=== PATIENT | female | born 1935 | race Caucasian/White ===

== ENCOUNTER → 2017-03-18 | Outpatient (CLI) | payer MEDICARE, BC ==
[2017-03-18 13:25] LABS: T4, Free (Free Thyroxine) 1.47 ng/dL (0.78-2.19)
== END | disposition home or self-care (01) ==
LOC: LABWHC1 12:12
PROVIDERS: ATTEND Internal Medicine Interventional Cardiology
DX: R00.2 Palpitations (principal)
CPT/HCPCS: 36415; 84439; 84443

== ENCOUNTER 2018-12-30 14:09 | Inpatient (IN) | payer MEDICARE, BC ==
[2018-12-30] MEDS ORDERED: IPRATROPIUM-ALBUTEROL 3 ML NEB INHALATION STA (14:40)
[2018-12-30 15:00] LABS: Basophils # (A) 0.2 k/uL (0-0.2); Basophils % (A) 2 %; Eosinophils % (A) 0 %; HCT 41.6 % (34.0-46.0); HGB 13.4 gm/dL (11.4-16.0); Lymphocytes # (A) 1.1 k/uL (1.0-4.8); Lymphocytes % (A) 12 %; MCH 28.3 pg (25.0-35.0); MCHC 32.3 g/dL (31.0-37.0); MCV 87.6 fL (80.0-100.0); Mean Platelet Volume 6.8; Monocytes # (A) 0.8 k/uL (0-1.0); Monocytes % (A) 8 %; Neutrophils # (A) 7.1 k/uL (1.3-7.7); Neutrophils % (A) 74 %; Platelet Count 285 k/uL (150-450); RBC 4.75 m/uL (3.80-5.40); RDW 14.6 % (11.5-15.5); WBC 9.5 k/uL (3.8-10.6)
--- NOTE | 2018-12-30 15:06 | ED ---
SOB HPI - General Chief Complaint: Shortness of Breath Stated Complaint: DARIUS Time Seen by Provider: 12/30/18 14:29 Source: patient, family Mode of arrival: ambulatory Limitations: no limitations - History of Present Illness Initial Comments: This 83-year-old female who was a former smoker and quit 31 years ago who is been dealing with respiratory issues with past week or so. She has shortness of breath exertional dyspnea cough with some yellow phlegm no overt chest pain. She has been on antibiotics as well as steroids without relief. Home medicat ions have not been helping. She is here today because of persistent symptoms that. No nausea no vomiting no other symptoms at this time. She was noted have a low pulse ox at home earlier today. MD Complaint: shortness of breath, cough - Related Data Allergies Allergy/AdvReac Type Severity Reaction Status Date / Time No Known Allergies Allergy Verified 12/30/18 14:22 Review of Systems ROS Statement: Those systems with pertinent positive or pertinent negative responses have been documented in the HPI. ROS Other: All systems not noted in ROS Statement are negative. Past Medical History Past Medical History: Hypertension Additional Past Medical History / Comment(s): brain tumor. 1987 History of Any Multi-Drug Resistant Organisms: None Reported Additional Past Surgical History / Comment(s): hysterectomy. appendectomy. nephrectomy. craniotomy. Bunionectomy Past Psychological History: No Psychological Hx Reported Smoking Status: Former smoker Past Alcohol Use History: Rare Past Drug Use History: Marijuana General Exam - General Exam Comments Initial Comments: Is a well-developed well-nourished awake alert oriented 3 female Limitations: no limitations General appearance: alert, anxious Head exam: Present: atraumatic, normocephalic, normal inspection Eye exam: Present: normal appearance, PERRL, EOMI. Absent: scleral icterus, conjunctival injection, periorbital swelling ENT exam: Present: normal exam, mucous membranes moist Neck exam: Present: normal inspection, full ROM, other (Genitourinary bruits). Absent: tenderness, meningismus, lymphadenopathy Respiratory exam: Present: accessory muscle use (Some kyphosis is demonstrated), decreased breath sounds. Absent: respiratory distress, wheezes, rales, rhonchi, stridor Cardiovascular Exam: Present: regular rate, normal rhythm, normal heart sounds. Absent: systolic murmur, diastolic murmur, rubs, gallop, clicks GI/Abdominal exam: Present: soft, normal bowel sounds. Absent: distended, tenderness, guarding, rebound, rigid Extremities exam: Present: normal inspection, full ROM, normal capillary refill. Absent: tenderness, pedal edema, joint swelling, calf tenderness Back exam: Present: normal inspection Neurological exam: Present: alert, oriented X3, CN II-XII intact Psychiatric exam: Present: normal affect, normal mood Skin exam: Present: warm, dry, intact, normal color. Absent: rash Course Vital Signs 12/30/18 12/30/18 12/30/18 14:12 14:51 15:05 Temperature 98.3 F Pulse Rate 74 72 68 Respiratory 20 22 20 Rate Blood Pressure 138/76 O2 Sat by Pulse 85 L Oximetry - Reevaluation(s) Reevaluation #1: 12/30/18 16:20 Shake he has some improvement after the nebulizer treatment. Medical Decision Making - Medical Decision Making I did discuss findings the patient family members patient will be admitted he does have evidence pneumonia and effusion. Dr. RT hirsch and will be consulted. - Lab Data Result diagrams: 12/30/18 14:33 12/30/18 14:33 Lab Results 12/30/18 12/30/18 12/30/18 Range/Units 14:33 14:33 14:33 WBC 9.5 (3.8-10.6) k/uL RBC 4.75 (3.80-5.40) m/uL Hgb 13.4 (11.4-16.0) gm/dL Hct 41.6 (34.0-46.0) % MCV 87.6 (80.0-100.0) fL MCH 28.3 (25.0-35.0) pg MCHC 32.3 (31.0-37.0) g/dL RDW 14.6 (11.5-15.5) % Plt Count 285 (150-450) k/uL Neutrophils % 74 % Lymphocytes % 12 % Monocytes % 8 % Eosinophils % 0 % Basophils % 2 % Neutrophils # 7.1 (1.3-7.7) k/uL Lymphocytes # 1.1 (1.0-4.8) k/uL Monocytes # 0.8 (0-1.0) k/uL Eosinophils # 0.0 (0-0.7) k/uL Basophils # 0.2 (0-0.2) k/uL PT (9.0-12.0) sec INR (<1.2) APTT (22.0-30.0) sec Sodium 129 L (137-145) mmol/L Potassium 4.4 (3.5-5.1) mmol/L Chloride 91 L (98-107) mmol/L Carbon Dioxide 28 (22-30) mmol/L Anion Gap 10 mmol/L BUN 17 (7-17) mg/dL Creatinine 0.85 (0.52-1.04) mg/dL Est GFR (CKD-EPI)AfAm 73 (>60 ml/min/1.73 sqM) Est GFR (CKD-EPI)NonAf 63 (>60 ml/min/1.73 sqM) Glucose 120 H (74-99) mg/dL Calcium 9.1 (8.4-10.2) mg/dL Magnesium 1.9 (1.6-2.3) mg/dL Total Bilirubin 0.9 (0.2-1.3) mg/dL AST 25 (14-36) U/L ALT 26 (9-52) U/L Alkaline Phosphatase 103 (38-126) U/L Creatine Kinase 135 (30-135) U/L Troponin I (0.000-0.034) ng/mL NT-Pro-B Natriuret Pep 1110 pg/mL Total Protein 7.6 (6.3-8.2) g/dL Albumin 4.0 (3.5-5.0) g/dL 12/30/18 12/30/18 Range/Units 14:33 14:33 WBC (3.8-10.6) k/uL RBC (3.80-5.40) m/uL Hgb (11.4-16.0) gm/dL Hct (34.0-46.0) % MCV (80.0-100.0) fL MCH (25.0-35.0) pg MCHC (31.0-37.0) g/dL RDW (11.5-15.5) % Plt Count (150-450) k/uL Neutrophils % % Lymphocytes % % Monocytes % % Eosinophils % % Basophils % % Neutrophils # (1.3-7.7) k/uL Lymphocytes # (1.0-4.8) k/uL Monocytes # (0-1.0) k/uL Eosinophils # (0-0.7) k/uL Basophils # (0-0.2) k/uL PT 10.6 (9.0-12.0) sec INR 1.0 (<1.2) APTT 25.8 (22.0-30.0) sec Sodium (137-145) mmol/L Potassium (3.5-5.1) mmol/L Chloride (98-107) mmol/L Carbon Dioxide (22-30) mmol/L Anion Gap mmol/L BUN (7-17) mg/dL Creatinine (0.52-1.04) mg/dL Est GFR (CKD-EPI)AfAm (>60 ml/min/1.73 sqM) Est GFR (CKD-EPI)NonAf (>60 ml/min/1.73 sqM) Glucose (74-99) mg/dL Calcium (8.4-10.2) mg/dL Magnesium (1.6-2.3) mg/dL Total Bilirubin (0.2-1.3) mg/dL AST (14-36) U/L ALT (9-52) U/L Alkaline Phosphatase (38-126) U/L Creatine Kinase (30-135) U/L Troponin I 0.020 (0.000-0.034) ng/mL NT-Pro-B Natriuret Pep pg/mL Total Protein (6.3-8.2) g/dL Albumin (3.5-5.0) g/dL - EKG Data -: EKG Interpreted by Me (EKG shows a rhythm of 80 bpm and QRS 120 QT cyst QTc 412/475 left axis leobardo) EKG Comments: EKG and rhythm of 80 QRS 120 QT cyst QTc 412/475 left exodeviation right bundle- branch block anterior septal changes. - Radiology Data Radiology results: report reviewed (I did review the imaging and report evidence of a right pleural effusion and small left effusion also bilateral infiltrates.), image reviewed Disposition Clinical Impression: Pneumonia, Pleural effusion, right, Hypoxemia Disposition: ADMITTED IP TO THIS [facility] Condition: Fair Referrals: Ahsok Sanchez MD [Primary Care Provider] - 1-2 days
[2018-12-30 15:09] LABS: Partial Thromboplastin Time 25.8 sec (22.0-30.0); Prothrombin Time 10.6 sec (9.0-12.0)
[2018-12-30 15:15] LABS: Calcium 9.1 mg/dL (8.4-10.2); Magnesium 1.9 mg/dL (1.6-2.3); Potassium 4.4 mmol/L (3.5-5.1); Total Bilirubin 0.9 mg/dL (0.2-1.3); Total Protein 7.6 g/dL (6.3-8.2)
--- NOTE | 2018-12-30 15:33 | XR ---
EXAMINATION TYPE: XR chest 2V DATE OF EXAM: 12/30/2018 COMPARISON: NONE HISTORY: Short of breath TECHNIQUE: Frontal and lateral views of the chest are obtained. FINDINGS: There is blunting of the costophrenic angles more on the right side. Heart is slightly enl arged. There is minimal pulmonary congestion. There are chest leads. IMPRESSION: Pleural effusions larger on the right side. There is probably some right lower lobe pneu monia also. No obvious heart failure. Mild pulmonary congestion.
[2018-12-30] MEDS ORDERED: PIPERACILLIN-TAZOBACTAM 3.375 GM in SODIUM CHLORIDE 0.9% 100 ML IVPB STA (16:19)
[2018-12-30] MEDS ORDERED: LEVOFLOXACIN 750MG-D5W PMX 750 MG in DEXTROSE/WATER 1 150ML.BAG IVPB STA (16:28)
[2018-12-30] MEDS ORDERED: PNEUMONIA PROTOCOL UTILIZED 1 EACH MISC PO PRN (16:28)
[2018-12-30] MEDS: SODIUM CHLORIDE 0.9% 1,000 ML IV SCH (17:02)
[2018-12-30] MEDS ORDERED: ONDANSETRON 4 MG/2 ML VIAL IVP PRN (17:13)
[2018-12-30] MEDS: IPRATROPIUM-ALBUTEROL 3 ML NEB INHALATION SCH (20:30)
[2018-12-30] MEDS: ATORVASTATIN 20 MG TAB PO SCH (22:34)
[2018-12-30] MEDS: ENOXAPARIN 40 MG/0.4 ML SYRINGE SQ SCH (22:34)
[2018-12-30] MEDS: ASPIRIN 81 MG PO SCH (22:34)
[2018-12-30] MEDS: CEFEPIME 2 GM in SODIUM CHLORIDE 0.9% 100 ML IVPB SCH (22:35)
--- NOTE | 2018-12-30 22:36 | P.HPIM ---
History of Present Illness H&P Date: 12/30/18 Chief Complaint: Short of breath and cough History of presenting complaint: This is a pleasant 83-year-old patient of Dr. Ashok Sanchez. Was also patient's son. Chronic stable medical conditions include brain tumor removed in 1986 with no sequela, GERD, primary osteoarthritis, paroxysmal atrial fibrillation, hyperlipidemia. Patient for about a week been having bothersome respiratory symptoms. That includes shortness of breath. Cough with white to yellow sputum. Appetite is gone down. No obvious fever and chills. Tired rundown. Getting is the short of breath. Patient has received steroids course of ciprofloxacin and also one dose of IV ceftriaxone IM. Symptoms not improving hence she was brought to the ER. Checks expected from consolidation and pleural fluid overload right side. Admitted for the same. Not much of edema. Review of systems: GEN.: Weak tired decreased appetite EYES: None HEENT: None NECK: None RESPIRATORY: As above CARDIOVASCULAR: None GASTROINTESTINAL: None GENITOURINARY: None MUSCULOSKELETAL: Pain in several joints LYMPHATICS: None HEMATOLOGICAL: None PSYCHIATRY: None NEUROLOGICAL: None Past medical history to include: Brain tumor removed in 1986, GERD, or strength redness, paroxysmal atrial flutter ablation, hyperlipidemia hypertension Social history: Lives with family, stop smoking over 30 years ago. Smoked a pack a day for close to 30 years. Patient did work in the [employer] also helped patient's in rehab. Physical examination: VITAL SIGNS: 98.3, 74, 20, 138/76, 85% on room air GENERAL: BMI 31.6, propped up in bed, short of breath at rest. EYES: Pupils equal. Conjunctiva normal. HEENT: External appearance of nose and ears normal, oral cavity grossly normal. NECK: JVD possibly raise; masses not palpable. HEART: First and second heart sounds are normal; minimal edema. LUNGS: Respiratory rate increased, decreased breath sounds at the bases. ABDOMEN: Soft, nontender, liver spleen not palpable, no masses palpable. PSYCH: Alert and oriented x3; mood and affect normal. NEUROLOGICAL: Cranial nerves grossly intact; no facial asymmetry, power and sensation grossly intact. LYMPHATICS: No lymph nodes palpable in the axilla and neck MUSCULOSKELETAL: Evidence of OA especially the hands INVESTIGATIONS, reviewed in the clinical context: White count 9.5 hemoglobin 13.4 platelets 285 2129 progression 4.4 creatinine 0.85 troponin I 0.020 proBNP 1110 Chest x-ray film personally reviewed by me shows-right lower lobe pneumonia with associated pleural effusion. Some venous prominence EKG tracing personally reviewed by me-undetermined rhythm Assessment: -This is a patient for 1 week have been increasing shortness of breath cough is some yellow sputum. Decreased appetite no obvious fever and chills. Checks x- ray showing right lower lobe consolidation associated pleural effusion. Patient has failed outpatient treatment with antibiotics. Treated for pneumonia, consider underlying gram-negative organism -Right pleural effusion could be parapneumonic -GERD -Primary osteoarthritis -Acute hypoxic respiratory failure from underlying pneumonia -Hyperlipidemia -Obesity BMI 31.60 -Rule out congestive heart failure Plan: Patient did receive a dose of Levaquin and Zosyn ER. Also start patient to cefepime. Every 12. Bronchodilators added along with IV Solu-Medrol. Also we'll order a chest ultrasound tomorrow fluid for possible thoracentesis. Dr. Walker from pulmonary is consulted. Home medications resumed. We'll also order 2-D echocardiogram to assess for LV function. Lovenox for DVT prophylaxis. Care was discussed with patient's son and daughter the bedside. Questions were answered. Pro calcitonin level also ordered. Past Medical History Past Medical History: Hypertension Additional Past Medical History / Comment(s): brain tumor. 1987 History of Any Multi-Drug Resistant Organisms: None Reported Additional Past Surgical History / Comment(s): hysterectomy. appendectomy. nephrectomy. craniotomy. Bunionectomy Past Psychological History: No Psychological Hx Reported Smoking Status: Former smoker Past Alcohol Use History: Rare Past Drug Use History: Marijuana - Past Family History Father Additional Family Medical History / Comment(s): stem cell ca, Mother Family Medical History: COPD Additional Family Medical History / Comment(s): asthma, emphysema Medications and Allergies Home Medications Medication Instructions Recorded Confirmed Type Aspirin EC [Ecotrin Low Dose] 81 mg PO Q48H 12/30/18 12/30/18 History Atorvastatin [Lipitor] 20 mg PO HS 12/30/18 12/30/18 History Cephalexin [Keflex] 500 mg PO TID 12/30/18 12/30/18 History Flecainide Acetate 100 mg PO BID 12/30/18 12/30/18 History Krill Oil 500 mg PO DAILY 12/30/18 12/30/18 History Naproxen [Naprosyn] 500 mg PO BID 12/30/18 12/30/18 History Pantoprazole Sodium [Protonix] 40 mg PO DAILY 12/30/18 12/30/18 History Timolol 0.5% Ophth Soln [Timoptic 1 drop BOTH EYES BID 12/30/18 12/30/18 History 0.5% Ophth Soln] Vitamin D3(Unknown Dose) 1 tab PO DAILY 12/30/18 12/30/18 History amLODIPine [Norvasc] 5 mg PO DAILY 12/30/18 12/30/18 History Allergies Allergy/AdvReac Type Severity Reaction Status Date / Time adhesive tape Allergy Itching Verified 12/30/18 17:48 Iodinated Contrast Media Allergy Itching Verified 12/30/18 17:51 Physical Exam Vitals: Vital Signs Temp Pulse Pulse Resp BP BP Pulse Ox 12/30/18 21:17 76 12/30/18 20:30 72 92 L 12/30/18 19:21 97.9 F 72 18 143/79 95 12/30/18 18:13 60 17 12/30/18 17:15 97.7 F 60 17 157/95 92 L 12/30/18 16:30 75 20 118/97 93 L 12/30/18 16:28 92 L 12/30/18 16:27 20 12/30/18 16:00 78 20 143/76 92 L 12/30/18 15:05 68 20 12/30/18 14:51 72 22 12/30/18 14:12 98.3 F 74 20 138/76 85 L Intake and Output 12/30/18 12/30/18 12/30/18 06:59 14:59 22:59 Other: # Voids 1 Weight 78.471 kg Results CBC & Chem 7: 12/30/18 14:33 12/30/18 14:33 Labs: Abnormal Lab Results - Last 24 Hours (Table) 12/30/18 Range/Units 14:33 Sodium 129 L (137-145) mmol/L Chloride 91 L (98-107) mmol/L Glucose 120 H (74-99) mg/dL Thrombosis Risk Factor Assmnt - Choose All That Apply Any of the Below Risk Factors Present?: Yes Each Factor Represents 1 point: Obesity (BMI >25) Each Risk Factor Represents 3 Points: Age 75 years or older Thrombosis Risk Factor Assessment Total Risk Factor Score: 4 Thrombosis Risk Factor Assessment Level: Moderate Risk
[2018-12-30] MEDS: FLECAINIDE 50 MG TAB PO SCH (22:48)
[2018-12-30] MEDS: TIMOLOL 0.5% OPHTH DROPS 5 ML BTL BOTH EYES SCH (22:48)
[2018-12-30] MEDS: NAPROXEN 250 MG TAB PO SCH (22:48)
[2018-12-31] MEDS ORDERED: PIPERACILLIN-TAZOBACTAM 3.375 GM in SODIUM CHLORIDE 0.9% 100 ML IVPB SCH ×2
[2018-12-31] MEDS: IPRATROPIUM-ALBUTEROL 3 ML NEB INHALATION SCH ×7 (00:18→23:22)
--- NOTE | 2018-12-31 07:01 | XR ---
EXAMINATION TYPE: XR chest 2V DATE OF EXAM: 12/31/2018 HISTORY: pneumonia. REFERENCE: Previous study dated 12/30/2018. FINDINGS: there is a worsening right pleural effusion and a smaller left pleural effusion. The heart is enlarged. Pulmonary vasculature is mildly increased. There is subtle interstitial change. IMPRESSION: 1. WORSENING CHANGES OF PULMONARY EDEMA. 2. WORSENING RIGHT-SIDED EFFUSION. 3. CARDIOMEGALY.
[2018-12-31] MEDS: NAPROXEN 250 MG TAB PO SCH ×2 (07:32→20:41)
[2018-12-31] MEDS: ENOXAPARIN 40 MG/0.4 ML SYRINGE SQ SCH (07:32)
[2018-12-31] MEDS: amLODIPine 5 MG TAB PO SCH (07:32)
[2018-12-31] MEDS: PANTOPRAZOLE 40 MG TABLET PO SCH (07:32)
[2018-12-31] MEDS: FLECAINIDE 50 MG TAB PO SCH ×2 (07:32→20:40)
--- NOTE | 2018-12-31 07:54 | US ---
EXAMINATION TYPE: US chest DATE OF EXAM: 12/31/2018 COMPARISON: NONE CLINICAL HISTORY: chest marking for thoracentesis. TECHNIQUE: Targeted ultrasound of the posterior lower bilateral hemithoraces EXAM MEASUREMENTS: Right Pleural Effusion pocket size: 3.2 cm Right skin surface to fluid distance: 3.4cm Left Pleural Effusion pocket size: 0 cm Right side marked for possible thoracentesis outside the dept. Left side not marked for possible thoracentesis outside the dept. Pulmonologists are able to review the images in the patient?s EMR. IMPRESSIONS: MODERATE RIGHT-SIDED PLEURAL EFFUSION WITH TRACE LEFT-SIDED FLUID.
[2018-12-31] MEDS ORDERED: RX INFO: IV CONTRAST WAS GIVEN 1 EACH MISC MISCELLANE PRN (08:31)
[2018-12-31] MEDS ORDERED: methylPREDNISolone SOD SUCCI 125 MG/2 ML VIAL IV ONE (08:51)
[2018-12-31] MEDS ORDERED: FAMOTIDINE 20 MG/2 ML VIAL IV ONE (08:52)
[2018-12-31] MEDS ORDERED: diphenhydrAMINE 50 MG/ML 1 ML VIAL IVP STA (08:52)
[2018-12-31] MEDS: TIMOLOL 0.5% OPHTH DROPS 5 ML BTL BOTH EYES SCH ×2 (09:03→20:40)
--- NOTE | 2018-12-31 09:34 | CT ---
EXAMINATION TYPE: CT angio chest DATE OF EXAM: 12/31/2018 9:25 AM COMPARISON: HISTORY: SOB CT DLP: 487.5 mGycm Automated exposure control for dose reduction was used. CONTRAST: CTA scan of the thorax is performed with IV Contrast, patient injected with 86 mL of Isovue 370, pulm onary embolism protocol. . FINDINGS: There is a large right pleural effusion and a smaller left pleural effusion. There is moder ate atelectasis of the right lung base. The heart is enlarged. There is a small amount of pericardial fluid within the pericardial reflection. There is atelectatic change present in the dependent portio ns of the left lung. There is no significant axillary, mediastinal or hilar adenopathy. There is no evidence of pulmonary embolus. The aorta is normal in size without evidence of dissection. There is some eccentric thrombus within t he distal thoracic aorta. Visualized portions of the upper abdomen are unremarkable. There is degenerative disc disease and hypertrophic spondylosis within the spine. IMPRESSION: 1. THIS EXAMINATION IS NEGATIVE FOR PULMONARY EMBOLUS. 2. BILATERAL PLEURAL EFFUSIONS, LARGER ON THE RIGHT THE LEFT WITH MODERATE CONSOLIDATION AT THE RIGHT LUNG BASE. 3. MILD CARDIOMEGALY. 4. SOME FLUID WITHIN THE PERICARDIAL REFLECTION.
[2018-12-31] MEDS: CEFEPIME 2 GM in SODIUM CHLORIDE 0.9% 100 ML IVPB SCH ×2 (12:07→21:38)
--- NOTE | 2018-12-31 12:18 | P.CNPUL ---
History of Present Illness Consult date: 12/31/18 Reason for consult: pneumonia, pleural effusion Chief complaint: shortness of breath and cough. History of present illness: this is an 83-year-old female with history of multiple medical problems including paroxysmal atrial fibrillation, dyslipidemia, osteoarthritis, history of brain tumor removed in 1986 with no sequela. Patient presented to the hospital with 1 week history of cough, shortness of breath, describes the cough as productive with white to yellow sputum. Denies any fever, no chills, no hemoptysis, but she feels generally weak and tired, rundown. Denies any hemoptysis, denies any chest pain, has been on outpatient therapy with ciprofloxacin, steroids, and she received IM ceftriaxone. Considering no improvement, patient was seen in the ER last night. Chest x-ray showed evidence of right lower lobe consolidation, and a small right-sided pleural effusion noted on ultrasound of the chest. CT of the chest showed no evidence of thromboembolic disease. Patient was admitted, placed on antibiotics in the form ofZosyn and cefepime. And this consult was initiated. I did review the results of the ultrasound, and the pocket of the fluid seems to be relatively small to consider safe right-sided thoracentesis. I recommended CT angiogram of the chest and clearly there is no evidence of thromboembolic disease. There is a right lower lobe consolidation, and there is a right-sided parapneumonic effusion again too small to consider safe thoracentesis at this point. But if it does get any larger, thoracentesis will definitely be indicated.her labs on admission showed no evidence of leukocytosis, however her sodium was noted to be low at 129. Renal profile was normal. Review of Systems Constitutional: feels worn down, tired, no fever no chills no weight loss. Eyes: denies any blurred vision, no diplopia. Ears, nose, mouth and throat: denies headache, sore throat, nasal congestion. Cardiovascular: Denies chest pain, denies syncope. Respiratory: mostly cough and shortness of breath. As noted in HPI. Gastrointestinal: denies nausea vomiting abdominal pain melena or hematemesis. Musculoskeletal, denies any deformities or any limitation of range of motion. Integumentary: denies any rashes or pruritus. Neurological: Denies numbness, Denies weakness Psychiatric: denies any symptoms of active depression or anxiety. Endocrine: denies any heat or cold intolerance. Past Medical History Past Medical History: Hypertension Additional Past Medical History / Comment(s): brain tumor. 1987 History of Any Multi-Drug Resistant Organisms: None Reported Additional Past Surgical History / Comment(s): hysterectomy. appendectomy. nephrectomy. craniotomy. Bunionectomy Past Psychological History: No Psychological Hx Reported Smoking Status: Former smoker Past Alcohol Use History: Rare Past Drug Use History: Marijuana - Past Family History Father Additional Family Medical History / Comment(s): stem cell ca, Mother Family Medical History: COPD Additional Family Medical History / Comment(s): asthma, emphysema Medications and Allergies Home Medications Medication Instructions Recorded Confirmed Type Aspirin EC [Ecotrin Low Dose] 81 mg PO Q48H 12/30/18 12/30/18 History Atorvastatin [Lipitor] 20 mg PO HS 12/30/18 12/30/18 History Cephalexin [Keflex] 500 mg PO TID 12/30/18 12/30/18 History Flecainide Acetate 100 mg PO BID 12/30/18 12/30/18 History Krill Oil 500 mg PO DAILY 12/30/18 12/30/18 History Naproxen [Naprosyn] 500 mg PO BID 12/30/18 12/30/18 History Pantoprazole Sodium [Protonix] 40 mg PO DAILY 12/30/18 12/30/18 History Timolol 0.5% Ophth Soln [Timoptic 1 drop BOTH EYES BID 12/30/18 12/30/18 History 0.5% Ophth Soln] Vitamin D3(Unknown Dose) 1 tab PO DAILY 12/30/18 12/30/18 History amLODIPine [Norvasc] 5 mg PO DAILY 12/30/18 12/30/18 History Allergies Allergy/AdvReac Type Severity Reaction Status Date / Time adhesive tape Allergy Itching Verified 12/30/18 17:48 Iodinated Contrast Media Allergy Itching Verified 12/30/18 17:51 Physical Exam Vitals: Vital Signs Temp Pulse Pulse Resp BP BP Pulse Ox 12/31/18 09:45 72 12/31/18 09:34 68 12/31/18 08:00 60 16 12/31/18 07:00 98.3 F 60 16 144/67 90 L 12/31/18 04:29 76 12/31/18 04:10 75 12/31/18 00:57 97.3 F L 66 15 122/67 93 L 12/31/18 00:28 72 12/31/18 00:18 72 12/30/18 21:17 76 12/30/18 20:30 72 92 L 12/30/18 19:21 97.9 F 72 18 143/79 95 12/30/18 18:13 60 17 12/30/18 17:15 97.7 F 60 17 157/95 92 L 12/30/18 16:30 75 20 118/97 93 L 12/30/18 16:28 92 L 12/30/18 16:27 20 12/30/18 16:00 78 20 143/76 92 L 12/30/18 15:05 68 20 12/30/18 14:51 72 22 12/30/18 14:12 98.3 F 74 20 138/76 85 L Intake and Output 12/30/18 12/31/18 12/31/18 22:59 06:59 14:59 Intake Total 10 Balance 10 Intake: Oral 10 Other: # Voids 1 1 Physical Exam: Revealed 83-year-old female in no distress.on 3 L nasal cannula. Head: Atraumatic, normocephalic. HEENT:[Neck is supple.] [No neck masses.] [No thyromegaly.] [No JVD.]PERRLA, EOMI, no icterus. Chest: [crackles at the right base, dullness and diminished breath sounds at the right base. Left side is relatively clear. Cardiac Exam: [Normal S1 and S2, no S3 gallop, no murmur.] Abdomen: [Soft, nontender, no megaly, no rebound, no guarding, normal bowel sounds.] Extremities: [No clubbing, no edema, no cyanosis.] Neurological Exam:alert and oriented 3. [No focal neurologic deficit.] skin: No rashes. Lymphatics: No lymphadenopathy. musculoskeletal: Normal range of motion, osteoarthritic changes noted in hands, otherwise unremarkable. Results - Laboratory Findings CBC and BMP: 12/30/18 14:33 12/30/18 14:33 PT/INR, D-dimer PT 10.6 sec (9.0-12.0) 12/30/18 14:33 INR 1.0 (<1.2) 12/30/18 14:33 D-Dimer 0.74 mg/L FEU (<0.60) H 12/31/18 07:28 Abnormal lab findings: Abnormal Labs 12/30/18 12/31/18 14:33 07:28 D-Dimer 0.74 H Sodium 129 L Chloride 91 L Glucose 120 H - Diagnostic Findings Chest x-ray: image reviewed (as noted in HPI. Chest x-ray ultrasound and CT of the chest were all reviewed.) CT scan - chest: image reviewed Assessment and Plan Assessment: impression: 1acute hypoxic respiratory failure secondary to right lower lobe pneumonia and parapneumonic effusion, this is likely community acquired pneumonia. However failed outpatient antibiotics treatment. 2 acute right lower lobe pneumonia, community-acquired, failed outpatient therapy. 3 acute right parapneumonic effusion, however based on the ultrasound, not large enough to consider thoracentesis, but if it does seem to get any larger, thoracentesis would be performed. And should be considered. 4 multiple comorbidities including hypertension, previous history of craniotomy for brain tumor in 1986,and osteoarthritis. Recommendation: Reviewed and discussed the findings with the patient's son-in-law/Dr. Sanchez, recommended that we continue the course of antibiotics is presently on, recommended repeat chest x-ray, and in the right sided pleural effusion seems to get any larger, I am certain Dr. Cherry will recommend a right-sided thoracentesis. At this point, the pleural effusion is relatively small in size to considered safe thoracentesis. Again ultrasound and CT of the chest were both reviewed. There is no evidence of thromboembolic disease, there is evidence of right lower lobe consolidation and right parapneumonic pleural effusion.Will continue to follow. Time with Patient: Greater than 30
[2018-12-31] MEDS: methylPREDNISolone SOD SUCCI 40 MG/ML 1 ML VIAL IV SCH (13:36)
[2018-12-31] MEDS: CHOLECALCIFEROL 1,000 UNIT TAB PO SCH (13:36)
--- NOTE | 2018-12-31 16:18 | P.PN ---
Progress Note - Text Progress Note Date: 12/31/18 Chief Complaint: Short of breath and cough History of presenting complaint: This is a pleasant 83-year-old patient of Dr. Ashok Sanchez. Was also patient's son. Chronic stable medical conditions include brain tumor removed in 1986 with no sequela, GERD, primary osteoarthritis, paroxysmal atrial fibrillation, hyperlipidemia. Patient for about a week been having bothersome respiratory symptoms. That includes shortness of breath. Cough with white to yellow sputum. Appetite is gone down. No obvious fever and chills. Tired rundown. Getting is the short of breath. Patient has received steroids course of ciprofloxacin and also one dose of IV ceftriaxone IM. Symptoms not improving hence she was brought to the ER. Checks expected from consolidation and pleural fluid overload right side. Admitted for the same. Not much of edema. Admitted with right lower lobe pneumonia, small pleural effusion and COPD exacerbation Today-patient did get to uses CPAP machine this morning. Short of breath. Some wheezing. Family the bedside. Oral intake decreased. Review of systems: Was done for constitutional, cardiovascular, GI, pulmonary. relevant finding as above Active Medications Albuterol/Ipratropium (Duoneb 0.5 Mg-3 Mg/3 Ml Soln) 3 ml INHALATION RT-Q4H [facility] Last Admin: 12/31/18 16:02 Dose: 3 ml Documented by: Amlodipine Besylate (Norvasc) 5 mg PO DAILY [facility] Last Admin: 12/31/18 07:32 Dose: 5 mg Documented by: Aspirin (Aspirin) 81 mg PO Q48H [facility] Last Admin: 12/30/18 22:34 Dose: 81 mg Documented by: Atorvastatin Calcium (Lipitor) 20 mg PO HS [facility] Last Admin: 12/30/18 22:34 Dose: 20 mg Documented by: Budesonide (Pulmicort) 1 mg INHALATION RT-BID [facility] Cholecalciferol (Vitamin D3 (25 Mcg = 1000 Iu)) 1,000 unit PO DAILY [facility] Last Admin: 12/31/18 13:36 Dose: 1,000 unit Documented by: Enoxaparin Sodium (Lovenox) 40 mg SQ DAILY [facility] Last Admin: 12/31/18 07:32 Dose: 40 mg Documented by: Flecainide Acetate (Tambocor) 100 mg PO BID [facility] Last Admin: 12/31/18 07:32 Dose: 100 mg Documented by: Sodium Chloride (Saline 0.9%) 1,000 mls @ 20 mls/hr IV .Q24H [facility] Last Admin: 12/30/18 17:02 Dose: 20 mls/hr Documented by: Cefepime HCl 2 gm/ Sodium (Chloride) 100 mls @ 200 mls/hr IVPB Q12H [facility] Last Admin: 12/31/18 12:07 Dose: 200 mls/hr Documented by: Insulin Aspart (Novolog) 0 unit SQ AC-TID [facility]; Protocol Methylprednisolone Sodium Succinate (Solu-Medrol) 40 mg IV Q8HR [facility] Last Admin: 12/31/18 13:36 Dose: 40 mg Documented by: Miscellaneous Information (Pneumonia Protocol Utilized) 1 each PO ONCE PRN PRN Reason: Per Protocol Miscellaneous Information (Rx Info: Iv Contrast Was Given) 1 each MISCELLANE DAILY PRN PRN Reason: Per Protocol Stop: 01/02/19 08:31 Naproxen (Naprosyn) 500 mg PO BID [facility] Last Admin: 12/31/18 07:32 Dose: 500 mg Documented by: Ondansetron HCl (Zofran) 4 mg IVP Q8HR PRN PRN Reason: Nausea Pantoprazole Sodium (Protonix) 40 mg PO DAILY [facility] Last Admin: 12/31/18 07:32 Dose: 40 mg Documented by: Timolol Maleate (Timoptic) 1 drops BOTH EYES BID [facility] Last Admin: 12/31/18 09:03 Dose: 1 drops Documented by: Physical examination: VITAL SIGNS: 99, 67, 16, 150/71, 90% on 4 L GENERAL: Laying in bed, tired with the CPAP machine, short of breath. EYES: Pupils equal. Conjunctiva normal. HEENT: External appearance of nose and ears normal, oral cavity grossly normal. NECK: JVD possibly raise; masses not palpable. HEART: First and second heart sounds are normal; minimal edema. LUNGS: Respiratory rate increased, decreased breath sounds at the bases., Some wheezing ABDOMEN: Soft, nontender, liver spleen not palpable, no masses palpable. PSYCH: Alert and oriented x3; mood and affect normal. MUSCULOSKELETAL: Evidence of OA especially the hands INVESTIGATIONS, reviewed in the clinical context: White count 9.5 hemoglobin 13.4 platelets 285 progression 4.4 creatinine 0.85 troponin I 0.020 proBNP 1110 Chest x-ray film personally reviewed by me shows-right lower lobe pneumonia with associated pleural effusion. Some venous prominence EKG tracing personally reviewed by me-undetermined rhythm Chest CTA-negative for PE Assessment: -Right lower lobe pneumonia with a small parapneumonic effusion, having failed outpatient treatment, slow to respond -Bilateral pleural effusion right greater than left -GERD -Obstructive sleep apnea, uses CPAP -Primary osteoarthritis -Acute hypoxic respiratory failure from underlying pneumonia, slow to respond -Hyperlipidemia -Obesity BMI 31.60 -Rule out congestive heart failure Plan: Patient is on IV cefepime, DuoNeb, Solu-Medrol. Nebulized Pulmicort is being added. Echocardiogram pending. Care was discussed with the family the bedside.
[2018-12-31 17:02] LABS: Glucose,Whole Blood 163 mg/dL (75-99)
[2018-12-31] MEDS: INSULIN ASPART (NovoLOG) 100 UNIT/ML VIAL SQ SCH (17:19)
[2018-12-31] MEDS ORDERED: LEVOFLOXACIN 750MG-D5W PMX 750 MG in DEXTROSE/WATER 1 150ML.BAG IVPB SCH (18:00)
[2018-12-31] MEDS: SODIUM CHLORIDE 0.9% 1,000 ML IV SCH (18:48)
[2018-12-31] MEDS: BUDESONIDE 1 MG/2 ML NEBU INHALATION SCH (19:50)
[2018-12-31] MEDS: ATORVASTATIN 20 MG TAB PO SCH (20:40)
[2018-12-31] MEDS: guaiFENesin-DM 600/30MG 1 EACH TAB.ER.12H PO SCH (20:41)
[2018-12-31] MEDS ORDERED: methylPREDNISolone SOD SUCCI 40 MG/ML 1 ML VIAL IV SCH (22:24)
[2019-01-01] MEDS: methylPREDNISolone SOD SUCCI 40 MG/ML 1 ML VIAL IV SCH ×2 (00:09→08:20)
[2019-01-01] MEDS: IPRATROPIUM-ALBUTEROL 3 ML NEB INHALATION SCH ×5 (03:29→18:54)
[2019-01-01 06:35] LABS: HCT 36.2 % (34.0-46.0); HGB 11.7 gm/dL (11.4-16.0); MCH 28.2 pg (25.0-35.0); MCHC 32.3 g/dL (31.0-37.0); MCV 87.2 fL (80.0-100.0); Mean Platelet Volume 6.7; Platelet Count 254 k/uL (150-450); RBC 4.16 m/uL (3.80-5.40); RDW 14.7 % (11.5-15.5); WBC 10.5 k/uL (3.8-10.6)
[2019-01-01 06:55] LABS: Albumin 3.1 g/dL (3.5-5.0); Calcium 8.6 mg/dL (8.4-10.2); Potassium 4.4 mmol/L (3.5-5.1); Total Bilirubin 0.7 mg/dL (0.2-1.3); Total Protein 6.2 g/dL (6.3-8.2)
[2019-01-01 07:08] LABS: Glucose,Whole Blood 133 mg/dL (75-99)
[2019-01-01] MEDS: INSULIN ASPART (NovoLOG) 100 UNIT/ML VIAL SQ SCH ×2 (07:41→11:48)
[2019-01-01] MEDS: CHOLECALCIFEROL 1,000 UNIT TAB PO SCH (08:20)
[2019-01-01] MEDS: amLODIPine 5 MG TAB PO SCH (08:21)
[2019-01-01] MEDS: PANTOPRAZOLE 40 MG TABLET PO SCH (08:21)
[2019-01-01] MEDS: FLECAINIDE 50 MG TAB PO SCH ×2 (08:21→21:28)
[2019-01-01] MEDS: NAPROXEN 250 MG TAB PO SCH ×2 (08:21→21:27)
[2019-01-01] MEDS: guaiFENesin-DM 600/30MG 1 EACH TAB.ER.12H PO SCH ×2 (08:21→21:27)
[2019-01-01] MEDS: TIMOLOL 0.5% OPHTH DROPS 5 ML BTL BOTH EYES SCH ×2 (08:22→21:27)
[2019-01-01] MEDS: BUDESONIDE 1 MG/2 ML NEBU INHALATION SCH (09:47)
--- NOTE | 2019-01-01 10:56 | ECHOF ---
Referral Reason:assess LV function MEASUREMENTS -------- HEIGHT: 1577.3 cm WEIGHT: 78.5 kg BP: RVIDd: 2.4 cm (< 3.3) IVSd: 1.1 cm (0.6 - 1.1) LVIDd: 4.5 cm (3.9 - 5.3) LVPWd: 1.3 cm (0.6 - 1.1) IVSs: 1.8 cm LVIDs: 3.0 cm LVPWs: 2.1 cm Ao Diam: 3.8 cm (2.0 - 3.7) AV Cusp: 1.7 cm (1.5 - 2.6) LA Diam: 3.0 cm (2.7 - 3.8) MV EXCURSION: 12.777 mm (> 18.000) MV EF SLOPE: 74 mm/s (70 - 150) EPSS: 0.7 cm MV E Steve: 1.04 m/s MV DecT: 243 ms MV A Steve: 0.84 m/s MV E/A Ratio: 1.24 RAP: 5.00 mmHg RVSP: 15.95 mmHg FINDINGS -------- Sinus rhythm with extra systolic beats. This was a technically adequate study. The left ventricular size is normal. Left ventricular wall thickness is normal. Overall left vent ricular systolic function is normal with, an EF between 55 - 60 %. The right ventricle is normal in size. The left atrial size is normal. The right atrial size is normal. The aortic valve is trileaflet and appears structurally normal. The mitral valve is normal. Mild mitral regurgitation is present. Mild tricuspid regurgitation present. Right ventricular systolic pressure is normal at < 35 mmHg. There is no pulmonic regurgitation present. The aortic root size is normal. Normal inferior vena cava with normal inspiratory collapse consistent with estimated right atrial pre ssure of 5 mmHg. There is a trivial pericardial effusion present. CONCLUSIONS -------- 1. Sinus rhythm with extra systolic beats. 2. This was a technically adequate study. 3. The left ventricular size is normal. 4. Left ventricular wall thickness is normal. 5. Overall left ventricular systolic function is normal with, an EF between 55 - 60 %. 6. The right ventricle is normal in size. 7. The left atrial size is normal. 8. The right atrial size is normal. 9. The aortic valve is trileaflet and appears structurally normal. 10. The mitral valve is normal. 11. Mild mitral regurgitation is present. 12. Mild tricuspid regurgitation present. 13. Right ventricular systolic pressure is normal at < 35 mmHg. 14. There is no pulmonic regurgitation present. 15. The aortic root size is normal. 16. Normal inferior vena cava with normal inspiratory collapse consistent with estimated right atrial pressure of 5 mmHg. 17. There is a trivial pericardial effusion present. [employer] STRIPPER: Meghan Vance RDCS
--- NOTE | 2019-01-01 11:14 | XR ---
EXAMINATION TYPE: XR chest 1V portable DATE OF EXAM: 01/01/2019 COMPARISON: Prior chest x-ray 12/31/2018 HISTORY: Pleural effusion, pneumonia TECHNIQUE: Single frontal view of the chest is obtained. FINDINGS: The heart remains enlarged. Bibasilar increased density persists. There is no evident pneu mothorax. Aorta is dense. Pulmonary artery appears prominently. IMPRESSION: Findings are similar to prior exam. Bilateral pleural effusions and associated atelectas is versus pneumonia or edema. Cardiomegaly. Correlate for pulmonary artery hypertension.
--- NOTE | 2019-01-01 11:48 | P.PN ---
Subjective Progress Note Date: 01/01/19 Principal diagnosis: Acute hypoxic respiratory failure secondary to right lower lobe pneumonia and parapneumonic effusion this is an 83-year-old female with history of multiple medical problems including paroxysmal atrial fibrillation, dyslipidemia, osteoarthritis, history of brain tumor removed in 1986 with no sequela. Patient presented to the hospital with 1 week history of cough, shortness of breath, describes the cough as productive with white to yellow sputum. Denies any fever, no chills, no hemoptysis, but she feels generally weak and tired, rundown. Denies any he moptysis, denies any chest pain, has been on outpatient therapy with ciprofloxacin, steroids, and she received IM ceftriaxone. Considering no improvement, patient was seen in the ER last night. Chest x-ray showed evidence of right lower lobe consolidation, and a small right-sided pleural effusion noted on ultrasound of the chest. CT of the chest showed no evidence of thromboembolic disease. Patient was admitted, placed on antibiotics in the form ofZosyn and cefepime. And this consult was initiated. I did review the results of the ultrasound, and the pocket of the fluid seems to be relatively small to consider safe right-sided thoracentesis. I recommended CT angiogram of the chest and clearly there is no evidence of thromboembolic disease. There is a right lower lobe consolidation, and there is a right-sided parapneumonic effusion again too small to consider safe thoracentesis at this point. But if it does get any larger, thoracentesis will definitely be indicated.her labs on a dmission showed no evidence of leukocytosis, however her sodium was noted to be low at 129. Renal profile was normal. On 01/01/2019 patient seen in follow-up on medical surgical floor. She is resti ng in bed, still weak, but she states that today she is feeling better. Afebrile, she remains on 4 L of oxygen and the pulse ox of 91%, she's been wearing her home CPAP unit at night, respirations are nonlabored, she denies any complaints of chest pain, or worsening dyspnea, lung sounds are diminished at the bases. Today's chest x-ray shows persistence of bilateral pleural effusions and associated atelectasis/infiltrates. Echocardiogram results have been reviewed revealing EF of 55-60%, mild mitral regurgitation, and mild tricuspid regurgitation, no pulmonary hypertension and trivial pericardial effusion. On today's labs her CBC is within normal limits, sodium remains low at 128, renal p rofile is within normal limits, calcitonin is low at 0.13 suggesting low probability of infectious process, proBNP was repeated and did come back elevated at 1430 Objective - Vital Signs Vital signs: Vital Signs Temp 98.5 F 01/01/19 07:00 Pulse 73 01/01/19 09:56 Resp 15 01/01/19 07:00 BP 152/95 01/01/19 07:00 Pulse Ox 91 L 01/01/19 07:00 Intake & Output 12/31/18 01/01/19 01/01/19 18:59 06:59 18:59 Intake Total 300 20 Balance 300 20 Intake: Intake, IV Titration 100 Amount Cefepime 2 gm In Sodium 100 Chloride 0.9% 100 ml @ 200 mls/hr IVPB Q12H [facility] Rx#:[id number] Oral 200 20 Other: # Voids 1 1 - Exam GENERAL EXAM: Alert, pleasant, 83-year-old white female, resting in bed, appears fatigued, but no acute distress comfortable in no apparent distress. HEAD: Normocephalic/atraumatic. EYES: Normal reaction of pupils, equal size. Conjunctiva pink, sclera white. NOSE: Clear with pink turbinates. THROAT: No erythema or exudates. NECK: No masses, no JVD, no thyroid enlargement, no adenopathy. CHEST: No chest wall deformity. Symmetrical expansion. LUNGS: Equal air entry with diminished breath sounds at bilateral bases CVS: Regular rate and rhythm, normal S1 and S2, no gallops, no murmurs, no rubs ABDOMEN: Soft, nontender. No hepatosplenomegaly, normal bowel sounds, no guarding or rigidity. EXTREMITIES: No clubbing, no edema, no cyanosis, 2+ pulses and upper and lower extremities. MUSCULOSKELETAL: Muscle strength and tone normal. SPINE: No scoliosis or deformity SKIN: No rashes CENTRAL NERVOUS SYSTEM: Alert and oriented -3. No focal deficits, tone is normal in all 4 extremities. PSYCHIATRIC: Alert and oriented -3. Appropriate affect. Intact judgment and insight. - Labs CBC & Chem 7: 01/01/19 06:06 01/01/19 06:06 Labs: Abnormal Lab Results - Last 24 Hours (Table) 12/30/18 12/31/18 01/01/19 Range/Units 14:33 16:50 06:06 Sodium 128 L (137-145) mmol/L Chloride 93 L (98-107) mmol/L Glucose 137 H (74-99) mg/dL POC Glucose (mg/dL) 163 H (75-99) mg/dL Total Protein 6.2 L (6.3-8.2) g/dL Albumin 3.1 L (3.5-5.0) g/dL Procalcitonin 0.13 H (0.02-0.09) ng/mL 01/01/19 Range/Units 06:53 Sodium (137-145) mmol/L Chloride (98-107) mmol/L Glucose (74-99) mg/dL POC Glucose (mg/dL) 133 H (75-99) mg/dL Total Protein (6.3-8.2) g/dL Albumin (3.5-5.0) g/dL Procalcitonin (0.02-0.09) ng/mL Microbiology - Last 24 Hours (Table) 12/31/18 11:30 Gram Stain - Preliminary Sputum Sputum Culture - Preliminary 12/30/18 16:35 Blood Culture - Preliminary Blood No Growth after 24 hours Assessment and Plan Plan: 1acute hypoxic respiratory failure secondary to a possibility of congestive heart failure with diastolic dysfunction and a possibility of right lower lobe pneumonia and parapneumonic effusion, this is likely community acquired pneumonia. However failed outpatient antibiotics treatment. 2 acute right lower lobe pneumonia, community-acquired, failed outpatient therapy. 3 acute right parapneumonic effusion or effusion of congestive heart failure, however based on the ultrasound, not large enough to consider thoracentesis, but if it does seem to get any larger, thoracentesis would be performed. And should be considered. 4 multiple comorbidities including hypertension, previous history of craniotomy for brain tumor in 1986,and osteoarthritis. Plan: Continue empiric antibiotic coverage, we will add Lasix 40 mg every 12 hours, today's chest x-ray shows persistence of bilateral pleural effusions and pulmonary vascular congestion. Possibility of congestive heart failure with diastolic dysfunction is being considered. Daily weights, daily chest x-ray, accurate intake and output. Will stop the IV steroids, we'll stop the Pulmicort and Perforomist. We'll continue to follow I performed a history & physical examination of the patient and discussed their management with my nurse practitioner, Anamaria Ponce. I reviewed the nurse practitioner's note and agree with the documented findings and plan of care. Lung sounds are positive for diminished breath sounds in bilateral bases. The findings and the impression was discussed with the patient. I attest to the documentation by the nurse practitioner. Time with Patient: Less than 30
[2019-01-01] MEDS: FUROSEMIDE 10 MG/ML 4 ML VIAL IV SCH ×2 (11:49→21:28)
[2019-01-01] MEDS: CEFEPIME 2 GM in SODIUM CHLORIDE 0.9% 100 ML IVPB SCH ×2 (11:50→23:16)
[2019-01-01] MEDS: ENOXAPARIN 40 MG/0.4 ML SYRINGE SQ SCH (11:51)
[2019-01-01 12:08] LABS: Glucose,Whole Blood 128 mg/dL (75-99)
[2019-01-01 13:30] VITALS: BMI 31.6
--- NOTE | 2019-01-01 17:50 | P.PN ---
Progress Note - Text Progress Note Date: 01/01/19 Chief Complaint: Short of breath and cough History of presenting complaint: This is a pleasant 83-year-old patient of Dr. Ashok Sanchez. Was also patient's son. Chronic stable medical conditions include brain tumor removed in 1986 with no sequela, GERD, primary osteoarthritis, paroxysmal atrial fibrillation, hyperlipidemia. Patient for about a week been having bothersome respiratory symptoms. That includes shortness of breath. Cough with white to yellow sputum. Appetite is gone down. No obvious fever and chills. Tired rundown. Getting is the short of breath. Patient has received steroids course of ciprofloxacin and also one dose of IV ceftriaxone IM. Symptoms not improving hence she was brought to the ER. Checks expected from consolidation and pleural fluid overload right side. Admitted for the same. Not much of edema. Admitted with right lower lobe pneumonia, small pleural effusion and COPD exacerbation Today-breathing better. Less congestion. Did tolerate some diet. Slept better last night. Daughter at the bedside. Nasal stuffiness. Review of systems: Was done for constitutional, cardiovascular, GI, pulmonary. relevant finding as above Active Medications Albuterol/Ipratropium (Duoneb 0.5 Mg-3 Mg/3 Ml Soln) 3 ml INHALATION RT-Q4H [facility] Last Admin: 01/01/19 15:38 Dose: 3 ml Documented by: Amlodipine Besylate (Norvasc) 5 mg PO DAILY [facility] Last Admin: 01/01/19 08:21 Dose: 5 mg Documented by: Aspirin (Aspirin) 81 mg PO Q48H [facility] Last Admin: 12/30/18 22:34 Dose: 81 mg Documented by: Atorvastatin Calcium (Lipitor) 20 mg PO HS [facility] Last Admin: 12/31/18 20:40 Dose: 20 mg Documented by: Cholecalciferol (Vitamin D3 (25 Mcg = 1000 Iu)) 1,000 unit PO DAILY [facility] Last Admin: 01/01/19 08:20 Dose: 1,000 unit Documented by: Enoxaparin Sodium (Lovenox) 40 mg SQ DAILY [facility] Last Admin: 01/01/19 11:51 Dose: 40 mg Documented by: Flecainide Acetate (Tambocor) 100 mg PO BID [facility] Last Admin: 01/01/19 08:21 Dose: 100 mg Documented by: Furosemide (Lasix) 40 mg IV Q12HR [facility] Last Admin: 01/01/19 11:49 Dose: 40 mg Documented by: Guaifenesin/Dextromethorphan (Mucinex Dm) 1 each PO Q12HR [facility] Last Admin: 01/01/19 08:21 Dose: 1 each Documented by: Sodium Chloride (Saline 0.9%) 1,000 mls @ 20 mls/hr IV .Q24H [facility] Last Admin: 12/31/18 18:48 Dose: Not Given Documented by: Cefepime HCl 2 gm/ Sodium (Chloride) 100 mls @ 200 mls/hr IVPB Q12H [facility] Last Admin: 01/01/19 11:50 Dose: 200 mls/hr Documented by: Melatonin (Melatonin) 3 mg PO HS PRN PRN Reason: Insomnia Miscellaneous Information (Pneumonia Protocol Utilized) 1 each PO ONCE PRN PRN Reason: Per Protocol Miscellaneous Information (Rx Info: Iv Contrast Was Given) 1 each MISCELLANE DAILY PRN PRN Reason: Per Protocol Stop: 01/02/19 08:31 Naproxen (Naprosyn) 500 mg PO BID [facility] Last Admin: 01/01/19 08:21 Dose: 500 mg Documented by: Ondansetron HCl (Zofran) 4 mg IVP Q8HR PRN PRN Reason: Nausea Pantoprazole Sodium (Protonix) 40 mg PO DAILY [facility] Last Admin: 01/01/19 08:21 Dose: 40 mg Documented by: Senna/Docusate Sodium (Senokot-S) 2 each PO HS [facility] Timolol Maleate (Timoptic) 1 drops BOTH EYES BID [facility] Last Admin: 01/01/19 08:22 Dose: 1 drops Documented by: Physical examination: VITAL SIGNS: 98.5, 70, 15, 1 51/95, 91% on CPAP GENERAL: Laying in bed, breathing easier today. EYES: Pupils equal. Conjunctiva normal. HEENT: External appearance of nose and ears normal, oral cavity grossly normal. NECK: JVD possibly raise; masses not palpable. HEART: First and second heart sounds are normal; minimal edema. LUNGS: Respiratory rate increased, decreased breath sounds at the bases. ABDOMEN: Soft, nontender, liver spleen not palpable, no masses palpable. PSYCH: Alert and oriented x3; mood and affect normal. MUSCULOSKELETAL: Evidence of OA especially the hands INVESTIGATIONS, reviewed in the clinical context: White count 10.5 hemoglobin 11.7 progression 4.4 sitting 0.87 sodium 128 ProBNP 1430 pro calcitonin 0.15 Chest x-ray film-personally reviewed by me shows right basilar infiltrate and effusion 2-D echo-EF 55-60% Previous testing White count 9.5 hemoglobin 13.4 platelets 285 progression 4.4 creatinine 0.85 troponin I 0.020 proBNP 1110 Chest x-ray film personally reviewed by me shows-right lower lobe pneumonia with associated pleural effusion. Some venous prominence EKG tracing personally reviewed by me-undetermined rhythm Chest CTA-negative for PE Assessment: -Right lower lobe pneumonia with a small parapneumonic effusion, having failed outpatient treatment, slow to respond -Bilateral pleural effusion right greater than left -GERD -Obstructive sleep apnea, uses CPAP -Primary osteoarthritis -Acute hypoxic respiratory failure from underlying pneumonia, slow to respond -Hyperlipidemia -Obesity BMI 31.60 -Possibility of acute on chronic congestive heart failure from diastolic dysfunction EF 60-65% Plan: Patient is seen by Dr. Michelle from pulmonary artery today. He discontinued patient Solu-Medrol and Pulmicort. He also put the patient on IV Lasix. For possible CHF. Other medications continue. We'll consult cardiology. Encouraged the patient to be up in a chair as much possible. Spoke to the daughter at the bedside.
[2019-01-01] MEDS: SODIUM CHLORIDE 0.9% 1,000 ML IV SCH (19:34)
[2019-01-01] MEDS: SENNOSIDES-DOCUSATE SODIUM 1 EACH TAB PO SCH (21:27)
[2019-01-01] MEDS: ASPIRIN 81 MG PO SCH (21:27)
[2019-01-01] MEDS: ATORVASTATIN 20 MG TAB PO SCH (21:28)
[2019-01-01] MEDS: MELATONIN 3 MG TABLET PO PRN (23:16)
[2019-01-02] MEDS: IPRATROPIUM-ALBUTEROL 3 ML NEB INHALATION SCH ×5 (04:11→19:22)
[2019-01-02 07:19] LABS: Calcium 8.7 mg/dL (8.4-10.2); Potassium 3.4 mmol/L (3.5-5.1)
--- NOTE | 2019-01-02 08:03 | XR ---
EXAMINATION TYPE: XR chest 1V portable DATE OF EXAM: 01/02/2019 COMPARISON: Prior chest x-ray 01/01/2019 HISTORY: Shortness of breath TECHNIQUE: Single frontal view of the chest is obtained. FINDINGS: Findings are similar to prior exam. IMPRESSION: Bilateral pleural effusions and associated atelectasis right greater than left. Cardiome akhil.
[2019-01-02] MEDS: CHOLECALCIFEROL 1,000 UNIT TAB PO SCH (08:14)
[2019-01-02] MEDS: PANTOPRAZOLE 40 MG TABLET PO SCH (08:14)
[2019-01-02] MEDS: FUROSEMIDE 10 MG/ML 4 ML VIAL IV SCH (08:14)
[2019-01-02] MEDS: amLODIPine 5 MG TAB PO SCH (08:14)
[2019-01-02] MEDS: ENOXAPARIN 40 MG/0.4 ML SYRINGE SQ SCH (08:14)
[2019-01-02] MEDS: NAPROXEN 250 MG TAB PO SCH ×2 (08:15→20:12)
[2019-01-02] MEDS: FLECAINIDE 50 MG TAB PO SCH ×2 (08:15→20:12)
[2019-01-02] MEDS: guaiFENesin-DM 600/30MG 1 EACH TAB.ER.12H PO SCH ×2 (08:15→20:12)
[2019-01-02] MEDS: TIMOLOL 0.5% OPHTH DROPS 5 ML BTL BOTH EYES SCH ×2 (08:16→20:12)
[2019-01-02] MEDS ORDERED: Potassium Replacement Protocol 1 EACH MISC MISCELLANE PRN (10:12)
[2019-01-02] MEDS: POTASSIUM CHLORIDE ER 20 MEQ TAB.ER PO SCH ×3 (11:13→16:23)
[2019-01-02] MEDS: CEFEPIME 2 GM in SODIUM CHLORIDE 0.9% 100 ML IVPB SCH (11:13)
--- NOTE | 2019-01-02 11:30 | P.PN ---
Subjective Progress Note Date: 01/02/19 Principal diagnosis: Acute hypoxic respiratory failure secondary to right lower lobe pneumonia and parapneumonic effusion this is an 83-year-old female with history of multiple medical problems including paroxysmal atrial fibrillation, dyslipidemia, osteoarthritis, history of brain tumor removed in 1986 with no sequela. Patient presented to the hospital with 1 week history of cough, shortness of breath, describes the cough as productive with white to yellow sputum. Denies any fever, no chills, no hemoptysis, but she feels generally weak and tired, rundown. Denies any he moptysis, denies any chest pain, has been on outpatient therapy with ciprofloxacin, steroids, and she received IM ceftriaxone. Considering no improvement, patient was seen in the ER last night. Chest x-ray showed evidence of right lower lobe consolidation, and a small right-sided pleural effusion noted on ultrasound of the chest. CT of the chest showed no evidence of thromboembolic disease. Patient was admitted, placed on antibiotics in the form ofZosyn and cefepime. And this consult was initiated. I did review the results of the ultrasound, and the pocket of the fluid seems to be relatively small to consider safe right-sided thoracentesis. I recommended CT angiogram of the chest and clearly there is no evidence of thromboembolic disease. There is a right lower lobe consolidation, and there is a right-sided parapneumonic effusion again too small to consider safe thoracentesis at this point. But if it does get any larger, thoracentesis will definitely be indicated.her labs on a dmission showed no evidence of leukocytosis, however her sodium was noted to be low at 129. Renal profile was normal. On 01/01/2019 patient seen in follow-up on medical surgical floor. She is resti ng in bed, still weak, but she states that today she is feeling better. Afebrile, she remains on 4 L of oxygen and the pulse ox of 91%, she's been wearing her home CPAP unit at night, respirations are nonlabored, she denies any complaints of chest pain, or worsening dyspnea, lung sounds are diminished at the bases. Today's chest x-ray shows persistence of bilateral pleural effusions and associated atelectasis/infiltrates. Echocardiogram results have been reviewed revealing EF of 55-60%, mild mitral regurgitation, and mild tricuspid regurgitation, no pulmonary hypertension and trivial pericardial effusion. On today's labs her CBC is within normal limits, sodium remains low at 128, renal p rofile is within normal limits, calcitonin is low at 0.13 suggesting low probability of infectious process, proBNP was repeated and did come back elevated at 1430 The patient is seen today 01/02/2019 in follow-up on the regular medical floor. She is currently sitting up in a chair at the bedside. Awake and alert in no acute distress. Feeling quite a bit better today as compared to yesterday. She did receive Lasix 40 mg IVP every 12 hours. She was voiding quite a bit. She remains on oxygen at 4 L/m per nasal cannula. Her chest x-ray shows improvement in the fluid volume overload. Cannot exclude pneumonia. She remains on cefepime and bronchodilators. Objective - Vital Signs Vital signs: Vital Signs Temp 98.3 F 01/02/19 07:00 Pulse 84 01/02/19 11:10 Resp 16 01/02/19 07:00 BP 129/76 01/02/19 07:00 Pulse Ox 95 01/02/19 07:00 Intake & Output 01/01/19 01/02/19 01/02/19 18:59 06:59 18:59 Intake Total 80 Balance 80 Weight 78.471 kg Intake: Intake, IV Titration 80 Amount Sodium Chloride 0.9% 1, 80 000 ml @ 20 mls/hr IV . Q24H [facility] Rx#:[id number] Other: Voiding Method Toilet # Voids 2 2 - Exam GENERAL EXAM: Alert, pleasant, 83-year-old female patient, sitting up in the bedside. Improved today as compared to yesterday. On 4 L nasal cannula HEAD: Normocephalic/atraumatic. EYES: Normal reaction of pupils, equal size. Conjunctiva pink, sclera white. NOSE: Clear with pink turbinates. THROAT: No erythema or exudates. NECK: No masses, no JVD, no thyroid enlargement, no adenopathy. CHEST: No chest wall deformity. Symmetrical expansion. LUNGS: Equal air entry with few scattered crackles, diminished breath sounds at bilateral bases CVS: Regular rate and rhythm, normal S1 and S2, no gallops, no murmurs, no rubs ABDOMEN: Soft, nontender. No hepatosplenomegaly, normal bowel sounds, no guarding or rigidity. EXTREMITIES: No clubbing, no edema, no cyanosis, 2+ pulses and upper and lower extremities. MUSCULOSKELETAL: Muscle strength and tone normal. SPINE: No scoliosis or deformity SKIN: No rashes CENTRAL NERVOUS SYSTEM: No focal deficits, tone is normal in all 4 extremities. PSYCHIATRIC: Alert and oriented -3. Appropriate affect. Intact judgment and insight. - Labs CBC & Chem 7: 01/01/19 06:06 01/02/19 06:34 Labs: Abnormal Lab Results - Last 24 Hours (Table) 01/01/19 01/01/19 01/02/19 Range/Units 06:06 11:35 06:34 Sodium 133 L (137-145) mmol/L Potassium 3.4 L (3.5-5.1) mmol/L Chloride 91 L (98-107) mmol/L Carbon Dioxide 37 H (22-30) mmol/L BUN 25 H (7-17) mg/dL Creatinine 1.16 H (0.52-1.04) mg/dL Glucose 110 H (74-99) mg/dL POC Glucose (mg/dL) 128 H (75-99) mg/dL Procalcitonin 0.15 H (0.02-0.09) ng/mL Microbiology - Last 24 Hours (Table) 12/31/18 11:30 Gram Stain - Final Sputum Sputum Culture - Final 12/30/18 16:35 Blood Culture - Preliminary Blood No Growth after 48 hours Assessment and Plan Assessment: 1acute hypoxic respiratory failure secondary to congestive heart failure with diastolic dysfunction and a possibility of right lower lobe pneumonia and parapneumonic effusion. 2 acute right lower lobe pneumonia, community-acquired, failed outpatient therapy. 3 acute right parapneumonic effusion or effusion of congestive heart failure, however based on the ultrasound, not large enough to consider thoracentesis, but if it does seem to get any larger, thoracentesis would be performed. Chest x- ray improved today. 4 multiple comorbidities including hypertension, previous history of craniotomy for brain tumor in 1986,and osteoarthritis. Plan: The patient was seen and evaluated by Dr. Cherry. Chest x-ray and labs reviewed. We will decrease the IV Lasix to 40 mg daily. Continue cefepime. Increase her activity as tolerated. Decrease the FiO2 as tolerated. We will continue to follow and make further recommendations based on her clinical status. I, the cosigning physician, performed a history & physical examination of the patient. Lungs sounds few scattered crackles, diminished in the bases. Maintaining good O2 saturations in the 90s on 4 L/m per nasal cannula. I discussed the assessment and plan of care with my nurse practitioner, Carmenza Christopher. I attest to the above note as dictated by her.
--- NOTE | 2019-01-02 14:35 | P.CRDCN ---
History of Present Illness History of present illness: HISTORY OF PRESENTING ILLNESS This is a pleasant 83-year-old female past medical history significant for SVT maintained on flecainide, hypertension and dyslipidemia. She follows in the office with Dr. García. We have been asked to see her in consultation secondary to suspected heart failure. The patient initially presented to the hospital December 30 with symptoms of shortness of breath and productive cough. She has been diagnosed with pneumonia and is being treated with antibiotics. Chest x-ray on admission revealed pulmonary edema with a right-sided pleural effusion. Ultrasound of the chest was obtained showing a measurement of 3.2 cm of the right pleural effusion. Pulmonary is following and does not recommend thoracentesis at this time. She is seen and examined sitting up in bed with family at the bedside. Yesterday she was initiated on IV Lasix for pulmonary care team. She states overall she is feeling much improved from admission. She denies any further exertional shortness of breath however still has a faint cough. Repeat chest x-ray today shows bilateral pleural effusions and associated atelectasis right greater than left. It appears there is some improvement since admission. EKG on admission reveals right bundle branch block, sinus mechanism with first-degree AV block, poor R-wave progression and left axis deviation with a heart rate of 80. Echocardiogram obtained on this admission reveals preserved LV systolic function with ejection fraction 55-60%. Laboratory data reviewed, sodium 133, potassium 3.4, creatinine 1.16, procalcitoninn 0.15, proBNP 1430, cardiac enzymes negative x1, magnesium 1.9, CBC unremarkable. Current daily cardiac medications include aspirin 81 mg every other day, atorvastatin 20 mg at bedtime, flecainide 100 mg twice a day and amlodipine 5 mg daily. Most recent stress test in the office with a Lexiscan stress test in April 2017 with no evidence of reversible ischemia. REVIEW OF SYSTEMS At the time of my exam: CONSTITUTIONAL: Denies fever or chills. CARDIOVASCULAR: Denies chest pain, shortness of breath, orthopnea, PND or palpitations. RESPIRATORY: Denies cough. GASTROINTESTINAL: Denies abdominal pain, diarrhea, constipation, nausea or vomiting. MUSCULOSKELETAL: Denies myalgias. NEUROLOGIC: Denies numbness, tingling or weakness. ENDOCRINE: Denies fatigue, weight change, polydipsia or polyurina. GENITOURINARY: Denies burning, hematuria or urgency with micturation. HEMATOLOGIC: Denies history of anemia or bleeding. PHYSICAL EXAMINATION Blood pressure 129/76 heart rate 80 afebrile and maintaining oxygen saturaiton on [place] cannula. CONSTITUTIONAL: No apparent distress. HEENT: Head is normocephalic. Pupils are equal, round. Sclerae anicteric. Mucous membranes of the mouth are moist. No JVD. No carotid bruit. CHEST EXAMINATION: Lungs are clear to auscultation. No chest wall tenderness is noted on palpation or with deep breathing. HEART EXAMINATION: Regular rate and rhythm. S1, S2 heard. No murmurs, gallops or rub. ABDOMEN: Soft, nontender. Positive bowel sounds. EXTREMITIES: 2+ peripheral pulses, no lower extremity edema and no calf tenderness. NEUROLOGIC EXAMINATION: Patient is awake, alert and oriented x3. ASSESSMENT Pneumonia Pleural effusion History of SVT on flecanide Hypertension Dyslipidemia PLAN Echocardiogram reviewed, no evidence of systolic or diastolic dysfunction. Normal proBNP. Recommend cautious diuresis, if at all. This was discussed with Dr. Cherry as well. Continue antibiotics and suspect she may be discharged home in the next 24- 48hrs. Thank you kindly for this consultation. Nurse Practitioner note has been reviewed, I agree with a documented findings and plan of care. Patient was seen and examined. Past Medical History Past Medical History: Hypertension Additional Past Medical History / Comment(s): brain tumor. 1987 History of Any Multi-Drug Resistant Organisms: None Reported Additional Past Surgical History / Comment(s): hysterectomy. appendectomy. nephrectomy. craniotomy. Bunionectomy Past Psychological History: No Psychological Hx Reported Smoking Status: Former smoker Past Alcohol Use History: Rare Past Drug Use History: Marijuana - Past Family History Father Additional Family Medical History / Comment(s): stem cell ca, Mother Family Medical History: COPD Additional Family Medical History / Comment(s): asthma, emphysema Medications and Allergies Home Medications Medication Instructions Recorded Confirmed Type Aspirin EC [Ecotrin Low Dose] 81 mg PO Q48H 12/30/18 12/30/18 History Atorvastatin [Lipitor] 20 mg PO HS 12/30/18 12/30/18 History Cephalexin [Keflex] 500 mg PO TID 12/30/18 12/30/18 History Flecainide Acetate 100 mg PO BID 12/30/18 12/30/18 History Krill Oil 500 mg PO DAILY 12/30/18 12/30/18 History Naproxen [Naprosyn] 500 mg PO BID 12/30/18 12/30/18 History Pantoprazole Sodium [Protonix] 40 mg PO DAILY 12/30/18 12/30/18 History Timolol 0.5% Ophth Soln [Timoptic 1 drop BOTH EYES BID 12/30/18 12/30/18 History 0.5% Ophth Soln] Vitamin D3(Unknown Dose) 1 tab PO DAILY 12/30/18 12/30/18 History amLODIPine [Norvasc] 5 mg PO DAILY 12/30/18 12/30/18 History Allergies Allergy/AdvReac Type Severity Reaction Status Date / Time adhesive tape Allergy Itching Verified 12/30/18 17:48 Iodinated Contrast Media Allergy Itching Verified 12/30/18 17:51 Physical Exam Vitals: Vital Signs Temp Pulse Pulse Resp BP Pulse Ox 01/02/19 11:22 80 01/02/19 11:10 84 01/02/19 07:44 80 01/02/19 07:32 80 01/02/19 07:00 98.3 F 66 16 129/76 95 01/02/19 03:14 16 01/02/19 02:22 98.7 F 61 18 114/71 94 L 01/01/19 21:27 86 135/77 01/01/19 20:24 98.6 F 65 18 136/81 95 01/01/19 19:28 18 01/01/19 19:08 82 01/01/19 18:54 80 01/01/19 15:50 78 01/01/19 15:39 78 01/01/19 15:00 98.6 F 62 15 126/78 92 L Intake and Output 01/01/19 01/02/19 01/02/19 22:59 06:59 14:59 Intake Total 80 Balance 80 Intake: Intake, IV Titration 80 Amount Sodium Chloride 0.9% 1, 80 000 ml @ 20 mls/hr IV . Q24H [facility] Rx#:[id number] Other: Voiding Method Toilet # Voids 2 2 2 Results 01/01/19 06:06 01/02/19 06:34 Comprehensive Metabolic Panel 01/02/19 Range/Units 06:34 Sodium 133 L (137-145) mmol/L Potassium 3.4 L (3.5-5.1) mmol/L Chloride 91 L (98-107) mmol/L Carbon Dioxide 37 H (22-30) mmol/L BUN 25 H (7-17) mg/dL Creatinine 1.16 H (0.52-1.04) mg/dL Glucose 110 H (74-99) mg/dL Calcium 8.7 (8.4-10.2) mg/dL Current Medications Generic Name Dose Route Start Last Admin Trade Name Thelma PRN Reason Stop Dose Admin Albuterol/Ipratropium 3 ml 12/30/18 20:00 01/02/19 11:10 Duoneb 0.5 Mg-3 Mg/3 Ml Soln INHALATION 3 ml RT-Q4H CJ Administration Amlodipine Besylate 5 mg 12/31/18 09:00 01/02/19 08:14 Norvasc PO 5 mg DAILY CJ Administration Aspirin 81 mg 12/30/18 22:15 01/01/19 21:27 Aspirin PO 81 mg Q48H [facility]J Administration Atorvastatin Calcium 20 mg 12/30/18 22:15 01/01/19 21:28 Lipitor PO 20 mg HS CJ Administration Cholecalciferol 1,000 unit 12/31/18 13:00 01/02/19 08:14 Vitamin D3 (25 Mcg = 1000 Iu) PO 1,000 unit DAILY CJ Administration Enoxaparin Sodium 40 mg 12/30/18 22:30 01/02/19 08:14 Lovenox SQ 40 mg DAILY CJ Administration Flecainide Acetate 100 mg 12/30/18 22:15 01/02/19 08:15 Tambocor PO 100 mg BID CJ Administration Furosemide 40 mg 01/03/19 09:00 Lasix IV DAILY CJ Guaifenesin/Dextromethorphan 1 each 12/31/18 21:00 01/02/19 08:15 Mucinex Dm PO 1 each Q12HR [facility]J Administration Sodium Chloride 1,000 mls @ 20 mls/hr 12/30/18 16:30 01/01/19 19:34 Saline 0.9% IV Not Given .Q24H [facility] Cefepime HCl 1 gm/ Sodium 50 mls @ 100 mls/hr 01/03/19 09:00 Chloride IVPB DAILY CJ Melatonin 3 mg 12/31/18 21:13 01/01/19 23:16 Melatonin PO 3 mg HS PRN Administration Insomnia Miscellaneous Information 1 each 12/30/18 16:28 Pneumonia Protocol Utilized PO ONCE PRN Per Protocol Miscellaneous Information 1 each 01/02/19 10:12 Potassium Per Protocol MISCELLANE DAILY PRN Per Protocol Protocol Naproxen 500 mg 12/30/18 22:30 01/02/19 08:15 Naprosyn PO 500 mg BID CJ Administration Ondansetron HCl 4 mg 12/30/18 17:13 Zofran IVP Q8HR PRN Nausea Pantoprazole Sodium 40 mg 12/31/18 09:00 01/02/19 08:14 Protonix PO 40 mg DAILY CJ Administration Potassium Chloride 20 meq 01/02/19 12:00 01/02/19 14:18 K-Dur 20 PO 01/02/19 16:01 20 meq Q2HR [facility]J Administration Senna/Docusate Sodium 2 each 01/01/19 21:00 01/01/19 21:27 Senokot-S PO 2 each HS CJ Administration Timolol Maleate 1 drops 12/30/18 23:00 01/02/19 08:16 Timoptic BOTH EYES 1 drops BID CJ Administration Intake and Output 01/01/19 01/02/19 01/02/19 22:59 06:59 14:59 Intake Total 80 Balance 80 Intake: Intake, IV Titration 80 Amount Sodium Chloride 0.9% 1, 80 000 ml @ 20 mls/hr IV . Q24H [facility] Rx#:[id number] Other: Voiding Method Toilet # Voids 2 2 2 01/01/19 06:06 01/02/19 06:34
[2019-01-02] MEDS: SODIUM CHLORIDE 0.9% 1,000 ML IV SCH (16:09)
[2019-01-02] MEDS: ATORVASTATIN 20 MG TAB PO SCH (20:12)
[2019-01-02] MEDS: SENNOSIDES-DOCUSATE SODIUM 1 EACH TAB PO SCH (20:13)
[2019-01-02] MEDS: MELATONIN 3 MG TABLET PO PRN (22:02)
--- NOTE | 2019-01-02 23:27 | P.PN ---
Progress Note - Text Progress Note Date: 01/02/19 Chief Complaint: Short of breath and cough interval history: This is a pleasant 83-year-old patient of Dr. Ashok Sanchez. Was also patient's son. Chronic stable medical conditions include brain tumor removed in 1986 with no sequela, GERD, primary osteoarthritis, paroxysmal atrial fibrillation, hyperlipidemia. Patient for about a week been having bothersome respiratory symptoms. That includes shortness of breath. Cough with white to yellow sputum. Appetite is gone down. No obvious fever and chills. Tired rundown. Getting is the short of breath. Patient has received steroids course of ciprofloxacin and also one dose of IV ceftriaxone IM. Symptoms not improving hence she was brought to the ER. chest x-ray showed consolidation and pleural fluid overload right side. Admitted for the same. Not much of edema. Admitted with right lower lobe pneumonia, small pleural effusion and COPD exacerbation. [place] to be also in CHF exacerbation by Dr. Michelle. Started on IV Lasix. Today-feeling much better. today to walk in the hallway. Appetite still not v diogo good..breathing much improved. Daughter by the bedside. On IV Lasix per Dr. Michelle. Review of systems: Was done for constitutional, cardiovascular, GI, pulmonary. relevant finding as above Active Medications Albuterol/Ipratropium (Duoneb 0.5 Mg-3 Mg/3 Ml Soln) 3 ml INHALATION RT-Q4H [facility] Last Admin: 01/02/19 19:22 Dose: 3 ml Documented by: Amlodipine Besylate (Norvasc) 5 mg PO DAILY [facility] Last Admin: 01/02/19 08:14 Dose: 5 mg Documented by: Aspirin (Aspirin) 81 mg PO Q48H [facility] Last Admin: 01/01/19 21:27 Dose: 81 mg Documented by: Atorvastatin Calcium (Lipitor) 20 mg PO HS [facility] Last Admin: 01/02/19 20:12 Dose: 20 mg Documented by: Cholecalciferol (Vitamin D3 (25 Mcg = 1000 Iu)) 1,000 unit PO DAILY [facility] Last Admin: 01/02/19 08:14 Dose: 1,000 unit Documented by: Enoxaparin Sodium (Lovenox) 30 mg SQ DAILY [facility] Flecainide Acetate (Tambocor) 100 mg PO BID [facility] Last Admin: 01/02/19 20:12 Dose: 100 mg Documented by: Furosemide (Lasix) 40 mg IV DAILY [facility] Guaifenesin/Dextromethorphan (Mucinex Dm) 1 each PO Q12HR [facility] Last Admin: 01/02/19 20:12 Dose: 1 each Documented by: Sodium Chloride (Saline 0.9%) 1,000 mls @ 20 mls/hr IV .Q24H [facility] Last Admin: 01/02/19 16:09 Dose: Not Given Documented by: Cefepime HCl 1 gm/ Sodium (Chloride) 50 mls @ 100 mls/hr IVPB DAILY [facility] Melatonin (Melatonin) 3 mg PO HS PRN PRN Reason: Insomnia Last Admin: 01/02/19 22:02 Dose: 3 mg Documented by: Miscellaneous Information (Pneumonia Protocol Utilized) 1 each PO ONCE PRN PRN Reason: Per Protocol Miscellaneous Information (Potassium Per Protocol) 1 each MISCELLANE DAILY PRN; Protocol PRN Reason: Per Protocol Naproxen (Naprosyn) 500 mg PO BID [facility] Last Admin: 01/02/19 20:12 Dose: 500 mg Documented by: Ondansetron HCl (Zofran) 4 mg IVP Q8HR PRN PRN Reason: Nausea Pantoprazole Sodium (Protonix) 40 mg PO DAILY [facility] Last Admin: 01/02/19 08:14 Dose: 40 mg Documented by: Senna/Docusate Sodium (Senokot-S) 2 each PO HS [facility] Last Admin: 01/02/19 20:13 Dose: 2 each Documented by: Timolol Maleate (Timoptic) 1 drops BOTH EYES BID [facility] Last Admin: 01/02/19 20:12 Dose: 1 drops Documented by: Physical examination: VITAL SIGNS:98.3, 69, 18, 89/47, 93% on 4 L GENERAL: propped up in bed, appears better. EYES: Pupils equal. Conjunctiva normal. HEENT: External appearance of nose and ears normal, oral cavity grossly normal. NECK: JVD possibly raise; masses not palpable. HEART: First and second heart sounds are normal; minimal edema. LUNGS: Respiratory rate increased, decreased breath sounds at the bases. ABDOMEN: Soft, nontender, liver spleen not palpable, no masses palpable. PSYCH: Alert and oriented x3; mood and affect normal. MUSCULOSKELETAL: Evidence of OA especially the hands INVESTIGATIONS, reviewed in the clinical context: potassium3.4 bun 25 creatinine 1.16 Previous testing White count 9.5 hemoglobin 13.4 platelets 285 progression 4.4 creatinine 0.85 troponin I 0.020 proBNP 1110 Chest x-ray film personally reviewed by me shows-right lower lobe pneumonia with associated pleural effusion. Some venous prominence EKG tracing personally reviewed by me-undetermined rhythm Chest CTA-negative for PE ProBNP 1430 pro calcitonin 0.15 2-D echo-EF 55-60% Assessment: -Right lower lobe pneumonia with a small parapneumonic effusion, having failed outpatient treatment, slow to respond -Bilateral pleural effusion right greater than left -GERD -Obstructive sleep apnea, uses CPAP -Primary osteoarthritis -Acute hypoxic respiratory failure from underlying pneumonia, slow to respond -Hyperlipidemia -Obesity BMI 31.60 -Possibility of acute on chronic congestive heart failure from diastolic dysfunction EF 60-65% -Metabolic alkalosis from volume contraction Plan: we will DC IV Lasix. Patient's creatinine has gone up in patient also metabolic alkalosis. Clinically patient is much improved up in the hallway. Repeat electrolytes in the morning. Discussed with cardiology Dr. CLEMENT García. Discussed at length with the patient daughter the bedside. Possible discharge home and next day or 2.
[2019-01-03] MEDS: IPRATROPIUM-ALBUTEROL 3 ML NEB INHALATION SCH ×3 (00:10→07:57)
[2019-01-03 07:07] LABS: Glucose,Whole Blood 103 mg/dL (75-99)
[2019-01-03 08:20] LABS: Calcium 8.8 mg/dL (8.4-10.2); Potassium 3.9 mmol/L (3.5-5.1)
[2019-01-03 08:35] VITALS: BP 127/78; PULSE 60; RESP 16; TEMP 99.3
[2019-01-03] MEDS: NAPROXEN 250 MG TAB PO SCH (09:00)
[2019-01-03] MEDS: PANTOPRAZOLE 40 MG TABLET PO SCH (09:00)
[2019-01-03] MEDS ORDERED: ENOXAPARIN 40 MG/0.4 ML SYRINGE SQ SCH (09:00)
[2019-01-03] MEDS ORDERED: ENOXAPARIN 30 MG/0.3 ML SYRINGE SQ SCH (09:00)
[2019-01-03] MEDS ORDERED: FUROSEMIDE 10 MG/ML 4 ML VIAL IV SCH (09:00)
[2019-01-03] MEDS: amLODIPine 5 MG TAB PO SCH (09:00)
[2019-01-03] MEDS ORDERED: CEFEPIME 1 GM in SODIUM CHLORIDE 0.9% 50 ML IVPB SCH (09:00)
[2019-01-03] MEDS: FLECAINIDE 50 MG TAB PO SCH (09:00)
[2019-01-03] MEDS: TIMOLOL 0.5% OPHTH DROPS 5 ML BTL BOTH EYES SCH (09:01)
[2019-01-03] MEDS: CHOLECALCIFEROL 1,000 UNIT TAB PO SCH (09:01)
[2019-01-03] MEDS: guaiFENesin-DM 600/30MG 1 EACH TAB.ER.12H PO SCH (09:01)
--- NOTE | 2019-01-03 11:24 | P.PN ---
Subjective Progress Note Date: 01/03/19 Principal diagnosis: Acute hypoxic respiratory failure secondary to right lower lobe pneumonia and parapneumonic effusion this is an 83-year-old female with history of multiple medical problems including paroxysmal atrial fibrillation, dyslipidemia, osteoarthritis, history of brain tumor removed in 1986 with no sequela. Patient presented to the hospital with 1 week history of cough, shortness of breath, describes the cough as productive with white to yellow sputum. Denies any fever, no chills, no hemoptysis, but she feels generally weak and tired, rundown. Denies any he moptysis, denies any chest pain, has been on outpatient therapy with ciprofloxacin, steroids, and she received IM ceftriaxone. Considering no improvement, patient was seen in the ER last night. Chest x-ray showed evidence of right lower lobe consolidation, and a small right-sided pleural effusion noted on ultrasound of the chest. CT of the chest showed no evidence of thromboembolic disease. Patient was admitted, placed on antibiotics in the form ofZosyn and cefepime. And this consult was initiated. I did review the results of the ultrasound, and the pocket of the fluid seems to be relatively small to consider safe right-sided thoracentesis. I recommended CT angiogram of the chest and clearly there is no evidence of thromboembolic disease. There is a right lower lobe consolidation, and there is a right-sided parapneumonic effusion again too small to consider safe thoracentesis at this point. But if it does get any larger, thoracentesis will definitely be indicated.her labs on a dmission showed no evidence of leukocytosis, however her sodium was noted to be low at 129. Renal profile was normal. On 01/01/2019 patient seen in follow-up on medical surgical floor. She is resti ng in bed, still weak, but she states that today she is feeling better. Afebrile, she remains on 4 L of oxygen and the pulse ox of 91%, she's been wearing her home CPAP unit at night, respirations are nonlabored, she denies any complaints of chest pain, or worsening dyspnea, lung sounds are diminished at the bases. Today's chest x-ray shows persistence of bilateral pleural effusions and associated atelectasis/infiltrates. Echocardiogram results have been reviewed revealing EF of 55-60%, mild mitral regurgitation, and mild tricuspid regurgitation, no pulmonary hypertension and trivial pericardial effusion. On today's labs her CBC is within normal limits, sodium remains low at 128, renal p rofile is within normal limits, calcitonin is low at 0.13 suggesting low probability of infectious process, proBNP was repeated and did come back elevated at 1430 The patient is seen today 01/02/2019 in follow-up on the regular medical floor. She is currently sitting up in a chair at the bedside. Awake and alert in no acute distress. Feeling quite a bit better today as compared to yesterday. She did receive Lasix 40 mg IVP every 12 hours. She was voiding quite a bit. She remains on oxygen at 4 L/m per nasal cannula. Her chest x-ray shows improvement in the fluid volume overload. Cannot exclude pneumonia. She remains on cefepime and bronchodilators. The patient is seen today 01/03/2019 in follow-up on the regular medical floor. She is awake and alert in no acute distress. Breathing easier today as compared to yesterday. Maintaining O2 saturations in the 90s on 4 L/m per nasal cannula. Temperature 99.9. Hemodynamically stable. Blood and sputum cultures reveal no growth. Sodium 135. Potassium 3.9. Creatinine 1.22. She remains on DuoNeb inhalations, antibiotics in the form of Augmentin. Objective - Vital Signs Vital signs: Vital Signs Temp 99.3 F 01/03/19 07:00 Pulse 77 01/03/19 08:10 Resp 16 01/03/19 07:00 BP 127/78 01/03/19 07:00 Pulse Ox 94 L 01/03/19 07:00 Intake & Output 01/02/19 01/03/19 01/03/19 18:59 06:59 18:59 Intake Total 480 Balance 480 Weight 81.2 kg Intake: Oral 480 Other: Voiding Method Toilet # Voids 2 2 - Exam GENERAL EXAM: Alert, pleasant, 83-year-old female patient. On 4 L nasal cannula HEAD: Normocephalic/atraumatic. EYES: Normal reaction of pupils, equal size. Conjunctiva pink, sclera white. NOSE: Clear with pink turbinates. THROAT: No erythema or exudates. NECK: No masses, no JVD, no thyroid enlargement, no adenopathy. CHEST: No chest wall deformity. Symmetrical expansion. LUNGS: Equal air entry with few scattered crackles, diminished breath sounds at bilateral bases CVS: Regular rate and rhythm, normal S1 and S2, no gallops, no murmurs, no rubs ABDOMEN: Soft, nontender. No hepatosplenomegaly, normal bowel sounds, no guarding or rigidity. EXTREMITIES: No clubbing, no edema, no cyanosis, 2+ pulses and upper and lower extremities. MUSCULOSKELETAL: Muscle strength and tone normal. SPINE: No scoliosis or deformity SKIN: No rashes CENTRAL NERVOUS SYSTEM: No focal deficits, tone is normal in all 4 extremities. PSYCHIATRIC: Alert and oriented -3. Appropriate affect. Intact judgment and insight. - Labs CBC & Chem 7: 01/01/19 06:06 01/03/19 07:02 Labs: Abnormal Lab Results - Last 24 Hours (Table) 01/03/19 01/03/19 Range/Units 06:56 07:02 Sodium 135 L (137-145) mmol/L Chloride 92 L (98-107) mmol/L Carbon Dioxide 38 H (22-30) mmol/L BUN 26 H (7-17) mg/dL Creatinine 1.22 H (0.52-1.04) mg/dL POC Glucose (mg/dL) 103 H (75-99) mg/dL Microbiology - Last 24 Hours (Table) 12/30/18 16:35 Blood Culture - Preliminary Blood No Growth after 72 hours 12/31/18 11:30 Gram Stain - Final Sputum Sputum Culture - Final Assessment and Plan Assessment: 1acute hypoxic respiratory failure secondary to congestive heart failure with diastolic dysfunction and suspected right lower lobe pneumonia and parapneumonic effusion. 2 acute right lower lobe pneumonia, community-acquired, failed outpatient therapy. 3 acute right parapneumonic effusion or effusion of congestive heart failure, however based on the ultrasound, not large enough to consider thoracentesis, but if it does seem to get any larger, thoracentesis would be performed. Chest x- ray improved today. 4 multiple comorbidities including hypertension, previous history of craniotomy for brain tumor in 1986,and osteoarthritis. Plan: The patient was seen and evaluated by Dr. Cherry. She is cleared for discharge from the pulmonary standpoint. Continued on bronchodilators and Augmentin. Home oxygen. I, the cosigning physician, performed a history & physical examination of the patient. Lungs sounds few scattered crackles, diminished in the bases. Maintaining good O2 saturations in the 90s on 4 L/m per nasal cannula. I discussed the assessment and plan of care with my nurse practitioner, Carmenza Christopher. I attest to the above note as dictated by her.
--- NOTE | 2019-01-03 12:22 | CDI ---
Documentation Clarification Form Date: 01/03/2019 12:05:38 PM From: Sheila Justin RN CCDS Admit Date: 12/30/2018 4:28:00 PM Patient Name: Ana Polanco Visit Number: [id number] Discharge Date: ATTENTION: The Clinical Documentation Specialists (CDI) and [facility] Coding Staff appreciate your assistance in clarifying documentation. Please respond to the clarification below the line at the bottom and electronically sign. The CDI & [facility] Coding staff will review the response and follow-up if needed. Please note: Queries are made part of the Legal Health Record. If you have any questions, please contact the author of this message via ITS. Dr. Ramez Elise Patients Creatinine has gone up in patient also metabolic alkalosis was documented in your progress note 01/02/2019 History/Risk Factors: 83-year-old female presents to the ED with shortness of breath and a cough. Medical history HTN; Diastolic Heart Failure Clinical Indicators: 12/30 BUN 17 / Cr 0.85 / GFR 63 01/01 BUN 16 / Cr 0.87 / GFR 62 01/02 BUN 25 / Cr 1.16 / GFR 44 01/03 BUN 26 / Cr 1.22 / GFR 41 Treatment: 01/02 Discontinued IV Lasix IVF 0.9NS 20 cc/hr In order to capture the severity of condition, please clarify if the condition signifies: Acute kidney injury, please specify etiology (if known): Cortical Necrosis Medullary Necrosis Tubular Necrosis Acute on chronic renal failure CKD Stage 1 GFR >90 CKD Stage 2 GFR 60-89 CKD Stage 3 GFR 30-59 Other, please specify Unable to determine (Last Revision: May 2017) Acute renal failure, prerenal from diuresis MTDD
[2019-01-03] MEDS ORDERED: AMOXIC-POT CLAV 875-125MG 1 EACH TAB PO SCH (21:00)
--- NOTE | 2019-01-03 23:21 | P.DS ---
Providers Date of admission: 12/30/18 16:28 Expected date of discharge: 01/03/19 Attending physician: Ramez Elise Consults: 12/30/18 16:28 Consult Physician Routine Consulting Provider: Maikel Guzman Consult Reason/Comments: Lateral pneumonia, pleural effusions Do you want consulting provider notified?: Yes 01/01/19 17:44 Consult Physician Routine Consulting Provider: Jim García Consult Reason/Comments: CHF Do you want consulting provider notified?: Yes Primary care physician: Ashok Sanchez [facility] Course: Chief Complaint: Short of breath and cough Hospital course: This is a pleasant 83-year-old patient of Dr. Ashok Sanchez. Was also patient's son. Chronic stable medical conditions include brain tumor removed in 1986 with no sequela, GERD, primary osteoarthritis, paroxysmal atrial fibrillation, hyperlipidemia. Patient for about a week been having bothersome respiratory symptoms. That includes shortness of breath. Cough with white to yellow sputum. Appetite is gone down. No obvious fever and chills. Tired rundown. Getting is the short of breath. Patient has received steroids course of ciprofloxacin and also one dose of IV ceftriaxone IM. Symptoms not improving hence she was brought to the ER. chest x-ray showed consolidation and pleural fluid overload right side. Admitted for the same. Not much of edema. Admitted with right lower lobe pneumonia, small pleural effusion and COPD exacerbation. [place] to be also in CHF exacerbation by Dr. Micehlle. Started on IV Lasix. Responded well to IV cefepime. Also a short course of steroids. Today-much better. Has been up in the hallway. Did tolerate her diet. We'll require oxygen for home. I did speak to patient's daughter July over the phone. Questions were answered. Also discussed with Dr. Michelle. Lasix was discontinued. Care was also discussed with the patient. Discussion and discharge planning more than 35 minutes Consultation: Dr. Michelle from pulmonary Dr. CLEMENT García from cardiology Physical examination: VITAL SIGNS: 99.3, 60, 16, 127/78, 94% on 4 L GENERAL: propped up in bed, comfortable. EYES: Pupils equal. Conjunctiva normal. HEENT: External appearance of nose and ears normal, oral cavity grossly normal. NECK: JVD possibly raise; masses not palpable. HEART: First and second heart sounds are normal; minimal edema. LUNGS: Respiratory rate increased, decreased breath sounds at the bases. ABDOMEN: Soft, nontender, liver spleen not palpable, no masses palpable. PSYCH: Alert and oriented x3; mood and affect normal. MUSCULOSKELETAL: Evidence of OA especially the hands INVESTIGATIONS, reviewed in the clinical context: Potassium 3.9 bun 26 crit 1.2 to ProBNP 369 pro calcitonin 0.20 Previous testing White count 9.5 hemoglobin 13.4 platelets 285 progression 4.4 creatinine 0.85 troponin I 0.020 proBNP 1110 Chest x-ray film personally reviewed by me shows-right lower lobe pneumonia with associated pleural effusion. Some venous prominence EKG tracing personally reviewed by me-undetermined rhythm Chest CTA-negative for PE ProBNP 1430 pro calcitonin 0.15 2-D echo-EF 55-60% Assessment: -Right lower lobe pneumonia with a small parapneumonic effusion, having failed outpatient treatment, -Bilateral pleural effusion right greater than left -GERD -Obstructive sleep apnea, uses CPAP -Primary osteoarthritis -Acute hypoxic respiratory failure from underlying pneumonia, slow to respond -Hyperlipidemia -Obesity BMI 31.60 -Possibility of acute on chronic congestive heart failure from diastolic dysfunction EF 60-65% -Metabolic alkalosis from volume contraction Disposition: Home Patient Condition at Discharge: Stable Plan - Discharge Summary Discharge Rx Participant: Yes New Discharge Prescriptions: New Amoxic-Pot Clav 875-125Mg [Augmentin 875-125] 1 each PO Q12HR #10 tab Ipratropium-Albuterol Nebulize [Duoneb 0.5 mg-3 mg/3 ml Soln] 3 ml INHALATION QID #120 ampul.neb Melatonin 3 mg PO HS PRN #30 tablet PRN Reason: Insomnia Sennosides-Docusate Sodium [Senokot-S] 2 each PO HS #60 tab Continue Timolol 0.5% Ophth Soln [Timoptic 0.5% Ophth Soln] 1 drop BOTH EYES BID Pantoprazole Sodium [Protonix] 40 mg PO DAILY Atorvastatin [Lipitor] 20 mg PO HS Aspirin EC [Ecotrin Low Dose] 81 mg PO Q48H amLODIPine [Norvasc] 5 mg PO DAILY Vitamin D3(Unknown Dose) 1 tab PO DAILY Naproxen [Naprosyn] 500 mg PO BID Flecainide Acetate 100 mg PO BID Krill Oil 500 mg PO DAILY Discontinued Cephalexin [Keflex] 500 mg PO TID Discharge Medication List Aspirin EC [Ecotrin Low Dose] 81 mg PO Q48H 12/30/18 [History] Atorvastatin [Lipitor] 20 mg PO HS 12/30/18 [History] Flecainide Acetate 100 mg PO BID 12/30/18 [History] Krill Oil 500 mg PO DAILY 12/30/18 [History] Naproxen [Naprosyn] 500 mg PO BID 12/30/18 [History] Pantoprazole Sodium [Protonix] 40 mg PO DAILY 12/30/18 [History] Timolol 0.5% Ophth Soln [Timoptic 0.5% Ophth Soln] 1 drop BOTH EYES BID 12/30/18 [History] Vitamin D3(Unknown Dose) 1 tab PO DAILY 12/30/18 [History] amLODIPine [Norvasc] 5 mg PO DAILY 12/30/18 [History] Amoxic-Pot Clav 875-125Mg [Augmentin 875-125] 1 each PO Q12HR #10 tab 01/03/19 [Rx] Ipratropium-Albuterol Nebulize [Duoneb 0.5 mg-3 mg/3 ml Soln] 3 ml INHALATION QID #120 ampul.neb 01/03/19 [Rx] Melatonin 3 mg PO HS PRN #30 tablet 01/03/19 [Rx] Sennosides-Docusate Sodium [Senokot-S] 2 each PO HS #60 tab 01/03/19 [Rx] Follow up Appointment(s)/Referral(s): Lowell Logan MD [STAFF PHYSICIAN] - 1 Week Jim García MD [STAFF PHYSICIAN] - 01/16/19 4:[address] [facility],Equipment [NON-STAFF] - As Needed (nebulizer and walker.) [facility], [NON-STAFF] - As Needed Ashok Sanchez MD [Primary Care Provider] - 3 Days Ambulatory/Diagnostic Orders: Basic Metabolic Panel [LAB.AMB] Time Frame: 3 Days, Location: None Selected Patient Instructions/Handouts: Pleural Effusion (DC), Pneumonia (DC) Discharge Disposition: HOME SELF-CARE
== END 2019-01-03 15:44 | disposition home or self-care (01) | DRG 291 ==
LOC: EC 14:09 → 4SSUR 16:28
PROVIDERS: ADMIT Hospitalist; ATTEND Hospitalist
DX: I11.0 Hypertensive heart disease with heart failure (principal); J18.9 Pneumonia, unspecified organism; J96.01 Acute respiratory failure with hypoxia; J44.0 Chronic obstructive pulmonary disease with (acute) lower respiratory infection; J44.1 Chronic obstructive pulmonary disease with (acute) exacerbation; J98.11 Atelectasis; E87.3 Alkalosis; E87.2 Acidosis; I48.92 Unspecified atrial flutter; N17.9 Acute kidney failure, unspecified; I50.33 Acute on chronic diastolic (congestive) heart failure; G47.33 Obstructive sleep apnea (adult) (pediatric); I44.0 Atrioventricular block, first degree; I45.10 Unspecified right bundle-branch block; I48.0 Paroxysmal atrial fibrillation; E66.9 Obesity, unspecified; E78.5 Hyperlipidemia, unspecified; K21.9 Gastro-esophageal reflux disease without esophagitis; M19.91 Primary osteoarthritis, unspecified site; Z68.31 Body mass index [BMI] 31.0-31.9, adult; Z79.82 Long term (current) use of aspirin; Z79.899 Other long term (current) drug therapy; Z82.5 Family history of asthma and other chronic lower respiratory diseases; Z87.891 Personal history of nicotine dependence; Z90.5 Acquired absence of kidney; Z99.89 Dependence on other enabling machines and devices; Z91.041 Radiographic dye allergy status; Z90.710 Acquired absence of both cervix and uterus; T50.2X5A Adverse effect of carbonic-anhydrase inhibitors, benzothiadiazides and other diuretics, initial encounter
CPT/HCPCS: 36415; 71045; 71046; 71275; 76604; 80048; 80053; 82550; 83735; 83880; 84145; 84484; 85025; 85027; 85379; 85610; 85730; 87040; 87070; 87205; 93005; 93306; 94640; 99285

== ENCOUNTER → 2019-03-14 | Outpatient (CLI) | payer MEDICARE, BC ==
[2019-03-14 18:55] LABS: T4, Free (Free Thyroxine) 1.4 ng/dL (0.80-1.80)
== END ==
LOC: LABWHC1 11:26
PROVIDERS: ATTEND Internal Medicine Endocrinology, Diabetes & Metabolism
DX: E05.00 Thyrotoxicosis with diffuse goiter without thyrotoxic crisis or storm (principal)
CPT/HCPCS: 36415; 84439; 84443; 84480

== ENCOUNTER → 2019-04-10 | Outpatient (CLI) | payer MEDICARE, BC ==
--- NOTE | 2019-04-10 10:02 | US ---
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 Goiter GLAND SIZE: Right Lobe: 4.6 x 2.3 x 1.7 cm Overall Parenchyma: heterogenous Left Lobe: 4.7 x 2.6 x 2.6 cm Overall Parenchyma: heterogeneous Isthmus Thickness: .41 cm NODULES RIGHT: # of nodules measured on right: Multiple measured largest 2. 1. 1.0 X 1.0 x .9 cm hypoechoic solid nodule at the lower pole with well-defined margins; . This n odule is wider than tall and shows intranodular vascularity. Prior size No prior 2. .9 X .7 x .6 cm hypoechoic solid nodule at the mid pole with poorly defined margins; . This nodu le is wider than tall and shows intranodular vascularity. Prior size: No previous. LEFT: # of nodules measured on left: Multiple measured largest. 1. 2.3 X 1.8 x 2.5 cm hypoechoic mixed nodule at the lower pole with well-defined margins; . This nodule is wider than tall and shows intranodular vascularity. Prior size: No previous ISTHMUS: # of nodules measured in the isthmus: 0 Bilateral neck scanned, no evidence of lymphadenopathy. IMPRESSION: Findings suggest multinodular goiter, dominant nodule on the left measures 2.2 cm and is amenable to fine-needle aspiration should it be requested.
== END | disposition home or self-care (01) ==
LOC: RADUSMAIN 08:57
PROVIDERS: ATTEND Internal Medicine Endocrinology, Diabetes & Metabolism
DX: E05.00 Thyrotoxicosis with diffuse goiter without thyrotoxic crisis or storm (principal)
CPT/HCPCS: 76536

== ENCOUNTER → 2019-04-27 | Outpatient (CLI) | payer MEDICARE, BC ==
[2019-04-27 23:45] LABS: T4, Free (Free Thyroxine) 1.2 ng/dL (0.80-1.80)
== END | disposition home or self-care (01) ==
LOC: LABWHC1 16:10
PROVIDERS: ATTEND Internal Medicine Endocrinology, Diabetes & Metabolism
DX: E05.00 Thyrotoxicosis with diffuse goiter without thyrotoxic crisis or storm (principal)
CPT/HCPCS: 36415; 84439; 84443; 84481

== ENCOUNTER → 2019-08-10 | Outpatient (CLI) | payer MEDICARE, BC ==
[2019-08-10 19:15] LABS: T4, Free (Free Thyroxine) 1.2 ng/dL (0.80-1.80)
== END | disposition home or self-care (01) ==
LOC: LABWHC1 11:47
PROVIDERS: ATTEND Internal Medicine Endocrinology, Diabetes & Metabolism
DX: E04.2 Nontoxic multinodular goiter (principal)
CPT/HCPCS: 36415; 84439; 84443; 84480

== ENCOUNTER → 2020-09-15 | Outpatient (CLI) | payer MEDICARE, BC ==
--- NOTE | 2020-09-15 11:04 | US ---
EXAMINATION TYPE: US thyroid st tissue head/neck DATE OF EXAM: 09/15/2020 COMPARISON: 04/10/2019 CLINICAL HISTORY: 85-year-old female E04.2 MULTINODULAR GOITER. Thyroid nodule TECHNIQUE: Multiple sonographic images of the thyroid gland are obtained. FINDINGS: GLAND SIZE: Right Lobe: 4.9 x 1.8 x 1.6 cm Overall Parenchyma: heterogenous Left Lobe: 5.6 x 2.8 x 2.4 cm Overall Parenchyma: heterogeneous Isthmus Thickness: .5 cm NODULES RIGHT: # of nodules measured on right: multiple small subcentimeter, predominantly cystic nodules, measured largest 1. 1.1 X 1.3 x .8 cm, TR4 nodule mid , solid or almost completely solid, hypoechoic nodule, which is wider than tall, with smooth margins, without echogenic foci. Prior size: 1.0 x 1.0 x .9 cm LEFT: # of nodules measured on left: 1 1. 2.2 X 2.3 x 1.7 cm, TR4 nodule, lower , mixed cystic and solid, but primarily solid, hypoechoic nodule, which is wider than tall, with smooth margins, without echogenic foci. Prior size: 2.3 x 2.5 x 1.8 cm ISTHMUS: # of nodules measured in the isthmus: 0 Bilateral neck scanned, no evidence of lymphadenopathy. IMPRESSION: 1. Multinodular goiter. Dominant TR4 solid nodule posterior mid pole on the right is slightly larger at 1.3 x 1.1 cm (versus 1.0 x 1.0 cm, previously). Continued follow-up is recommended. FNA if the nod ule reaches 1.5 cm. 2. Large complex, primarily solid TR4 nodule on the left is unchanged and 2.3 cm. FNA versus ongoing follow-up.
[2020-09-15 11:48] LABS: T4, Free (Free Thyroxine) 1.16 ng/dL (0.78-2.19)
== END | disposition home or self-care (01) ==
LOC: RADUSWWP 09:56
PROVIDERS: ATTEND Internal Medicine Endocrinology, Diabetes & Metabolism
DX: E04.2 Nontoxic multinodular goiter (principal)
CPT/HCPCS: 36415; 76536; 84439; 84443

== ENCOUNTER → 2021-02-02 | Outpatient (CLI) | payer MEDICARE, BC ==
[2021-02-02 16:56] LABS: T4, Free (Free Thyroxine) 1.18 ng/dL (0.800-1.800)
== END | disposition home or self-care (01) ==
LOC: LABWHC1 10:05
PROVIDERS: ATTEND Internal Medicine Endocrinology, Diabetes & Metabolism
DX: E05.90 Thyrotoxicosis, unspecified without thyrotoxic crisis or storm (principal)
CPT/HCPCS: 36415; 84439; 84443; 84480

== ENCOUNTER → 2021-11-05 | Day surgery (SDC) | payer MEDICARE, BC ==
[2021-11-03 12:07] VITALS: BMI 28.0
[~2021-11-05] MED LIST: MIDAZOLAM 2 MG/2 ML VIAL IV ONE; SODIUM CHLORIDE 0.9% 500 ML 500 ML IV ONE; fentaNYL (PF) 50 MCG/ML 2 ML AMP IV ONE; fentaNYL (PF) 50 MCG/ML 2 ML AMP ONE; hydrALAZINE HCL 20 MG/ML 1 ML VIAL IV ONE; hydrALAZINE HCL 20 MG/ML 1 ML VIAL ONE
[2021-11-05 06:52] VITALS: TEMP 98.1
[2021-11-05] MEDS: BENZOCAINE SPRAY 1 CAN TOPICAL ONE ×2 (07:35→07:42)
--- NOTE | 2021-11-05 08:04 | P.TEE ---
Description of Procedure(s): Procedure performed: Transesophageal Echocardiogram with color flow doppler, pulsed wave doppler and continuous wave doppler, moderate conscious sedation Moderate conscious sedation: Moderate conscious sedation was supplied with direct supervision of myself using Versed and Fentanyl. Complications: none Indications: Cryptogenic stroke PROCEDURE: After the risks, benefits and alternatives of the above mentioned procedure was explained in detail with the patient, informed consent was obtained. Patient was brought to the lab in a fasting state. Patient was given IV Versed and Fentanyl for sedation. The throat was sprayed with Hurricane to anesthetize the throat. A lubricated Omni probe was then introduced into the e sophagus and stomach and multiple views were obtained. 2D echo with color flow doppler, pulsed wave doppler and continuous wave doppler was utilized. Agitated saline bubbles were injected to assess for any intra-atrial shunt. The probe was then removed. Patient tolerated the procedure well. Patient was transferred to the post procedure area in stable and satisfactory condition. FINDINGS: 1. The aortic valve is tricuspid with mild aortic sclerosis and no significant aortic stenosis, trace aortic insufficiency. 2. The mitral valve appears be normal with mild to moderate mitral regurgitation. 3. Tricuspid valve appears be normal with trace tricuspid regurgitation. 4. The interatrial septum is intact. No evidence of PFO. 5. Left atrial appendage is free of clot. 6. Left ventricular size and function appear to be normal with left ventricular ejection fraction 55%
[2021-11-05 15:08] VITALS: PULSE 54
[2021-11-05 15:10] VITALS: BP 139/67; RESP 16
== END ==
LOC: CATHCVL 06:31
PROVIDERS: ATTEND Internal Medicine
DX: I47.1 Supraventricular tachycardia (principal); I10 Essential (primary) hypertension; E78.5 Hyperlipidemia, unspecified; Z72.0 Tobacco use; Z20.822 Contact with and (suspected) exposure to COVID-19; Z85.528 Personal history of other malignant neoplasm of kidney; Z79.82 Long term (current) use of aspirin; Z79.899 Other long term (current) drug therapy
CPT/HCPCS: 93312; 93320; 93325; 87635; J2250; J0360; J3010

== ENCOUNTER 2022-05-20 05:46 | Inpatient (IN) | payer MEDICARE, BC ==
[2022-05-20] MEDS ORDERED: DILTIAZEM DRIP BOLUS FROM BAG 1 MG SOLN IV ONE (06:28)
[2022-05-20] MEDS ORDERED: SODIUM CHLORIDE 0.9% 500 ML 500 ML IV ONE (06:29)
[2022-05-20] MEDS ORDERED: DILTIAZEM 125 MG in SODIUM CHLORIDE 0.9% 100 ML IV SCH (06:30)
[2022-05-20 06:36] LABS: Basophils % (A) 1 %; Eosinophils # (A) 0.2 k/uL (0-0.7); Eosinophils % (A) 3 %; HCT 44.7 % (34.0-46.0); HGB 14.6 gm/dL (11.4-16.0); Lymphocytes # (A) 1.8 k/uL (1.0-4.8); Lymphocytes % (A) 25 %; MCH 29.8 pg (25.0-35.0); MCHC 32.7 g/dL (31.0-37.0); MCV 91.2 fL (80.0-100.0); Mean Platelet Volume 7.2; Monocytes # (A) 0.6 k/uL (0-1.0); Monocytes % (A) 8 %; Neutrophils # (A) 4.2 k/uL (1.3-7.7); Neutrophils % (A) 60 %; Platelet Count 185 k/uL (150-450); RDW 15.2 % (11.5-15.5)
[2022-05-20 06:47] LABS: Partial Thromboplastin Time 24.8 sec (22.0-30.0); Prothrombin Time 10.6 sec (9.0-12.0)
--- NOTE | 2022-05-20 06:48 | ED ---
Chest Pain HPI - General Chief Complaint: Chest Pain Stated Complaint: Chest Pain Time Seen by Provider: 05/20/22 06:02 Source: patient, RN notes reviewed Mode of arrival: wheelchair Limitations: no limitations - History of Present Illness Initial Comments: 87-year-old female presents emergency Department with chief complaint chest pressure, shortness of breath. Patient states started overnight. Patient states that she is an hour course as they have caught her to be in A. fib on a vent monitor in the past. Patient states she had a stroke in October in which they believe A. fib cause that. Patient states she has mild chest pressure denies any sharp pain. She states she feels winded and physical heart is racing. Patient was recently started on Imdur she does take metoprolol. Patient is scheduled for cardiac catheterization by Dr. García in 4 days. Patient denies fevers chills no productive cough. Denies any leg pain or leg swelling. - Related Data Home Medications Medication Instructions Recorded Confirmed Aspirin EC [Ecotrin Low Dose] 81 mg PO QAM 12/30/18 11/05/21 Flecainide Acetate [Tambocor] 50 mg PO BID 12/30/18 11/05/21 Pantoprazole Sodium [Protonix] 40 mg PO DAILY 12/30/18 11/05/21 Timolol 0.5% Ophth Soln [Timoptic 1 drop BOTH EYES HS 12/30/18 11/05/21 0.5% Ophth Soln] Atorvastatin Calcium [Lipitor] 40 mg PO HS 11/03/21 11/05/21 Famotidine [Pepcid] 20 mg PO BID 11/03/21 11/05/21 Metoprolol Tartrate [Lopressor] 12.5 mg PO BID 11/03/21 11/05/21 methIMAzole [Tapazole] 2.5 mg PO DAILY 11/03/21 11/05/21 Allergies Allergy/AdvReac Type Severity Reaction Status Date / Time adhesive tape Allergy Itching Verified 05/20/22 05:55 Iodinated Contrast Media Allergy Itching Verified 05/20/22 05:55 Review of Systems ROS Statement: Those systems with pertinent positive or pertinent negative responses have been documented in the HPI. ROS Other: All systems not noted in ROS Statement are negative. EKG Findings - EKG Comments: EKG Findings:: EKG performed at 6:06 A. 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 Bilateral hearing aid use. Hx brain tumor in 1986. Hx right kidney cancer approximately 1985. CPAP use. History of Any Multi-Drug Resistant Organisms: None Reported Past Surgical History: Appendectomy, Hysterectomy, Orthopedic Surgery Additional Past Surgical History / Comment(s): Right nephrectomy, craniotomy, bunionectomy. Past Anesthesia/Blood Transfusion Reactions: No Reported Reaction Past Psychological History: No Psychological Hx Reported Smoking Status: Former smoker Past Alcohol Use History: Rare Past Drug Use History: None Reported - Past Family History Father Family Medical History: Cancer Additional Family Medical History / Comment(s): Brain tumor. Mother Family Medical History: Asthma, COPD Additional Family Medical History / Comment(s): Emphysema. General Exam Limitations: no limitations General appearance: alert, in no apparent distress Head exam: Present: atraumatic, normocephalic, normal inspection Eye exam: Present: normal appearance, PERRL, EOMI. Absent: scleral icterus, conjunctival injection, periorbital swelling Neck exam: Present: normal inspection, full ROM. Absent: tenderness, meningismus, lymphadenopathy Respiratory exam: Present: normal lung sounds bilaterally. Absent: respiratory distress, wheezes, rales, rhonchi, stridor Cardiovascular Exam: Present: tachycardia, irregular rhythm, normal heart sounds. Absent: regular rate, normal rhythm, systolic murmur, diastolic murmur, rubs, gallop, clicks Neurological exam: Present: alert Skin exam: Present: warm, dry, intact, normal color. Absent: rash Course Vital Signs 05/20/22 05/20/22 05/20/22 05:56 06:06 06:54 Temperature 97.9 F Pulse Rate 122 H 125 H 135 H Respiratory 18 16 16 Rate Blood Pressure 108/76 93/77 O2 Sat by Pulse 93 L 95 95 Oximetry 05/20/22 05/20/22 05/20/22 07:00 07:01 07:15 Temperature Pulse Rate 129 H 105 H 101 H Respiratory 17 18 13 Rate Blood Pressure 93/77 120/59 O2 Sat by Pulse 97 97 96 Oximetry Chest Pain MDM - MDM Was pt. sent in by a medical professional or institution (, RANDAL, MICROFABRICATION ENGINEER MANAGER, urgent care, hospital, or usp...) When possible be specific @ -[No] Did you speak to anyone other than the patient for history (EMS, parent, family, police, friend...)? What history was obtained from this source @ -[No] Did you review nursing and triage notes (agree or disagree)? Why? @ -[I reviewed and agree with nursing and triage notes] Were old charts reviewed (outside hosp., previous admission, EMS record, old EKG, old radiological studies, urgent care reports/EKG's, usp records)? Report findings @ -[Prior laboratory studies, EKG reviewed] Differential Diagnosis (chest pain, altered mental status, abdominal pain women, abdominal pain men, vaginal bleeding, weakness, fever, dyspnea, syncope, headache, dizziness, GI bleed, back pain, seizure, CVA, palpatations, mental health, musculoskeletal)? @ -[Differential Chest Pain: Stable Angina, Unstable Angina, STEMI, NSTEMI Aortic Dissection, Pneumothorax, Musculoskeletal, Esophageal Spasm GERD, Cholecystitis, Pancreatitis, Zoster, this is not meant to be an all-inclusive list. ] EKG interpreted by me (3pts min.). @ -[As above] X-rays interpreted by me (1pt min.). @ -[Chest x-ray shows no acute process] CT interpreted by me (1pt min.). @ -[None done] U/S interpreted by me (1pt. min.). @ -[None done] What testing was considered but not performed or refused? (CT, X-rays, U/S, labs)? Why? @ -[None] What meds were considered but not given or refused? Why? @ -[None] Did you discuss the management of the patient with other professionals (professionals i.e. RANDAL Obrien, MICROFABRICATION ENGINEER MANAGER, lab, RT, psych nurse, social security assessor, air quality consultant, teacher, associate loan officer, casework manager)? Give summary @ -[Dr. Elise and Dr. García who came and evaluated the patient Was smoking cessation discussed for >3mins.? @ -[No] Was critical care preformed (if so, how long)? @ -[No] Were there social determinants of health that impacted care today? How? (Homelessness, low income, unemployed, alcoholism, drug addiction, transportation, low edu. Level, literacy, decrease access to med. care, correction, rehab)? @ -[No] Was there de-escalation of care discussed even if they declined (Discuss DNR or withdrawal of care, Hospice)? DNR status @ -[No] What co-morbidities impacted this encounter? (DM, HTN, Smoking, COPD, CAD, Cancer, CVA, ARF, Chemo, Hep., AIDS, mental health diagnosis, sleep apnea, morbid obesity)? @ -[A. fib] Was patient admitted / discharged? Hospital course, mention meds given and rou te, prescriptions, significant lab abnormalities, going to OR and other pertinent info. @ -[Admitted patient presented for chest pressure patient's initial workup revealed evidence of A. fib RVR patient was started on Cardizem patient was given by cardiology and will be taken for heart cath tomorrow morning. Patient will have repeat laboratory studies.] Undiagnosed new problem with uncertain prognosis? @ -[No] Drug Therapy requiring intensive monitoring for toxicity (Heparin, Nitro, Insulin, Cardizem)? @ -[Cardizem Were any procedures done? @ -[No] Diagnosis/symptom? @ -[A. fib RVR] Acute, or Chronic, or Acute on Chronic? @ -[Acute on chronic] Uncomplicated (without systemic symptoms) or Complicated (systemic symptoms)? @ -[Complicated] Side effects of treatment? @ -[No] Exacerbation, Progression, or Severe Exacerbation? @ -[No] Poses a threat to life or bodily function? How? (Chest pain, [place], [place], pneumonia, PE, COPD, DKA, ARF, appy, cholecystitis, CVA, Diverticulitis, Homicidal, Suicidal, threat to staff... and all critical care pts) @ -[Yes patient has chest pain/for cardiac arrest. Disposition Clinical Impression: Chest pain, Atrial fibrillation with RVR Disposition: ADMITTED IP TO THIS HOSP Condition: Fair Referrals: Ashok Sanchez MD [Primary Care Provider] - 1-2 days Time of Disposition: 08:03
--- NOTE | 2022-05-20 07:03 | XR ---
EXAMINATION TYPE: XR chest 2V DATE OF EXAM: 05/20/2022 COMPARISON: Chest x-ray January 02, 2019 HISTORY: Chest pain. TECHNIQUE: Frontal and lateral views of the chest are obtained. FINDINGS: Cardiomegaly with atherosclerotic thoracic aorta is redemonstrated. There is mild central vascular congestion. There is no suspicious focal airspace opacity, pleural effusion, or pneumothora x seen. The osseous structures are intact. Surgical clips posterior right upper abdomen are partially imaged. IMPRESSION: Cardiomegaly with mild central vascular congestion. Correlate for CHF exacerbation. No s uspicious acute focal infiltrate.
[2022-05-20 08:09] LABS: Albumin 3.7 g/dL (3.5-5.0); Total Bilirubin 1.2 mg/dL (0.2-1.3); Total Protein 6.8 g/dL (6.3-8.2)
[2022-05-20] MEDS ORDERED: HEPARIN SODIUM 1,000 UN/ML (10ML VL) IV PRN (08:09)
[2022-05-20] MEDS ORDERED: NITROGLYCERIN SL TABS 0.4 MG TAB SUBLINGUAL PRN ×2 (08:14→11:05)
[2022-05-20] MEDS ORDERED: HEPARIN SOD,PORK IN 0.45% NACL 25,000 UNIT in 0.45% NACL 1 250ML.BAG IV SCH (08:15)
[2022-05-20] MEDS ORDERED: METOPROLOL TARTRATE 12.5 MG TAB PO SCH (09:00)
[2022-05-20] MEDS: FLECAINIDE 50 MG TAB PO SCH ×2 (09:22→20:04)
[2022-05-20] MEDS: METOPROLOL TARTRATE 50 MG TAB PO SCH ×2 (10:59→20:00)
[2022-05-20] MEDS ORDERED: ALPRAZolam 0.5 MG TAB PO PRN (11:05)
[2022-05-20] MEDS ORDERED: ASPIRIN 325 MG TAB PO STA (11:05)
[2022-05-20] MEDS ORDERED: ALPRAZolam 0.25 MG TAB PO PRN (11:05)
[2022-05-20] MEDS ORDERED: ATORVASTATIN 80 MG TAB PO STA (11:05)
[2022-05-20] MEDS: ASPIRIN 325 MG TAB PO SCH ×2 (11:18→11:19)
[2022-05-20] MEDS ORDERED: FAMOTIDINE 20 MG TAB PO SCH (12:00)
[2022-05-20] MEDS ORDERED: traMADol 50 MG TAB PO PRN (12:42)
[2022-05-20] MEDS ORDERED: ACETAMINOPHEN TAB 325 MG TAB PO PRN (12:44)
[2022-05-20] MEDS ORDERED: NALOXONE 0.4 MG/ML 1 ML VIAL IV PRN (12:44)
[2022-05-20] MEDS ORDERED: MELATONIN 3 MG TABLET PO PRN (12:44)
[2022-05-20] MEDS ORDERED: LACTULOSE 20 GM/30 ML CUP PO PRN (12:44)
[2022-05-20] MEDS ORDERED: CALCIUM CARBONATE 500 MG CHEWABLE PO PRN (12:44)
[2022-05-20] MEDS ORDERED: ONDANSETRON 4 MG/2 ML VIAL IVP PRN (12:44)
[2022-05-20] MEDS: predniSONE 20 MG TAB PO SCH ×2 (13:36→20:04)
[2022-05-20] MEDS: PANTOPRAZOLE 40 MG TABLET PO SCH (13:36)
[2022-05-20] MEDS: NITROGLYCERIN OINT 1 INCH/GM PACKET TOPICAL SCH ×2 (13:39→18:13)
[2022-05-20] MEDS: diphenhydrAMINE ELIXIR 25 MG/10 ML CUP PO SCH (13:39)
[2022-05-20] MEDS: TIMOLOL 0.5% OPHTH DROPS 5 ML BTL BOTH EYES SCH ×2 (16:08→20:43)
--- NOTE | 2022-05-20 17:22 | P.HPIM ---
History of Present Illness H&P Date: 05/20/22 Chief Complaint: Chest pressure Hospital course: This is a pleasant 87-year-old patient of Dr. Ashok Sanchez. Chronic stable medical conditions include brain tumor removed in 1986 with no sequela, GERD, primary osteoarthritis, paroxysmal atrial fibrillation, hyperlipidemia. COPD . Patient had a stroke last year felt to be possibly from A. fib hence on eliqu Patient lives with her daughter. July. Patient has been having episodes of throat discomfort. Taking nitroglycerin to which she responds with the possible diagnosis angina. Was following with her body cleaner Dr. CLEMENT García. Patient was scheduled for a cardiac catheterization this coming Tuesday. Patient now presents with chest pressure short of breath dizziness nausea. Daughter decided to bring her in. Patient found to be in atrial fibrillation with a rapid ventricular rate. Started on IV Cardizem drip. Seen earlier by Dr. García was decided procedure the cardiac cath tomorrow morning. Review of systems: GEN.: Weak tired decreased appetite EYES: None HEENT: None NECK: None RESPIRATORY: As above CARDIOVASCULAR: None GASTROINTESTINAL: None GENITOURINARY: None MUSCULOSKELETAL: Pain in several joints LYMPHATICS: None HEMATOLOGICAL: None PSYCHIATRY: None NEUROLOGICAL: None Past medical history to include: Brain tumor removed in 1986, GERD, JULIOCESAR-CPAP, paroxysmal atrial flutter ablation, hyperlipidemia hypertension, COPD. Right nephrectomy 1985. Stroke in 2021 when he recovered. Bilateral hearing aid Social history: Lives [place], smoked half a pack to 1 pack a day for 37 years. Stopped 35 years ago.. . Patient did work in the [employer] also helped patient's in rehab. Lives with her daughter July Physical examination: VITAL SIGNS: 97.9, 122, 18, 108/76 93% room air GENERAL: BMI 28, propped up in bed, tired EYES: Pupils equal. Conjunctiva normal. HEENT: External appearance of nose and ears normal, oral cavity grossly normal. NECK: JVD possibly raise; masses not palpable. HEART: Heart sounds irregular; minimal edema. LUNGS: Respiratory rate normal, decreased breath sounds ABDOMEN: Soft, nontender, liver spleen not palpable, no masses palpable. PSYCH: Alert and oriented x3; mood and affect normal. NEUROLOGICAL: Cranial nerves grossly intact; no facial asymmetry, power and sensation grossly intact. LYMPHATICS: No lymph nodes palpable in the axilla and neck MUSCULOSKELETAL: Evidence of OA especially the hands INVESTIGATIONS, reviewed in the clinical context: White count 7 hemoglobin 14.6 platelets 185 potassium 4 BUN 17 creatinine 1.05 Troponin I 0.021, 0.034, 0.048 ProBNP 668 EKG tracing personally reviewed by me-atrial fibrillation rate 127 incomplete right bundle-branch block Chest x-ray film personally reviewed by me-some cardiomegaly. Possible venous prominence Assessment and plan: -Chronic atrial fibrillation with rapid ventricle rate. Started on IV Cardizem drip. Cardiology consult. Flecainide 50 mg twice a day. Lopressor 50 mg twice a day -Acute non-ST elevation NE Aspirin, IV heparin, Lipitor, Lopressor -IV heparin monitoring Follow PTT -GERD Pepcid -Obstructive sleep apnea, uses CPAP -Primary osteoarthritis ultram when necessary -Hyperlipidemia Lipitor 40 mg daily at bedtime -Chronic gait dysfunction uses a walker at baseline Discussed with the patient and daughter the bedside. Patient for cardiac cath eterization tomorrow. IV heparin. 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 Bilateral hearing aid use. Hx brain tumor in 1986. Hx right kidney cancer approximately 1985. CPAP use. History of Any Multi-Drug Resistant Organisms: None Reported Past Surgical History: Appendectomy, Hysterectomy, Orthopedic Surgery Additional Past Surgical History / Comment(s): Right nephrectomy, craniotomy, bunionectomy. Past Anesthesia/Blood Transfusion Reactions: No Reported Reaction Past Psychological History: No Psychological Hx Reported Smoking Status: Former smoker Past Alcohol Use History: Rare Past Drug Use History: None Reported - Past Family History Father Family Medical History: Cancer Additional Family Medical History / Comment(s): Brain tumor. Mother Family Medical History: Asthma, COPD Additional Family Medical History / Comment(s): Emphysema. Medications and Allergies Home Medications Medication Instructions Recorded Confirmed Type Flecainide Acetate [Tambocor] 50 mg PO BID 12/30/18 05/20/22 History Pantoprazole Sodium [Protonix] 40 mg PO DAILY 12/30/18 05/20/22 History Timolol 0.5% Ophth Soln [Timoptic 1 drop BOTH EYES BID 12/30/18 05/20/22 History 0.5% Ophth Soln] Atorvastatin Calcium [Lipitor] 40 mg PO HS 11/03/21 05/20/22 History Famotidine [Pepcid] 20 mg PO BID 11/03/21 05/20/22 History Metoprolol Tartrate [Lopressor] 12.5 mg PO BID 11/03/21 05/20/22 History methIMAzole [Tapazole] 2.5 mg PO DAILY 11/03/21 05/20/22 History Apixaban [Eliquis] 2.5 mg PO BID 05/20/22 05/20/22 History Ascorbic Acid [Vitamin C] 1,000 mg PO DAILY 05/20/22 05/20/22 History Cholecalciferol [Vitamin D3 (25 50 mcg PO MOWEFR 05/20/22 05/20/22 History Mcg = 1000 Iu)] Isosorbide Mononitrate ER [Imdur] 30 mg PO HS 05/20/22 05/20/22 History L.acidoph,Paracasei, B.lactis 1 cap PO DAILY 05/20/22 05/20/22 History [Probiotic] Multivitamins, Thera [Multivitamin 1 tab PO DAILY 05/20/22 05/20/22 History (formulary)] traMADol HCL 50 mg PO Q8H PRN 05/20/22 05/20/22 History Allergies Allergy/AdvReac Type Severity Reaction Status Date / Time adhesive tape Allergy Itching Verified 05/20/22 08:44 Iodinated Contrast Media Allergy Rash/Hives Verified 05/20/22 08:44 & Shortness of Breath Physical Exam Vitals: Vital Signs Temp Pulse Resp BP Pulse Ox 05/20/22 09:26 87 16 132/90 96 05/20/22 08:22 86 16 100/76 97 05/20/22 07:15 101 H 13 120/59 96 05/20/22 07:01 105 H 18 97 05/20/22 07:00 129 H 17 93/77 97 05/20/22 06:54 135 H 16 93/77 95 05/20/22 06:06 125 H 16 95 05/20/22 05:56 97.9 F 122 H 18 108/76 93 L Intake and Output 05/19/22 05/20/22 05/20/22 22:59 06:59 14:59 Other: Weight 69.4 kg Results CBC & Chem 7: 05/20/22 06:14 05/20/22 06:14 Labs: Abnormal Lab Results - Last 24 Hours (Table) 05/20/22 Range/Units 06:14 Creatinine 1.05 H (0.52-1.04) mg/dL Glucose 112 H (74-99) mg/dL
[2022-05-20] MEDS: methIMAzole 5 MG TAB PO SCH (18:13)
[2022-05-20] MEDS: FAMOTIDINE 20 MG TAB PO SCH (20:02)
[2022-05-20] MEDS ORDERED: ATORVASTATIN 40 MG TAB PO SCH (21:00)
[2022-05-20] MEDS ORDERED: ISOSORBIDE MONONITRATE ER 30 MG TAB.ER.24H PO SCH (21:00)
--- NOTE | 2022-05-20 22:01 | CONS ---
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 She has been recently documented to have atrial fibrillation on an event monitor and has been placed on Eliquis 2.5 mg b.i.d. I saw her in the office about 10 days ago or so and noted that she was in sinus rhythm, but she was having episodes of chest tightness, pressure, and jaw discomfort with palpitations. Presumably, it was occurring with atrial fibrillation with rapid rate, but she was in sinus rhythm. We made some adjustment to medications including Imdur 30 mg daily. However, this morning, she developed chest pain and jaw pain, had a heart rate of 180, atrial fibrillation, and also had elevated blood pressure, given nitroglycerin with relief, and came into the ER. Initial troponin is normal. EKG revealed atrial fibrillation with RVR with IVCD. She is resting comfortably at the time of my evaluation with improvement in symptoms. She took her Eliquis last night. I have placed on a Cardizem drip, and I will perform coronary angiography tomorrow to rule out obstructive CAD, probably from the right radial approach. I discussed this with the patient, explained her the rationale, risks, benefits, and options. The patient and family understand and wished to proceed. Her last stress test in 2020, did not reveal ischemia. An echocardiogram in the past also revealed preserved systolic function. PAST MEDICAL HISTORY: 1. History of renal cell cancer, status post right nephrectomy. 2. History of SVT, previous ablation. 3. Paroxysmal atrial fibrillation. 4. History of CVA with good recovery. 5. Hypertension. 6. Recurrent episodes of chest pain. MEDICATIONS AT HOME: Include: 1. Eliquis 2.5 mg b.i.d. 2. Metoprolol tartrate 12.5 mg b.i.d. 3. Pepcid. 4. Flecainide 50 mg b.i.d. 5. Tapazole 2.5 mg daily. 6. Imdur 30 mg daily. 7. Some vitamin supplements. ALLERGIES: She is allergic to iodine contrast. PHYSICAL EXAMINATION: VITAL SIGNS: Blood pressure is 120/70. Pulse rate 96, irregular. HEENT: Unremarkable. Fundus was not examined by me. NECK: Supple. No JVD. No significant carotid bruit. HEART: Reveals S1 and S2 with a short systolic murmur, irregularity in rhythm. LUNGS: Reveal decent air entry. ABDOMEN: Soft. EXTREMITIES: Lower extremities reveal diminished pulses CENTRAL NERVOUS SYSTEM: Normal. IMPRESSION: 1. Chest pain suggestive of angina. 2. Atrial fibrillation with rapid ventricular rate. 3. History of single kidney with nephrectomy for renal cell cancer on the right side. 4. Hypertension. 5. Hyperlipidemia. RECOMMENDATIONS: I will proceed with cardiac catheterization tomorrow, hold Zaid, place her on low- dose heparin drip, no bolus, and rate control with Cardizem and increased beta-yumiko. Risks, benefits, options, and rationale were explained. The patient and family understand all details and wished to proceed with the procedure. MMODL / IJN: [id number] /
[2022-05-21] MEDS: diphenhydrAMINE ELIXIR 25 MG/10 ML CUP PO SCH ×3 (00:39→20:48)
[2022-05-21] MEDS: NITROGLYCERIN OINT 1 INCH/GM PACKET TOPICAL SCH ×4 (00:39→18:46)
[2022-05-21] MEDS: LACTOBACILLUS ACIDOPH & BULGAR 1 EACH PACKET PO SCH (06:05)
[2022-05-21] MEDS: ASCORBIC ACID 500 MG TAB PO SCH (06:05)
[2022-05-21] MEDS: ASPIRIN 325 MG TAB PO SCH (06:06)
[2022-05-21] MEDS: predniSONE 20 MG TAB PO SCH ×3 (06:06→20:48)
[2022-05-21] MEDS: MULTIVITAMINS, THERA 1 EACH TAB PO SCH (06:06)
[2022-05-21] MEDS: METOPROLOL TARTRATE 50 MG TAB PO SCH ×2 (06:06→20:51)
[2022-05-21] MEDS: FAMOTIDINE 20 MG TAB PO SCH (06:07)
[2022-05-21] MEDS: PANTOPRAZOLE 40 MG TABLET PO SCH (06:09)
[2022-05-21] MEDS: FLECAINIDE 50 MG TAB PO SCH (06:09)
[2022-05-21] MEDS: TIMOLOL 0.5% OPHTH DROPS 5 ML BTL BOTH EYES SCH ×2 (06:10→20:45)
[2022-05-21] MEDS: methIMAzole 5 MG TAB PO SCH (06:12)
[2022-05-21 06:15] LABS: Glucose,Whole Blood 159 mg/dL (70-110)
[2022-05-21] MEDS ORDERED: HEPARIN SODIUM,PORCINE 10,000 UNIT in SODIUM CHLORIDE 0.9% 1,000 ML IRRIGATION PRN (07:00)
[2022-05-21] MEDS ORDERED: HEPARIN SODIUM,PORCINE 2,500 UNIT in SODIUM CHLORIDE 0.9% 250 ML IRRIGATION PRN (07:00)
[2022-05-21 07:25] LABS: Basophils % (A) 0 %; Eosinophils % (A) 0 %; HCT 43.3 % (34.0-46.0); Lymphocytes % (A) 14 %; MCH 29.9 pg (25.0-35.0); MCHC 32.3 g/dL (31.0-37.0); MCV 92.6 fL (80.0-100.0); Mean Platelet Volume 7.4; Monocytes # (A) 0.3 k/uL (0-1.0); Monocytes % (A) 4 %; Neutrophils # (A) 5.8 k/uL (1.3-7.7); Neutrophils % (A) 80 %; Platelet Count 209 k/uL (150-450); RBC 4.67 m/uL (3.80-5.40); RDW 15.1 % (11.5-15.5); WBC 7.2 k/uL (3.8-10.6)
[2022-05-21] MEDS ORDERED: SODIUM CHLORIDE 0.9% 1,000 ML IV ONE (07:31)
[2022-05-21] MEDS ORDERED: IV FLUID CONTINUATION 1,000 ML IV ONE (07:31)
[2022-05-21] MEDS ORDERED: MIDAZOLAM 2 MG/2 ML VIAL IV ONE (07:48)
[2022-05-21 07:50] LABS: INR 1.1 (<1.2); Prothrombin Time 11.1 sec (9.0-12.0)
[2022-05-21] MEDS ORDERED: LIDOCAINE 1% INJ 10MG/ML (5 ML VIAL-PF) SQ ONE (07:53)
[2022-05-21] MEDS ORDERED: VERAPAMIL SYRINGE (5 MG/10 ML) INTRAARTER ONE (07:54)
[2022-05-21] MEDS ORDERED: IOPAMIDOL-370 100ML BTL INJ ONE (08:11)
[2022-05-21] MEDS ORDERED: FAMOTIDINE 20 MG TAB PO SCH (09:00)
[2022-05-21] MEDS ORDERED: CHOLECALCIFEROL 25 MCG (1000 IU) TABLET PO SCH (09:00)
[2022-05-21 12:42] LABS: Chol/HDL Ratio 2.27 Ratio; LDL Cholesterol,Calculated 76.2 mg/dL (0.0-131.0); VLDL Calculation 7.62 mg/dL (5.00-40.00)
--- NOTE | 2022-05-21 14:28 | CC ---
CARDIAC CATHETERIZATION REPORT DATE OF SERVICE: 05/21/2022. PROCEDURES PERFORMED: Left heart catheterization and coronary angiography. PERFORMED BY: Dr. Ximena García. Moderate conscious sedation time was 18 minutes. The patient was administered Versed. Oxygen saturation, hemodynamics, and EKG were monitored closely. CLINICAL INFORMATION: Ms. Ana Polanco is an 87-year-old elderly lady with a history of hypertension, hyperlipidemia, and renal cell cancer, status post right nephrectomy. She has also a history of CVA and paroxysmal atrial fibrillation. She came in to the hospital with episode of chest pain, shortness of breath, borderline troponin elevation, and had atrial fibrillation with rapid rate requiring IV Cardizem. Her rate is controlled. It is in the high 50s and low 60s. However, she may have a tachy-charu phenomenon, may require a pacemaker down the road if she continues to have tachy episodes, but after stabilizing her rate control, she was advised cardiac catheterization, and Eliquis was held for 36 hours. PROCEDURE NOTE: Under local anesthesia and strict aseptic precautions, a 6-Vietnamese introducer was placed in the right radial artery. Using a JL4.5 catheter, I was able to do selective coronary angiography of the left system. Aortic root was slightly enlarged. I used a JR4 catheter for right coronary artery. The same right Margoth catheter was used to check LV pressure, but LV-gram was not performed. The sheath was taken out, and TR band was applied as per protocol. Saturation in the fingers of the right hand was 94%. The patient tolerated the procedure well without complications. CARDIAC CATHETERIZATION FINDINGS: The left ventricular end-diastolic pressure was about 10 mmHg without any gradient across aortic valve. CORONARY ANGIOGRAPHY FINDINGS: RIGHT CORONARY ARTERY: Large dominant vessel, minor irregularities, no significant disease, bifurcates into PDA and PLV. No significant disease in the RCA other than minor irregularities. LEFT MAIN CORONARY ARTERY: Short, patent, disease-free vessel, that bifurcates into LAD and circumflex. LEFT ANTERIOR DESCENDING CORONARY ARTERY: Good-caliber vessel, extends along the anterior wall, gives off septal and diagonal branches, runs all the way to the apex supplying a sizable amount of myocardium, has minor irregularities of less than 30%. LEFT POSTERIOR CIRCUMFLEX CORONARY ARTERY: Nondominant vessel, small in caliber and distribution, minor irregularities, no significant disease. FINAL IMPRESSION: This patient has normal filling pressures, no gradient. Right-dominant system, minor irregularities, no significant obstructive coronary artery disease. RECOMMENDATIONS: Findings were discussed with the patient as well as her daughter. Continued medical therapy with risk factor modification advised. The patient can be discharged later on today after adequate hydration. I will see her in the office next week. MMODL / IJN: [id number] /
--- NOTE | 2022-05-21 15:18 | P.PN ---
Progress Note - Text Progress Note Date: 05/21/22 Chief Complaint: Chest pressure Hospital course: This is a pleasant 87-year-old patient of Dr. Ashok Sanchez. Chronic stable medical conditions include brain tumor removed in 1986 with no sequela, GERD, primary osteoarthritis, paroxysmal atrial fibrillation, hyperlipidemia. COPD . Patient had a stroke last year felt to be possibly from A. fib hence on eliquis Patient lives with her daughter. July. Patient has been having episodes of throat discomfort. Taking nitroglycerin to which she responds with the possible diagnosis angina. Was following with her personnel technician Dr. CLEMENT García. Patient was scheduled for a cardiac catheterization this coming Tuesday. Patient now presents with chest pressure short of breath dizziness nausea. Daughter decided to bring her in. Patient found to be in atrial fibrillation with a rapid ventricular rate. Started on IV Cardizem drip. Seen earlier by Dr. García was decided procedure the cardiac cath tomorrow morning. 05/21/2022: Patient underwent cardiac catheterization this morning. No blockage noted. Medical management. Per Dr. CLEMENT García: Lipitor cutback to 10 mg. Lopressor increased to 50 mg twice a day. Flecainide discontinued. Daughter at the bedside. July. Discussed. She would like the patient to be watched overnight. Increase activity as tolerated. Past medical history to include: Brain tumor removed in 1986, GERD, JULIOCESAR-CPAP, paroxysmal atrial flutter ablation, hyperlipidemia hypertension, COPD. Right nephrectomy 1985. Stroke in 2021 when he recovered. Bilateral hearing aid Social history: Lives [place], smoked half a pack to 1 pack a day for 37 years. Stopped 35 years ago.. . 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 Lives with her daughter July Physical examination: VITAL SIGNS: 98, 58, 18, 1 47 x 72, 100% on 2 L GENERAL: BMI 28, declining bed, comfortable EYES: Pupils equal. Conjunctiva normal. HEENT: External appearance of nose and ears normal, oral cavity grossly normal. NECK: JVD possibly raise; masses not palpable. HEART: Heart sounds irregular; minimal edema. LUNGS: Respiratory rate normal, decreased breath sounds ABDOMEN: Soft, nontender, liver spleen not palpable, no masses palpable. PSYCH: Alert and oriented x3; mood and affect normal. INVESTIGATIONS, reviewed in the clinical context: Cardiac catheterization [05/21/2022]: No obstruction. White count 7 hemoglobin 14.6 platelets 185 potassium 4 BUN 17 creatinine 1.05 Troponin I 0.021, 0.034, 0.048 ProBNP 668 EKG tracing personally reviewed by me-atrial fibrillation rate 127 incomplete right bundle-branch block Chest x-ray film personally reviewed by me-some cardiomegaly. Possible venous prominence Assessment and plan: -Chronic atrial fibrillation with rapid ventricle rate. Started on IV Cardizem drip. . Flecainide discontinued. Lopressor 50 mg twice a day -Acute non-ST elevation VT Aspirin, IV heparin-discontinued, Lipitor, Lopressor Cardiac catheterization showing no obstruction -IV heparin monitoring-discontinued Follow PTT -GERD Pepcid -Obstructive sleep apnea, uses CPAP -Primary osteoarthritis ultram when necessary -Hyperlipidemia Lipitor 10 mg daily at bedtime -Chronic gait dysfunction uses a walker at baseline Discussed with patient daughter the bedside. Increase activity. Hopefully home tomorrow.
[2022-05-21] MEDS ORDERED: ATORVASTATIN 10 MG TAB PO SCH (21:00)
[2022-05-22] MEDS: NITROGLYCERIN OINT 1 INCH/GM PACKET TOPICAL SCH ×2 (01:03→05:27)
[2022-05-22 06:16] VITALS: RESP 18
[2022-05-22] MEDS: PANTOPRAZOLE 40 MG TABLET PO SCH (06:17)
[2022-05-22] MEDS: predniSONE 20 MG TAB PO SCH (06:17)
[2022-05-22] MEDS ORDERED: METOPROLOL TARTRATE 25 MG TAB PO SCH (09:00)
[2022-05-22] MEDS ORDERED: FAMOTIDINE 20 MG TAB PO SCH (09:00)
[2022-05-22] MEDS ORDERED: APIXABAN 2.5 MG TABLET PO SCH (09:00)
[2022-05-22] MEDS: MULTIVITAMINS, THERA 1 EACH TAB PO SCH (09:27)
[2022-05-22] MEDS: LACTOBACILLUS ACIDOPH & BULGAR 1 EACH PACKET PO SCH (09:28)
[2022-05-22] MEDS: ASCORBIC ACID 500 MG TAB PO SCH (09:28)
[2022-05-22] MEDS: diphenhydrAMINE ELIXIR 25 MG/10 ML CUP PO SCH (09:28)
[2022-05-22] MEDS: methIMAzole 5 MG TAB PO SCH (09:33)
[2022-05-22] MEDS: TIMOLOL 0.5% OPHTH DROPS 5 ML BTL BOTH EYES SCH (09:34)
--- NOTE | 2022-05-22 09:58 | P.PN ---
Subjective Progress Note Date: 05/22/22 HISTORY OF PRESENT ILLNESS: This is an 87-year-old female who underwent cardiac catheterization with Dr. García on 05/20/2022. Cardiac catheterization revealed normal filling pressures, no gradient. Right dominant system, minor irregularities, no significant obstructive coronary artery disease. Patient examined this morning at the bedside. Right radial cath site with pulse present. Patient denies chest pain or pressure. She denies shortness of breath. Telemetry reveals sinus mechanism. She has been slightly bradycardic. Blood pressure is stable. She is hoping to be discharged home today. PHYSICAL EXAM: VITAL SIGNS: Reviewed. GENERAL: Well-developed in no acute distress. NECK: Supple. No JVD or thyromegaly LUNGS: Respirations even and unlabored. Lungs essentially clear to auscultation bilaterally. HEART: Regular rate and rhythm. S1 and S2 heard. EXTREMITIES: Normal range of motion. No clubbing or cyanosis. Peripheral pulses intact. No lower extremity edema ASSESSMENT: Chest pain, status post cardiac catheterization revealing nonobstructive coronary artery disease Paroxysmal atrial fibrillation Sinus bradycardia Hypertension Hyperlipidemia PLAN: Continue current cardiac medications Resume anticoagulation. Discontinue aspirin Decrease metoprolol secondary to bradycardia Patient is stable for discharge home today from a cardiac standpoint She is to follow up on an outpatient basis with Dr. García Nurse practitioner note has been reviewed by physician. Signing provider agrees with the documented findings, assessment, and plan of care. Objective - Vital Signs Vital signs: Vital Signs Temp 97.8 F 05/22/22 04:00 Pulse 56 L 05/22/22 04:00 Resp 18 05/22/22 04:00 BP 146/70 05/22/22 04:00 Pulse Ox 95 05/22/22 09:31 FiO2 Intake & Output 05/21/22 05/22/22 05/22/22 18:59 06:59 18:59 Intake Total 430 540 Balance 430 540 Intake: IV 250 Oral 180 540 Other: # Voids 2 - Labs CBC & Chem 7: 05/21/22 07:09 05/20/22 06:14 Labs: Abnormal Lab Results - Last 24 Hours (Table) 05/21/22 Range/Units 07:09 HDL Cholesterol 66.20 H (40.00-60.00) mg/dL
[2022-05-22 10:31] VITALS: BP 173/91; PULSE 62; TEMP 98
--- NOTE | 2022-05-22 17:32 | P.DS ---
Providers Date of admission: 05/20/22 08:30 Expected date of discharge: 05/22/22 Attending physician: Ramez Elise Consults: 05/20/22 08:14 Consult Physician Urgent Consulting Provider: Jim García Consult Reason/Comments: afib, chest pain Do you want consulting provider notified?: Already Contacted Primary care physician: Ashok Sanchez [facility] Course: Chief Complaint: Chest pressure Hospital course: This is a pleasant 87-year-old patient of Dr. Ashok Sanchez. Chronic stable medical conditions include brain tumor removed in 1986 with no sequela, GERD, primary osteoarthritis, paroxysmal atrial fibrillation, hyperlipidemia. COPD . Patient had a stroke last year felt to be possibly from A. fib hence on Patient lives with her daughter. July. Patient has been having episodes of throat discomfort. Taking nitroglycerin to which she responds with the possible diagnosis angina. Was following with her lan support specialist Dr. CLEMENT García. Patient was scheduled for a cardiac catheterization this coming Tuesday. Patient now presents with chest pressure short of breath dizziness nausea. Daughter decided to bring her in. Patient found to be in atrial fibrillation with a rapid ventricular rate. Started on IV Cardizem drip. Seen earlier by Dr. García was decided procedure the cardiac cath tomorrow morning. 05/21/2022: Patient underwent cardiac catheterization this morning. No blockage noted. Medical management. Per Dr. CLEMENT García: Lipitor cutback to 10 mg. Lopressor increased to 50 mg twice a day. Flecainide discontinued. Daughter at the bedside. July. Discussed. She would like the patient to be watched overnight. Increase activity as tolerated. 05/22/2022: Patient feeling well. Did ambulate in the hallway. No chest pain. Discussed with patient daughter July at the bedside. Questions answered. Also to keep a low: The heart rate. Patient to follow-up with Dr. CLEMENT García. Discussion and discharge planning more than 35 minutes Past medical history to include: Brain tumor removed in 1986, GERD, JULIOCESAR-CPAP, paroxysmal atrial flutter ablation, hyperlipidemia hypertension, COPD. Right nephrectomy 1985. Stroke in 2021 when he recovered. Bilateral hearing aid Social history: Lives [place], smoked half a pack to 1 pack a day for 37 years. Stopped 35 years ago.. . 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 Lives with her daughter July Physical examination: VITAL SIGNS: 98, 62, 18, 146/70, 95% on 2 L GENERAL: BMI 28, sitting at the edge of the bed, comfortable EYES: Pupils equal. Conjunctiva normal. HEENT: External appearance of nose and ears normal, oral cavity grossly normal. NECK: JVD possibly raise; masses not palpable. HEART: Heart sounds irregular; minimal edema. LUNGS: Respiratory rate normal, decreased breath sounds ABDOMEN: Soft, nontender, liver spleen not palpable, no masses palpable. PSYCH: Alert and oriented x3; mood and affect normal. INVESTIGATIONS, reviewed in the clinical context: LDL 76 Cardiac catheterization [05/21/2022]: No obstruction. White count 7 hemoglobin 14.6 platelets 185 potassium 4 BUN 17 creatinine 1.05 Troponin I 0.021, 0.034, 0.048 ProBNP 668 EKG tracing personally reviewed by me-atrial fibrillation rate 127 incomplete right bundle-branch block Chest x-ray film personally reviewed by me-some cardiomegaly. Possible venous prominence Assessment and plan: -Chronic atrial fibrillation with rapid ventricle rate.: Non-sinus rhythm Started on IV Cardizem drip-discontinued. . Flecainide discontinued. Lopre ssor 50 mg twice a day -Acute non-ST elevation SD Aspirin, IV heparin-discontinued, Lipitor, Lopressor Cardiac catheterization showing no obstruction -IV heparin monitoring-discontinued Follow PTT -GERD Pepcid -Obstructive sleep apnea, uses CPAP -Primary osteoarthritis ultram when necessary -Hyperlipidemia Lipitor 10 mg daily at bedtime -Chronic gait dysfunction uses a walker at baseline Disposition: Home Plan - Discharge Summary New Discharge Prescriptions: New Atorvastatin [Lipitor] 10 mg PO HS #30 tab Nitroglycerin Sl Tabs [Nitrostat] 0.4 mg SUBLINGUAL Q5M PRN #30 tab PRN Reason: Chest Pain Continue Timolol 0.5% Ophth Soln [Timoptic 0.5% Ophth Soln] 1 drop BOTH EYES BID Pantoprazole Sodium [Protonix] 40 mg PO DAILY Famotidine [Pepcid] 20 mg PO BID Apixaban [Eliquis] 2.5 mg PO BID traMADol HCL 50 mg PO Q8H PRN PRN Reason: Pain methIMAzole [Tapazole] 2.5 mg PO DAILY Multivitamins, Thera [Multivitamin (formulary)] 1 tab PO DAILY L.acidoph,Paracasei, B.lactis [Probiotic] 1 cap PO DAILY Cholecalciferol [Vitamin D3 (25 Mcg = 1000 Iu)] 50 mcg PO MOWEFR Ascorbic Acid [Vitamin C] 1,000 mg PO DAILY Changed Metoprolol Tartrate [Lopressor] 25 mg PO BID #60 tab Discontinued Flecainide Acetate [Tambocor] 50 mg PO BID Atorvastatin Calcium [Lipitor] 40 mg PO HS Isosorbide Mononitrate ER [Imdur] 30 mg PO HS Discharge Medication List Pantoprazole Sodium [Protonix] 40 mg PO DAILY 12/30/18 [History] Timolol 0.5% Ophth Soln [Timoptic 0.5% Ophth Soln] 1 drop BOTH EYES BID 12/30/18 [History] Famotidine [Pepcid] 20 mg PO BID 11/03/21 [History] methIMAzole [Tapazole] 2.5 mg PO DAILY 11/03/21 [History] Apixaban [Eliquis] 2.5 mg PO BID 05/20/22 [History] Ascorbic Acid [Vitamin C] 1,000 mg PO DAILY 05/20/22 [History] Cholecalciferol [Vitamin D3 (25 Mcg = 1000 Iu)] 50 mcg PO MOWEFR 05/20/22 [History] L.acidoph,Paracasei, B.lactis [Probiotic] 1 cap PO DAILY 05/20/22 [History] Multivitamins, Thera [Multivitamin (formulary)] 1 tab PO DAILY 05/20/22 [History] traMADol HCL 50 mg PO Q8H PRN 05/20/22 [History] Atorvastatin [Lipitor] 10 mg PO HS #30 tab 05/22/22 [Rx] Metoprolol Tartrate [Lopressor] 25 mg PO BID #60 tab 05/22/22 [Rx] Nitroglycerin Sl Tabs [Nitrostat] 0.4 mg SUBLINGUAL Q5M PRN #30 tab 05/22/22 [Rx] Follow up Appointment(s)/Referral(s): Jim García MD [STAFF PHYSICIAN] - 05/26/22 3:30 pm (Tuesday ) Ashok Sanchez MD [Primary Care Provider] - 1-2 days Discharge Disposition: HOME SELF-CARE
== END 2022-05-22 13:00 | disposition home or self-care (01) | DRG 281 ==
LOC: EC 05:46 → 3SCARD 08:30
PROVIDERS: ADMIT Hospitalist; ATTEND Hospitalist
PROC: B2111ZZ Fluoroscopy of Multiple Coronary Arteries using Low Osmolar Contrast (ICD-10-PCS; principal; 2022-05-21 07:30)
PROC: 4A023N7 Measurement of Cardiac Sampling and Pressure, Left Heart, Percutaneous Approach (ICD-10-PCS; principal; 2022-05-21 07:30)
DX: I21.4 Non-ST elevation (NSTEMI) myocardial infarction (principal); I47.1 Supraventricular tachycardia; I48.92 Unspecified atrial flutter; Z87.891 Personal history of nicotine dependence; G47.33 Obstructive sleep apnea (adult) (pediatric); H91.90 Unspecified hearing loss, unspecified ear; I10 Essential (primary) hypertension; I25.110 Atherosclerotic heart disease of native coronary artery with unstable angina pectoris; I48.0 Paroxysmal atrial fibrillation; K21.9 Gastro-esophageal reflux disease without esophagitis; I45.10 Unspecified right bundle-branch block; Z90.5 Acquired absence of kidney; Z85.528 Personal history of other malignant neoplasm of kidney; R26.9 Unspecified abnormalities of gait and mobility; Z79.01 Long term (current) use of anticoagulants; Z86.73 Personal history of transient ischemic attack (TIA), and cerebral infarction without residual deficits; Z91.041 Radiographic dye allergy status; M19.91 Primary osteoarthritis, unspecified site; Z79.82 Long term (current) use of aspirin; Z79.899 Other long term (current) drug therapy; Z97.4 Presence of external hearing-aid
CPT/HCPCS: 36415; 71046; 80053; 80061; 83735; 83880; 84484; 85025; 85610; 85730; 93005; 93458; 94760; 96365; 96366; 96368; 99291

== ENCOUNTER 2022-10-06 14:53 | Inpatient (IN) | payer MEDICARE, BC ==
--- NOTE | 2022-10-06 15:44 | ED ---
General Adult HPI - General Chief complaint: Shortness of Breath Stated complaint: SOB Time Seen by Provider: 10/06/22 15:12 Source: patient Mode of arrival: ambulatory Limitations: no limitations - History of Present Illness Initial comments: This is an 87-year-old female with a past medical history including hyperlipidemia and atrial fibrillation presents the emergency department with her daughter for hypoxia and increasing shortness of breath. The patient's daughter was at the bedside and helped with the history of present illness, stating that the patient has had hypoxia with oxygen saturations 60% at home. The patient herself reported that she increasing shortness of breath today but felt otherwise okay. The patient denied any pain with inspiration as well as any chest pain or any fevers or chills. The patient was otherwise resting in bed comfortably. It was reported the patient did not have any recent sick contacts and was otherwise at her baseline health up until this morning. - Related Data Home Medications Medication Instructions Recorded Confirmed Pantoprazole Sodium [Protonix] 40 mg PO DAILY 12/30/18 10/06/22 methIMAzole [Tapazole] 2.5 mg PO DAILY 11/03/21 10/06/22 Apixaban [Eliquis] 2.5 mg PO BID 05/20/22 10/06/22 Ascorbic Acid [Vitamin C] 1,000 mg PO TUTHSA 05/20/22 10/06/22 Cholecalciferol [Vitamin D3 (25 50 mcg PO MOWEFR 05/20/22 10/06/22 Mcg = 1000 Iu)] L.acidoph,Paracasei, B.lactis 1 cap PO DAILY 05/20/22 10/06/22 [Probiotic] Multivitamins, Thera [Multivitamin 1 tab PO DAILY 05/20/22 10/06/22 (formulary)] traMADol HCL 50 mg PO Q8H 05/20/22 10/06/22 Dorzolamide/Timolol/Pf 1 drop BOTH EYES BID 10/06/22 10/06/22 [Dorzolamide 2%-Timolol 0.5%] Gabapentin 600 mg PO BID 10/06/22 10/06/22 Latanoprost [Latanoprost 0.005%] 1 drop BOTH EYES HS 10/06/22 10/06/22 Previous Rx's Medication Instructions Recorded Atorvastatin [Lipitor] 10 mg PO HS #30 tab 05/22/22 Metoprolol Tartrate [Lopressor] 25 mg PO BID #60 tab 05/22/22 Nitroglycerin Sl Tabs [Nitrostat] 0.4 mg SUBLINGUAL Q5M PRN #30 tab 05/22/22 Allergies Allergy/AdvReac Type Severity Reaction Status Date / Time adhesive tape Allergy Itching Verified 10/06/22 18:04 Iodinated Contrast Media Allergy Rash/Hives Verified 10/06/22 18:04 & Shortness of Breath Review of Systems ROS Statement: Those systems with pertinent positive or pertinent negative responses have been documented in the HPI. ROS Other: All systems not noted in ROS Statement are negative. 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 Bilateral hearing aid use. Hx brain tumor in 1986. Hx right kidney cancer approximately 1985. CPAP use. History of Any Multi-Drug Resistant Organisms: None Reported Past Surgical History: Appendectomy, Hysterectomy, Orthopedic Surgery Additional Past Surgical History / Comment(s): Right nephrectomy, craniotomy, bunionectomy. Past Anesthesia/Blood Transfusion Reactions: No Reported Reaction Past Psychological History: No Psychological Hx Reported Smoking Status: Former smoker Past Alcohol Use History: Rare Past Drug Use History: None Reported - Past Family History Father Family Medical History: Cancer Additional Family Medical History / Comment(s): Brain tumor. Mother Family Medical History: Asthma, COPD Additional Family Medical History / Comment(s): Emphysema. General Exam Limitations: no limitations General appearance: alert, in no apparent distress Head exam: Present: atraumatic, normocephalic, normal inspection Eye exam: Present: normal appearance, PERRL Pupils: Present: normal accommodation ENT exam: Present: normal exam, normal oropharynx, mucous membranes moist Neck exam: Present: normal inspection, full ROM Respiratory exam: Present: decreased breath sounds. Absent: wheezes, rhonchi, stridor Cardiovascular Exam: Present: tachycardia, irregular rhythm, normal heart sounds GI/Abdominal exam: Present: soft, normal bowel sounds Extremities exam: Present: normal inspection, full ROM Back exam: Present: normal inspection, full ROM Neurological exam: Present: alert, oriented X3, CN II-XII intact Psychiatric exam: Present: normal affect, normal mood Skin exam: Present: warm, dry Course Vital Signs 10/06/22 10/06/22 10/06/22 15:08 15:16 15:30 Temperature 98.7 F Pulse Rate 110 H 67 65 Respiratory 18 16 16 Rate Blood Pressure 109/68 155/81 135/80 O2 Sat by Pulse 83 L 94 L 97 Oximetry Fraction of Inspired Oxygen (FIO2) 10/06/22 10/06/22 10/06/22 16:00 16:30 17:00 Temperature Pulse Rate 61 61 63 Respiratory 28 H 14 20 Rate Blood Pressure 135/80 135/72 155/86 O2 Sat by Pulse 98 96 95 Oximetry Fraction of Inspired Oxygen (FIO2) 10/06/22 10/06/22 17:30 17:53 Temperature Pulse Rate 66 Respiratory 14 Rate Blood Pressure 131/63 O2 Sat by Pulse 95 Oximetry Fraction of 50 Inspired Oxygen (FIO2) EKG Findings - EKG Comments: EKG Findings:: An EKG was obtained and was interpreted by myself showing a rate of 73, IN intervals 131, QR zoroastrian of 80 and QTC of 380. This EKG showed a junctional rhythm with no ST segment elevation or depression noted. Medical Decision Making - Medical Decision Making Was pt. sent in by a medical professional or institution (RANDAL Obrien, PROFESSOR OF PHILOSOPHY, urgent ca re, hospital, or care home...) When possible be specific @ -No Did you speak to anyone other than the patient for history (EMS, parent, family, police, friend...)? What history was obtained from this source @ -Yes, patient's daughter was at the bedside and stated that the patient reportedly was short of breath that started today and during the hospital stay in the emergency department did have an acute episode of minimal responsiveness however the patient remained alert. Did you review nursing and triage notes (agree or disagree)? Why? @ -I reviewed and agree with nursing and triage notes Were old charts reviewed (outside hosp., previous admission, EMS record, old EKG, old radiological studies, urgent care reports/EKG's, care home records)? Report findings @ -No old charts were reviewed Differential Diagnosis (chest pain, altered mental status, abdominal pain women, abdominal pain men, vaginal bleeding, weakness, fever, dyspnea, syncope, headache, dizziness, GI bleed, back pain, seizure, CVA, palpatations, mental health)? @ -CHF exacerbation, COPD exacerbation, CO2 narcosis EKG interpreted by me (3pts min.). @ -As above X-rays interpreted by me (1pt min.). @ -Chest x-ray was obtained and was interpreted by myself showing correlation for CHF. CT interpreted by me (1pt min.). @ -CTA of the chest was obtained but was to pending at this time. U/S interpreted by me (1pt. min.). @ -None done What testing was considered but not performed or refused? (CT, X-rays, U/S, labs)? Why? @ -None What meds were considered but not given or refused? Why? @ -None Did you discuss the management of the patient with other professionals (professionals i.e. , PA, PROFESSOR OF PHILOSOPHY, lab, RT, psych nurse, social work instructor, special investigator, teacher, small business banking officer, upper caser)? Give summary @ -Yes, admitting physician was contacted and patient admission. Was smoking cessation discussed for >3mins.? @ -No Was critical care preformed (if so, how long)? @ -Yes, see above Were there social determinants of health that impacted care today? How? (Homelessness, low income, unemployed, alcoholism, drug addiction, transportation, low edu. Level, literacy, decrease access to med. care, shelter, rehab)? @ -No Was there de-escalation of care discussed even if they declined (Discuss DNR or withdrawal of care, Hospice)? DNR status @ -No What co-morbidities impacted this encounter? (DM, HTN, Smoking, COPD, CAD, Cancer, CVA, ARF, Chemo, Hep., AIDS, mental health diagnosis, sleep apnea, morbid obesity)? @ -None Was patient admitted / discharged? Hospital course, mention meds given and route, prescriptions, significant lab abnormalities, going to OR and other pertinent info. @ -The patient was seen and evaluated emergency department. On physical exam, the patient was resting in bed without any acute distress. The patient did have minor tachypnea. Vital signs admission were within normal limits. The patient was however found to be hypoxic at 83% on room air on arrival. Due to this, workup was initiated. Laboratory workup was significant for an elevated d-dimer of 1.92 therefore a CTA of the chest was ordered to rule out a PE at this time. The remainder of the laboratory workup was largely within normal limits. ProBNP was mildly elevated. While in the emergency room, the patient did have an episode of minimal responsiveness after receiving Benadryl and solumedrol for premedication for her CTA. The patient was awake however was not really responsive but vital signs remained normal. The patient was placed on BiPAP at this time for likely CO2 narcosis secondary to the patient's diminished breath sounds bilaterally. A VBG was obtained at that time and showed a CO2 of 63 with a pH of 7.2. Due to the patient's CO2 narcosis, hypoxia, the patient will be admitted for further workup and evaluation. The patient and her daughter were told of this plan and were agreeable. The patient was admitted in stable condition. Undiagnosed new problem with uncertain prognosis? @ -No Drug Therapy requiring intensive monitoring for toxicity (Heparin, Nitro, Insulin, Cardizem)? @ -No Were any procedures done? @ -No Diagnosis/symptom? @ -CO2 narcosis, hypoxia, likely congestive heart failure exacerbation Acute, or Chronic, or Acute on Chronic? @ -Acute Uncomplicated (without systemic symptoms) or Complicated (systemic symptoms)? @ -Complicated Side effects of treatment? @ -No Exacerbation, Progression, or Severe Exacerbation? @ -Severe exacerbation Poses a threat to life or bodily function? How? (Chest pain, USA, CT, pneumonia, PE, COPD, DKA, ARF, appy, cholecystitis, CVA, Diverticulitis, Homicidal, Suicidal, threat to staff... and all critical care pts) @ -Yes, continued CO2 narcosis and hypoxic lead to permanent damage and possible . - Lab Data Result diagrams: 10/06/22 15:41 10/06/22 16:25 Lab Results 10/06/22 10/06/22 10/06/22 Range/Units 15:41 15:41 15:41 WBC 6.0 (3.8-10.6) k/uL RBC 4.49 (3.80-5.40) m/uL Hgb 13.9 (11.4-16.0) gm/dL Hct 43.5 (34.0-46.0) % MCV 96.8 (80.0-100.0) fL MCH 31.0 (25.0-35.0) pg MCHC 32.0 (31.0-37.0) g/dL RDW 14.2 (11.5-15.5) % Plt Count 197 (150-450) k/uL MPV 7.7 Neutrophils % 69 % Lymphocytes % 20 % Monocytes % 6 % Eosinophils % 2 % Basophils % 0 % Neutrophils # 4.2 (1.3-7.7) k/uL Lymphocytes # 1.2 (1.0-4.8) k/uL Monocytes # 0.3 (0-1.0) k/uL Eosinophils # 0.1 (0-0.7) k/uL Basophils # 0.0 (0-0.2) k/uL Hypochromasia Slight PT 10.8 (9.0-12.0) sec INR 1.0 (<1.2) APTT 24.5 (22.0-30.0) sec D-Dimer 1.92 H (<0.60) mg/L FEU VBG pH (7.31-7.41) VBG pCO2 (37-51) mmHg VBG HCO3 (24-28) mmol/L Sodium (137-145) mmol/L Potassium (3.5-5.1) mmol/L Chloride (98-107) mmol/L Carbon Dioxide (22-30) mmol/L Anion Gap mmol/L BUN (7-17) mg/dL Creatinine (0.52-1.04) mg/dL Est GFR (CKD-EPI)AfAm (>60 ml/min/1.73 sqM) Est GFR (CKD-EPI)NonAf (>60 ml/min/1.73 sqM) Glucose (74-99) mg/dL Calcium (8.4-10.2) mg/dL Magnesium (1.6-2.3) mg/dL Total Bilirubin (0.2-1.3) mg/dL AST (14-36) U/L ALT (4-34) U/L Alkaline Phosphatase (38-126) U/L Troponin I (0.000-0.034) ng/mL NT-Pro-B Natriuret Pep pg/mL Total Protein (6.3-8.2) g/dL Albumin (3.5-5.0) g/dL Lipase (23-300) U/L Influenza Type A (PCR) Not Detected (Not Detectd) Influenza Type B (PCR) Not Detected (Not Detectd) RSV (PCR) Not Detected (Not Detectd) SARS-CoV-2 (PCR) Not Detected (Not Detectd) 10/06/22 10/06/22 10/06/22 Range/Units 16:25 16:25 17:35 WBC (3.8-10.6) k/uL RBC (3.80-5.40) m/uL Hgb (11.4-16.0) gm/dL Hct (34.0-46.0) % MCV (80.0-100.0) fL MCH (25.0-35.0) pg MCHC (31.0-37.0) g/dL RDW (11.5-15.5) % Plt Count (150-450) k/uL MPV Neutrophils % % Lymphocytes % % Monocytes % % Eosinophils % % Basophils % % Neutrophils # (1.3-7.7) k/uL Lymphocytes # (1.0-4.8) k/uL Monocytes # (0-1.0) k/uL Eosinophils # (0-0.7) k/uL Basophils # (0-0.2) k/uL Hypochromasia PT (9.0-12.0) sec INR (<1.2) APTT (22.0-30.0) sec D-Dimer (<0.60) mg/L FEU VBG pH 7.29 L (7.31-7.41) VBG pCO2 63 H (37-51) mmHg VBG HCO3 30 H (24-28) mmol/L Sodium 135 L (137-145) mmol/L Potassium 4.6 (3.5-5.1) mmol/L Chloride 98 (98-107) mmol/L Carbon Dioxide 29 (22-30) mmol/L Anion Gap 8 mmol/L BUN 19 H (7-17) mg/dL Creatinine 1.32 H (0.52-1.04) mg/dL Est GFR (CKD-EPI)AfAm 42 (>60 ml/min/1.73 sqM) Est GFR (CKD-EPI)NonAf 36 (>60 ml/min/1.73 sqM) Glucose 101 H (74-99) mg/dL Calcium 8.8 (8.4-10.2) mg/dL Magnesium 2.0 (1.6-2.3) mg/dL Total Bilirubin 0.8 (0.2-1.3) mg/dL AST 30 (14-36) U/L ALT 18 (4-34) U/L Alkaline Phosphatase 67 (38-126) U/L Troponin I <0.012 (0.000-0.034) ng/mL NT-Pro-B Natriuret Pep 1820 pg/mL Total Protein 6.7 (6.3-8.2) g/dL Albumin 3.6 (3.5-5.0) g/dL Lipase 232 (23-300) U/L Influenza Type A (PCR) (Not Detectd) Influenza Type B (PCR) (Not Detectd) RSV (PCR) (Not Detectd) SARS-CoV-2 (PCR) (Not Detectd) Critical Care Time Critical Care Time: Yes Total Critical Care Time: 36 Disposition Clinical Impression: CO2 narcosis, Hypoxia, Congestive heart failure Disposition: ADMITTED IP TO THIS [facility] Condition: Stable Is patient prescribed a controlled substance at d/c from ED?: No Referrals: Ashok Sanchez MD [Primary Care Provider] - 1-2 days Time of Disposition: 18:00 Decision to Admit Reason: Admit from EC Decision Date: 10/06/22 Decision Time: 18:00
[2022-10-06 15:51] LABS: Basophils % (A) 0 %; Eosinophils # (A) 0.1 k/uL (0-0.7); Eosinophils % (A) 2 %; HCT 43.5 % (34.0-46.0); HGB 13.9 gm/dL (11.4-16.0); Hypochromasia Slight; Lymphocytes # (A) 1.2 k/uL (1.0-4.8); Lymphocytes % (A) 20 %; MCV 96.8 fL (80.0-100.0); Mean Platelet Volume 7.7; Monocytes # (A) 0.3 k/uL (0-1.0); Monocytes % (A) 6 %; Neutrophils # (A) 4.2 k/uL (1.3-7.7); Neutrophils % (A) 69 %; Platelet Count 197 k/uL (150-450); RBC 4.49 m/uL (3.80-5.40); RDW 14.2 % (11.5-15.5)
--- NOTE | 2022-10-06 15:56 | XR ---
EXAMINATION TYPE: XR chest 2V DATE OF EXAM: 10/06/2022 COMPARISON: 05/20/2022 HISTORY: Difficulty breathing FINDINGS: There are bilateral pleural effusions with bilateral lower lobe consolidation. There is a diffuse in terstitial pattern. No pneumothorax. Atherosclerotic change of the aorta. Prominence of the right hilum. Underlying COPD suspected. IMPRESSION: 1. Correlate for CHF. Cannot exclude basilar pneumonia.
[2022-10-06 16:44] LABS: Partial Thromboplastin Time 24.5 sec (22.0-30.0); Prothrombin Time 10.8 sec (9.0-12.0)
[2022-10-06] MEDS ORDERED: diphenhydrAMINE 50 MG/ML 1 ML VIAL IVP STA (16:54)
[2022-10-06] MEDS ORDERED: methylPREDNISolone SOD SUCCI 125 MG/2 ML VIAL IV STA (16:54)
[2022-10-06 17:01] LABS: ALT 18 U/L (4-34); AST 30 U/L (14-36); African American GFR (CKD) 42 (>60 ml/min/1.73 sqM); Albumin 3.6 g/dL (3.5-5.0); Alkaline Phosphatase 67 U/L (38-126); Anion Gap 8 mmol/L; Blood Urea Nitrogen 19 mg/dL (7-17); Calcium 8.8 mg/dL (8.4-10.2); Carbon Dioxide 29 mmol/L (22-30); Chloride 98 mmol/L (98-107); Glucose 101 mg/dL (74-99); Lipase 232 U/L (23-300); Non-African American GFR(CKD) 36 (>60 ml/min/1.73 sqM); Potassium 4.6 mmol/L (3.5-5.1); Sodium 135 mmol/L (137-145); Total Bilirubin 0.8 mg/dL (0.2-1.3); Total Protein 6.7 g/dL (6.3-8.2)
[2022-10-06 17:09] LABS: NT-Pro-B-Type Natriuretic Pept 1820 pg/mL
[2022-10-06 17:45] LABS: VBG PH 7.29 (7.31-7.41)
[2022-10-06] MEDS ORDERED: NALOXONE 0.4 MG/ML 1 ML VIAL IV PRN (18:33)
[2022-10-06] MEDS ORDERED: FUROSEMIDE 10 MG/ML 4 ML VIAL IV STA (18:40)
--- NOTE | 2022-10-06 19:55 | CT ---
CT CHEST FOR PULMONARY EMBOLISM. EXAMINATION TYPE: CT angio chest DATE OF EXAM: 10/06/2022 INDICATION: SOB, r/o PE. CT DLP: 523.3 mGycm, Automated exposure control for dose reduction was used. CONTRAST: Patient injected with 80 ml mL of Isovue 370. COMPARISON: TECHNIQUE: CT of the chest is performed on a spiral scan at 2 mm thick sections. Study is performed with intravenous contrast timed for evaluation for pulmonary embolism. This will limit additional po rtions of the evaluation. 3-D MIP images reconstructed by the technologist are reviewed on the compu ter in the coronal and sagittal planes. FINDINGS: No persistent filling defects are evident to suggest an acute pulmonary embolism. There may be some mild right heart strain. No mediastinal or hilar adenopathy enlarged by CT criteria is evident. The ascending aorta diameter at the level of the main pulmonary artery is 3.7 cm. The main pulmonary artery diameter at the bifur cation is 3.9 cm. Correlate for pulmonary hypertension. Mild bilateral compressive atelectasis is adjacent to the pleural effusions. There is a small left and minimal right pleural effusion. Limited CT section through the upper abdomen. A hepatic cyst appears to be present. IMPRESSIONS: 1. No acute pulmonary embolism. 2. Small left and minimal right pleural effusion with adjacent compressive atelectasis. 3. Clinical consideration for pulmonary hypertension
[2022-10-06] MEDS ORDERED: NITROGLYCERIN SL TABS 0.4 MG TAB SUBLINGUAL PRN (20:23)
[2022-10-06] MEDS ORDERED: ACETAMINOPHEN TAB 325 MG TAB PO PRN (20:26)
[2022-10-06] MEDS ORDERED: ONDANSETRON 4 MG/2 ML VIAL IVP PRN (20:26)
[2022-10-06] MEDS ORDERED: CALCIUM CARBONATE 500 MG CHEWABLE PO PRN (20:26)
[2022-10-06] MEDS ORDERED: LORazepam 0.5 MG TAB PO PRN (20:26)
[2022-10-06] MEDS ORDERED: MELATONIN 3 MG TABLET PO PRN (20:26)
[2022-10-06] MEDS ORDERED: LACTULOSE 20 GM/30 ML CUP PO PRN (20:26)
--- NOTE | 2022-10-06 20:47 | P.HPIM ---
History of Present Illness H&P Date: 10/06/22 Chief Complaint: Short of breath This is a pleasant 87-year-old patient of Dr. Ashok Sanchez. Chronic stable medical conditions include brain tumor removed in 1986 with no sequela, GERD, primary osteoarthritis, paroxysmal atrial fibrillation, hyperlipidemia. COPD . Patient had a stroke in 2021- felt to be possibly from A. fib hence on eliquis Patient lives with her daughter. July. May of this year underwent cardiac catheterization with Dr. CLEMENT García.-No significant obstructive CAD. Patient now presented to the ER accompanied by her daughter with whom she lives. For about one week patient has been feeling tired. Decreased appetite. This morning patient is a bit more short of breath. Pulse ox follow be 62%. No cough. No sputum. No fever no chills. Patient did receive some Benadryl in the ER for contrast ALLERGY and was a bit delirious after that. Patient is put on a BiPAP. About 3 weeks ago patient fell from a golf cart and has bruising of the lower extremity in the right arm. An wound on the right leg. Which has been healing. Patient has chronic edema in the right lower extremity. Review of systems: GEN.: Tired, decreased appetite EYES: None HEENT: Decreased hearing NECK: None RESPIRATORY: As above CARDIOVASCULAR: Some chronic edema GASTROINTESTINAL: None GENITOURINARY: None MUSCULOSKELETAL: Pain in several joints LYMPHATICS: None HEMATOLOGICAL: Bruising PSYCHIATRY: A bit forgetful NEUROLOGICAL: None Past medical history to include: Brain tumor removed in 1986, GERD, JULIOCESAR-CPAP, paroxysmal atrial flutter ablation, hyperlipidemia hypertension, COPD. Right nephrectomy 1985. Stroke in 2021 when he recovered. Bilateral hearing aid. Cardiac cath in May 2022, showing minimal disease Social history: smoked half a pack to 1 pack a day for 37 years. Stopped 35 years ago.. . Patient did work in the [email or web address] also helped patient's in rehab. Lives with her daughter July Physical examination: VITAL SIGNS: 98.7, 110, 18, 109/68, 83% room air upon presentation GENERAL: BMI 37.6, reclining in bed with the BiPAP, short of breath slightly delirious EYES: Pupils equal. Conjunctiva normal. HEENT: External appearance of nose and ears normal, oral cavity grossly normal. NECK: JVD possibly raise; masses not palpable. HEART: Heart sounds irregular; some edema. LUNGS: Respiratory rate increased, decreased breath sounds ABDOMEN: Soft, slight distention, liver spleen not palpable, no masses palpable. PSYCH: Able to answer occasional question slightly confused NEUROLOGICAL: Cranial nerves grossly intact; no facial asymmetry, power and sensation grossly intact. LYMPHATICS: No lymph nodes palpable in the axilla and neck MUSCULOSKELETAL: Evidence of OA especially the hands DERMATOLOGICAL: Bruising in several areas. Dressing over the right lower extremity. INVESTIGATIONS, reviewed in the clinical context: White count 6 hemoglobin 13.9 platelets 197 potassium 4.6 BUN 19 creatinine 1.3 to Troponin I 0.0 0.012 ProBNP 1820 Influenza type A, type B, RSV, COVID-19: Not detected Chest x-ray film personally reviewed by me-some venous prominence EKG tracing personally reviewed by me-questionable junctional rhythm Previous tests: Cardiac catheterization [05/21/2022]: No obstruction. Assessment and plan: -Acute hypoxic respiratory failure with hypercapnia. Combination of CHF, COPD. Pulse ox was 62% on presentation. Currently on BiPAP. -Probable acute congestive heart exacerbation. Chest x-ray shows venous prominence. 2-D echocardiogram. IV Lasix 40 mg every 8. -Acute COPD exacerbation and a prior smoker DuoNeb. IV Solu-Medrol -Paroxysmal atrial fibrillation. Currently questionable junctional rhythm On Lopressor 25 twice a day. Consult cardiology. Telemetry -CAD with cardiac catheterization showing minimal disease in May 2022/cardiac catheterization -Bilateral hearing aids -Right lower extremity wound secondary to trauma having followed him from [facility] about 3 weeks ago. Consulted wound care team -GERD Pepcid -Obstructive sleep apnea, uses CPAP -Primary osteoarthritis ultram when necessary -Hyperlipidemia Lipitor 10 mg daily at bedtime -Chronic gait dysfunction uses a walker at baseline -Full code Care was discussed with the patient and daughter the bedside. Questions answered. 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 Bilateral hearing aid use. Hx brain tumor in 1986. Hx right kidney cancer approximately 1985. CPAP use. History of Any Multi-Drug Resistant Organisms: None Reported Past Surgical History: Appendectomy, Hysterectomy, Orthopedic Surgery Additional Past Surgical History / Comment(s): Right nephrectomy, craniotomy, bunionectomy. Past Anesthesia/Blood Transfusion Reactions: No Reported Reaction Past Psychological History: No Psychological Hx Reported Smoking Status: Former smoker Past Alcohol Use History: Rare Past Drug Use History: None Reported - Past Family History Father Family Medical History: Cancer Additional Family Medical History / Comment(s): Brain tumor. Mother Family Medical History: Asthma, COPD Additional Family Medical History / Comment(s): Emphysema. Medications and Allergies Home Medications Medication Instructions Recorded Confirmed Type Pantoprazole Sodium [Protonix] 40 mg PO DAILY 12/30/18 10/06/22 History methIMAzole [Tapazole] 2.5 mg PO DAILY 11/03/21 10/06/22 History Apixaban [Eliquis] 2.5 mg PO BID 05/20/22 10/06/22 History Ascorbic Acid [Vitamin C] 1,000 mg PO TUTHSA 05/20/22 10/06/22 History Cholecalciferol [Vitamin D3 (25 50 mcg PO MOWEFR 05/20/22 10/06/22 History Mcg = 1000 Iu)] L.acidoph,Paracasei, B.lactis 1 cap PO DAILY 05/20/22 10/06/22 History [Probiotic] Multivitamins, Thera [Multivitamin 1 tab PO DAILY 05/20/22 10/06/22 History (formulary)] traMADol HCL 50 mg PO Q8H 05/20/22 10/06/22 History Atorvastatin [Lipitor] 10 mg PO HS #30 tab 05/22/22 10/06/22 Rx Metoprolol Tartrate [Lopressor] 25 mg PO BID #60 tab 05/22/22 10/06/22 Rx Nitroglycerin Sl Tabs [Nitrostat] 0.4 mg SUBLINGUAL Q5M PRN #30 tab 05/22/22 10/06/22 Rx Dorzolamide/Timolol/Pf 1 drop BOTH EYES BID 10/06/22 10/06/22 History [Dorzolamide 2%-Timolol 0.5%] Gabapentin 600 mg PO BID 10/06/22 10/06/22 History Latanoprost [Latanoprost 0.005%] 1 drop BOTH EYES HS 10/06/22 10/06/22 History Allergies Allergy/AdvReac Type Severity Reaction Status Date / Time adhesive tape Allergy Itching Verified 10/06/22 18:04 Iodinated Contrast Media Allergy Rash/Hives Verified 10/06/22 18:04 & Shortness of Breath Physical Exam Vitals: Vital Signs Temp Pulse Resp BP Pulse Ox FiO2 10/06/22 19:41 50 10/06/22 19:30 69 18 142/72 97 10/06/22 19:00 64 18 151/76 97 10/06/22 18:30 65 16 134/84 97 10/06/22 18:00 62 16 132/78 95 10/06/22 17:53 50 10/06/22 17:30 66 14 131/63 95 10/06/22 17:00 63 20 155/86 95 10/06/22 16:30 61 14 135/72 96 10/06/22 16:00 61 28 H 135/80 98 10/06/22 15:30 65 16 135/80 97 10/06/22 15:16 67 16 155/81 94 L 10/06/22 15:08 98.7 F 110 H 18 109/68 83 L Intake and Output 10/06/22 10/06/22 10/06/22 06:59 14:59 22:59 Other: Weight 68.492 kg Results CBC & Chem 7: 10/06/22 15:41 10/06/22 16:25 Labs: Abnormal Lab Results - Last 24 Hours (Table) 10/06/22 10/06/22 10/06/22 Range/Units 15:41 16:25 17:35 D-Dimer 1.92 H (<0.60) mg/L FEU VBG pH 7.29 L (7.31-7.41) VBG pCO2 63 H (37-51) mmHg VBG HCO3 30 H (24-28) mmol/L Sodium 135 L (137-145) mmol/L BUN 19 H (7-17) mg/dL Creatinine 1.32 H (0.52-1.04) mg/dL Glucose 101 H (74-99) mg/dL
[2022-10-06] MEDS: APIXABAN 2.5 MG TABLET PO SCH (21:29)
[2022-10-06] MEDS: METOPROLOL TARTRATE 25 MG TAB PO SCH (21:29)
[2022-10-06] MEDS: traMADol 50 MG TAB PO SCH (21:29)
[2022-10-06] MEDS: ATORVASTATIN 10 MG TAB PO SCH (21:29)
[2022-10-06 22:21] LABS: Appearance,Urine Clear (Clear); Bilirubin,Urine Negative (Negative); Blood,Urine Negative (Negative); Color,Urine Colorless; Glucose,Urine (UA) Negative (Negative); Ketones,Urine Negative (Negative); Leukocyte Esterase,Urine Negative (Negative); Nitrite,Urine Negative (Negative); Protein,Urine Negative (Negative); Specific Gravity,Urine 1.009 (1.001-1.035); Urobilinogen,Urine <2.0 mg/dL (<2.0)
[2022-10-06] MEDS: DORZOLAMIDE-TIMOLOL 2.23%/0.68 10ML BTL BOTH EYES SCH (23:32)
[2022-10-06] MEDS: LATANOPROST 0.005% OPHTH DROPS 2.5 ML BTL BOTH EYES SCH (23:32)
[2022-10-07] MEDS ORDERED: FUROSEMIDE 10 MG/ML 4 ML VIAL IV SCH
[2022-10-07] MEDS: IPRATROPIUM-ALBUTEROL 3 ML NEB INHALATION SCH ×5 (00:30→21:24)
[2022-10-07] MEDS: methylPREDNISolone SOD SUCCI 40 MG/ML 1 ML VIAL IV SCH ×3 (01:27→17:15)
[2022-10-07] MEDS: FUROSEMIDE 10 MG/ML 4 ML VIAL IV SCH ×2 (01:27→08:00)
--- NOTE | 2022-10-07 01:59 | P.CNPUL ---
History of Present Illness Consult date: 10/07/22 Requesting physician: Antione Aguirre Reason for consult: dyspnea Chief complaint: shortness of breath and weakness History of present illness: I am seeing this patient in new consultation today 10/07/2022 in the emergency room for acute hypoxemic and hypercapnic respiratory failure. Patient is a 87-year-old white female with past medical history significant for obstructive sleep apnea, paroxysmal atrial fibrillation, hyperlipidemia, hypertension, previous CVA, renal cell carcinoma status post right nephrectomy, ,and obesity. No reported history of COPD or asthma. Patient does follow with Dr. Guzman for management of her severe obstructive sleep apnea and utilizes APAP pressures of 4/11 centimeters H2O at bedtime. Patient presented to the emergency room yesterday afternoon with reports of shortness of breath over the last 24 hours. Patient's daughter is at bedside and states that she was hypoxic with an oxygen saturation of around 60% at home. Patient is quite drowsy and disoriented. Patient's daughter answers most of my questions. Denies any reported fevers, myalgias, cough. Denies sick contacts. Denies any chest pain or palpitations. There is right lower extremity edema and erythema, two lower extremity wounds, and minimal purulent wound drainage. Apparently, the patient fell 4 weeks ago from a golf cart sustaining superficial injury to her right leg. Her primary care provider has treated her with rounds of Keflex and then Bactrim. The leg was wrapped with Nolan bandage on arrival. Patient is currently sitting up in bed, on 5 L/m nasal cannula, in no acute distress. She is drowsy and will answer my questions but then falls right back to sleep. She is oriented to person and place. VBG on arrival showed hypercapnia with a pH of 7.29 and pCO2 of 63. Patient was initially on the BiPAP with settings of 10/5, but was transitioned to nasal cannula earlier last night. Apparently, she was given a dose of Benadryl for premedication related to an iodine contrast ALLERGY, and has been confused since. Initial chest x-ray showed mild pulmonary vascular congestion, interstitial densities, and small bilateral pleural effusions concerning for CHF exacerbation. Follow-up chest CTA was done because of an elevated d-dimer which redemonstrated these findings and was negative for pulmonary embolism. NT proBNP was 1820. Patient has been started on IV Lasix. CBC on arrival was unremarkable. No leukocytosis. Negative for influenza, RSV, COVID-19. BMP on arrival showed a sodium 135, potassium 4.6, chloride 98, serum bicarb 29, BUN 19, creatinine 1.32, and glucose of 101. Troponins less than 0.012. Urinalysis not concerning for UTI. Patient is afebrile. Currently, heart rhythm on bedside monitor appears to be atrial fibrillation in and out of RVR. Blood pressure is hypertensive, and her home antihypertensive medications have been reordered. She will be monitored on the cardiac stepdown unit. Review of Systems REVIEW OF SYSTEMS: CONSTITUTIONAL: Denies any recent significant weight loss or weight gain. Denies fever. EYES: Denies change in vision. EARS, NOSE, MOUTH, THROAT: Denies headaches, denies sore throat. CARDIOVASCULAR: Denies chest pain, palpitations or syncopal episodes. RESPIRATORY: see HPI GASTROINTESTINAL: Denies change in appetite, abdominal pain, nausea and vomiting, or diarrhea GENITOURINARY: Denies hematuria, denies infections. MUSKULOSKELETAL: Denies pain, denies swelling. Admits chronic left lower extremity weakness INTEGUMENTARY: Denies rash, denies eczema. admits right lower extremity injury/wound as described in HPI. NEUROLOGICAL: Denies recent memory loss, no recent seizure activity. PSYCHIATRIC: Denies anxiety, denies depression. HEMATOLOGIC/LYMPHATIC: Denies anemia, denies enlarged lymph node Past Medical History Past Medical History: Cancer, CVA/TIA, GERD/Reflux, Hearing Disorder / Deafness, Hyperlipidemia, Hypertension, Sleep Apnea/CPAP/BIPAP Additional Past Medical History / Comment(s): 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 Bilateral hearing aid use. Hx brain tumor in 1986. Hx right kidney cancer approximately 1982. CPAP use. History of Any Multi-Drug Resistant Organisms: None Reported Past Surgical History: Appendectomy, Hysterectomy, Orthopedic Surgery Additional Past Surgical History / Comment(s): Right nephrectomy, craniotomy, bunionectomy Past Anesthesia/Blood Transfusion Reactions: Previous Problems w/ Anesthesia Additional Past Anesthesia/Blood Transfusion Reaction / Comment(s): Per patient's daughter, very senisitive to anesthesia. Smoking Status: Former smoker - Past Family History Father Family Medical History: Cancer Additional Family Medical History / Comment(s): Brain tumor. Mother Family Medical History: Asthma, COPD Additional Family Medical History / Comment(s): Emphysema. Medications and Allergies Home Medications Medication Instructions Recorded Confirmed Type Pantoprazole Sodium [Protonix] 40 mg PO DAILY 12/30/18 10/06/22 History methIMAzole [Tapazole] 2.5 mg PO DAILY 11/03/21 10/06/22 History Apixaban [Eliquis] 2.5 mg PO BID 05/20/22 10/06/22 History Ascorbic Acid [Vitamin C] 1,000 mg PO TUTHSA 05/20/22 10/06/22 History Cholecalciferol [Vitamin D3 (25 50 mcg PO MOWEFR 05/20/22 10/06/22 History Mcg = 1000 Iu)] L.acidoph,Paracasei, B.lactis 1 cap PO DAILY 05/20/22 10/06/22 History [Probiotic] Multivitamins, Thera [Multivitamin 1 tab PO DAILY 05/20/22 10/06/22 History (formulary)] traMADol HCL 50 mg PO Q8H 05/20/22 10/06/22 History Atorvastatin [Lipitor] 10 mg PO HS #30 tab 05/22/22 10/06/22 Rx Metoprolol Tartrate [Lopressor] 25 mg PO BID #60 tab 05/22/22 10/06/22 Rx Nitroglycerin Sl Tabs [Nitrostat] 0.4 mg SUBLINGUAL Q5M PRN #30 tab 05/22/22 10/06/22 Rx Dorzolamide/Timolol/Pf 1 drop BOTH EYES BID 10/06/22 10/06/22 History [Dorzolamide 2%-Timolol 0.5%] Gabapentin 600 mg PO BID 10/06/22 10/06/22 History Latanoprost [Latanoprost 0.005%] 1 drop BOTH EYES HS 10/06/22 10/06/22 History Allergies Allergy/AdvReac Type Severity Reaction Status Date / Time adhesive tape Allergy Itching Verified 10/06/22 18:04 Iodinated Contrast Media Allergy Rash/Hives Verified 10/06/22 18:04 & Shortness of Breath Physical Exam Vitals: Vital Signs Temp Pulse Pulse Resp BP BP Pulse Ox 10/07/22 00:28 10/06/22 21:40 97.0 F L 55 L 20 166/79 97 10/06/22 20:00 97.3 F L 55 L 20 166/79 97 10/06/22 19:41 10/06/22 19:30 69 18 142/72 97 10/06/22 19:00 64 18 151/76 97 10/06/22 18:30 65 16 134/84 97 10/06/22 18:00 62 16 132/78 95 10/06/22 17:53 10/06/22 17:30 66 14 131/63 95 10/06/22 17:00 63 20 155/86 95 10/06/22 16:30 61 14 135/72 96 10/06/22 16:00 61 28 H 135/80 98 10/06/22 15:30 65 16 135/80 97 10/06/22 15:16 67 16 155/81 94 L 10/06/22 15:08 98.7 F 110 H 18 109/68 83 L FiO2 10/07/22 00:28 50 10/06/22 21:40 10/06/22 20:00 10/06/22 19:41 50 10/06/22 19:30 10/06/22 19:00 10/06/22 18:30 10/06/22 18:00 10/06/22 17:53 50 10/06/22 17:30 10/06/22 17:00 10/06/22 16:30 10/06/22 16:00 10/06/22 15:30 10/06/22 15:16 10/06/22 15:08 Intake and Output 10/06/22 10/06/22 10/07/22 14:59 22:59 06:59 Intake Total 540 Output Total 500 Balance 40 Intake: Oral 540 Output: Urine 500 Other: Voiding Method Bedside Commode # Voids 2 Weight 68.492 kg GENERAL EXAM: drowsy,awakes and answers questions and then falls back asleep , comfortable in no apparent respiratory distress. HEAD: Normocephalic and atraumatic EYES: Normal reaction of pupils, equal size. NOSE: Clear with pink turbinates. THROAT: No erythema or exudates. NECK: No masses, no JVD. CHEST: No chest wall deformity. LUNGS: Equal air entry with diminished bibasilar lung sounds and inspiratory cr ackles. No wheezing or rhonchi. On 5 L/m nasal cannula. No conversational dyspnea or accessory muscle use.. CVS: S1 and S2 normal with no audible murmur, irregular rhythm. No extra heart sounds. Heart rate 120 bpm. ABDOMEN: obese abdomen, no hepatosplenomegaly, active bowel sounds, no guarding or rigidity. SPINE: No scoliosis or deformity SKIN: Two right lower extremity wounds, with minimal purulent drainage and surrounding erythema CENTRAL NERVOUS SYSTEM:There is left lower extremity weakness 2/5, otherwise, nonfocal EXTREMITIES: There is right lower extremity edema. No clubbing, or cyanosis. Peripheral pulses are intact. Results - Laboratory Findings CBC and BMP: 10/06/22 15:41 10/07/22 05:53 PT/INR, D-dimer PT 10.8 sec (9.0-12.0) 10/06/22 15:41 INR 1.0 (<1.2) 10/06/22 15:41 D-Dimer 1.92 mg/L FEU (<0.60) H 10/06/22 15:41 Abnormal lab findings: Abnormal Labs 10/06/22 10/06/22 10/06/22 15:41 16:25 17:35 D-Dimer 1.92 H VBG pH 7.29 L VBG pCO2 63 H VBG HCO3 30 H Sodium 135 L BUN 19 H Creatinine 1.32 H Glucose 101 H - Diagnostic Findings Chest x-ray: image reviewed CT scan - chest: image reviewed Assessment and Plan Assessment: Acute hypoxemic and hypercapnic respiratory failure secondary to suspected diastolic CHF exacerbation. Initial chest x-ray showed mild pulmonary vascular congestion, interstitial densities, and small bilateral pleural effusions concerning for CHF exacerbation. NT proBNP was 1820. Most recent SILAS from 11/05/2021 shows a preserved left ventricular ejection fraction of 55% and mild to moderate mitral regurgitation. Obstructive sleep apnea, normally maintained on auto CPAP with pressures 4/11 cm H2O at bedtime. Right lower extremity wounds and possible cellulitis Gait disturbance, related to chronic left lower extremity weakness History of paroxysmal atrial fibrillation, anticoagulated on Eliquis Benign essential hypertension Hyperlipidemia History of prior CVA Chronic kidney disease stage III History of renal cell carcinoma, status post right nephrectomy hyperthyroidism, on Tapazole remote ex-smoker Plan: patient's medications, labs, imaging reviewed Recommended placing the patient back on BiPAP with settings 12/5 and FiO2 to be titrated accordingly Agree with diuretics Echocardiogram pending Patient's antihypertensives have been restarted Eliquis has been resumed Cardiology has been consulted Recommended IV antibiotics and infectious disease consult for right lower extremity wounds We will continue to follow and make recommendations I have personally seen and examined the patient, performed the documentation and the assessment and plan as written. Number of minutes spent on the visit:20 This is a joint evaluation that was done along with the nurse practitioner. The patient was seen and evaluated in the emergency Department. The patient was evaluated in more than 30 minutes. The patient is presenting with worsening shortness of breath and hypoxemia. The patient is currently on 4 L of oxygen nasal cannula. She is off the BiPAP. She has an acute kidney injury. Note that the patient has had a previous nephrectomy and she cares only a single kidney. She is currently on oral Lasix. CAT scan of the chest showed small bilateral pleural effusions. She also has chronic ones in the lower extremity which is essentially improving. I examined the wound and there is no need for any antibiotics at this point in time. We'll consult wound services. Shortness of breath is improving. We'll consult cardiology. We'll continue to follow. Time with Patient: Greater than 30
[2022-10-07] MEDS: traMADol 50 MG TAB PO SCH ×3 (06:33→20:54)
[2022-10-07 06:54] LABS: African American GFR (CKD) 33 (>60 ml/min/1.73 sqM); Anion Gap 8 mmol/L; Blood Urea Nitrogen 23 mg/dL (7-17); Calcium 8.7 mg/dL (8.4-10.2); Carbon Dioxide 30 mmol/L (22-30); Chloride 95 mmol/L (98-107); Glucose 122 mg/dL (74-99); Non-African American GFR(CKD) 28 (>60 ml/min/1.73 sqM); Potassium 4.4 mmol/L (3.5-5.1); Sodium 133 mmol/L (137-145)
[2022-10-07] MEDS ORDERED: ASCORBIC ACID 500 MG TAB PO SCH (09:00)
[2022-10-07] MEDS: METOPROLOL TARTRATE 25 MG TAB PO SCH ×2 (09:07→20:53)
[2022-10-07] MEDS: APIXABAN 2.5 MG TABLET PO SCH ×2 (09:07→20:54)
[2022-10-07] MEDS: MULTIVITAMINS, THERA 1 EACH TAB PO SCH (09:07)
[2022-10-07] MEDS: LACTOBACILLUS ACIDOPHILUS/PECT 1 EACH CAPSULE PO SCH (09:07)
[2022-10-07] MEDS: PANTOPRAZOLE 40 MG TABLET PO SCH (09:09)
[2022-10-07] MEDS: GABAPENTIN 300 MG CAP PO SCH ×2 (09:09→20:54)
[2022-10-07] MEDS ORDERED: METOPROLOL TARTRATE 12.5 MG TAB PO STA (09:21)
[2022-10-07] MEDS: methIMAzole 5 MG TAB PO SCH (09:28)
[2022-10-07] MEDS: AMIODARONE 200 MG TAB PO SCH ×2 (09:30→20:53)
[2022-10-07] MEDS ORDERED: METOPROLOL TARTRATE 12.5 MG TAB PO ONE (09:30)
[2022-10-07] MEDS: FUROSEMIDE 20 MG TAB PO SCH (09:30)
[2022-10-07] MEDS: DORZOLAMIDE-TIMOLOL 2.23%/0.68 10ML BTL BOTH EYES SCH ×2 (11:21→21:44)
--- NOTE | 2022-10-07 12:38 | P.CONS ---
History of Present Illness - Reason for Consult Consult date: 10/07/22 wound care - History of Present Illness This is an 87-year-old patient being seen in the ER for a nonhealing ulceration to the right lower leg. Patient states that the ulceration happen from trauma when she fell. Resulting in a skin tear. She was followed by her [id number] who had placed her in a Unna boot. Patient states that the ulceration has significantly improved since the original fall. At this time patient has nonhealing ulceration cluster of 2 measuring approximately 1.5 x 2 x 0.1 cm and 1.5 x 2.5 x 0.1 cm. Ulcerations have significant amount of slough noted within the wound bed and nonviable tissue. Granulation noted minimally to the wound bed. The wound edges are attached to the wound base. Periwound shows ecchymosis. Review Of Systems: Constitutional: No fever, no chills, no night sweats. No weight change. No weakness, fatigue or lethargy. No daytime sleepiness. Integumentary:reports wounds, no lesions. No rash or pruritus. No unusual bruising. No change in hair or nails. Physical exam: General Appearance: Alert, cooperative, no distress, appears stated age. Skin: See HPI all other Skin color, texture, tugor normal, no rashes or lesions. Neurologic: Alert oriented x3 Assessment: 1. Non-pressure ulceration with fatty layer exposure right lower extremity Plan: 1. Apply triad, wrap with rolled gauze and secured with paper tape. Wrap with Nolan wrap for compression. Continue to elevate legs. Thank you for the consultation any questions contact the wound care center DNP note has been reviewed and discussed with Dr. Aldridge and the impression and plan of care has been directed as dictated. Past Medical History Past Medical History: Cancer, CVA/TIA, GERD/Reflux, Hearing Disorder / Deafness, Hyperlipidemia, Hypertension, Sleep Apnea/CPAP/BIPAP Additional Past Medical History / Comment(s): 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 Bilateral hearing aid use. Hx brain tumor in 1986. Hx right kidney cancer ap proximately 1982. CPAP use. History of Any Multi-Drug Resistant Organisms: None Reported Past Surgical History: Appendectomy, Hysterectomy, Orthopedic Surgery Additional Past Surgical History / Comment(s): Right nephrectomy, craniotomy, bunionectomy Past Anesthesia/Blood Transfusion Reactions: Previous Problems w/ Anesthesia Additional Past Anesthesia/Blood Transfusion Reaction / Comm: Per patient's daughter, very senisitive to anesthesia. Smoking Status: Former smoker - Past Family History Father Family Medical History: Cancer Additional Family Medical History / Comment(s): Brain tumor. Mother Family Medical History: Asthma, COPD Additional Family Medical History / Comment(s): Emphysema. Medications and Allergies Home Medications Medication Instructions Recorded Confirmed Type Pantoprazole Sodium [Protonix] 40 mg PO DAILY 12/30/18 10/06/22 History methIMAzole [Tapazole] 2.5 mg PO DAILY 11/03/21 10/06/22 History Apixaban [Eliquis] 2.5 mg PO BID 05/20/22 10/06/22 History Ascorbic Acid [Vitamin C] 1,000 mg PO TUTHSA 05/20/22 10/06/22 History Cholecalciferol [Vitamin D3 (25 50 mcg PO MOWEFR 05/20/22 10/06/22 History Mcg = 1000 Iu)] L.acidoph,Paracasei, B.lactis 1 cap PO DAILY 05/20/22 10/06/22 History [Probiotic] Multivitamins, Thera [Multivitamin 1 tab PO DAILY 05/20/22 10/06/22 History (formulary)] traMADol HCL 50 mg PO Q8H 05/20/22 10/06/22 History Atorvastatin [Lipitor] 10 mg PO HS #30 tab 05/22/22 10/06/22 Rx Metoprolol Tartrate [Lopressor] 25 mg PO BID #60 tab 05/22/22 10/06/22 Rx Nitroglycerin Sl Tabs [Nitrostat] 0.4 mg SUBLINGUAL Q5M PRN #30 tab 05/22/22 10/06/22 Rx Dorzolamide/Timolol/Pf 1 drop BOTH EYES BID 10/06/22 10/06/22 History [Dorzolamide 2%-Timolol 0.5%] Gabapentin 600 mg PO BID 10/06/22 10/06/22 History Latanoprost [Latanoprost 0.005%] 1 drop BOTH EYES HS 10/06/22 10/06/22 History Allergies Allergy/AdvReac Type Severity Reaction Status Date / Time adhesive tape Allergy Itching Verified 10/06/22 18:04 Iodinated Contrast Media Allergy Rash/Hives Verified 10/06/22 18:04 & Shortness of Breath Physical Exam Vitals: Vital Signs Temp Pulse Pulse Resp BP BP Pulse Ox 10/07/22 11:20 98.3 F 64 20 115/65 95 10/07/22 09:03 97.8 F 117 H 18 117/75 97 10/07/22 07:52 85 18 10/07/22 07:47 95 10/07/22 07:43 65 18 10/07/22 04:00 98.0 F 67 12 123/64 97 10/07/22 03:55 10/07/22 00:28 10/07/22 00:00 98.9 F 123 H 18 146/74 96 10/06/22 21:40 97.0 F L 55 L 20 166/79 97 10/06/22 20:00 97.3 F L 55 L 20 166/79 97 10/06/22 19:41 10/06/22 19:30 69 18 142/72 97 10/06/22 19:00 64 18 151/76 97 10/06/22 18:30 65 16 134/84 97 10/06/22 18:00 62 16 132/78 95 10/06/22 17:53 10/06/22 17:30 66 14 131/63 95 10/06/22 17:00 63 20 155/86 95 10/06/22 16:30 61 14 135/72 96 10/06/22 16:00 61 28 H 135/80 98 10/06/22 15:30 65 16 135/80 97 10/06/22 15:16 67 16 155/81 94 L 10/06/22 15:08 98.7 F 110 H 18 109/68 83 L FiO2 10/07/22 11:20 10/07/22 09:03 10/07/22 07:52 10/07/22 07:47 10/07/22 07:43 50 10/07/22 04:00 50 10/07/22 03:55 50 10/07/22 00:28 50 10/07/22 00:00 10/06/22 21:40 10/06/22 20:00 10/06/22 19:41 50 10/06/22 19:30 10/06/22 19:00 10/06/22 18:30 10/06/22 18:00 10/06/22 17:53 50 10/06/22 17:30 10/06/22 17:00 10/06/22 16:30 10/06/22 16:00 10/06/22 15:30 10/06/22 15:16 10/06/22 15:08 Intake and Output 10/06/22 10/07/22 10/07/22 22:59 06:59 14:59 Intake Total 540 50 Output Total 500 Balance 40 50 Intake: Intake, IV Titration 50 Amount ceFAZolin 1,000 mg In 50 Sodium Chloride 0.9% 50 ml @ 100 mls/hr IVPB Q8HR [facility] Rx#:[id number] Oral 540 Output: Urine 500 Other: Voiding Method Bedside Commode Bedside Commode # Voids 2 Weight 68.492 kg Results CBC & Chem 7: 10/06/22 15:41 10/07/22 05:53 Labs: Abnormal Lab Results - Last 24 Hours (Table) 10/06/22 10/06/22 10/06/22 Range/Units 15:41 16:25 17:35 D-Dimer 1.92 H (<0.60) mg/L FEU VBG pH 7.29 L (7.31-7.41) VBG pCO2 63 H (37-51) mmHg VBG HCO3 30 H (24-28) mmol/L Sodium 135 L (137-145) mmol/L Chloride (98-107) mmol/L BUN 19 H (7-17) mg/dL Creatinine 1.32 H (0.52-1.04) mg/dL Glucose 101 H (74-99) mg/dL 10/07/22 Range/Units 05:53 D-Dimer (<0.60) mg/L FEU VBG pH (7.31-7.41) VBG pCO2 (37-51) mmHg VBG HCO3 (24-28) mmol/L Sodium 133 L (137-145) mmol/L Chloride 95 L (98-107) mmol/L BUN 23 H (7-17) mg/dL Creatinine 1.61 H (0.52-1.04) mg/dL Glucose 122 H (74-99) mg/dL Assessment and Plan (1) Non-pressure chronic ulcer of other part of right lower leg with fat layer exposed Current Visit: Yes Status: Acute Code(s): L97.812 - NON-PRS CHRONIC ULCER OTH PRT R LOW LEG W FAT LAYER EXPOSED SNOMED Code(s): 70087372397244615
--- NOTE | 2022-10-07 12:43 | P.CRDCN ---
History of Present Illness History of present illness: HISTORY OF PRESENT ILLNESS: This is a 87-year-old female with a past medical history significant for paroxysmal atrial fibrillation, hypertension, hyperlipidemia, hyperthyroidism, and SVT. Patient follows in the office with Dr. García. We have been asked to see the patient in consultation for CHF. Patient examined at the bedside. Patients daughter is at the bedside. She states the patient was very lethargic and weak at home. She states that they checked her oxygen levels at home and were found to be in the 60s. She reports she fell a few weeks ago and has been having issues with her right leg. Bedside telemetry reviewed. Patient going in and out of sinus mechanism and afib with RVR multiple times during examination. * EKG reveals sinus mechanism with burst of atrial fibrillation * Chest xray: Correlate for CHF. Cannot exclude basilar pneumonia. * Laboratory data: WBC 6.0. Hemoglobin 13.9. Platelet count 197. D-dimer 1.92. Sodium 133. Potassium 4.4. BUN 23. Creatinine 1.61. Troponin negative 1. ProBNP 1820 * Current home cardiac medications include metoprolol tartrate 25 mg twice a day, Lipitor 10 mg at night, Eliquis 2.5mg BID * Most recent echocardiogram obtained in June 2022 revealed ejection fraction 55%, trace to mild AR, mild to moderate MR, mild TR * Cardiac catheterization history: May 2022 revealing a right dominant system. Minor irregularities with no significant obstructive CAD REVIEW OF SYSTEMS: At the time of my exam: CONSTITUTIONAL: Denies fever or chills. HEENT: Denies blurred vision, vision changes, or eye pain. Denies hemoptysis CARDIOVASCULAR: Denies chest pain. Denies orthopnea. Denies PND. Denies palpitations RESPIRATORY: Denies shortness of breath. GASTROINTESTINAL: Denies abdominal pain. Denies nausea or vomiting. HEMATOLOGIC: Denies bleeding disorders. GENITOURINARY: Denies any blood in urine. SKIN: Denies pruitis. Denies rash. PHYSICAL EXAM: VITAL SIGNS: Reviewed. GENERAL: Well-developed in no acute distress. HEENT: Head is normocephalic. Pupils are equal, round. Sclerae anicteric. Mucous membranes of the mouth are moist. Neck supple. No JVD or thyromegaly LUNGS: Respirations even and unlabored. Lungs essentially clear to auscultation bilaterally. HEART: Regular rate and rhythm. S1 and S2 heard. ABDOMEN: Soft. Nondistended. Nontender. EXTREMITIES: Normal range of motion. No clubbing or cyanosis. Peripheral pulses intact. No lower extremity edema NEUROLOGIC: Awake and alert. Oriented x 3. ASSESSMENT: Shortness of breath Acute hypoxic respiratory failure Paroxysmal atrial fibrillation with runs of RVR and then sinus mechanism CHF, ruled out, no evidence of CHF on examination, BNP 1820 Hypertension Hyperlipidemia History of hyperthyroidism History of SVT History of CVA 2 PLAN: Resume home cardiac medications Increase metoprolol to 37.5 mL twice a day Add amiodarone 400 mg twice a day for 7 days Continue telemetry monitoring Further recommendations pending patient's course Dr. Allen's Addendum Patient has history of paroxysmal atrial fibrillation but reports that he has been sinus all throughout. He reports that his symptoms started somewhat yesterday and at that she had increased heart rates. I'm increasing her metoprolol and adding amiodarone. At this time that she is due for rhythm control strategy but trying to start amiodarone converting to sinus rhythm and help her congestive heart failure. One of her low blood pressure, I cannot increase her metoprolol. She feels been working with amiodarone short-term, we would not recommend long-term amiodarone therapy for her. I have personally seen and examined the patient. I have personally performed all the components of medical care documented above including detailed histoy, rev iew of system, physican exam, and formulating the assessment and plan. I have personally reviewed the relevant labs, imaging and other diagnostics. I have discussed this in detail with my TOWER EXCAVATOR OPERATOR who has helped me with this documentation. I have carefully reviewed this document before finalizing. Thank you for letting cardiology team participating in this patient's care. Dr. Yeison Allen MD Cardiovascular Disease Nurse practitioner note has been reviewed by physician. Signing provider agrees with the documented findings, assessment, and plan of care. Past Medical History Past Medical History: Cancer, CVA/TIA, GERD/Reflux, Hearing Disorder / Deafness, Hyperlipidemia, Hypertension, Sleep Apnea/CPAP/BIPAP Additional Past Medical History / Comment(s): 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 Bilateral hearing aid use. Hx brain tumor in 1986. Hx right kidney cancer approximately 1982. CPAP use. History of Any Multi-Drug Resistant Organisms: None Reported Past Surgical History: Appendectomy, Hysterectomy, Orthopedic Surgery Additional Past Surgical History / Comment(s): Right nephrectomy, craniotomy, bunionectomy Past Anesthesia/Blood Transfusion Reactions: Previous Problems w/ Anesthesia Additional Past Anesthesia/Blood Transfusion Reaction / Comment(s): Per patient's daughter, very senisitive to anesthesia. Smoking Status: Former smoker - Past Family History Father Family Medical History: Cancer Additional Family Medical History / Comment(s): Brain tumor. Mother Family Medical History: Asthma, COPD Additional Family Medical History / Comment(s): Emphysema. Medications and Allergies Home Medications Medication Instructions Recorded Confirmed Type Pantoprazole Sodium [Protonix] 40 mg PO DAILY 12/30/18 10/06/22 History methIMAzole [Tapazole] 2.5 mg PO DAILY 11/03/21 10/06/22 History Apixaban [Eliquis] 2.5 mg PO BID 05/20/22 10/06/22 History Ascorbic Acid [Vitamin C] 1,000 mg PO TUTHSA 05/20/22 10/06/22 History Cholecalciferol [Vitamin D3 (25 50 mcg PO MOWEFR 05/20/22 10/06/22 History Mcg = 1000 Iu)] L.acidoph,Paracasei, B.lactis 1 cap PO DAILY 05/20/22 10/06/22 History [Probiotic] Multivitamins, Thera [Multivitamin 1 tab PO DAILY 05/20/22 10/06/22 History (formulary)] traMADol HCL 50 mg PO Q8H 05/20/22 10/06/22 History Atorvastatin [Lipitor] 10 mg PO HS #30 tab 05/22/22 10/06/22 Rx Metoprolol Tartrate [Lopressor] 25 mg PO BID #60 tab 05/22/22 10/06/22 Rx Nitroglycerin Sl Tabs [Nitrostat] 0.4 mg SUBLINGUAL Q5M PRN #30 tab 05/22/22 10/06/22 Rx Dorzolamide/Timolol/Pf 1 drop BOTH EYES BID 10/06/22 10/06/22 History [Dorzolamide 2%-Timolol 0.5%] Gabapentin 600 mg PO BID 10/06/22 10/06/22 History Latanoprost [Latanoprost 0.005%] 1 drop BOTH EYES HS 10/06/22 10/06/22 History Allergies Allergy/AdvReac Type Severity Reaction Status Date / Time adhesive tape Allergy Itching Verified 10/06/22 18:04 Iodinated Contrast Media Allergy Rash/Hives Verified 10/06/22 18:04 & Shortness of Breath Physical Exam Vitals: Vital Signs Temp Pulse Pulse Resp BP BP Pulse Ox 10/07/22 07:52 85 18 10/07/22 07:47 95 10/07/22 07:43 65 18 10/07/22 04:00 98.0 F 67 12 123/64 97 10/07/22 03:55 10/07/22 00:28 10/07/22 00:00 98.9 F 123 H 18 146/74 96 10/06/22 21:40 97.0 F L 55 L 20 166/79 97 10/06/22 20:00 97.3 F L 55 L 20 166/79 97 10/06/22 19:41 10/06/22 19:30 69 18 142/72 97 10/06/22 19:00 64 18 151/76 97 10/06/22 18:30 65 16 134/84 97 10/06/22 18:00 62 16 132/78 95 10/06/22 17:53 10/06/22 17:30 66 14 131/63 95 10/06/22 17:00 63 20 155/86 95 10/06/22 16:30 61 14 135/72 96 10/06/22 16:00 61 28 H 135/80 98 10/06/22 15:30 65 16 135/80 97 10/06/22 15:16 67 16 155/81 94 L 10/06/22 15:08 98.7 F 110 H 18 109/68 83 L FiO2 10/07/22 07:52 10/07/22 07:47 10/07/22 07:43 50 10/07/22 04:00 50 10/07/22 03:55 50 10/07/22 00:28 50 10/07/22 00:00 10/06/22 21:40 10/06/22 20:00 10/06/22 19:41 50 10/06/22 19:30 10/06/22 19:00 10/06/22 18:30 10/06/22 18:00 10/06/22 17:53 50 10/06/22 17:30 10/06/22 17:00 10/06/22 16:30 10/06/22 16:00 10/06/22 15:30 10/06/22 15:16 10/06/22 15:08 Intake and Output 10/06/22 10/07/22 10/07/22 22:59 06:59 14:59 Intake Total 540 50 Output Total 500 Balance 40 50 Intake: Intake, IV Titration 50 Amount ceFAZolin 1,000 mg In 50 Sodium Chloride 0.9% 50 ml @ 100 mls/hr IVPB Q8HR [facility] Rx#:[id number] Oral 540 Output: Urine 500 Other: Voiding Method Bedside Commode Bedside Commode # Voids 2 Weight 68.492 kg Results 10/06/22 15:41 10/07/22 05:53 Cardiac Enzymes 10/06/22 10/06/22 Range/Units 16:25 16:25 AST 30 (14-36) U/L Troponin I <0.012 (0.000-0.034) ng/mL Coagulation 10/06/22 Range/Units 15:41 PT 10.8 (9.0-12.0) sec APTT 24.5 (22.0-30.0) sec CBC 10/06/22 Range/Units 15:41 WBC 6.0 (3.8-10.6) k/uL RBC 4.49 (3.80-5.40) m/uL Hgb 13.9 (11.4-16.0) gm/dL Hct 43.5 (34.0-46.0) % Plt Count 197 (150-450) k/uL Comprehensive Metabolic Panel 10/06/22 10/07/22 Range/Units 16:25 05:53 Sodium 135 L 133 L (137-145) mmol/L Potassium 4.6 4.4 (3.5-5.1) mmol/L Chloride 98 95 L (98-107) mmol/L Carbon Dioxide 29 30 (22-30) mmol/L BUN 19 H 23 H (7-17) mg/dL Creatinine 1.32 H 1.61 H (0.52-1.04) mg/dL Glucose 101 H 122 H (74-99) mg/dL Calcium 8.8 8.7 (8.4-10.2) mg/dL AST 30 (14-36) U/L ALT 18 (4-34) U/L Alkaline Phosphatase 67 (38-126) U/L Total Protein 6.7 (6.3-8.2) g/dL Albumin 3.6 (3.5-5.0) g/dL Current Medications Generic Name Dose Route Start Last Admin Trade Name Freq PRN Reason Stop Dose Admin Acetaminophen 650 mg 10/06/22 20:26 Acetaminophen Tab 325 Mg Tab PO Q6HR PRN Mild Pain or Fever > 100.5 Albuterol/Ipratropium 3 ml 10/06/22 20:25 10/07/22 07:42 Ipratropium-Albuterol 3 Ml Neb INHALATION 3 ml RT-QID CJ Administration Apixaban 2.5 mg 10/06/22 21:00 10/06/22 21:29 Apixaban 2.5 Mg Tablet PO 2.5 mg BID CJ Administration Protocol Ascorbic Acid 1,000 mg 10/07/22 09:00 Ascorbic Acid 500 Mg Tab PO TUTHSA CJ Atorvastatin Calcium 10 mg 10/06/22 21:00 10/06/22 21:29 Atorvastatin 10 Mg Tab PO 10 mg HS CJ Administration Calcium Carbonate/Glycine 1,000 mg 10/06/22 20:26 Calcium Carbonate 500 Mg Chewable PO Q4HR PRN Dyspepsia Cholecalciferol 50 mcg 10/08/22 09:00 Cholecalciferol 25 Mcg (1000 Iu) Tablet PO MOWEFR CJ Dorzolamide/Timolol 1 drops 10/06/22 21:00 10/06/22 23:32 Dorzolamide-Timolol 2.23%/0.68 10ml Btl BOTH EYES Not Given BID CJ Furosemide 40 mg 10/07/22 00:00 10/07/22 01:27 Furosemide 10 Mg/Ml 4 Ml Vial IV 40 mg Q8HR CJ Administration Gabapentin 300 mg 10/07/22 09:00 Gabapentin 300 Mg Cap PO BID CJ Cefazolin Sodium 1,000 mg/ 50 mls @ 100 mls/hr 10/07/22 00:30 10/07/22 01:27 Sodium Chloride IVPB 100 mls/hr Q8HR CJ Administration Protocol Lactobacillus Acidophilus 1 each 10/07/22 09:00 Lactobacillus Acidophilus/Pect 1 Each Capsule PO DAILY [facility] Lactulose 20 gm 10/06/22 20:26 Lactulose 20 Gm/30 Ml Cup PO DAILY PRN Constipation Latanoprost 1 drops 10/06/22 21:00 10/06/22 23:32 Latanoprost 0.005% Ophth Drops 2.5 Ml Btl BOTH EYES Not Given HS [facility] Melatonin 3 mg 10/06/22 20:26 Melatonin 3 Mg Tablet PO HS PRN Insomnia Methimazole 2.5 mg 10/07/22 09:00 Methimazole 5 Mg Tab PO DAILY [facility] Methylprednisolone Sodium Succinate 40 mg 10/07/22 00:00 10/07/22 01:27 Methylprednisolone Sod Succi 40 Mg/Ml 1 Ml Vial IV 40 mg Q8HR [facility] Administration Metoprolol Tartrate 25 mg 10/06/22 21:00 10/06/22 21:29 Metoprolol Tartrate 25 Mg Tab PO 25 mg BID [facility] Administration Multivitamins 1 each 10/07/22 09:00 Multivitamins, Thera 1 Each Tab PO DAILY [facility] Naloxone HCl 0.2 mg 10/06/22 18:33 Naloxone 0.4 Mg/Ml 1 Ml Vial IV Q2M PRN Opioid Reversal Nitroglycerin 0.4 mg 10/06/22 20:23 Nitroglycerin Sl Tabs 0.4 Mg Tab SUBLINGUAL Q5M PRN Chest Pain Ondansetron HCl 4 mg 10/06/22 20:26 Ondansetron 4 Mg/2 Ml Vial IVP Q8HR PRN Nausea And Vomiting Pantoprazole Sodium 40 mg 10/07/22 09:00 Pantoprazole 40 Mg Tablet PO DAILY [facility] Tramadol HCl 50 mg 10/06/22 20:00 10/07/22 06:33 Tramadol 50 Mg Tab PO Not Given Q8H [facility] Intake and Output 10/06/22 10/07/22 10/07/22 22:59 06:59 14:59 Intake Total 540 50 Output Total 500 Balance 40 50 Intake: Intake, IV Titration 50 Amount ceFAZolin 1,000 mg In 50 Sodium Chloride 0.9% 50 ml @ 100 mls/hr IVPB Q8HR [facility] Rx#:[id number] Oral 540 Output: Urine 500 Other: Voiding Method Bedside Commode Bedside Commode # Voids 2 Weight 68.492 kg 10/06/22 15:41 10/07/22 05:53
[2022-10-07] MEDS: HYDROPHILIC CREAM 180 GM TUBE TOPICAL SCH (14:53)
--- NOTE | 2022-10-07 17:41 | P.PN ---
Progress Note - Text Progress Note Date: 10/07/22 Chief Complaint: Short of breath This is a pleasant 87-year-old patient of Dr. Ashok Sanchez. Chronic stable medical conditions include brain tumor removed in 1986 with no sequela, GERD, primary osteoarthritis, paroxysmal atrial fibrillation, hyperlipidemia. COPD . Patient had a stroke in 2021- felt to be possibly from A. fib hence on eliquis Patient lives with her daughter. May of this year underwent cardiac catheterization with Dr. CLEMENT García.-No sign ificant obstructive CAD. Patient now presented to the ER accompanied by her daughter with whom she lives. For about one week patient has been feeling tired. Decreased appetite. This morning patient is a bit more short of breath. Pulse ox follow be 62%. No cough. No sputum. No fever no chills. Patient did receive some Benadryl in the ER for contrast ALLERGY and was a bit delirious after that. Patient is put on a BiPAP. About 3 weeks ago patient fell from a golf cart and has bruising of the lower extremity in the right arm. An wound on the right leg. Which has been healing. Patient has chronic edema in the right lower extremity. 10/07/2022: Admitted with acute hypoxic hypercapnic respiratory failure from COPD exacerbation and CHF. Placed on BiPAP. IV Lasix. This morning patient doing better. On 4 L nasal cannula. Delirium improved. Started to eat better. Sitting up on the bed. Breathing a bit better. Decreased edema. Changed over to oral Lasix. Active Medications Acetaminophen (Acetaminophen Tab 325 Mg Tab) 650 mg PO Q6HR PRN PRN Reason: Mild Pain or Fever > 100.5 Last Admin: 10/07/22 09:11 Dose: 650 mg Albuterol/Ipratropium (Ipratropium-Albuterol 3 Ml Neb) 3 ml INHALATION RT-QID [facility] Last Admin: 10/07/22 16:36 Dose: Not Given Amiodarone HCl (Amiodarone 200 Mg Tab) 400 mg PO BID [facility] Stop: 10/14/22 09:31 Last Admin: 10/07/22 09:30 Dose: 400 mg Apixaban (Apixaban 2.5 Mg Tablet) 2.5 mg PO BID [facility]; Protocol Last Admin: 10/07/22 09:07 Dose: 2.5 mg Ascorbic Acid (Ascorbic Acid 500 Mg Tab) 1,000 mg PO TUTHSA [facility] Last Admin: 10/07/22 09:10 Dose: 1,000 mg Atorvastatin Calcium (Atorvastatin 10 Mg Tab) 10 mg PO HS [facility] Last Admin: 10/06/22 21:29 Dose: 10 mg Calcium Carbonate/Glycine (Calcium Carbonate 500 Mg Chewable) 1,000 mg PO Q4HR PRN PRN Reason: Dyspepsia Cholecalciferol (Cholecalciferol 25 Mcg (1000 Iu) Tablet) 50 mcg PO MOWEFR [facility] Dorzolamide/Timolol (Dorzolamide-Timolol 2.23%/0.68 10ml Btl) 1 drops BOTH EYES BID [facility] Last Admin: 10/07/22 11:21 Dose: 1 drops Furosemide (Furosemide 20 Mg Tab) 20 mg PO DAILY [facility] Stop: 10/12/22 09:31 Last Admin: 10/07/22 09:30 Dose: 20 mg Gabapentin (Gabapentin 300 Mg Cap) 300 mg PO BID [facility] Last Admin: 10/07/22 09:09 Dose: 300 mg Lactobacillus Acidophilus (Lactobacillus Acidophilus/Pect 1 Each Capsule) 1 each PO DAILY [facility] Last Admin: 10/07/22 09:07 Dose: 1 each Lactulose (Lactulose 20 Gm/30 Ml Cup) 20 gm PO DAILY PRN PRN Reason: Constipation Latanoprost (Latanoprost 0.005% Ophth Drops 2.5 Ml Btl) 1 drops BOTH EYES HS [facility] Last Admin: 10/06/22 23:32 Dose: Not Given Melatonin (Melatonin 3 Mg Tablet) 3 mg PO HS PRN PRN Reason: Insomnia Methimazole (Methimazole 5 Mg Tab) 2.5 mg PO DAILY [facility] Last Admin: 10/07/22 09:28 Dose: 2.5 mg Methylprednisolone Sodium Succinate (Methylprednisolone Sod Succi 40 Mg/Ml 1 Ml Vial) 40 mg IV Q8HR [facility] Last Admin: 10/07/22 17:15 Dose: 40 mg Metoprolol Tartrate (Metoprolol Tartrate 25 Mg Tab) 37.5 mg PO BID [facility] Multi-Ingred Cream/Lotion/Oil/Oint (Hydrophilic Cream 180 Gm Tube) 1 applic TOPICAL DAILY [facility]; Protocol Last Admin: 10/07/22 14:53 Dose: 1 applic Multivitamins (Multivitamins, Thera 1 Each Tab) 1 each PO DAILY [facility] Last Admin: 10/07/22 09:07 Dose: 1 each Naloxone HCl (Naloxone 0.4 Mg/Ml 1 Ml Vial) 0.2 mg IV Q2M PRN PRN Reason: Opioid Reversal Nitroglycerin (Nitroglycerin Sl Tabs 0.4 Mg Tab) 0.4 mg SUBLINGUAL Q5M PRN PRN Reason: Chest Pain Ondansetron HCl (Ondansetron 4 Mg/2 Ml Vial) 4 mg IVP Q8HR PRN PRN Reason: Nausea And Vomiting Pantoprazole Sodium (Pantoprazole 40 Mg Tablet) 40 mg PO DAILY [facility] Last Admin: 10/07/22 09:09 Dose: 40 mg Tramadol HCl (Tramadol 50 Mg Tab) 50 mg PO Q8H [facility] Last Admin: 10/07/22 11:20 Dose: 50 mg Past medical history to include: Brain tumor removed in 1986, GERD, JULIOCESAR-CPAP, paroxysmal atrial flutter ablation, hyperlipidemia hypertension, COPD. Right nephrectomy 1985. Stroke in 2021 when he recovered. Bilateral hearing aid. Cardiac cath in May 2022, showing minimal disease Social history: smoked half a pack to 1 pack a day for 37 years. Stopped 35 years ago.. . 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 Lives with her daughter July Physical examination: VITAL SIGNS: 98.3, 64, 20, 11 5 x 65, 95% on 4 L GENERAL: Sitting up in bed, breathing better. EYES: Pupils equal. Conjunctiva normal. HEENT: External appearance of nose and ears normal, oral cavity grossly normal. NECK: JVD possibly raise; masses not palpable. HEART: Heart sounds irregular; some edema. LUNGS: Respiratory rate increased, decreased breath sounds ABDOMEN: Soft, slight distention, liver spleen not palpable, no masses palpable. PSYCH: Answering questions better. MUSCULOSKELETAL: Evidence of OA especially the hands DERMATOLOGICAL: Bruising in several areas. Right lower extremity some bruising and slight breakdown of skin. INVESTIGATIONS, reviewed in the clinical context: 10/07/2022: Potassium 4.4 BUN 23 creatinine 1.61 White count 6 hemoglobin 13.9 platelets 197 potassium 4.6 BUN 19 creatinine 1.3 to Troponin I 0.0 0.012 ProBNP 1820 Influenza type A, type B, RSV, COVID-19: Not detected Chest x-ray film personally reviewed by me-some venous prominence EKG tracing personally reviewed by me-questionable junctional rhythm Previous tests: Cardiac catheterization [05/21/2022]: No obstruction. Assessment and plan: -Acute hypoxic respiratory failure with hypercapnia. Combination of CHF, COPD.: Slow improvement Pulse ox was 62% on presentation. Initially on BiPAP. Today at 5 L and his cannula -Probable acute congestive heart exacerbation. Chest x-ray shows venous prominence.: Better 2-D echocardiogram. IV Lasix 40 mg every 8 initially. Changed over to oral Lasix today -Acute COPD exacerbation and a prior smoker: Slow to respond DuoNeb. IV Solu-Medrol -Paroxysmal atrial fibrillation. In sinus rhythm On Lopressor 25 twice a day. Follow with cardiology. Telemetry -CAD with cardiac catheterization showing minimal disease in May 2022/cardiac catheterization -Bilateral hearing aids -Right lower extremity wound secondary to trauma having followed him from [facility] about 3 weeks ago. Follow with wound care team -GERD Pepcid -Obstructive sleep apnea, uses CPAP -Primary osteoarthritis ultram when necessary -Hyperlipidemia Lipitor 10 mg daily at bedtime -Chronic gait dysfunction uses a walker at baseline -Full code Lasix changed to by mouth. Continue Solu-Medrol bronchodilators. Discussed with patient and family at the bedside. 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 Bilateral hearing aid use. Hx brain tumor in 1986. Hx right kidney cancer appro ximately 1985. CPAP use. History of Any Multi-Drug Resistant Organisms: None Reported Past Surgical History: Appendectomy, Hysterectomy, Orthopedic Surgery Additional Past Surgical History / Comment(s): Right nephrectomy, craniotomy, bunionectomy. Past Anesthesia/Blood Transfusion Reactions: No Reported Reaction Past Psychological History: No Psychological Hx Reported Smoking Status: Former smoker Past Alcohol Use History: Rare Past Drug Use History: None Reported - Past Family History Father Family Medical History: Cancer Additional Family Medical History / Comment(s): Brain tumor. Mother Family Medical History: Asthma, COPD Additional Family Medical History / Comment(s): Emphysema. Medications and Allergies Home Medications Medication Instructions Recorded Confirmed Type Pantoprazole Sodium [Protonix] 40 mg PO DAILY 12/30/18 10/06/22 History methIMAzole [Tapazole] 2.5 mg PO DAILY 11/03/21 10/06/22 History Apixaban [Eliquis] 2.5 mg PO BID 05/20/22 10/06/22 History Ascorbic Acid [Vitamin C] 1,000 mg PO TUTHSA 05/20/22 10/06/22 History Cholecalciferol [Vitamin D3 (25 50 mcg PO MOWEFR 05/20/22 10/06/22 History Mcg = 1000 Iu)] L.acidoph,Paracasei, B.lactis 1 cap PO DAILY 05/20/22 10/06/22 History [Probiotic] Multivitamins, Thera [Multivitamin 1 tab PO DAILY 05/20/22 10/06/22 History (formulary)] traMADol HCL 50 mg PO Q8H 05/20/22 10/06/22 History Atorvastatin [Lipitor] 10 mg PO HS #30 tab 05/22/22 10/06/22 Rx Metoprolol Tartrate [Lopressor] 25 mg PO BID #60 tab 05/22/22 10/06/22 Rx Nitroglycerin Sl Tabs [Nitrostat] 0.4 mg SUBLINGUAL Q5M PRN #30 tab 05/22/22 10/06/22 Rx Dorzolamide/Timolol/Pf 1 drop BOTH EYES BID 10/06/22 10/06/22 History [Dorzolamide 2%-Timolol 0.5%] Gabapentin 600 mg PO BID 10/06/22 10/06/22 History Latanoprost [Latanoprost 0.005%] 1 drop BOTH EYES HS 10/06/22 10/06/22 History Allergies Allergy/AdvReac Type Severity Reaction Status Date / Time adhesive tape Allergy Itching Verified 10/06/22 18:04 Iodinated Contrast Media Allergy Rash/Hives Verified 10/06/22 18:04 & Shortness of Breath Physical Exam Vitals: Vital Signs Temp Pulse Resp BP Pulse Ox FiO2 10/06/22 19:41 50 10/06/22 19:30 69 18 142/72 97 10/06/22 19:00 64 18 151/76 97 10/06/22 18:30 65 16 134/84 97 10/06/22 18:00 62 16 132/78 95 10/06/22 17:53 50 10/06/22 17:30 66 14 131/63 95 10/06/22 17:00 63 20 155/86 95 10/06/22 16:30 61 14 135/72 96 10/06/22 16:00 61 28 H 135/80 98 10/06/22 15:30 65 16 135/80 97 10/06/22 15:16 67 16 155/81 94 L 10/06/22 15:08 98.7 F 110 H 18 109/68 83 L Intake and Output 10/06/22 10/06/22 10/06/22 06:59 14:59 22:59 Other: Weight 68.492 kg Results CBC & Chem 7: 10/06/22 15:41 10/06/22 16:25 Labs: Abnormal Lab Results - Last 24 Hours (Table) 10/06/22 10/06/22 10/06/22 Range/Units 15:41 16:25 17:35 D-Dimer 1.92 H (<0.60) mg/L FEU VBG pH 7.29 L (7.31-7.41) VBG pCO2 63 H (37-51) mmHg VBG HCO3 30 H (24-28) mmol/L Sodium 135 L (137-145) mmol/L BUN 19 H (7-17) mg/dL Creatinine 1.32 H (0.52-1.04) mg/dL Glucose 101 H (74-99) mg/dL Additional CC's: Ashok Sanchez
--- NOTE | 2022-10-07 19:06 | CA ---
Transthoracic Echo Report Name: Ana Polanco Age: 87 Gender: F : 1935 Exam Date: 10/07/2022 11:27 Exam Location: [facility] Ht (in): 62 Wt (lb): 151 Ordering Physician: Ramez Elise MD Attending/Referring Phys: Colleter Sj Raphael Procedure CPT: Indications: chf Cardiac Hx: Technical Quality: Technically difficult study Contrast 1: Total Dose (mL): Contrast 2: Total Dose (mL): MEASUREMENTS (Male / Female) Normal Values 2D ECHO LV Diastolic Diameter PLAX 4.7 cm 4.2 - 5.9 / 3.9 - 5.3 cm LV Systolic Diameter PLAX 3.2 cm IVS Diastolic Thickness 1.1 cm 0.6 - 1.0 / 0.6 - 0.9 cm LVPW Diastolic Thickness 1.0 cm 0.6 - 1.0 / 0.6 - 0.9 cm LV Relative Wall Thickness 0.4 RV Internal Dim ED PLAX 2.4 cm LVOT Diameter 1.9 cm Aortic Root Diameter 3.4 cm LV Diastolic Volume MOD BP 32.2 cm??? 67 - 155 / 56 - 104 cm??? LV Systolic Volume MOD BP 15.0 cm??? 22 - 58 / 19 - 49 cm??? LV Ejection Fraction MOD BP 53.4 % >= 55 % LV Cardiac Index MOD BP 648.7 cm???/min???m??? LV Diastolic Volume MOD 4C 36.3 cm??? LV Systolic Volume MOD 4C 17.0 cm??? LV Ejection Fraction MOD 4C 53.1 % LV Cardiac Index MOD 4C 727.4 cm???/min???m??? LV Diastolic Length 4C 6.1 cm LV Systolic Length 4C 4.7 cm LV Diastolic Volume MOD 2C 26.8 cm??? LV Systolic Volume MOD 2C 13.0 cm??? LV Ejection Fraction MOD 2C 51.4 % LV Cardiac Index MOD 2C 518.8 cm???/min???m??? LV Diastolic Length 2C 5.7 cm LV Systolic Length 2C 4.8 cm LA Volume 41.0 cm??? 18 - 58 / 22 - 52 cm??? DOPPLER AV Peak Velocity 116.5 cm/s AV Peak Gradient 5.4 mmHg MV Peak Velocity 133.8 cm/s MV Peak Gradient 7.2 mmHg MV Mean Velocity 55.9 cm/s MV Mean Gradient 1.7 mmHg MV Velocity Time Integral 42.1 cm Mitral E Point Velocity 118.7 cm/s Mitral A Point Velocity 100.9 cm/s Mitral E to A Ratio 1.2 MV Deceleration Time 224.7 ms MV E' Velocity 8.6 cm/s Mitral E to MV E' Ratio 13.8 PV Peak Velocity 103.3 cm/s PV Peak Gradient 4.3 mmHg FINDINGS Left Ventricle Normal LV size and wall thickness. Left ventricular ejection fraction is estimated at _50-55 %. Right Ventricle Normal right ventricular size. Right Atrium Normal right atrial size. Left Atrium Normal left atrial size. Mitral Valve Mitral valve not well visualized. No mitral regurgitation. Aortic Valve Trileaflet aortic valve. No aortic valve stenosis or regurgitation. Tricuspid Valve Tricuspid valve not well visualized. No tricuspid regurgitation. Pulmonic Valve Pulmonic valve not well visualized. Moderate PI. Pericardium Normal pericardium. Aorta Normal size aortic root. CONCLUSIONS Preserved LV size and systolic function Prominent pericardial stripe posterior to the base of LV and LA Previewed by: Dr. Ryder Olguin MD (Electronically Signed) Final Date: 07 October 2022 19:05
[2022-10-07] MEDS: ATORVASTATIN 10 MG TAB PO SCH (20:54)
[2022-10-07] MEDS: LATANOPROST 0.005% OPHTH DROPS 2.5 ML BTL BOTH EYES SCH (21:43)
--- NOTE | 2022-10-07 21:54 | P.CONS ---
History of Present Illness - Reason for Consult Consult date: 10/07/22 Right leg wound and cellulitis Requesting physician: Feng Castro - Chief Complaint Shortness of breath and low O2 sats x one day - History of Present Illness patient is a 87-year-old female with a past medical history significant for hypertension hyperlipidemia sleep apnea reflux CVA TIA patient recently did have a fall leading to multiple laceration to the right lower extremity that has been treated with the Silvadene cream and Unna boots patient has been brought into the ER yesterday afternoon concerning for hypoxia and increasing shortness of breath apparently patient did have an O2 sats of 60% at home patient complaining of increasing shortness of breath patient denies having any chest pain no significant cough or sputum production no nausea vomiting no abdominal pain or any diarrhea and denies having any fever with chills patient right lower extremity wound seem to be healing denies any worsening pain to the right lower extremity wound area or any foul-smelling drainage patient on presentation to the hospital was afebrile and no fever has been recorded subsequently patient did have a normal white count BUN/creatinine has been mildly elevated liver enzymes are normal urine has been negative influenza RSV and COVID testing was negative patient did have a chest x-ray correlate for CHF cannot exclude basilar pneumonia also have a CT angiogram of the chest that was negative for PE did show small left and minimal right effusion clinical correlation for pulmonary hypertension infectious disease was consulted for the right lower extremity wound and need for antibiotic therapy Review of Systems Positive point and negatives has been mentioned in the HPI, complete review of systems was performed and all other systems are negative Past Medical History Past Medical History: Cancer, CVA/TIA, GERD/Reflux, Hearing Disorder / Deafness, Hyperlipidemia, Hypertension, Sleep Apnea/CPAP/BIPAP Additional Past Medical History / Comment(s): 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 Bilateral hearing aid use. Hx brain tumor in 1986. Hx right kidney cancer approx imately 1982. CPAP use. History of Any Multi-Drug Resistant Organisms: None Reported Past Surgical History: Appendectomy, Hysterectomy, Orthopedic Surgery Additional Past Surgical History / Comment(s): Right nephrectomy, craniotomy, bunionectomy Past Anesthesia/Blood Transfusion Reactions: Previous Problems w/ Anesthesia Additional Past Anesthesia/Blood Transfusion Reaction / Comm: Per patient's daughter, very senisitive to anesthesia. Smoking Status: Former smoker - Past Family History Father Family Medical History: Cancer Additional Family Medical History / Comment(s): Brain tumor. Mother Family Medical History: Asthma, COPD Additional Family Medical History / Comment(s): Emphysema. Medications and Allergies Home Medications Medication Instructions Recorded Confirmed Type Pantoprazole Sodium [Protonix] 40 mg PO DAILY 12/30/18 10/06/22 History methIMAzole [Tapazole] 2.5 mg PO DAILY 11/03/21 10/06/22 History Apixaban [Eliquis] 2.5 mg PO BID 05/20/22 10/06/22 History Ascorbic Acid [Vitamin C] 1,000 mg PO TUTHSA 05/20/22 10/06/22 History Cholecalciferol [Vitamin D3 (25 50 mcg PO MOWEFR 05/20/22 10/06/22 History Mcg = 1000 Iu)] L.acidoph,Tomeka B.lactis 1 cap PO DAILY 05/20/22 10/06/22 History [Probiotic] Multivitamins, Thera [Multivitamin 1 tab PO DAILY 05/20/22 10/06/22 History (formulary)] traMADol HCL 50 mg PO Q8H 05/20/22 10/06/22 History Atorvastatin [Lipitor] 10 mg PO HS #30 tab 05/22/22 10/06/22 Rx Nitroglycerin Sl Tabs [Nitrostat] 0.4 mg SUBLINGUAL Q5M PRN #30 tab 05/22/22 10/06/22 Rx Dorzolamide/Timolol/Pf 1 drop BOTH EYES BID 10/06/22 10/06/22 History [Dorzolamide 2%-Timolol 0.5%] Latanoprost [Latanoprost 0.005%] 1 drop BOTH EYES HS 10/06/22 10/06/22 History Amiodarone [Cordarone] 400 mg PO BID #60 tab 10/08/22 Rx Furosemide [Lasix] 20 mg PO DAILY #30 tab 10/08/22 Rx Gabapentin 600 mg PO HS #0 10/08/22 10/06/22 Rx Ipratropium-Albuterol Nebulize 3 ml INHALATION TID #90 each 10/08/22 Rx [Duoneb 0.5 mg-3 mg/3 ml Soln] Melatonin 3 mg PO HS PRN tab 10/08/22 Rx Metoprolol Tartrate [Lopressor] 25 mg PO TID #60 tab 10/08/22 10/06/22 Rx predniSONE 10 mg PO DAILY #30 tab 10/08/22 Rx Allergies Allergy/AdvReac Type Severity Reaction Status Date / Time adhesive tape Allergy Itching Verified 10/06/22 18:04 Iodinated Contrast Media Allergy Rash/Hives Verified 10/06/22 18:04 & Shortness of Breath Physical Exam Vitals: Vital Signs Temp Pulse Pulse Resp BP BP Pulse Ox 10/07/22 13:29 67 18 10/07/22 11:20 98.3 F 64 20 115/65 95 10/07/22 09:03 97.8 F 117 H 18 117/75 97 10/07/22 07:52 85 18 10/07/22 07:47 95 10/07/22 07:43 65 18 10/07/22 04:00 98.0 F 67 12 123/64 97 10/07/22 03:55 10/07/22 00:28 10/07/22 00:00 98.9 F 123 H 18 146/74 96 10/06/22 21:40 97.0 F L 55 L 20 166/79 97 10/06/22 20:00 97.3 F L 55 L 20 166/79 97 10/06/22 19:41 10/06/22 19:30 69 18 142/72 97 10/06/22 19:00 64 18 151/76 97 10/06/22 18:30 65 16 134/84 97 10/06/22 18:00 62 16 132/78 95 10/06/22 17:53 10/06/22 17:30 66 14 131/63 95 10/06/22 17:00 63 20 155/86 95 10/06/22 16:30 61 14 135/72 96 10/06/22 16:00 61 28 H 135/80 98 10/06/22 15:30 65 16 135/80 97 10/06/22 15:16 67 16 155/81 94 L 10/06/22 15:08 98.7 F 110 H 18 109/68 83 L FiO2 10/07/22 13:29 10/07/22 11:20 10/07/22 09:03 10/07/22 07:52 10/07/22 07:47 10/07/22 07:43 50 10/07/22 04:00 50 10/07/22 03:55 50 10/07/22 00:28 50 10/07/22 00:00 10/06/22 21:40 10/06/22 20:00 10/06/22 19:41 50 10/06/22 19:30 10/06/22 19:00 10/06/22 18:30 10/06/22 18:00 10/06/22 17:53 50 10/06/22 17:30 10/06/22 17:00 10/06/22 16:30 10/06/22 16:00 10/06/22 15:30 10/06/22 15:16 10/06/22 15:08 Intake and Output 10/06/22 10/07/22 10/07/22 22:59 06:59 14:59 Intake Total 540 50 Output Total 500 Balance 40 50 Intake: Intake, IV Titration 50 Amount ceFAZolin 1,000 mg In 50 Sodium Chloride 0.9% 50 ml @ 100 mls/hr IVPB Q8HR [facility] Rx#:[id number] Oral 540 Output: Urine 500 Other: Voiding Method Bedside Commode Bedside Commode # Voids 2 Weight 68.492 kg GENERAL DESCRIPTION: Elderly female lying in bed, no distress. No tachypnea or accessory muscle of respiration use. HEENT: Shows Pallor , no scleral icterus. Oral mucous membrane is dry. No pharyngeal erythema or thrush NECK: Trachea central, no thyromegaly. LUNGS: Unlabored breathing. Decreased breath sound the bases HEART: S1, S2, regular rate and rhythm. No loud murmur ABDOMEN: Soft, no tenderness , guarding or rigidity, no organomegaly EXTREMITIES: Right lower extremity wound with no slough tissue no surrounding swelling redness or drainage SKIN: No rash, no masses palpable. NEUROLOGICAL: The patient is awake, alert, oriented x3, mood and affect normal. Results CBC & Chem 7: 10/06/22 15:41 10/07/22 05:53 Labs: Abnormal Lab Results - Last 24 Hours (Table) 10/06/22 10/06/22 10/06/22 Range/Units 15:41 16:25 17:35 D-Dimer 1.92 H (<0.60) mg/L FEU VBG pH 7.29 L (7.31-7.41) VBG pCO2 63 H (37-51) mmHg VBG HCO3 30 H (24-28) mmol/L Sodium 135 L (137-145) mmol/L Chloride (98-107) mmol/L BUN 19 H (7-17) mg/dL Creatinine 1.32 H (0.52-1.04) mg/dL Glucose 101 H (74-99) mg/dL 10/07/22 Range/Units 05:53 D-Dimer (<0.60) mg/L FEU VBG pH (7.31-7.41) VBG pCO2 (37-51) mmHg VBG HCO3 (24-28) mmol/L Sodium 133 L (137-145) mmol/L Chloride 95 L (98-107) mmol/L BUN 23 H (7-17) mg/dL Creatinine 1.61 H (0.52-1.04) mg/dL Glucose 122 H (74-99) mg/dL Assessment and Plan (1) Non-pressure chronic ulcer of other part of right lower leg with fat layer exposed Status: Acute Code(s): L97.812 - NON-PRS CHRONIC ULCER OTH PRT R LOW LEG W FAT LAYER EXPOSED SNOMED Code(s): 19329903012712522 Plan: 1patient with right lower extremity wound traumatic has been there for about 4 weeks apparently seem to showing overall healing with no evidence of any cellulitis or slough tissue we will recommend local wound care 2-Aquacel silver dressing to the open area of the right lower extremity followed by Nolan wrap from just about the knee to be changed to 48-hour 3-no need for systemic antibiotic therapy We will follow on clinical condition and cultures to further adjust medication if needed Thank you for this consultation we will follow the patient along with you Dictation was produced using [id number] dictation software. please excuse any grammatical, word or spelling errors. Time with Patient: Greater than 30
[2022-10-07 23:51] VITALS: RESP 16
[2022-10-08] MEDS: methylPREDNISolone SOD SUCCI 40 MG/ML 1 ML VIAL IV SCH ×2 (00:06→09:28)
[2022-10-08] MEDS: traMADol 50 MG TAB PO SCH ×2 (05:15→14:53)
[2022-10-08 08:31] VITALS: BP 118/61; TEMP 98.3
[2022-10-08] MEDS ORDERED: CHOLECALCIFEROL 25 MCG (1000 IU) TABLET PO SCH (09:00)
[2022-10-08] MEDS: methIMAzole 5 MG TAB PO SCH (09:27)
[2022-10-08] MEDS: APIXABAN 2.5 MG TABLET PO SCH (09:28)
[2022-10-08] MEDS: GABAPENTIN 300 MG CAP PO SCH (09:28)
[2022-10-08] MEDS: AMIODARONE 200 MG TAB PO SCH (09:28)
[2022-10-08] MEDS: PANTOPRAZOLE 40 MG TABLET PO SCH (09:28)
[2022-10-08] MEDS: MULTIVITAMINS, THERA 1 EACH TAB PO SCH (09:28)
[2022-10-08] MEDS: FUROSEMIDE 20 MG TAB PO SCH (09:28)
[2022-10-08] MEDS: DORZOLAMIDE-TIMOLOL 2.23%/0.68 10ML BTL BOTH EYES SCH (09:28)
[2022-10-08] MEDS: LACTOBACILLUS ACIDOPHILUS/PECT 1 EACH CAPSULE PO SCH (09:29)
[2022-10-08] MEDS: HYDROPHILIC CREAM 180 GM TUBE TOPICAL SCH (09:29)
[2022-10-08] MEDS: METOPROLOL TARTRATE 25 MG TAB PO SCH (09:33)
[2022-10-08] MEDS: IPRATROPIUM-ALBUTEROL 3 ML NEB INHALATION SCH ×3 (09:57→16:08)
[2022-10-08 11:25] VITALS: PULSE 61
--- NOTE | 2022-10-08 12:11 | P.PN ---
Subjective HISTORY OF PRESENT ILLNESS: This is a 87-year-old female with a past medical history significant for paroxysmal atrial fibrillation, hypertension, hyperlipidemia, hyperthyroidism, and SVT. Patient follows in the office with Dr. García. We have been asked to see the patient in consultation for CHF. Patient examined at the bedside. Patients daughter is at the bedside. She states the patient was very lethargic and weak at home. She states that they checked her oxygen levels at home and were found to be in the 60s. She reports she fell a few weeks ago and has been having issues with her right leg. Bedside telemetry reviewed. Patient going in and out of sinus mechanism and afib with RVR multiple times during examination. * EKG reveals sinus mechanism with burst of atrial fibrillation * Chest xray: Correlate for CHF. Cannot exclude basilar pneumonia. * Laboratory data: WBC 6.0. Hemoglobin 13.9. Platelet count 197. D-dimer 1.92. Sodium 133. Potassium 4.4. BUN 23. Creatinine 1.61. Troponin negative 1. ProBNP 1820 * Current home cardiac medications include metoprolol tartrate 25 mg twice a day, Lipitor 10 mg at night, Eliquis 2.5mg BID * Most recent echocardiogram obtained in June 2022 revealed ejection fraction 55%, trace to mild AR, mild to moderate MR, mild TR * Cardiac catheterization history: May 2022 revealing a right dominant system. Minor irregularities with no significant obstructive CAD Dr. Allen's Addendum Patient has history of paroxysmal atrial fibrillation but reports that he has been sinus all throughout. He reports that his symptoms started somewhat yesterday and at that she had increased heart rates. I'm increasing her metoprolol and adding amiodarone. At this time that she is due for rhythm control strategy but trying to start amiodarone converting to sinus rhythm and help her congestive heart failure. One of her low blood pressure, I cannot increase her metoprolol. She feels been working with amiodarone short-term, we would not recommend long-term amiodarone therapy for her. 10/08/2022 Patient examined this morning at the bedside. Patient denies chest pain or pressure. She denies shortness of breath. Telemetry reveals sinus rhythm with PACs. No further episodes of A. fib with RVR noted. PHYSICAL EXAM: VITAL SIGNS: Reviewed. GENERAL: Well-developed in no acute distress. HEENT: Head is normocephalic. Pupils are equal, round. Sclerae anicteric. Mucous membranes of the mouth are moist. Neck supple. No JVD or thyromegaly LUNGS: Respirations even and unlabored. Lungs essentially clear to auscultation bilaterally. HEART: Regular rate and rhythm. S1 and S2 heard. ABDOMEN: Soft. Nondistended. Nontender. EXTREMITIES: Normal range of motion. No clubbing or cyanosis. Peripheral pulses intact. No lower extremity edema NEUROLOGIC: Awake and alert. Oriented x 3. ASSESSMENT: Shortness of breath Acute hypoxic respiratory failure Paroxysmal atrial fibrillation with runs of RVR and then sinus mechanism CHF, ruled out, no evidence of CHF on examination, BNP 1820 Hypertension Hyperlipidemia History of hyperthyroidism History of SVT History of CVA 2 PLAN: Resume home cardiac medications Continue metoprolol to 37.5 mL twice a day Add amiodarone 400 mg twice a day for 7 days then decrease to 200 mg twice a day. Recommend short-term amiodarone use for only 1-2 months. Continue telemetry monitoring Further recommendations pending patient's course Nurse practitioner note has been reviewed by physician. Signing provider agrees with the documented findings, assessment, and plan of care. Objective - Vital Signs Vital signs: Vital Signs Temp 98.3 F 10/08/22 08:00 Pulse 68 10/08/22 10:07 Resp 16 10/08/22 08:00 BP 118/61 10/08/22 08:00 Pulse Ox 100 10/08/22 09:57 FiO2 50 10/07/22 07:43 Intake & Output 10/07/22 10/08/22 10/08/22 18:59 06:59 18:59 Intake Total 140 Balance 140 Weight 72.4 kg Intake: Oral 140 Other: Voiding Method Bedside Commode # Voids 1 - Labs CBC & Chem 7: 10/06/22 15:41 10/07/22 05:53
--- NOTE | 2022-10-08 13:41 | P.PN ---
Subjective Progress Note Date: 10/08/22 I am seeing this patient in new consultation today 10/07/2022 in the emergency room for acute hypoxemic and hypercapnic respiratory failure. Patient is a 87-year-old white female with past medical history significant for obstructive sleep apnea, paroxysmal atrial fibrillation, hyperlipidemia, hypertension, previous CVA, renal cell carcinoma status post right nephrectomy, ,and obesity. No reported history of COPD or asthma. Patient does follow with Dr. Guzman for management of her severe obstructive sleep apnea and utilizes APAP pressures of 4/11 centimeters H2O at bedtime. Patient presented to the emergency room yesterday afternoon with reports of shortness of breath over the last 24 hours. Patient's daughter is at bedside and states that she was hypoxic with an oxygen saturation of around 60% at home. Patient is quite drowsy and disoriented. Patient's daughter answers most of my questions. Denies any reported fevers, myalgias, cough. Denies sick contacts. Denies any chest pain or palpitations. There is right lower extremity edema and erythema, two lower extremity wounds, and minimal purulent wound drainage. Apparently, the patient fell 4 weeks ago from a golf cart sustaining superficial injury to her right leg. Her primary care provider has treated her with rounds of Keflex and then Bactrim. The leg was wrapped with Nolan bandage on arrival. Patient is currently sitting up in bed, on 5 L/m nasal cannula, in no acute distress. She is drowsy and will answer my questions but then falls right back to sleep. She is oriented to person and place. VBG on arrival showed hypercapnia with a pH of 7.29 and pCO2 of 63. Patient was initially on the BiPAP with settings of 10/5, but was transitioned to nasal cannula earlier last night. Apparently, she was given a dose of Benadryl for premedication related to an iodine contrast ALLERGY, and has been confused since. Initial chest x-ray showed mild pulmonary vascular congestion, interstitial densities, and small bilateral pleural effusions concerning for CHF exacerbation. Follow-up chest CTA was done because of an elevated d-dimer which redemonstrated these findings and was negative for pulmonary embolism. NT proBNP was 1820. Patient has been started on IV Lasix. CBC on arrival was unremarkable. No leukocytosis. Negative for influenza, RSV, COVID-19. BMP on arrival showed a sodium 135, potassium 4.6, chloride 98, serum bicarb 29, BUN 19, creatinine 1.32, and glucose of 101. Troponins less than 0.012. Urinalysis not concerning for UTI. Patient is afebrile. Currently, heart rhythm on bedside monitor appears to be atrial fibrillation in and out of RVR. Blood pressure is hypertensive, and her home antihypertensive medications have been reordered. She will be monitored on the cardiac stepdown unit. On today's evaluation of 10/08/2022, the patient is feeling better. She is currently on room air oxygen. No specific complaints. Shortness of breath is improved considerably. She is on oral Lasix 20 mg by mouth daily. The patient has also developed some worsening in her renal function. Creatinine is current ly up to 1.6. Sodium is at 133, potassium is at 4.4, bicarb is at 95. No chest pain. No angina. No palpitations. She is on IV Solu-Medrol 40 mg every 6 hours. She is also on bronchodilators. She is on long-term and coagulation she is currently on anticoagulation with Eliquis. Objective - Vital Signs Vital signs: Vital Signs Temp 98.3 F 10/08/22 08:00 Pulse 68 10/08/22 10:07 Resp 16 10/08/22 08:00 BP 118/61 10/08/22 08:00 Pulse Ox 100 10/08/22 09:57 FiO2 50 10/07/22 07:43 Intake & Output 10/07/22 10/08/22 10/08/22 18:59 06:59 18:59 Intake Total 140 Balance 140 Weight 72.4 kg Intake: Oral 140 Other: Voiding Method Bedside Commode # Voids 1 - Exam GENERAL EXAM: drowsy,awakes and answers questions and then falls back asleep , comfortable in no apparent respiratory distress. HEAD: Normocephalic and atraumatic EYES: Normal reaction of pupils, equal size. NOSE: Clear with pink turbinates. THROAT: No erythema or exudates. NECK: No masses, no JVD. CHEST: No chest wall deformity. LUNGS: Equal air entry with diminished bibasilar lung sounds and inspiratory crackles. No wheezing or rhonchi. On 5 L/m nasal cannula. No conversational dyspnea or accessory muscle use.. CVS: S1 and S2 normal with no audible murmur, irregular rhythm. No extra heart sounds. Heart rate 120 bpm. ABDOMEN: obese abdomen, no hepatosplenomegaly, active bowel sounds, no guarding or rigidity. SPINE: No scoliosis or deformity SKIN: Two right lower extremity wounds, with minimal purulent drainage and surrounding erythema CENTRAL NERVOUS SYSTEM:There is left lower extremity weakness 2/5, otherwise, nonfocal EXTREMITIES: There is right lower extremity edema. No clubbing, or cyanosis. Peripheral pulses are intact. - Labs CBC & Chem 7: 10/06/22 15:41 10/07/22 05:53 Assessment and Plan Assessment: Acute hypoxemic and hypercapnic respiratory failure secondary to suspected diastolic CHF exacerbation. Initial chest x-ray showed mild pulmonary vascular congestion, interstitial densities, and small bilateral pleural effusions concerning for CHF exacerbation. NT proBNP was 1820. Most recent SILAS from 11/05/2021 shows a preserved left ventricular ejection fraction of 55% and mild to moderate mitral regurgitation. The patient is feeling much better and patient is currently on room air oxygen. No significant shortness of breath. Obstructive sleep apnea, normally maintained on auto CPAP with pressures 4/11 cm H2O at bedtime. Right lower extremity wounds and possible cellulitis Gait disturbance, related to chronic left lower extremity weakness History of paroxysmal atrial fibrillation, anticoagulated on Eliquis Benign essential hypertension Hyperlipidemia History of prior CVA Chronic kidney disease stage III , with mild elevation of the creatinine compared to yesterday History of renal cell carcinoma, status post right nephrectomy hyperthyroidism, on Tapazole remote ex-smoker Plan: Monitor renal function The patient was given contrast in the emergency was having her CT angiogram. Rule out contrast nephropathy She is off the BiPAP. She has an acute kidney injury. Note that the patient has had a previous nephrectomy and she cares only a single kidney. She is currently on oral Lasix. CAT scan of the chest showed small bilateral pleural effusions. She also has chronic ones in the lower extremity which is essentially improving. We'll continue to follow make further recommendations based on her progress. Repeat blood work in a.m.
--- NOTE | 2022-10-08 17:52 | P.DS ---
Providers Date of admission: 10/06/22 18:35 Expected date of discharge: 10/08/22 Attending physician: Ramez Elise Consults: 10/06/22 18:33 Consult Physician Routine Consulting Provider: Maikel Guzman Consult Reason/Comments: CO2 narcosis, hypoxia Do you want consulting provider notified?: Yes, Notify in am 10/06/22 20:44 Consult Physician Routine Consulting Provider: Yeison Allen Consult Reason/Comments: CHF Do you want consulting provider notified?: Yes 10/07/22 00:28 Consult Physician Routine Consulting Provider: Diann Keenan Consult Reason/Comments: right leg wound/cellulitis Do you want consulting provider notified?: Yes, Notify in am [facility] Course: Chief Complaint: Short of breath This is a pleasant 87-year-old patient of Dr. Ashok Sanchez. Chronic stable medical conditions include brain tumor removed in 1986 with no sequela, GERD, primary osteoarthritis, paroxysmal atrial fibrillation, hyperlipidemia. COPD . Patient had a stroke in 2021- felt to be possibly from A. fib hence on [facility] Patient lives with her daughter. July. May of this year underwent cardiac catheterization with Dr. CLEMENT García.-No significant obstructive CAD. Patient now presented to the ER accompanied by her daughter with whom she lives. For about one week patient has been feeling tired. Decreased appetite. This morning patient is a bit more short of breath. Pulse ox follow be 62%. No cough. No sputum. No fever no chills. Patient did receive some Benadryl in the ER for contrast ALLERGY and was a bit delirious after that. Patient is put on a BiPAP. About 3 weeks ago patient fell from a golf cart and has bruising of the lower extremity in the right arm. An wound on the right leg. Which has been healing. Patient has chronic edema in the right lower extremity. 10/07/2022: Admitted with acute hypoxic hypercapnic respiratory failure from COPD exacerbation and CHF. Placed on BiPAP. IV Lasix. This morning patient doing better. On 4 L nasal cannula. Delirium improved. Started to eat better. Sitting up on the bed. Breathing a bit better. Decreased edema. Changed over to oral Lasix. 10/08/2022: Patient doing much better. Very keen to go home. Creatinine 1.61. History of right nephrectomy for previous cancer. Patient been sent to want a prescription for 20 mg of Lasix. Spoke to patient's daughter July over the phone. Hold off Lasix to 1 days at least. Get a repeat BMP done. And then Dr. Sanchez can decide based on clinical with to continue with Lasix. She is to follow up with network management specialist and cardiology. Questions answered. Patient's pulse ox was 88% on room air given underlying COPD she will need oxygen 2 L at home. Prescribed. Discussion and discharge planning more than 35 minutes Past medical history to include: Brain tumor removed in 1986, GERD, JULIOCESAR-CPAP, paroxysmal atrial flutter ablation, hyperlipidemia hypertension, COPD. Right nephrectomy 1985. Stroke in 2021 when he recovered. Bilateral hearing aid. Cardiac cath in May 2022, showing minimal disease Social history: smoked half a pack to 1 pack a day for 37 years. Stopped 35 years ago.. . 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 Lives with her daughter July Physical examination: VITAL SIGNS: 98.3, 61, 16, 118/61, 88% on room air with activity. GENERAL: Sitting comfortable EYES: Pupils equal. Conjunctiva normal. HEENT: External appearance of nose and ears normal, oral cavity grossly normal. NECK: JVD possibly raise; masses not palpable. HEART: Heart sounds irregular; some edema. LUNGS: Respiratory rate normal, decreased breath sounds ABDOMEN: Soft, slight distention, liver spleen not palpable, no masses palpable. PSYCH: AO 3, mood affect normal MUSCULOSKELETAL: Evidence of OA especially the hands DERMATOLOGICAL: Bruising in several areas. Right lower extremity some bruising and slight breakdown of skin. INVESTIGATIONS, reviewed in the clinical context: 2-D echocardiogram: EF 50-55% 10/07/2022: Potassium 4.4 BUN 23 creatinine 1.61 White count 6 hemoglobin 13.9 platelets 197 potassium 4.6 BUN 19 creatinine 1.3 to Troponin I 0.0 0.012 ProBNP 1820 Influenza type A, type B, RSV, COVID-19: Not detected Chest x-ray film personally reviewed by me-some venous prominence EKG tracing personally reviewed by me-questionable junctional rhythm Previous tests: Cardiac catheterization [05/21/2022]: No obstruction. Assessment and plan: -Acute hypoxic respiratory failure with hypercapnia. Combination of CHF, COPD.: Improving Pulse ox was 62% on presentation. Initially on BiPAP. 94% on 2 L. -Suspect chronic hypoxic respiratory failure from underlying COPD Discharge in 2 L nasal cannula. -Acute congestive heart failure exacerbation from diastolic dysfunction. EF 50- 55%.: Better Discussed with daughter Ana. Hold Lasix for now. Further on outpatient clinical evaluation and labs. -Acute COPD exacerbation and a prior smoker: Improved DuoNeb. Prednisone taper -Paroxysmal atrial fibrillation. In sinus rhythm On Lopressor 25 twice a day. Follow with cardiology. Telemetry -CAD with cardiac catheterization showing minimal disease in May 2022/cardiac catheterization -Bilateral hearing aids -Right lower extremity wound secondary to trauma having followed him from [employer] about 3 weeks ago.: Healing Follow with wound care team -GERD Pepcid -Obstructive sleep apnea, uses CPAP -Primary osteoarthritis ultram when necessary -Hyperlipidemia Lipitor 10 mg daily at bedtime -Chronic gait dysfunction uses a walker at baseline -Full code Disposition: Home Labs: BMP: 3-4 days Past Medical History Past Medical History: Cancer, CVA/TIA, GERD/Reflux, Hearing Disorder / Deafness, Hyperlipidemia, Hypertension, Osteoarthritis (OA), Sleep Apnea/CPAP/BIPAP Additional Past Medical History / Comment(s): 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 Bilateral hearing aid use. Hx brain tumor in 1986. Hx right kidney cancer approximately 1985. CPAP use. History of Any Multi-Drug Resistant Organisms: None Reported Past Surgical History: Appendectomy, Hysterectomy, Orthopedic Surgery Additional Past Surgical History / Comment(s): Right nephrectomy, craniotomy, b unionectomy. Past Anesthesia/Blood Transfusion Reactions: No Reported Reaction Past Psychological History: No Psychological Hx Reported Smoking Status: Former smoker Past Alcohol Use History: Rare Past Drug Use History: None Reported - Past Family History Father Family Medical History: Cancer Additional Family Medical History / Comment(s): Brain tumor. Mother Family Medical History: Asthma, COPD Additional Family Medical History / Comment(s): Emphysema. Medications and Allergies Home Medications Medication Instructions Recorded Confirmed Type Pantoprazole Sodium [Protonix] 40 mg PO DAILY 12/30/18 10/06/22 History methIMAzole [Tapazole] 2.5 mg PO DAILY 11/03/21 10/06/22 History Apixaban [Eliquis] 2.5 mg PO BID 05/20/22 10/06/22 History Ascorbic Acid [Vitamin C] 1,000 mg PO TUTHSA 05/20/22 10/06/22 History Cholecalciferol [Vitamin D3 (25 50 mcg PO MOWEFR 05/20/22 10/06/22 History Mcg = 1000 Iu)] LShaacidoph,Paracasei, B.lactis 1 cap PO DAILY 05/20/22 10/06/22 History [Probiotic] Multivitamins, Thera [Multivitamin 1 tab PO DAILY 05/20/22 10/06/22 History (formulary)] traMADol HCL 50 mg PO Q8H 05/20/22 10/06/22 History Atorvastatin [Lipitor] 10 mg PO HS #30 tab 05/22/22 10/06/22 Rx Metoprolol Tartrate [Lopressor] 25 mg PO BID #60 tab 05/22/22 10/06/22 Rx Nitroglycerin Sl Tabs [Nitrostat] 0.4 mg SUBLINGUAL Q5M PRN #30 tab 05/22/22 10/06/22 Rx Dorzolamide/Timolol/Pf 1 drop BOTH EYES BID 10/06/22 10/06/22 History [Dorzolamide 2%-Timolol 0.5%] Gabapentin 600 mg PO BID 10/06/22 10/06/22 History Latanoprost [Latanoprost 0.005%] 1 drop BOTH EYES HS 10/06/22 10/06/22 History Allergies Allergy/AdvReac Type Severity Reaction Status Date / Time adhesive tape Allergy Itching Verified 10/06/22 18:04 Iodinated Contrast Media Allergy Rash/Hives Verified 10/06/22 18:04 & Shortness of Breath Plan - Discharge Summary Discharge Rx Participant: No New Discharge Prescriptions: New Amiodarone [Cordarone] 400 mg PO BID #60 tab Ipratropium-Albuterol Nebulize [Duoneb 0.5 mg-3 mg/3 ml Soln] 3 ml INHALATION TID #90 each Furosemide [Lasix] 20 mg PO DAILY #30 tab Melatonin 3 mg PO HS PRN tab PRN Reason: Insomnia predniSONE 10 mg PO DAILY #30 tab Continue Pantoprazole Sodium [Protonix] 40 mg PO DAILY Apixaban [Eliquis] 2.5 mg PO BID traMADol HCL 50 mg PO Q8H Latanoprost [Latanoprost 0.005%] 1 drop BOTH EYES HS methIMAzole [Tapazole] 2.5 mg PO DAILY Multivitamins, Thera [Multivitamin (formulary)] 1 tab PO DAILY L.acidoph,Paracasei, B.lactis [Probiotic] 1 cap PO DAILY Cholecalciferol [Vitamin D3 (25 Mcg = 1000 Iu)] 50 mcg PO MOWEFR Ascorbic Acid [Vitamin C] 1,000 mg PO TUTHSA Atorvastatin [Lipitor] 10 mg PO HS #30 tab Nitroglycerin Sl Tabs [Nitrostat] 0.4 mg SUBLINGUAL Q5M PRN #30 tab PRN Reason: Chest Pain Dorzolamide/Timolol/Pf [Dorzolamide 2%-Timolol 0.5%] 1 drop BOTH EYES BID Changed Gabapentin 600 mg PO HS #0 Metoprolol Tartrate [Lopressor] 25 mg PO TID #60 tab Discharge Medication List Pantoprazole Sodium [Protonix] 40 mg PO DAILY 12/30/18 [History] methIMAzole [Tapazole] 2.5 mg PO DAILY 11/03/21 [History] Apixaban [Eliquis] 2.5 mg PO BID 05/20/22 [History] Ascorbic Acid [Vitamin C] 1,000 mg PO TUTHSA 05/20/22 [History] Cholecalciferol [Vitamin D3 (25 Mcg = 1000 Iu)] 50 mcg PO MOWEFR 05/20/22 [History] L.acidoph,Paracasei, B.lactis [Probiotic] 1 cap PO DAILY 05/20/22 [History] Multivitamins, Thera [Multivitamin (formulary)] 1 tab PO DAILY 05/20/22 [History] traMADol HCL 50 mg PO Q8H 05/20/22 [History] Atorvastatin [Lipitor] 10 mg PO HS #30 tab 05/22/22 [Rx] Nitroglycerin Sl Tabs [Nitrostat] 0.4 mg SUBLINGUAL Q5M PRN #30 tab 05/22/22 [Rx] Dorzolamide/Timolol/Pf [Dorzolamide 2%-Timolol 0.5%] 1 drop BOTH EYES BID 10/06/22 [History] Latanoprost [Latanoprost 0.005%] 1 drop BOTH EYES HS 10/06/22 [History] Amiodarone [Cordarone] 400 mg PO BID #60 tab 10/08/22 [Rx] Furosemide [Lasix] 20 mg PO DAILY #30 tab 10/08/22 [Rx] Gabapentin 600 mg PO HS #0 10/08/22 [Rx] Ipratropium-Albuterol Nebulize [Duoneb 0.5 mg-3 mg/3 ml Soln] 3 ml INHALATION TID #90 each 10/08/22 [Rx] Melatonin 3 mg PO HS PRN tab 10/08/22 [Rx] Metoprolol Tartrate [Lopressor] 25 mg PO TID #60 tab 10/08/22 [Rx] predniSONE 10 mg PO DAILY #30 tab 10/08/22 [Rx] Follow up Appointment(s)/Referral(s): Jim García MD [STAFF PHYSICIAN] - 10/20/22 3:30 pm Ashok Sanchez MD [Primary Care Provider] - 10/13/22 4:00 pm () Maikel Guzman MD [STAFF PHYSICIAN] - 10/21/22 9:30 am Patient Instructions/Handouts: Heart Failure (DC), Using Oxygen at Home (ED), Safe Use of Anticoagulants (ED) Activity/Diet/Wound Care/Special Instructions: Patient requires home oxygen at discharge to manage COPD AMIO 400MG BID FOR ONE WEEK THEN DECREASE TO 200MG BID FOR 1 WEEK THEN DECREASE TO 200MG DAILY Discharge Disposition: HOME SELF-CARE
--- NOTE | 2022-10-15 16:07 | P.PN ---
Subjective Progress Note Date: 10/08/22 Principal diagnosis: Right lower extremity wound patient is a 87-year-old female with a past medical history significant for hypertension hyperlipidemia sleep apnea reflux CVA TIA patient recently did have a fall leading to multiple laceration to the right lower extremity that has been treated with the Silvadene cream and Unna boots patient has been brought into the ER concerning for hypoxia and increasing shortness of breath apparently patient did have an O2 sats of 60% at home , patient also have a nonhealing wound to the right lower leg as result of fall and trauma to the outpatient setting by her physician. On today's evaluation and that is a 07/04/2019, the patient denies having any fever or origin the patient is breathing comfortably on room and no chest pain shortness of the cough no abdominal pain or any worsening pain to the right lower extremity wound Patient did have a creatinine 1.61 urine has been negative, no cultures Objective - Vital Signs Vital signs: Vital Signs Temp 98.3 F 10/08/22 08:00 Pulse 61 10/08/22 14:00 Resp 16 10/08/22 14:00 BP 118/61 10/08/22 08:00 Pulse Ox 92 L 10/08/22 14:14 FiO2 50 10/07/22 07:43 Intake & Output 10/07/22 10/08/22 10/08/22 18:59 06:59 18:59 Intake Total 583 Balance 583 Weight 72.4 kg Intake: Oral 583 Other: Voiding Method Bedside Commode # Voids 1 - Exam An elderly female up in the room in no distress Right lower extremity wound is currently dressed no drainage of the dressing - Labs CBC & Chem 7: 10/06/22 15:41 10/07/22 05:53 Assessment and Plan (1) Non-pressure chronic ulcer of other part of right lower leg with fat layer exposed Status: Acute Code(s): L97.812 - NON-PRS CHRONIC ULCER OTH PRT R LOW LEG W FAT LAYER EXPOSED SNOMED Code(s): 99413223332226263 Plan: 1patient with right lower extremity wound traumatic has been there for about 4 weeks apparently seem to showing overall healing with no evidence of any cellulitis or slough tissue we will recommend local wound care 2-Aquacel silver dressing to the open area of the right lower extremity followed by Nolan wrap from just about the knee to be changed to 48-hour 3-,there is no need for systemic antibiotic therapy, on discharge Dictation was produced using [employer] dictation software. please excuse any grammatical, word or spelling errors. Time with Patient: Less than 30
== END 2022-10-08 16:37 | disposition home or self-care (01) | DRG 291 ==
LOC: EC 14:53 → 3SCARD 18:35
PROVIDERS: ADMIT Hospitalist; ATTEND Hospitalist
PROC: 5A09357 Assistance with Respiratory Ventilation, Less than 24 Consecutive Hours, Continuous Positive Airway Pressure (ICD-10-PCS; principal; 2022-10-06)
DX: I13.0 Hypertensive heart and chronic kidney disease with heart failure and stage 1 through stage 4 chronic kidney disease, or unspecified chronic kidney disease (principal); I50.33 Acute on chronic diastolic (congestive) heart failure; J96.01 Acute respiratory failure with hypoxia; J96.02 Acute respiratory failure with hypercapnia; N17.9 Acute kidney failure, unspecified; J44.1 Chronic obstructive pulmonary disease with (acute) exacerbation; L97.812 Non-pressure chronic ulcer of other part of right lower leg with fat layer exposed; L03.115 Cellulitis of right lower limb; N18.30 Chronic kidney disease, stage 3 unspecified; I48.0 Paroxysmal atrial fibrillation; E05.90 Thyrotoxicosis, unspecified without thyrotoxic crisis or storm; E66.9 Obesity, unspecified; I34.0 Nonrheumatic mitral (valve) insufficiency; I25.10 Atherosclerotic heart disease of native coronary artery without angina pectoris; H91.93 Unspecified hearing loss, bilateral; K21.9 Gastro-esophageal reflux disease without esophagitis; G47.33 Obstructive sleep apnea (adult) (pediatric); E78.5 Hyperlipidemia, unspecified; M19.91 Primary osteoarthritis, unspecified site; R03.1 Nonspecific low blood-pressure reading; S80.11XA Contusion of right lower leg, initial encounter; R26.9 Unspecified abnormalities of gait and mobility; Z20.822 Contact with and (suspected) exposure to COVID-19; Z79.01 Long term (current) use of anticoagulants; Z86.73 Personal history of transient ischemic attack (TIA), and cerebral infarction without residual deficits; Z86.03 Personal history of neoplasm of uncertain behavior; Z85.528 Personal history of other malignant neoplasm of kidney; Z90.5 Acquired absence of kidney; Z82.5 Family history of asthma and other chronic lower respiratory diseases; Z91.041 Radiographic dye allergy status; Z79.899 Other long term (current) drug therapy; Z87.891 Personal history of nicotine dependence; Z98.61 Coronary angioplasty status; Z97.4 Presence of external hearing-aid; Z91.048 Other nonmedicinal substance allergy status; Z91.81 History of falling; Z68.29 Body mass index [BMI] 29.0-29.9, adult; Z86.79 Personal history of other diseases of the circulatory system
CPT/HCPCS: 36415; 71046; 71275; 80048; 80053; 81003; 82803; 83690; 83735; 83880; 84484; 85025; 85379; 85610; 85730; 87636; 93005; 93306; 94640; 94660; 94760; 96365; 96366; 96375; 99291

== ENCOUNTER → 2023-11-18 | Outpatient (CLI) | payer MEDICARE, BC ==
--- NOTE | 2023-11-18 10:29 | FL ---
EXAMINATION TYPE: FL barium swallow DATE OF EXAM: 11/18/2023 9:08 AM COMPARISON: Chest radiograph from same day. CLINICAL INDICATION:Female, 88 years old with history of R13.10 DYSPHAGIA, UNSPECIFIED; TECHNIQUE: The procedure was explained and patient history elicited. All patient questions were ans wered prior to start of procedure. Multiple spot fluoroscopic images of the esophagus were obtained a fter the oral ingestion of effervescent crystals and liquid barium as the contrast agent. Fluoroscopic time:38 sec Fluoroscopic images:0 Radiographs taken: 102 DAP: not reported [id number] FINDINGS: There is long segment of narrowing of the esophagus extending from the midportion to the gastroesopha geal junction. No mass visualized. The heart is enlarged and impresses upon the esophagus. There is e sophageal dysmotility present. No extravasation contrast or evidence for mass. IMPRESSION: Long segment of distal esophageal narrowing possibly due to cardiomegaly mass effect upon the esophag us. There is superimposed esophageal dysmotility. [facility], , 11/18/2023 10:27 AM
== END | disposition home or self-care (01) ==
LOC: RADFLMAIN 08:33
PROVIDERS: ATTEND Family Medicine
DX: K22.4 Dyskinesia of esophagus (principal); R13.10 Dysphagia, unspecified
CPT/HCPCS: 74220

== ENCOUNTER 2023-12-08 13:59 | Inpatient (IN) | payer MEDICARE, BC ==
--- NOTE | 2023-12-08 14:19 | ED ---
SOB HPI - General Stated Complaint: SOB Time Seen by Provider: 12/08/23 14:15 Source: patient, RN notes reviewed - History of Present Illness Initial Comments: This is an 88-year-old female with a history of congestive heart failure, atrial fibrillation on Eliquis presenting to the emergency department with family for chief complaint of worsening dyspnea on exertion over the past week. Patient also endorsing weakness. She denies chest pain, heart palpitations, dizziness, lightheadedness, abdominal pain, nausea, vomiting, fevers or chills. Denies peripheral extremity edema. - Related Data Home Medications Medication Instructions Recorded Confirmed Pantoprazole Sodium [Protonix] 40 mg PO DAILY 12/30/18 12/08/23 methIMAzole [Tapazole] 2.5 mg PO DAILY 11/03/21 12/08/23 Apixaban [Eliquis] 2.5 mg PO BID 05/20/22 12/08/23 Ascorbic Acid [Vitamin C] 1,000 mg PO TUTHSA 05/20/22 12/08/23 Cholecalciferol [Vitamin D3 (25 50 mcg PO MOWEFR 05/20/22 12/08/23 Mcg = 1000 Iu)] L.acidoph,Paracasei, B.lactis 1 cap PO DAILY 05/20/22 12/08/23 [Probiotic] Multivitamins, Thera [Multivitamin 1 tab PO DAILY 05/20/22 12/08/23 (formulary)] Dorzolamide/Timolol/Pf 1 drop BOTH EYES BID 10/06/22 12/08/23 [Dorzolamide 2%-Timolol 0.5%] Gabapentin 600 mg PO BID 04/25/23 12/08/23 Levocetirizine Dihydrochloride 5 mg PO HS 04/25/23 12/08/23 [Xyzal] Metoprolol Tartrate [Lopressor] 12.5 mg PO BID 04/25/23 12/08/23 Spironolactone [Aldactone] 12.5 mg PO DAILY 04/25/23 12/08/23 amLODIPine [Norvasc] 2.5 mg PO HS 04/25/23 12/08/23 Fluticasone/Umeclidin/Vilanter 1 puff INHALATION RT-DAILY 12/08/23 12/08/23 [Trelegy Ellipta 100-62.5-25] traMADol HCL 50 mg PO Q8H PRN 12/08/23 12/08/23 Previous Rx's Medication Instructions Recorded Atorvastatin [Lipitor] 10 mg PO HS #30 tab 05/22/22 Allergies Allergy/AdvReac Type Severity Reaction Status Date / Time adhesive tape Allergy Itching Verified 12/08/23 19:05 Iodinated Contrast Media Allergy Rash/Hives Verified 12/08/23 19:05 & Shortness of Breath Review of Systems ROS Statement: Those systems with pertinent positive or pertinent negative responses have been documented in the HPI. ROS Other: All systems not noted in ROS Statement are negative. 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 Bilateral hearing aid use. Hx brain tumor in 1986. Hx right kidney cancer approximately 1982. CPAP use. Covid + 2-24, still w/cough, congestion, seeing PCP tomorrow History of Any Multi-Drug Resistant Organisms: None Reported Past Surgical History: Appendectomy, Hysterectomy, Orthopedic Surgery Additional Past Surgical History / Comment(s): Right nephrectomy, craniotomy, b unionectomy, cardioversion Past Anesthesia/Blood Transfusion Reactions: Previous Problems w/ Anesthesia Additional Past Anesthesia/Blood Transfusion Reaction / Comment(s): Per patient's daughter, very senisitive to anesthesia, very slow to wake up from general anesthesia, daughter states "stopped breathing" post cardioversion Smoking Status: Former smoker - Past Family History Father Family Medical History: Cancer Additional Family Medical History / Comment(s): Brain tumor. Mother Family Medical History: Asthma, COPD Additional Family Medical History / Comment(s): Emphysema. General Exam - General Exam Comments Initial Comments: Visual Physical Exam Vital signs reviewed General: Well-appearing, nontoxic, no acute distress. Head: Normocephalic, atraumatic Eyes: PERRLA, EOMI ENT: Airway patent Chest: Nonlabored breathing Skin: No visual rash, normal skin tone Neuro: Alert and oriented 3 Musculoskeletal: No gross abnormalities General appearance: alert, in no apparent distress Eye exam: Present: normal appearance, PERRL, EOMI. Absent: scleral icterus, conjunctival injection, periorbital swelling ENT exam: Present: normal exam, mucous membranes moist Neck exam: Present: normal inspection. Absent: tenderness, meningismus, lymphadenopathy Respiratory exam: Present: normal lung sounds bilaterally, wheezes, decreased breath sounds. Absent: respiratory distress, rales, rhonchi, stridor Cardiovascular Exam: Present: regular rate, normal rhythm, normal heart sounds. Absent: systolic murmur, diastolic murmur, rubs, gallop, clicks GI/Abdominal exam: Present: soft, normal bowel sounds. Absent: distended, tenderness, guarding, rebound, rigid Extremities exam: Present: normal inspection, full ROM, normal capillary refill. Absent: tenderness, pedal edema, joint swelling, calf tenderness Back exam: Present: normal inspection Neurological exam: Present: alert, oriented X3, CN II-XII intact Skin exam: Present: warm, dry, intact, normal color. Absent: rash Course Vital Signs 12/08/23 12/08/23 12/08/23 14:36 17:30 18:37 Temperature 98.8 F Pulse Rate 81 93 Pulse Rate [ Right] Respiratory 17 18 Rate Blood Pressure 120/83 132/99 Blood Pressure [Left Arm] O2 Sat by Pulse 92 L 89 L 100 Oximetry 12/08/23 12/08/23 19:56 20:00 Temperature 97.6 F Pulse Rate 92 Pulse Rate [ 86 Right] Respiratory 16 18 Rate Blood Pressure 125/85 Blood Pressure 126/85 [Left Arm] O2 Sat by Pulse 96 100 Oximetry Medical Decision Making - Medical Decision Making Was pt. sent in by a medical professional or institution (, PA, BLOWER MECHANIC, urgent care, hospital, or longterm...) When possible be specific @ -No Did you speak to anyone other than the patient for history (EMS, parent, family, police, friend...)? What history was obtained from this source @ -I spoke to the patient's daughter at bedside and states that the patient has a history of congestive heart failure. Follow-up outpatient with her credit collection specialist next week for further evaluation. Patient has been taking her medications as prescribed. Did you review nursing and triage notes (agree or disagree)? Why? @ -I reviewed and agree with nursing and triage notes Were old charts reviewed (outside hosp., previous admission, EMS record, old EKG, old radiological studies, urgent care reports/EKG's, longterm records)? Report findings @ -previous admission 2022 admitted for hypoxic respiratory failure and CHF exacerabtion, Has had previous nephrectomy and only has 1 kidney Differential Diagnosis (chest pain, altered mental status, abdominal pain women, abdominal pain men, vaginal bleeding, weakness, fever, dyspnea, syncope, headache, dizziness, GI bleed, back pain, seizure, CVA, palpatations, mental health, musculoskeletal)? @ -Differential Dyspnea: Coronary syndrome, arrhythmia, tamponade, asthma, COPD, pulmonary embolism, pneumonia, pneumothorax, pulmonary effusion, anaphylaxis, diabetic ketoacidosis, flailed chest, pulmonary contusion, diaphragmatic rupture, anemia, neuromuscular, this is not meant to be an all-inclusive list. EKG interpreted by me (3pts min.). @ -Completed at 1511 atrial fibrillation with a ventricular rate of 100, QRS 95, QTc 425. No acute signs of ischemia. X-rays interpreted by me (1pt min.). @ -Chest x-ray remarkable for cardiomegaly and pulmonary vascular congestion with bilateral pleural effusions, consistent with CHF CT interpreted by me (1pt min.). @ -None done U/S interpreted by me (1pt. min.). @ -None done What testing was considered but not performed or refused? (CT, X-rays, U/S, labs)? Why? @ -None What meds were considered but not given or refused? Why? @ -None Did you discuss the management of the patient with other professionals (professionals i.e. , PA, BLOWER MECHANIC, lab, RT, psych nurse, social media editor, inspector repairer, teacher, project control officer, field nurse case manager)? Give summary @ -i spoke with [facility] internal medicine physician, Dr. Triplett, in regard to the patient presentation and concern for congestive heart failure acute exacerbation. Patient will be admitted to internal medicine with cardiology on consult for further evaluation. Additionally, she will be started on IV Lasix. Was smoking cessation discussed for >3mins.? @ -No Was critical care preformed (if so, how long)? @ -No Were there social determinants of health that impacted care today? How? (Homelessness, low income, unemployed, alcoholism, drug addiction, transportation, low edu. Level, literacy, decrease access to med. care, intermediate, rehab)? @ -No Was there de-escalation of care discussed even if they declined (Discuss DNR or withdrawal of care, Hospice)? DNR status @ -No What co-morbidities impacted this encounter? (DM, HTN, Smoking, COPD, CAD, Cancer, CVA, ARF, Chemo, Hep., AIDS, mental health diagnosis, sleep apnea, mo rbid obesity)? @ -None Was patient admitted / discharged? Hospital course, mention meds given and ro frank, prescriptions, significant lab abnormalities, going to OR and other pertinent info. @ -admitted. 88-year-old female with dyspnea on exertion. Patient is noted to be hypoxic on room air started on supplemental O2 to nasal cannula. Family bedside states that patient intermittently requires oxygen as she normally wears this at bed and has had history of requiring oxygen. Pulmonary examination remarkable for scattered wheezes and decreased breath sounds bilaterally. Patient's BNP is elevated at 3170, troponin nonelevated 0.012 coagulation profile within normal limits,, CBC unremarkable, TSH within normal limits. Patient will be admitted to internal medicine with pulmonology and cardiology evaluation of congestive heart failure exacerbation. Additionally she will be started on 40 units of IV Lasix every 8 hours. Case discussed with my attending Dr. Silvestre. Undiagnosed new problem with uncertain prognosis? @ -No Drug Therapy requiring intensive monitoring for toxicity (Heparin, Nitro, Insulin, Cardizem)? @ -No Were any procedures done? @ -No Diagnosis/symptom? @ -congestive heart failure exacerbation Acute, or Chronic, or Acute on Chronic? @ -Acute on chronic Uncomplicated (without systemic symptoms) or Complicated (systemic symptoms)? @ -complicated Side effects of treatment? @ -No Exacerbation, Progression, or Severe Exacerbation? @ -No Poses a threat to life or bodily function? How? (Chest pain, USA, DC, pneumonia, PE, COPD, DKA, ARF, appy, cholecystitis, CVA, Diverticulitis, Homicidal, Suicidal, threat to staff... and all critical care pts) @ -No - Lab Data Result diagrams: 12/09/23 05:34 12/09/23 05:34 Lab Results 12/08/23 12/08/23 12/08/23 Range/Units 15:11 15:11 15:11 WBC 4.9 (3.8-10.6) k/uL RBC 4.63 (3.80-5.40) m/uL Hgb 14.2 (11.4-16.0) gm/dL Hct 44.6 (34.0-46.0) % MCV 96.2 (80.0-100.0) fL MCH 30.6 (25.0-35.0) pg MCHC 31.8 (31.0-37.0) g/dL RDW 14.7 (11.5-15.5) % Plt Count 198 (150-450) k/uL MPV 7.9 Immature Gran % (Auto) % Absolute Nucleated RBC % Neutrophils % 67 % Lymphocytes % 23 % Monocytes % 5 % Eosinophils % 1 % Basophils % 0 % Immature Gran # (0.00-0.04) X 10*3/uL Neutrophils # 3.3 (1.3-7.7) k/uL Lymphocytes # 1.1 (1.0-4.8) k/uL Monocytes # 0.3 (0-1.0) k/uL Eosinophils # 0.1 (0-0.7) k/uL Basophils # 0.0 (0-0.2) k/uL NRBC/100 WBC Diff (0.00-0.01) X 10*3/uL Hypochromasia Slight PT 12.0 (10.0-12.5) sec INR 1.1 (<1.2) APTT 25.9 (22.0-30.0) sec Sodium 139 (137-145) mmol/L Potassium 4.6 (3.5-5.1) mmol/L Chloride 106 (98-107) mmol/L Carbon Dioxide 31 H (22-30) mmol/L Anion Gap 2 mmol/L BUN 22 H (7-17) mg/dL Creatinine 1.25 H (0.52-1.04) mg/dL Est GFR (CKD-EPI) (>=60) Est GFR (CKD-EPI)AfAm 44 (>60 ml/min/1.73 sqM) Est GFR (CKD-EPI)NonAf 38 (>60 ml/min/1.73 sqM) BUN/Creatinine Ratio (12.00-20.00) Ratio Glucose 118 H (74-99) mg/dL Plasma Lactic Acid Deven (0.7-2.0) mmol/L Calcium 9.1 (8.4-10.2) mg/dL Magnesium 1.9 (1.6-2.3) mg/dL Total Bilirubin 1.4 H (0.2-1.3) mg/dL AST 38 H (14-36) U/L ALT 25 (4-34) U/L Alkaline Phosphatase 51 (38-126) U/L Troponin I (0.000-0.034) ng/mL NT-Pro-B Natriuret Pep 3170 pg/mL Total Protein 6.6 (6.3-8.2) g/dL Albumin 3.7 (3.5-5.0) g/dL Globulin (1.6-3.3) g/dL Albumin/Globulin Ratio (1.60-3.17) Ratio TSH 3.370 (0.465-4.680) mIU/L 12/08/23 12/08/23 12/09/23 Range/Units 15:11 15:11 05:34 WBC 4.87 (3.8-10.6) k/uL RBC 4.63 (3.80-5.40) m/uL Hgb 14.0 (11.4-16.0) gm/dL Hct 44.5 (34.0-46.0) % MCV 96.1 (80.0-100.0) fL MCH 30.2 (25.0-35.0) pg MCHC 31.5 L (31.0-37.0) g/dL RDW 14.4 (11.5-15.5) % Plt Count 164 (150-450) k/uL MPV 10.4 Immature Gran % (Auto) 0.60 % Absolute Nucleated RBC 0 % Neutrophils % 55.4 % Lymphocytes % 30.2 % Monocytes % 11.1 % Eosinophils % 2.1 % Basophils % 0.6 % Immature Gran # 0.03 (0.00-0.04) X 10*3/uL Neutrophils # 2.70 (1.3-7.7) k/uL Lymphocytes # 1.47 (1.0-4.8) k/uL Monocytes # 0.54 (0-1.0) k/uL Eosinophils # 0.10 (0-0.7) k/uL Basophils # 0.03 (0-0.2) k/uL NRBC/100 WBC Diff 0 (0.00-0.01) X 10*3/uL Hypochromasia PT (10.0-12.5) sec INR (<1.2) APTT (22.0-30.0) sec Sodium (137-145) mmol/L Potassium (3.5-5.1) mmol/L Chloride (98-107) mmol/L Carbon Dioxide (22-30) mmol/L Anion Gap mmol/L BUN (7-17) mg/dL Creatinine (0.52-1.04) mg/dL Est GFR (CKD-EPI) (>=60) Est GFR (CKD-EPI)AfAm (>60 ml/min/1.73 sqM) Est GFR (CKD-EPI)NonAf (>60 ml/min/1.73 sqM) BUN/Creatinine Ratio (12.00-20.00) Ratio Glucose (74-99) mg/dL Plasma Lactic Acid Deven 1.1 (0.7-2.0) mmol/L Calcium (8.4-10.2) mg/dL Magnesium (1.6-2.3) mg/dL Total Bilirubin (0.2-1.3) mg/dL AST (14-36) U/L ALT (4-34) U/L Alkaline Phosphatase (38-126) U/L Troponin I 0.012 (0.000-0.034) ng/mL NT-Pro-B Natriuret Pep pg/mL Total Protein (6.3-8.2) g/dL Albumin (3.5-5.0) g/dL Globulin (1.6-3.3) g/dL Albumin/Globulin Ratio (1.60-3.17) Ratio TSH (0.465-4.680) mIU/L 12/09/23 Range/Units 05:34 WBC (3.8-10.6) k/uL RBC (3.80-5.40) m/uL Hgb (11.4-16.0) gm/dL Hct (34.0-46.0) % MCV (80.0-100.0) fL MCH (25.0-35.0) pg MCHC (31.0-37.0) g/dL RDW (11.5-15.5) % Plt Count (150-450) k/uL MPV Immature Gran % (Auto) % Absolute Nucleated RBC % Neutrophils % % Lymphocytes % % Monocytes % % Eosinophils % % Basophils % % Immature Gran # (0.00-0.04) X 10*3/uL Neutrophils # (1.3-7.7) k/uL Lymphocytes # (1.0-4.8) k/uL Monocytes # (0-1.0) k/uL Eosinophils # (0-0.7) k/uL Basophils # (0-0.2) k/uL NRBC/100 WBC Diff (0.00-0.01) X 10*3/uL Hypochromasia PT (10.0-12.5) sec INR (<1.2) APTT (22.0-30.0) sec Sodium 142 (137-145) mmol/L Potassium 3.8 (3.5-5.1) mmol/L Chloride 103 (98-107) mmol/L Carbon Dioxide 29.5 (22-30) mmol/L Anion Gap 9.50 mmol/L BUN 19.1 (7-17) mg/dL Creatinine 1.3 (0.52-1.04) mg/dL Est GFR (CKD-EPI) 39 L (>=60) Est GFR (CKD-EPI)AfAm (>60 ml/min/1.73 sqM) Est GFR (CKD-EPI)NonAf (>60 ml/min/1.73 sqM) BUN/Creatinine Ratio 14.69 (12.00-20.00) Ratio Glucose 93 (74-99) mg/dL Plasma Lactic Acid Deven (0.7-2.0) mmol/L Calcium 9.3 (8.4-10.2) mg/dL Magnesium (1.6-2.3) mg/dL Total Bilirubin 0.7 (0.2-1.3) mg/dL AST 27 (14-36) U/L ALT 21 (4-34) U/L Alkaline Phosphatase 63 (38-126) U/L Troponin I (0.000-0.034) ng/mL NT-Pro-B Natriuret Pep pg/mL Total Protein 6.0 L (6.3-8.2) g/dL Albumin 3.6 L (3.5-5.0) g/dL Globulin 2.4 (1.6-3.3) g/dL Albumin/Globulin Ratio 1.50 L (1.60-3.17) Ratio TSH (0.465-4.680) mIU/L Disposition Clinical Impression: Acute exacerbation of congestive heart failure Disposition: ADMITTED IP TO THIS HOSP Condition: Stable Decision to Admit Reason: Admit from EC Decision Date: 12/08/23 Decision Time: 19:17
[2023-12-08 15:32] LABS: Basophils % (A) 0 %; Eosinophils # (A) 0.1 k/uL (0-0.7); Eosinophils % (A) 1 %; HCT 44.6 % (34.0-46.0); HGB 14.2 gm/dL (11.4-16.0); Hypochromasia Slight; Lymphocytes # (A) 1.1 k/uL (1.0-4.8); Lymphocytes % (A) 23 %; MCH 30.6 pg (25.0-35.0); MCHC 31.8 g/dL (31.0-37.0); MCV 96.2 fL (80.0-100.0); Mean Platelet Volume 7.9; Monocytes # (A) 0.3 k/uL (0-1.0); Monocytes % (A) 5 %; Neutrophils # (A) 3.3 k/uL (1.3-7.7); Neutrophils % (A) 67 %; Platelet Count 198 k/uL (150-450); RBC 4.63 m/uL (3.80-5.40); RDW 14.7 % (11.5-15.5); WBC 4.9 k/uL (3.8-10.6)
[2023-12-08 15:51] LABS: INR 1.1 (<1.2); Partial Thromboplastin Time 25.9 sec (22.0-30.0)
[2023-12-08 16:39] LABS: ALT 25 U/L (4-34); African American GFR (CKD) 44 (>60 ml/min/1.73 sqM); Albumin 3.7 g/dL (3.5-5.0); Anion Gap 2 mmol/L; Blood Urea Nitrogen 22 mg/dL (7-17); Calcium 9.1 mg/dL (8.4-10.2); Carbon Dioxide 31 mmol/L (22-30); Chloride 106 mmol/L (98-107); Glucose 118 mg/dL (74-99); Non-African American GFR(CKD) 38 (>60 ml/min/1.73 sqM); Sodium 139 mmol/L (137-145); Total Bilirubin 1.4 mg/dL (0.2-1.3); Total Protein 6.6 g/dL (6.3-8.2)
[2023-12-08 16:48] LABS: NT-Pro-B-Type Natriuretic Pept 3170 pg/mL
[2023-12-08 17:01] LABS: AST 38 U/L (14-36); Alkaline Phosphatase 51 U/L (38-126); Magnesium 1.9 mg/dL (1.6-2.3); Potassium 4.6 mmol/L (3.5-5.1)
--- NOTE | 2023-12-08 17:39 | XR ---
EXAMINATION TYPE: XR chest 2V DATE OF EXAM: 12/08/2023 5:28 PM CLINICAL INDICATION: Female, 88 years old with history of Weakness, cough, dyspnea on exertion; [facility] COMPARISON: Chest radiographs from 10/06/2022 TECHNIQUE: XR chest 2V Frontal and lateral views of the chest. FINDINGS: Lungs/Pleura: No evidence of focal consolidation or pneumothorax. Blunting of the costophrenic angles is present. Pulmonary vascularity: Pulmonary vascular congestion. Heart/mediastinum: Cardiomediastinal silhouette is enlarged and stable. Musculoskeletal: No acute osseous pathology. IMPRESSION: Cardiomegaly, pulmonary vascular congestion and bilateral pleural effusions. Correlate with BNP for c ongestive heart failure. [facility], , 12/08/2023 5:37 PM
[2023-12-08] MEDS ORDERED: NALOXONE 0.4 MG/ML 1 ML VIAL IV PRN (19:17)
[2023-12-08] MEDS ORDERED: IBUPROFEN 400 MG TAB PO PRN (19:17)
[2023-12-08] MEDS ORDERED: ACETAMINOPHEN TAB 325 MG TAB PO PRN (19:17)
[2023-12-08] MEDS: FUROSEMIDE 10 MG/ML 4 ML VIAL IV SCH (19:59)
[2023-12-09 09:03] LABS: Basophils # (A) 0.03 X 10*3/uL (0.00-0.10); Basophils % (A) 0.6 %; Eosinophils % (A) 2.1 %; HCT 44.5 % (37.2-46.3); Lymphocytes # (A) 1.47 X 10*3/uL (0.90-5.00); Lymphocytes % (A) 30.2 %; MCH 30.2 pg (27.0-32.0); MCHC 31.5 g/dL (32.0-37.0); MCV 96.1 FL (80.0-97.0); Mean Platelet Volume 10.4 FL (9.5-12.2); Monocytes # (A) 0.54 X 10*3/uL (0.20-1.00); Monocytes % (A) 11.1 %; NRBC Per 100 WBC 0 X 10*3/uL (0.00-0.01); Neutrophils % (A) 55.4 %; Platelet Count 164 X 10*3/uL (140-440); RBC 4.63 X 10*6/uL (4.10-5.20); RDW 14.4 % (11.5-14.5); WBC 4.87 X 10*3/uL (4.50-10.00)
[2023-12-09 09:39] LABS: ALT 21 U/L (8-44); AST 27 U/L (13-35); Albumin 3.6 g/dL (3.8-4.9); Alkaline Phosphatase 63 U/L (41-126); BUN/Creat Ratio 14.69 Ratio (12.00-20.00); Blood Urea Nitrogen 19.1 mg/dL (9.0-27.0); Calcium 9.3 mg/dL (8.7-10.3); Carbon Dioxide 29.5 mmol/L (21.6-31.8); Chloride 103 mmol/L (96-109); Globulin 2.4 g/dL (1.6-3.3); Glucose 93 mg/dL (70-110); Potassium 3.8 mmol/L (3.5-5.5); Sodium 142 mmol/L (135-145); Total Bilirubin 0.7 mg/dL (0.3-1.2)
[2023-12-09] MEDS: FUROSEMIDE 40 MG TAB PO SCH (10:23)
[2023-12-09] MEDS: SPIRONOLACTONE 25 MG TAB PO SCH (10:25)
[2023-12-09] MEDS: APIXABAN 2.5 MG TABLET PO SCH (10:26)
[2023-12-09] MEDS: FUROSEMIDE 20 MG TAB PO SCH (10:26)
[2023-12-09] MEDS: METOPROLOL TARTRATE 12.5 MG TAB PO SCH (10:26)
--- NOTE | 2023-12-09 10:31 | P.CRDCN ---
History of Present Illness History of present illness: HISTORY OF PRESENT ILLNESS: This is a 88-year-old female with a past medical history significant for paroxysmal atrial fibrillation, SVT, hypertension, hyperlipidemia and CHF. Patient follows in the office with Dr. García. We have been asked to see the patient in consultation for congestive heart failure. Patient examined at the bedside. Patient presented to the hospital with a chief complaint of shortness of breath. Patient denies having any chest pain or pressure. Patient was found to be in acute CHF and was started on IV Lasix. Patient reports she was up most of the night urinating. She reports improvement in her shortness of breath. DIAGNOSTICS: - EKG reveals atrial fibrillation with controlled ventricular rate. No signs of acute ischemia. - Chest xray cardiomegaly, pulmonary vascular congestion, and bilateral pleural effusions. - Laboratory data: WBC 4.87. Hemoglobin 14.0. Platelet count 164. Sodium 142. Potassium 3.8. BUN 19. Creatinine 1.3. Magnesium 1.9. Troponin negative x 1. proBNP 3170. - Current home cardiac medications include metoprolol tartrate 12.5 mg twice a day, Aldactone 12.5 mg daily, Eliquis 2.5 mg twice a day, Lipitor 10 mg at night , amlodipine 2.5 mg at night - Most recent echocardiogram obtained in September 2022 revealed ejection fraction 50 to 55% with no significant valvular abnormalities noted - Cardiac catheterization history: May 2022 revealing no significant obstructive CAD REVIEW OF SYSTEMS: At the time of my exam: CONSTITUTIONAL: Denies fever or chills. HEENT: Denies blurred vision, vision changes, or eye pain. Denies hemoptysis CARDIOVASCULAR: Denies chest pain. Denies orthopnea. Denies PND. Denies palpitations RESPIRATORY: Denies shortness of breath. GASTROINTESTINAL: Denies abdominal pain. Denies nausea or vomiting. HEMATOLOGIC: Denies bleeding disorders. GENITOURINARY: Denies any blood in urine. SKIN: Denies pruitis. Denies rash. PHYSICAL EXAM: VITAL SIGNS: Reviewed. GENERAL: Well-developed in no acute distress. HEENT: Head is normocephalic. Pupils are equal, round. Sclerae anicteric. Mucous membranes of the mouth are moist. Neck supple. No JVD or thyromegaly LUNGS: Respirations even and unlabored. Lungs essentially clear to auscultation bilaterally. HEART: Irregular rate and rhythm. S1 and S2 heard. ABDOMEN: Soft. Nondistended. Nontender. EXTREMITIES: Normal range of motion. No clubbing or cyanosis. Peripheral pulses intact. Trace bilateral lower extremity edema with bruising noted. NEUROLOGIC: Awake and alert. Oriented x 3. ASSESSMENT: Shortness of breath Acute on chronic heart failure with preserved EF, 50 to 55% Paroxysmal atrial fibrillation No significant obstructive CAD, per cath for 2022 History of SVT History of hypertension History of hyperlipidemia PLAN: Limited 2D echo ordered. Patient does not have to wait for echo to be resulted to be discharged. Wean oxygen as tolerated to maintain oxygen saturations greater than 92% Discontinue IV Lasix. Begin oral Lasix 20 mg daily. Continue to monitor kidney function Continue additional cardiac medications. Hold amlodipine for systolic blood pressure less than 100 Patient may be discharged home today from a cardiac standpoint Patient to follow-up postdischarge with Dr. García Nurse practitioner note has been reviewed by physician. Signing provider agrees with the documented findings, assessment, and plan of care documented by HEDIS REGISTERED NURSE RN as a scribe. 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 Bilateral hearing aid use. Hx brain tumor in 1986. Hx right kidney cancer approximately 1982. CPAP use. Covid + 2-11-24, still w/cough, congestion, seeing PCP tomorrow History of Any Multi-Drug Resistant Organisms: None Reported Past Surgical History: Appendectomy, Hysterectomy, Orthopedic Surgery Additional Past Surgical History / Comment(s): Right nephrectomy, craniotomy, bunionectomy, cardioversion Past Anesthesia/Blood Transfusion Reactions: Previous Problems w/ Anesthesia Additional Past Anesthesia/Blood Transfusion Reaction / Comment(s): Per patient's daughter, very senisitive to anesthesia, very slow to wake up from general anesthesia, daughter states "stopped breathing" post cardioversion Past Psychological History: No Psychological Hx Reported Smoking Status: Former smoker Past Alcohol Use History: None Reported Additional Past Alcohol Use History / Comment(s): Quit smoking 35 yrs ago. Past Drug Use History: None Reported - Past Family History Father Family Medical History: Cancer Additional Family Medical History / Comment(s): Brain tumor. Mother Family Medical History: Asthma, COPD Additional Family Medical History / Comment(s): Emphysema. Medications and Allergies Home Medications Medication Instructions Recorded Confirmed Type Pantoprazole Sodium [Protonix] 40 mg PO DAILY 12/30/18 12/08/23 History methIMAzole [Tapazole] 2.5 mg PO DAILY 11/03/21 12/08/23 History Apixaban [Eliquis] 2.5 mg PO BID 05/20/22 12/08/23 History Ascorbic Acid [Vitamin C] 1,000 mg PO TUTHSA 05/20/22 12/08/23 History Cholecalciferol [Vitamin D3 (25 50 mcg PO MOWEFR 05/20/22 12/08/23 History Mcg = 1000 Iu)] L.acidophTomeka B.lactis 1 cap PO DAILY 05/20/22 12/08/23 History [Probiotic] Multivitamins, Thera [Multivitamin 1 tab PO DAILY 05/20/22 12/08/23 History (formulary)] Atorvastatin [Lipitor] 10 mg PO HS #30 tab 05/22/22 12/08/23 Rx Dorzolamide/Timolol/Pf 1 drop BOTH EYES BID 10/06/22 12/08/23 History [Dorzolamide 2%-Timolol 0.5%] Gabapentin 600 mg PO BID 04/25/23 12/08/23 History Levocetirizine Dihydrochloride 5 mg PO HS 04/25/23 12/08/23 History [Xyzal] Metoprolol Tartrate [Lopressor] 12.5 mg PO BID 04/25/23 12/08/23 History Spironolactone [Aldactone] 12.5 mg PO DAILY 04/25/23 12/08/23 History amLODIPine [Norvasc] 2.5 mg PO HS 04/25/23 12/08/23 History Fluticasone/Umeclidin/Vilanter 1 puff INHALATION RT-DAILY 12/08/23 12/08/23 History [Trelegy Ellipta 100-62.5-25] traMADol HCL 50 mg PO Q8H PRN 12/08/23 12/08/23 History Allergies Allergy/AdvReac Type Severity Reaction Status Date / Time adhesive tape Allergy Itching Verified 12/08/23 19:05 Iodinated Contrast Media Allergy Rash/Hives Verified 12/08/23 19:05 & Shortness of Breath Physical Exam Vitals: Vital Signs Temp Pulse Pulse Pulse Resp BP BP 12/09/23 09:16 12/09/23 09:09 80 12/09/23 08:14 80 90/56 12/09/23 08:12 100 12/09/23 08:07 12/09/23 07:00 97.6 F 91 16 111/78 12/09/23 02:00 97.5 F L 89 18 119/76 12/08/23 20:00 97.6 F 86 18 126/85 12/08/23 19:56 92 16 125/85 12/08/23 18:37 93 18 132/99 12/08/23 17:30 12/08/23 14:36 98.8 F 81 17 120/83 BP Pulse Ox 12/09/23 09:16 92 L 12/09/23 09:09 100/56 86 L 12/09/23 08:14 12/09/23 08:12 12/09/23 08:07 91 L 12/09/23 07:00 97 12/09/23 02:00 95 12/08/23 20:00 100 12/08/23 19:56 96 12/08/23 18:37 100 12/08/23 17:30 89 L 12/08/23 14:36 92 L Intake and Output 12/08/23 12/09/23 12/09/23 22:59 06:59 14:59 Intake Total 480 240 Output Total 500 Balance -20 240 Intake: Oral 480 240 Output: Urine 500 Other: Voiding Method Toilet # Voids 1 1 Weight 65.317 kg Results 12/09/23 05:34 12/09/23 05:34 Cardiac Enzymes 12/08/23 12/08/23 12/09/23 Range/Units 15:11 15:11 05:34 AST 38 H 27 (14-36) U/L Troponin I 0.012 (0.000-0.034) ng/mL Coagulation 12/08/23 Range/Units 15:11 PT 12.0 (10.0-12.5) sec APTT 25.9 (22.0-30.0) sec CBC 12/08/23 12/09/23 Range/Units 15:11 05:34 WBC 4.9 4.87 (3.8-10.6) k/uL RBC 4.63 4.63 (3.80-5.40) m/uL Hgb 14.2 14.0 (11.4-16.0) gm/dL Hct 44.6 44.5 (34.0-46.0) % Plt Count 198 164 (150-450) k/uL Comprehensive Metabolic Panel 12/08/23 12/09/23 Range/Units 15:11 05:34 Sodium 139 142 (137-145) mmol/L Potassium 4.6 3.8 (3.5-5.1) mmol/L Chloride 106 103 (98-107) mmol/L Carbon Dioxide 31 H 29.5 (22-30) mmol/L BUN 22 H 19.1 (7-17) mg/dL Creatinine 1.25 H 1.3 (0.52-1.04) mg/dL Glucose 118 H 93 (74-99) mg/dL Calcium 9.1 9.3 (8.4-10.2) mg/dL AST 38 H 27 (14-36) U/L ALT 25 21 (4-34) U/L Alkaline Phosphatase 51 63 (38-126) U/L Total Protein 6.6 6.0 L (6.3-8.2) g/dL Albumin 3.7 3.6 L (3.5-5.0) g/dL Current Medications Generic Name Dose Route Start Last Admin Trade Name Freq PRN Reason Stop Dose Admin Acetaminophen 650 mg 12/08/23 19:17 Acetaminophen Tab 325 Mg Tab PO Q6HR PRN Mild Pain or Fever > 100.5 Amlodipine Besylate 2.5 mg 12/09/23 21:00 Amlodipine 2.5 Mg Tab PO HS CJ Apixaban 2.5 mg 12/09/23 09:00 Apixaban 2.5 Mg Tablet PO BID [facility] Protocol Atorvastatin Calcium 10 mg 12/09/23 21:00 Atorvastatin 10 Mg Tab PO HS CJ Furosemide 20 mg 12/09/23 09:30 Furosemide 20 Mg Tab PO DAILY CJ Ibuprofen 400 mg 12/08/23 19:17 Ibuprofen 400 Mg Tab PO Q6HR PRN Mild Pain or Fever > 100.5 Metoprolol Tartrate 12.5 mg 12/09/23 09:00 Metoprolol Tartrate 12.5 Mg Tab PO BID CJ Naloxone HCl 0.2 mg 12/08/23 19:17 Naloxone 0.4 Mg/Ml 1 Ml Vial IV Q2M PRN Opioid Reversal Spironolactone 12.5 mg 12/09/23 09:00 Spironolactone 25 Mg Tab PO DAILY CJ Intake and Output 12/08/23 12/09/23 12/09/23 22:59 06:59 14:59 Intake Total 480 240 Output Total 500 Balance -20 240 Intake: Oral 480 240 Output: Urine 500 Other: Voiding Method Toilet # Voids 1 1 Weight 65.317 kg 12/09/23 05:34 12/09/23 05:34
--- NOTE | 2023-12-09 11:43 | CA ---
Transthoracic Echo Report Name: Ana Polanco Age: 88 Gender: F : 1935 Exam Date: 12/09/2023 11:08 Exam Location: [place] [facility] Ht (in): 62 Wt (lb): 144 Ordering Physician: Loly Garcia Attending/Referring Phys: [id number], Jose Street Worker Amina Cooley, NILESH Procedure CPT: Indications: LV function, CHF Cardiac Hx: Technical Quality: Fair Contrast 1: Total Dose (mL): Contrast 2: Total Dose (mL): MEASUREMENTS (Male / Female) Normal Values 2D ECHO LV Diastolic Diameter PLAX 3.9 cm 4.2 - 5.9 / 3.9 - 5.3 cm LV Systolic Diameter PLAX 3.2 cm IVS Diastolic Thickness 1.0 cm 0.6 - 1.0 / 0.6 - 0.9 cm LVPW Diastolic Thickness 1.0 cm 0.6 - 1.0 / 0.6 - 0.9 cm LV Relative Wall Thickness 0.5 FINDINGS Left Ventricle Left ventricular ejection fraction is estimated at 55-60 %. Mildly increased septal wall thickness. Left ventricular cavity size normal. No obvious regional wall motion abnormalities. Right Ventricle Normal right ventricular size. Right Atrium Severe right atrial dilatation. Left Atrium Severe left atrial dilatation. Mitral Valve Mitral valve thickened. Mild mitral regurgitation. Aortic Valve Aortic valve not well visualized. No aortic regurgitation. Tricuspid Valve Structurally normal tricuspid valve. Mild tricuspid regurgitation. Pulmonic Valve Pulmonic valve not well visualized. Pericardium No pericardial effusion. Prominent epicardial fat. Left pleural effusion. Aorta CONCLUSIONS Study limited to left ventricle is of normal size with good systolic function. Both atria are significantly enlarged. There is mitral valve calcification and mild mitral regurgitation. There is also mild tricuspid regurgitation. No pericardial effusion but there is left pleural effusion Previewed by: Dr. Jim García MD (Electronically Signed) Final Date: 09 December 2023 11:42
--- NOTE | 2023-12-09 12:24 | US ---
EXAMINATION TYPE: US chest DATE OF EXAM: 12/09/2023 COMPARISON: Radiograph 12/08/2023 CLINICAL INDICATION: Female, 88 years old with history of Markings for thoracentesis by pulmonary sta ff; Effusion TECHNIQUE: Grayscale imaging of the chest. Targeted ultrasound of the posterior lower bilateral taras thoraces FINDINGS: EXAM MEASUREMENTS: Right Pleural Effusion pocket size: 0 cm Left Pleural Effusion pocket size: 6.5 cm Left skin surface to fluid distance: 3.2 cm Right side NOT marked for possible thoracentesis outside the dept. Left side marked for possible thoracentesis outside the dept. Pulmonologists are able to review the images in the patient?s EMR. IMPRESSIONS: Moderate left pleural effusion with marking performed. No effusion on the right. [facility], , 12/09/2023 12:22 PM
[2023-12-09] MEDS ORDERED: traMADol 50 MG TAB PO PRN (13:50)
[2023-12-09 13:57] VITALS: BMI 26.3
--- NOTE | 2023-12-09 15:52 | P.CNPUL ---
History of Present Illness Consult date: 12/09/23 Requesting physician: Vamshi Triplett Reason for consult: dyspnea, pleural effusion, abnormal CXR/CT Chief complaint: Shortness of breath History of present illness: This is a pleasant 88-year-old female patient with a known history of obstructive sleep apnea maintained on AutoPap, atrial fibrillation anticoagulated with Eliquis, CVA/TIA, congestive heart failure, hypertension, hyperlipidemia, hearing disorder. She was brought into the emergency room yesterday with a 1 week history of increasing shortness of breath. She has had a nonproductive cough. No fever or chills. No hemoptysis. Chest x-ray reveals cardiomegaly, pulmonary vascular congestion and bilateral pleural effusions left greater than right. White count 4.8. Hemoglobin 14.0. Platelets 164. Sodium 142. Potassium 3.8. Bicarb 29. BUN 19. Creatinine 1.3. Glucose 93. Ultrasound of the chest revealed a 6.5 cm pocket on the left. No fluid on the right. She is seen today in consultation on the regular medical floor. She is awake and alert in no acute distress. She denies any worsening shortness of breath, cough or congestion. She is currently comfortable while at rest on 2 L nasal cannula. She is afebrile. She had Eliquis this morning. Review of Systems REVIEW OF SYSTEMS: CONSTITUTIONAL: Denies any recent significant weight loss or weight gain. EYES: Denies change in vision. EARS, NOSE, MOUTH, THROAT: Denies headaches, denies sore throat. CARDIOVASCULAR: Denies chest pain, palpitations or syncopal episodes. RESPIRATORY: Positive for shortness of breath, cough, no congestion or hemoptysis. GASTROINTESTINAL: Denies change in appetite, denies abdominal pain GENITOURINARY: Denies hematuria, denies infections. MUSKULOSKELETAL: Denies pain, denies swelling. INTEGUMENTARY: Denies rash, denies eczema. NEUROLOGICAL: Denies recent memory loss, no recent seizure activity. PSYCHIATRIC: Denies anxiety, denies depression. HEMATOLOGIC/LYMPHATIC: Denies anemia, denies enlarged lymph nodes. 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 Bilateral hearing aid use. Hx brain tumor in 1986. Hx right kidney cancer approximately 1982. CPAP use. Covid + 03-27-23, still w/cough, congestion, seeing PCP tomorrow History of Any Multi-Drug Resistant Organisms: None Reported Past Surgical History: Appendectomy, Hysterectomy, Orthopedic Surgery Additional Past Surgical History / Comment(s): Right nephrectomy, craniotomy, bunionectomy, cardioversion Past Anesthesia/Blood Transfusion Reactions: Previous Problems w/ Anesthesia Additional Past Anesthesia/Blood Transfusion Reaction / Comment(s): Per patient's daughter, very senisitive to anesthesia, very slow to wake up from general anesthesia, daughter states "stopped breathing" post cardioversion Smoking Status: Former smoker - Past Family History Father Family Medical History: Cancer Additional Family Medical History / Comment(s): Brain tumor. Mother Family Medical History: Asthma, COPD Additional Family Medical History / Comment(s): Emphysema. Medications and Allergies Home Medications Medication Instructions Recorded Confirmed Type Pantoprazole Sodium [Protonix] 40 mg PO DAILY 12/30/18 12/08/23 History methIMAzole [Tapazole] 2.5 mg PO DAILY 11/03/21 12/08/23 History Apixaban [Eliquis] 2.5 mg PO BID 05/20/22 12/08/23 History Ascorbic Acid [Vitamin C] 1,000 mg PO TUTHSA 05/20/22 12/08/23 History Cholecalciferol [Vitamin D3 (25 50 mcg PO MOWEFR 05/20/22 12/08/23 History Mcg = 1000 Iu)] L.acidoph,Paracasei, B.lactis 1 cap PO DAILY 05/20/22 12/08/23 History [Probiotic] Multivitamins, Thera [Multivitamin 1 tab PO DAILY 05/20/22 12/08/23 History (formulary)] Atorvastatin [Lipitor] 10 mg PO HS #30 tab 05/22/22 12/08/23 Rx Dorzolamide/Timolol/Pf 1 drop BOTH EYES BID 10/06/22 12/08/23 History [Dorzolamide 2%-Timolol 0.5%] Gabapentin 600 mg PO BID 04/25/23 12/08/23 History Levocetirizine Dihydrochloride 5 mg PO HS 04/25/23 12/08/23 History [Xyzal] Metoprolol Tartrate [Lopressor] 12.5 mg PO BID 04/25/23 12/08/23 History Spironolactone [Aldactone] 12.5 mg PO DAILY 04/25/23 12/08/23 History amLODIPine [Norvasc] 2.5 mg PO HS 04/25/23 12/08/23 History Fluticasone/Umeclidin/Vilanter 1 puff INHALATION RT-DAILY 12/08/23 12/08/23 History [Trelegy Ellipta 100-62.5-25] traMADol HCL 50 mg PO Q8H PRN 12/08/23 12/08/23 History Allergies Allergy/AdvReac Type Severity Reaction Status Date / Time adhesive tape Allergy Itching Verified 12/08/23 19:05 Iodinated Contrast Media Allergy Rash/Hives Verified 12/08/23 19:05 & Shortness of Breath Physical Exam Vitals: Vital Signs Temp Pulse Pulse Pulse Resp BP BP 12/09/23 14:26 97.5 F L 87 16 12/09/23 09:16 12/09/23 09:09 80 12/09/23 08:14 80 90/56 12/09/23 08:12 100 12/09/23 08:07 12/09/23 07:00 97.6 F 91 16 111/78 12/09/23 02:00 97.5 F L 89 18 119/76 12/08/23 20:00 97.6 F 86 18 126/85 12/08/23 19:56 92 16 125/85 12/08/23 18:37 93 18 132/99 12/08/23 17:30 BP Pulse Ox 12/09/23 14:26 92/67 100 12/09/23 09:16 92 L 12/09/23 09:09 100/56 86 L 12/09/23 08:14 12/09/23 08:12 12/09/23 08:07 91 L 12/09/23 07:00 97 12/09/23 02:00 95 12/08/23 20:00 100 12/08/23 19:56 96 12/08/23 18:37 100 12/08/23 17:30 89 L Intake and Output 12/09/23 12/09/23 12/09/23 06:59 14:59 22:59 Intake Total 480 240 Output Total 500 Balance -20 240 Intake: Oral 480 240 Output: Urine 500 Other: Voiding Method Toilet # Voids 1 Weight 65.317 kg GENERAL EXAM: Alert, pleasant 88-year-old female, on 2 L nasal cannula, resting in bed, comfortable in no apparent distress. HEAD: Normocephalic. EYES: Normal reaction of pupils, equal size. NOSE: Clear with pink turbinates. THROAT: No erythema or exudates. NECK: No masses, no JVD. CHEST: No chest wall deformity. LUNGS: Equal air entry with crackles in the left lung base. CVS: S1 and S2 normal with no audible murmur, regular rhythm. ABDOMEN: No hepatosplenomegaly, normal bowel sounds, no guarding or rigidity. SPINE: No scoliosis or deformity SKIN: No rashes CENTRAL NERVOUS SYSTEM: No focal deficits, tone is normal in all 4 extremities. EXTREMITIES: There is no peripheral edema. No clubbing, no cyanosis. Peripheral pulses are intact. Results - Laboratory Findings CBC and BMP: 12/09/23 05:34 12/09/23 05:34 PT/INR, D-dimer PT 12.0 sec (10.0-12.5) 12/08/23 15:11 INR 1.1 (<1.2) 12/08/23 15:11 Abnormal lab findings: Abnormal Labs 12/08/23 12/09/23 12/09/23 15:11 05:34 05:34 MCHC 31.5 L Carbon Dioxide 31 H BUN 22 H Creatinine 1.25 H Est GFR (CKD-EPI) 39 L Glucose 118 H Total Bilirubin 1.4 H AST 38 H Total Protein 6.0 L Albumin 3.6 L Albumin/Globulin Ratio 1.50 L - Diagnostic Findings Chest x-ray: image reviewed Assessment and Plan Assessment: Acute hypoxic respiratory failure secondary to left sided pleural effusion measuring 6.5 cm Acute exacerbation of chronic diastolic congestive heart failure Atrial fibrillation with varying ventricular response, anticoagulated with Eliquis Obstructive sleep apnea maintained on CPAP Hypertension Hyperlipidemia Chronic kidney disease Previous CVA History of renal cell carcinoma status post right nephrectomy Hyperthyroidism, maintained on Tapazole Former smoker Plan: The patient was seen and evaluated Imaging, labs and medications reviewed Place Eliquis on hold Plan for left-sided thoracentesis tomorrow Patient and family agreeable Titrate the FiO2 as tolerated Continue bronchodilators Continue diuretics We will continue to follow and make further recommendations based on her clinical status I have personally seen and examined the patient, performed the documentation and the assessment and plan as written. Number of minutes spent on the visit: 20 Dictation was produced using [employer] dictation software. Please excuse any grammatical, word or spelling errors
[2023-12-09] MEDS: CHOLECALCIFEROL 25 MCG (1000 IU) TABLET PO SCH (15:54)
[2023-12-09] MEDS: SYMBICORT 160-4.5 MCG INHALER INHALATION SCH (19:49)
[2023-12-09] MEDS: amLODIPine 2.5 MG TAB PO SCH (20:52)
[2023-12-09] MEDS: GABAPENTIN 300 MG CAP PO SCH (20:53)
[2023-12-09] MEDS: DORZOLAMIDE-TIMOLOL 2.23%/0.68 10ML BTL BOTH EYES SCH (20:53)
[2023-12-09] MEDS: ATORVASTATIN 10 MG TAB PO SCH (20:53)
[2023-12-09] MEDS: LORATADINE 10 MG TAB PO SCH (20:54)
--- NOTE | 2023-12-09 22:08 | P.HPIM ---
History of Present Illness H&P Date: 12/09/23 Chief Complaint: Shortness of breath 88-year-old female with a history of congestive heart failure, atrial fibrillation on Eliquis presenting to the emergency department with family for chief complaint of worsening dyspnea on exertion over the past week. Patient also endorsing weakness. She denies chest pain, heart palpitations, dizziness, lightheadedness, abdominal pain, nausea, vomiting, fevers or chills. Denies peripheral extremity edema. - EKG reveals atrial fibrillation with controlled ventricular rate. No signs of acute ischemia. - Chest xray cardiomegaly, pulmonary vascular congestion, and bilateral pleural effusions. - Laboratory data: WBC 4.87. Hemoglobin 14.0. Platelet count 164. Sodium 142. Potassium 3.8. BUN 19. Creatinine 1.3. Magnesium 1.9. Troponin negative x 1. proBNP 3170. Review of Systems REVIEW OF SYSTEMS: CONSTITUTIONAL: No fever, no malaise, no fatigue. HEENT: No recent visual problems or hearing problems. Denied any sore throat. CARDIOVASCULAR: No chest pain, orthopnea, PND, no palpitations, no syncope. PULMONARY: No shortness of breath, no cough, no hemoptysis. GASTROINTESTINAL: No diarrhea, no nausea, no vomiting, no abdominal pain. NEUROLOGICAL: No headaches, no weakness, no numbness. HEMATOLOGICAL: Denies any bleeding or petechiae. GENITOURINARY: Denies any burning micturition, frequency, or urgency. MUSCULOSKELETAL/RHEUMATOLOGICAL: Denies any joint pain, swelling, or any muscle pain. ENDOCRINE: Denies any polyuria or polydipsia. The rest of the 14-point review of systems is negative. 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 Bilateral hearing aid use. Hx brain tumor in 1986. Hx right kidney cancer approximately 1982. CPAP use. Covid + 03-27-23, still w/cough, congestion, seeing PCP tomorrow History of Any Multi-Drug Resistant Organisms: None Reported Past Surgical History: Appendectomy, Hysterectomy, Orthopedic Surgery Additional Past Surgical History / Comment(s): Right nephrectomy, craniotomy, bunionectomy, cardioversion Past Anesthesia/Blood Transfusion Reactions: Previous Problems w/ Anesthesia Additional Past Anesthesia/Blood Transfusion Reaction / Comment(s): Per patient's daughter, very senisitive to anesthesia, very slow to wake up from general anesthesia, daughter states "stopped breathing" post cardioversion Smoking Status: Former smoker - Past Family History Father Family Medical History: Cancer Additional Family Medical History / Comment(s): Brain tumor. Mother Family Medical History: Asthma, COPD Additional Family Medical History / Comment(s): Emphysema. Medications and Allergies Home Medications Medication Instructions Recorded Confirmed Type Pantoprazole Sodium [Protonix] 40 mg PO DAILY 12/30/18 12/08/23 History methIMAzole [Tapazole] 2.5 mg PO DAILY 11/03/21 12/08/23 History Apixaban [Eliquis] 2.5 mg PO BID 05/20/22 12/08/23 History Ascorbic Acid [Vitamin C] 1,000 mg PO TUTHSA 05/20/22 12/08/23 History Cholecalciferol [Vitamin D3 (25 50 mcg PO MOWEFR 05/20/22 12/08/23 History Mcg = 1000 Iu)] L.acidoph,Paracasei, B.lactis 1 cap PO DAILY 05/20/22 12/08/23 History [Probiotic] Multivitamins, Thera [Multivitamin 1 tab PO DAILY 05/20/22 12/08/23 History (formulary)] Atorvastatin [Lipitor] 10 mg PO HS #30 tab 05/22/22 12/08/23 Rx Dorzolamide/Timolol/Pf 1 drop BOTH EYES BID 10/06/22 12/08/23 History [Dorzolamide 2%-Timolol 0.5%] Gabapentin 600 mg PO BID 04/25/23 12/08/23 History Levocetirizine Dihydrochloride 5 mg PO HS 04/25/23 12/08/23 History [Xyzal] Metoprolol Tartrate [Lopressor] 12.5 mg PO BID 04/25/23 12/08/23 History Spironolactone [Aldactone] 12.5 mg PO DAILY 04/25/23 12/08/23 History amLODIPine [Norvasc] 2.5 mg PO HS 04/25/23 12/08/23 History Fluticasone/Umeclidin/Vilanter 1 puff INHALATION RT-DAILY 12/08/23 12/08/23 History [Trelegy Ellipta 100-62.5-25] traMADol HCL 50 mg PO Q8H PRN 12/08/23 12/08/23 History Allergies Allergy/AdvReac Type Severity Reaction Status Date / Time adhesive tape Allergy Itching Verified 12/08/23 19:05 Iodinated Contrast Media Allergy Rash/Hives Verified 12/08/23 19:05 & Shortness of Breath Physical Exam Vitals: Vital Signs Temp Pulse Pulse Pulse Resp BP BP 12/09/23 09:16 12/09/23 09:09 80 12/09/23 08:14 80 90/56 12/09/23 08:12 100 12/09/23 08:07 12/09/23 07:00 97.6 F 91 16 111/78 12/09/23 02:00 97.5 F L 89 18 119/76 12/08/23 20:00 97.6 F 86 18 126/85 12/08/23 19:56 92 16 125/85 12/08/23 18:37 93 18 132/99 12/08/23 17:30 12/08/23 14:36 98.8 F 81 17 120/83 BP Pulse Ox 12/09/23 09:16 92 L 12/09/23 09:09 100/56 86 L 12/09/23 08:14 12/09/23 08:12 12/09/23 08:07 91 L 12/09/23 07:00 97 12/09/23 02:00 95 12/08/23 20:00 100 12/08/23 19:56 96 12/08/23 18:37 100 12/08/23 17:30 89 L 12/08/23 14:36 92 L Intake and Output 12/08/23 12/09/23 12/09/23 22:59 06:59 14:59 Intake Total 480 240 Output Total 500 Balance -20 240 Intake: Oral 480 240 Output: Urine 500 Other: Voiding Method Toilet Toilet # Voids 1 1 Weight 65.317 kg Eye exam: Present: normal appearance, PERRL, EOMI. Absent: scleral icterus, conjunctival injection, periorbital swelling ENT exam: Present: normal exam, mucous membranes moist Neck exam: Present: normal inspection. Absent: tenderness, meningismus, lymphadenopathy Respiratory exam: Present: normal lung sounds bilaterally, wheezes, decreased breath sounds. Absent: respiratory distress, rales, rhonchi, stridor Cardiovascular Exam: Present: regular rate, normal rhythm, normal heart sounds. Absent: systolic murmur, diastolic murmur, rubs, gallop, clicks GI/Abdominal exam: Present: soft, normal bowel sounds. Absent: distended, tenderness, guarding, rebound, rigid Extremities exam: Present: normal inspection, full ROM, normal capillary refill. Absent: tenderness, pedal edema, joint swelling, calf tenderness Back exam: Present: normal inspection Neurological exam: Present: alert, oriented X3, CN II-XII intact Skin exam: Present: warm, dry, intact, normal color. Absent: rash Results CBC & Chem 7: 12/09/23 05:34 12/09/23 05:34 Labs: Abnormal Lab Results - Last 24 Hours (Table) 12/08/23 12/09/23 12/09/23 Range/Units 15:11 05:34 05:34 MCHC 31.5 L (32.0-37.0) g/dL Carbon Dioxide 31 H (22-30) mmol/L BUN 22 H (7-17) mg/dL Creatinine 1.25 H (0.52-1.04) mg/dL Est GFR (CKD-EPI) 39 L (>=60) Glucose 118 H (74-99) mg/dL Total Bilirubin 1.4 H (0.2-1.3) mg/dL AST 38 H (14-36) U/L Total Protein 6.0 L (6.2-8.2) g/dL Albumin 3.6 L (3.8-4.9) g/dL Albumin/Globulin Ratio 1.50 L (1.60-3.17) Ratio Thrombosis Risk Factor Assmnt - Choose All That Apply Other Risk Factors: Yes Each Risk Factor Represents 3 Points: Age 75 years or older Thrombosis Risk Factor Assessment Total Risk Factor Score: 3 Thrombosis Risk Factor Assessment Level: Moderate Risk Assessment and Plan Assessment: Shortness of breath//Acute on chronic heart failure with preserved EF, 50 to 55% -Cardiology recommended 2D echo which is ordered and pending; titrate or wean oxygen keeping O2 saturation greater than 92% --Patient received IV Lasix in ED; has been transitioned to Lasix 20 mg daily per cardiology recommendations Acute hypoxic respiratory failure/left-sided pleural effusion; patient has been evaluated by pulmonary service and is recommended to hold Eliquis for left-sided thoracentesis tomorrow morning Paroxysmal atrial fibrillation; remains on metoprolol; anticoagulated with Eliquis; Eliquis placed on hold for possible thoracentesis No significant obstructive CAD, per cath for 2022; continue with metoprolol 12.5 mg twice daily and Lipitor 10 mg p.o. nightly History of SVT; currently on metoprolol 12.5 mg twice daily History of hypertension; continue home medications; hold Norvasc as recommended by cardiology; blood pressure closely History of hyperlipidemia; below 10 mg p.o. nightly DVT prophylaxis; SCDs/Eliquis CODE STATUS; full code
[2023-12-10] MEDS: IPRATROPIUM 0.5 MG/2.5 ML NEBU INHALATION SCH (07:34)
--- NOTE | 2023-12-10 08:52 | XR ---
EXAMINATION TYPE: XR chest 1V portable DATE OF EXAM: 12/10/2023 8:33 AM CLINICAL INDICATION: Female, 88 years old with history of Post left thoracentesis; [facility] COMPARISON: Chest radiographs from 10/06/2022 TECHNIQUE: XR chest 1V portable Frontal view of the chest. FINDINGS: Lungs/Pleura: Persistent left pleural fusion without evidence pneumothorax. There is no evidence of p leural effusion, focal consolidation, or pneumothorax. Pulmonary vascularity: Unremarkable. Heart/mediastinum: Cardiomediastinal silhouette is unremarkable. Musculoskeletal: No acute osseous pathology. IMPRESSION: 1. No acute cardiopulmonary disease/process. 2. Small left pleural effusion. No pneumothorax visualized. [facility], , 12/10/2023 8:50 AM
[2023-12-10 09:19] LABS: Basophils # (A) 0.01 X 10*3/uL (0.00-0.10); Basophils % (A) 0.2 %; Eosinophils # (A) 0.08 X 10*3/uL (0.04-0.35); Eosinophils % (A) 1.6 %; HCT 47.2 % (37.2-46.3); HGB 14.8 g/dL (12.0-15.0); Lymphocytes # (A) 1.59 X 10*3/uL (0.90-5.00); Lymphocytes % (A) 32.8 %; MCH 29.5 pg (27.0-32.0); MCHC 31.4 g/dL (32.0-37.0); Mean Platelet Volume 10.1 FL (9.5-12.2); Monocytes # (A) 0.55 X 10*3/uL (0.20-1.00); Monocytes % (A) 11.3 %; NRBC Per 100 WBC 0 X 10*3/uL (0.00-0.01); Neutrophils # (A) 2.61 X 10*3/uL (1.80-7.70); Neutrophils % (A) 53.9 %; Platelet Count 163 X 10*3/uL (140-440); RBC 5.02 X 10*6/uL (4.10-5.20); RDW 14.2 % (11.5-14.5); WBC 4.85 X 10*3/uL (4.50-10.00)
[2023-12-10 09:31] LABS: BUN/Creat Ratio 16.79 Ratio (12.00-20.00); Blood Urea Nitrogen 23.5 mg/dL (9.0-27.0); Calcium 9.1 mg/dL (8.7-10.3); Carbon Dioxide 32.3 mmol/L (21.6-31.8); Chloride 99 mmol/L (96-109); Glucose 93 mg/dL (70-110); Potassium 3.8 mmol/L (3.5-5.5); Sodium 142 mmol/L (135-145)
[2023-12-10] MEDS: APIXABAN 2.5 MG TABLET PO SCH (09:57)
[2023-12-10] MEDS: ASCORBIC ACID 500 MG TAB PO SCH (09:57)
[2023-12-10] MEDS: LACTOBACILLUS ACIDOPHILUS/PECT 1 EACH CAPSULE PO SCH (10:03)
[2023-12-10] MEDS: methIMAzole 5 MG TAB PO SCH (10:04)
[2023-12-10] MEDS: PANTOPRAZOLE 40 MG TABLET PO SCH (10:05)
[2023-12-10] MEDS: MULTIVITAMINS, THERA 1 EACH TAB PO SCH (10:05)
--- NOTE | 2023-12-10 11:50 | OP ---
OPERATIVE REPORT DATE OF SERVICE : PROCEDURE: Left-sided thoracentesis. PREOPERATIVE DIAGNOSIS: Left pleural effusion. POSTOPERATIVE DIAGNOSIS: Left pleural effusion. ANESTHESIA USED: 2 mL of 1% lidocaine. DESCRIPTION OF PROCEDURE: The fluid on the left space was earlier localized by ultrasound, and the marking was placed roughly at the level of the 8th intercostal space and tip of the scapula. The patient was placed in the sitting upright position, the area was prepared in a sterile fashion. Drapes were applied. The area at the marking was locally anesthetized with lidocaine, a 26-gauge needle inserted into the pleural space and fluid was localized. A small tiny incision was made. Then, the standard thoracentesis catheter and needle used, advanced into the pleural space. Fluid was localized again. Then, the catheter was advanced over the needle, and the needle was pulled out of the pleural space. Freely flowing fluid was removed, roughly 500 mL of lashay colored fluid removed from the left pleural space uneventfully. The chest x-ray showed no complications, fluid was sent for different diagnostic studies. MMODL / IJN: [id number] /
--- NOTE | 2023-12-10 12:08 | P.PN ---
Subjective Progress Note Date: 12/10/23 This is a pleasant 88-year-old female patient with a known history of obstructive sleep apnea maintained on AutoPap, atrial fibrillation anticoagulated with Eliquis, CVA/TIA, congestive heart failure, hypertension, hyperlipidemia, hearing disorder. She was brought into the emergency room yesterday with a 1 week history of increasing shortness of breath. She has had a nonproductive cough. No fever or chills. No hemoptysis. Chest x-ray reveals cardiomegaly, pulmonary vascular congestion and bilateral pleural effusions left greater than right. White count 4.8. Hemoglobin 14.0. Platelets 164. Sodium 142. Potassium 3.8. Bicarb 29. BUN 19. Creatinine 1.3. Glucose 93. Ultrasound of the chest revealed a 6.5 cm pocket on the left. No fluid on the right. She is seen today in consultation on the regular medical floor. She is awake and alert in no acute distress. She denies any worsening shortness of breath, cough or congestion. She is currently comfortable while at rest on 2 L nasal cannula. She is afebrile. She had Eliquis this morning. The patient is seen today December 10, 2023 in follow-up on the regular medical floor. She is currently sitting up at the bedside. Awake and alert in no acute distress. She is maintaining good O2 saturations in the 90s on 2 L/min per nasa l cannula. She has been afebrile. Hemodynamically stable. She did undergo a left-sided thoracentesis this morning with Dr. Walker. 500 cc of yellow fluid was removed. Follow-up chest x-ray shows improved aeration. No evidence of pneumothorax. Fluid analysis and cytology sent. White count 4.8. Hemoglobin 14.8. Platelets 163. Sodium 142. Potassium 3.8. Bicarb 32. BUN 34. Creatinine 1.4. Glucose 93. She is continued on bronchodilators. Oral diuretics. Anticoagulated with Eliquis. Objective - Vital Signs Vital signs: Vital Signs Temp 97.5 F L 12/10/23 07:00 Pulse 68 12/10/23 11:13 Resp 16 12/10/23 07:00 BP 118/89 12/10/23 07:00 Pulse Ox 100 12/10/23 07:00 FiO2 Intake & Output 12/09/23 12/10/23 12/10/23 18:59 06:59 18:59 Intake Total 940 240 Balance 940 240 Weight 65.317 kg Intake: Oral 940 240 Other: Voiding Method Toilet Toilet # Voids 2 - Exam GENERAL EXAM: Alert, 88-year-old female, on 2 L nasal cannula, in no apparent distress. HEAD: Normocephalic. EYES: Normal reaction of pupils, equal size. NOSE: Clear with pink turbinates. THROAT: No erythema or exudates. NECK: No masses, no JVD. CHEST: No chest wall deformity. LUNGS: Equal air entry with crackles in the left lung base. CVS: S1 and S2 normal with no audible murmur, regular rhythm. ABDOMEN: No hepatosplenomegaly, normal bowel sounds, no guarding or rigidity. SPINE: No scoliosis or deformity SKIN: No rashes CENTRAL NERVOUS SYSTEM: No focal deficits, tone is normal in all 4 extremities. EXTREMITIES: There is no peripheral edema. No clubbing, no cyanosis. Peripheral pulses are intact. - Labs CBC & Chem 7: 12/10/23 05:42 12/10/23 05:40 Labs: Abnormal Lab Results - Last 24 Hours (Table) 12/10/23 12/10/23 Range/Units 05:40 05:42 Hct 47.2 H (37.2-46.3) % MCHC 31.4 L (32.0-37.0) g/dL Carbon Dioxide 32.3 H (21.6-31.8) mmol/L Est GFR (CKD-EPI) 36 L (>=60) Assessment and Plan Assessment: Acute hypoxic respiratory failure secondary to left sided pleural effusion measuring 6.5 cm. Status post thoracentesis 12/10/2023 with 500 mL of fluid removed. Fluid analysis and cytology pending Acute exacerbation of chronic diastolic congestive heart failure Atrial fibrillation with varying ventricular response, anticoagulated with Eliquis Obstructive sleep apnea maintained on CPAP Hypertension Hyperlipidemia Chronic kidney disease Previous CVA History of renal cell carcinoma status post right nephrectomy Hyperthyroidism, maintained on Tapazole Former smoker Plan: The patient was seen and evaluated Imaging, labs and medications reviewed Left-sided thoracentesis today Chest x-ray shows improvement, no pneumothorax Fluid analysis and cytology pending Titrate the FiO2 as tolerated Continue bronchodilators Continue diuretics We will continue to follow I have personally seen and examined the patient, performed the documentation and the assessment and plan as written. Number of minutes spent on the visit: 10 Dictation was produced using [employer] dictation software. Please excuse any grammatical, word or spelling errors
--- NOTE | 2023-12-10 13:03 | P.PN ---
Subjective Progress Note Date: 12/10/23 This is Shiraz Castañeda NP, I'm dictating on behalf of Dr. Olguin's H&P and A&P. Patient was interviewed and examined. Patient is a pleasant 88-year-old female who presented to the hospital with acute exacerbation of congestive heart failure. Patient underwent a thoracentesis today with pulmonology, and reports that she is feeling much better. She continues to demonstrate some crackles in the posterior bases, but otherwise reports that her breathing is significantly improved. She denies chest pain, shortness of breath, heart palpitations. GENERAL: Well-appearing, well-nourished and in no acute distress. NECK: Supple without JVD or thyromegaly. LUNGS: Breath sounds clear to auscultation bilaterally. Respiration equal and unlabored. No wheezes, rales or rhonchi. HEART: Regular rate and rhythm without murmurs, rubs or gallops. S1 and S2 heard. EXTREMITIES: Normal range of motion, no edema. No clubbing or cyanosis. Peripheral pulses intact and strong. VITALS: Temp 97.5, pulse 70, respirations 16, blood pressure 118/89, O2 saturation 100% on 2 L TELEMETRY: Atrial fibrillation with controlled ventricular response LABS: White count 4.8, hemoglobin 14.8, platelets 163, sodium 142, potassium 3.8, BUN 23, creatinine 1.4, calcium 9.1 IMPRESSION: 1. Large left pleural effusion, status post thoracentesis 2. Shortness of breath 3. Acute on chronic heart failure with preserved EF, 50 to 55% 4. Paroxysmal atrial fibrillation 5. History of SVT 6. History of hypertension 7. History of hyperlipidemia PLAN: No medication changes recommended at this time. Continue oral Lasix. Respiratory complications as well as the pleural effusions are likely secondary to post-COVID state. No further recommendations from a cardiology standpoint. Thank you for allowing us to participate in the care of this patient. Objective - Vital Signs Vital signs: Vital Signs Temp 97.5 F L 12/10/23 07:00 Pulse 68 12/10/23 11:13 Resp 16 12/10/23 07:00 BP 118/89 12/10/23 07:00 Pulse Ox 100 12/10/23 07:00 FiO2 Intake & Output 12/09/23 12/10/23 12/10/23 18:59 06:59 18:59 Intake Total 940 240 Balance 940 240 Weight 65.317 kg Intake: Oral 940 240 Other: Voiding Method Toilet Toilet # Voids 2 - Labs CBC & Chem 7: 12/10/23 05:42 12/10/23 05:40 Labs: Abnormal Lab Results - Last 24 Hours (Table) 12/10/23 12/10/23 Range/Units 05:40 05:42 Hct 47.2 H (37.2-46.3) % MCHC 31.4 L (32.0-37.0) g/dL Carbon Dioxide 32.3 H (21.6-31.8) mmol/L Est GFR (CKD-EPI) 36 L (>=60)
[2023-12-11 07:27] LABS: Appearance,BF Clear (Clear)
--- NOTE | 2023-12-11 12:03 | P.PN ---
Subjective Progress Note Date: 12/11/23 This is a pleasant 88-year-old female patient with a known history of obstructive sleep apnea maintained on AutoPap, atrial fibrillation anticoagulated with Eliquis, CVA/TIA, congestive heart failure, hypertension, hyperlipidemia, hearing disorder. She was brought into the emergency room yesterday with a 1 week history of increasing shortness of breath. She has had a nonproductive cough. No fever or chills. No hemoptysis. Chest x-ray reveals cardiomegaly, pulmonary vascular congestion and bilateral pleural effusions left greater than right. White count 4.8. Hemoglobin 14.0. Platelets 164. Sodium 142. Potassium 3.8. Bicarb 29. BUN 19. Creatinine 1.3. Glucose 93. Ultrasound of the chest revealed a 6.5 cm pocket on the left. No fluid on the right. She is seen today in consultation on the regular medical floor. She is awake and alert in no acute distress. She denies any worsening shortness of breath, cough or congestion. She is currently comfortable while at rest on 2 L nasal cannula. She is afebrile. She had Eliquis this morning. The patient is seen today December 10, 2023 in follow-up on the regular medical floor. She is currently sitting up at the bedside. Awake and alert in no acute distress. She is maintaining good O2 saturations in the 90s on 2 L/min per nasa l cannula. She has been afebrile. Hemodynamically stable. She did undergo a left-sided thoracentesis this morning with Dr. Logan. 500 cc of yellow fluid was removed. Follow-up chest x-ray shows improved aeration. No evidence of pneumothorax. Fluid analysis and cytology sent. White count 4.8. Hemoglobin 14.8. Platelets 163. Sodium 142. Potassium 3.8. Bicarb 32. BUN 34. Creatinine 1.4. Glucose 93. She is continued on bronchodilators. Oral diuretics. Anticoagulated with Eliquis. The patient is seen today December 11, 2023 in follow-up on the regular medical floor. She is currently sitting up in bed. Awake and alert in no acute distress. She is maintaining good O2 saturations in the 90s on room air. She remains on diuretics. Continued on bronchodilators. Anticoagulated with Eliquis. Fluid analysis and cultures are pending. Objective - Vital Signs Vital signs: Vital Signs Temp 98 F 12/11/23 11:37 Pulse 67 12/11/23 08:36 Resp 16 12/11/23 07:00 BP 93/62 12/11/23 07:00 Pulse Ox 93 L 12/11/23 08:34 FiO2 Intake & Output 12/10/23 12/11/23 12/11/23 18:59 06:59 18:59 Intake Total 838 480 Balance 838 480 Intake: Oral 838 480 Other: Voiding Method Toilet # Voids 2 1 - Exam GENERAL EXAM: Alert, pleasant 88-year-old female, sitting up in bed, on 2 L nasal cannula, in no apparent distress. HEAD: Normocephalic. EYES: Normal reaction of pupils, equal size. NOSE: Clear with pink turbinates. THROAT: No erythema or exudates. NECK: No masses, no JVD. CHEST: No chest wall deformity. LUNGS: Equal air entry with crackles in the left lung base. CVS: S1 and S2 normal with no audible murmur, regular rhythm. ABDOMEN: No hepatosplenomegaly, normal bowel sounds, no guarding or rigidity. SPINE: No scoliosis or deformity SKIN: No rashes CENTRAL NERVOUS SYSTEM: No focal deficits, tone is normal in all 4 extremities. EXTREMITIES: There is no peripheral edema. No clubbing, no cyanosis. Peripheral pulses are intact. - Labs CBC & Chem 7: 12/10/23 05:42 12/10/23 05:40 Labs: Microbiology - Last 24 Hours (Table) 12/10/23 08:00 Gram Stain - Preliminary Pleural Fluid Assessment and Plan Assessment: Acute hypoxic respiratory failure secondary to left sided pleural effusion measuring 6.5 cm. Status post thoracentesis 12/10/2023 with 500 mL of fluid removed. Fluid analysis and cytology pending Acute exacerbation of chronic diastolic congestive heart failure Atrial fibrillation with varying ventricular response, anticoagulated with Eliquis Obstructive sleep apnea maintained on CPAP Hypertension Hyperlipidemia Chronic kidney disease Previous CVA History of renal cell carcinoma status post right nephrectomy Hyperthyroidism, maintained on Tapazole Former smoker Plan: The patient was seen and evaluated Medications reviewed Fluid analysis and cytology pending Titrate the FiO2 as tolerated Continue bronchodilators Continue diuretics Follow-up chest x-ray in a.m. We will continue to follow I have personally seen and examined the patient, performed the documentation and the assessment and plan as written. Number of minutes spent on the visit: 10 Dictation was produced using [employer] dictation software. Please excuse any grammatical, word or spelling errors
--- NOTE | 2023-12-11 16:52 | P.PN ---
Subjective Progress Note Date: 12/10/23 88-year-old female with a history of congestive heart failure, atrial fibrillation on Eliquis presenting to the emergency department with family for chief complaint of worsening dyspnea on exertion over the past week. Patient also endorsing weakness. She denies chest pain, heart palpitations, dizziness, lightheadedness, abdominal pain, nausea, vomiting, fevers or chills. Denies peripheral extremity edema. - EKG reveals atrial fibrillation with controlled ventricular rate. No signs of acute ischemia. - Chest xray cardiomegaly, pulmonary vascular congestion, and bilateral pleural effusions. - Laboratory data: WBC 4.87. Hemoglobin 14.0. Platelet count 164. Sodium 142. Potassium 3.8. BUN 19. Creatinine 1.3. Magnesium 1.9. Troponin negative x 1. proBNP 3170. Objective - Vital Signs Vital signs: Vital Signs Temp 97.5 F L 12/10/23 07:00 Pulse 67 12/10/23 11:03 Resp 16 12/10/23 07:00 BP 118/89 12/10/23 07:00 Pulse Ox 100 12/10/23 07:00 FiO2 Intake & Output 12/09/23 12/10/23 12/10/23 18:59 06:59 18:59 Intake Total 940 240 Balance 940 240 Weight 65.317 kg Intake: Oral 940 240 Other: Voiding Method Toilet Toilet # Voids 2 - Exam Eye exam: Present: normal appearance, PERRL, EOMI. Absent: scleral icterus, conjunctival injection, periorbital swelling ENT exam: Present: normal exam, mucous membranes moist Neck exam: Present: normal inspection. Absent: tenderness, meningismus, lymphadenopathy Respiratory exam: Present: normal lung sounds bilaterally, wheezes, decreased breath sounds. Absent: respiratory distress, rales, rhonchi, stridor Cardiovascular Exam: Present: regular rate, normal rhythm, normal heart sounds. Absent: systolic murmur, diastolic murmur, rubs, gallop, clicks GI/Abdominal exam: Present: soft, normal bowel sounds. Absent: distended, tenderness, guarding, rebound, rigid Extremities exam: Present: normal inspection, full ROM, normal capillary refill. Absent: tenderness, pedal edema, joint swelling, calf tenderness Back exam: Present: normal inspection Neurological exam: Present: alert, oriented X3, CN II-XII intact Skin exam: Present: warm, dry, intact, normal color. Absent: rash - Labs CBC & Chem 7: 12/10/23 05:42 12/10/23 05:40 Labs: Abnormal Lab Results - Last 24 Hours (Table) 12/10/23 12/10/23 Range/Units 05:40 05:42 Hct 47.2 H (37.2-46.3) % MCHC 31.4 L (32.0-37.0) g/dL Carbon Dioxide 32.3 H (21.6-31.8) mmol/L Est GFR (CKD-EPI) 36 L (>=60) Assessment and Plan Assessment: Shortness of breath//Acute on chronic heart failure with preserved EF, 50 to 55% -Cardiology recommended 2D echo which is ordered and pending; titrate or wean oxygen keeping O2 saturation greater than 92% --Patient received IV Lasix in ED; has been transitioned to Lasix 20 mg daily per cardiology recommendations Acute hypoxic respiratory failure/left-sided pleural effusion; patient has been evaluated by pulmonary service and is recommended to hold Eliquis for left-sided thoracentesis tomorrow morning Paroxysmal atrial fibrillation; remains on metoprolol; anticoagulated with Eliquis; Eliquis placed on hold for possible thoracentesis No significant obstructive CAD, per cath for 2022; continue with metoprolol 12.5 mg twice daily and Lipitor 10 mg p.o. nightly History of SVT; currently on metoprolol 12.5 mg twice daily History of hypertension; continue home medications; hold Norvasc as recommended by cardiology; blood pressure closely History of hyperlipidemia; below 10 mg p.o. nightly DVT prophylaxis; SCDs/Eliquis CODE STATUS; full code
--- NOTE | 2023-12-11 16:55 | P.PN ---
Subjective Progress Note Date: 12/11/23 88-year-old female with a history of congestive heart failure, atrial fibrillation on Eliquis presenting to the emergency department with family for chief complaint of worsening dyspnea on exertion over the past week. Patient also endorsing weakness. She denies chest pain, heart palpitations, dizziness, lightheadedness, abdominal pain, nausea, vomiting, fevers or chills. Denies peripheral extremity edema. - EKG reveals atrial fibrillation with controlled ventricular rate. No signs of acute ischemia. - Chest xray cardiomegaly, pulmonary vascular congestion, and bilateral pleural effusions. - Laboratory data: WBC 4.87. Hemoglobin 14.0. Platelet count 164. Sodium 142. Potassium 3.8. BUN 19. Creatinine 1.3. Magnesium 1.9. Troponin negative x 1. proBNP 3170. 12/11/2023 Patient is seen and evaluated in follow-up on the regular medical floor. She is currently sitting up in bed. Awake and alert in no acute distress. She is maintaining good O2 saturations in the 90s on room air. She remains on diuretics. Continued on bronchodilators. Anticoagulated with Eliquis. Fluid analysis and cultures are pending. Vital signs are reviewed temperature 98, pulse 67, respirations 16 and blood pressure of 93/62 with O2 saturation 93% Patient has been evaluated by pulmonary for large left-sided pleural effusion and is status post thoracentesis with removal of 500 cc of yellow fluid; fluid analysis and culture is pending Cardiology on board; recommending to continue with oral diuretics -PT/OT consulted for concern about weakness and debility Objective - Vital Signs Vital signs: Vital Signs Temp 98 F 12/11/23 11:37 Pulse 67 12/11/23 08:36 Resp 16 12/11/23 07:00 BP 93/62 12/11/23 07:00 Pulse Ox 93 L 12/11/23 08:34 FiO2 Intake & Output 12/10/23 12/11/23 12/11/23 18:59 06:59 18:59 Intake Total 838 480 Balance 838 480 Intake: Oral 838 480 Other: Voiding Method Toilet # Voids 2 1 - Exam Eye exam: Present: normal appearance, PERRL, EOMI. Absent: scleral icterus, conjunctival injection, periorbital swelling ENT exam: Present: normal exam, mucous membranes moist Neck exam: Present: normal inspection. Absent: tenderness, meningismus, lymphadenopathy Respiratory exam: Present: normal lung sounds bilaterally, wheezes, decreased breath sounds. Absent: respiratory distress, rales, rhonchi, stridor Cardiovascular Exam: Present: regular rate, normal rhythm, normal heart sounds. Absent: systolic murmur, diastolic murmur, rubs, gallop, clicks GI/Abdominal exam: Present: soft, normal bowel sounds. Absent: distended, tenderness, guarding, rebound, rigid Extremities exam: Present: normal inspection, full ROM, normal capillary refill. Absent: tenderness, pedal edema, joint swelling, calf tenderness Back exam: Present: normal inspection Neurological exam: Present: alert, oriented X3, CN II-XII intact Skin exam: Present: warm, dry, intact, normal color. Absent: rash - Labs CBC & Chem 7: 12/10/23 05:42 12/10/23 05:40 Assessment and Plan Assessment: Shortness of breath//Acute on chronic heart failure with preserved EF, 50 to 55% -Cardiology recommended 2D echo which is ordered and pending; titrate or wean oxygen keeping O2 saturation greater than 92% --Patient received IV Lasix in ED; has been transitioned to Lasix 20 mg daily per cardiology recommendations Acute hypoxic respiratory failure/left-sided pleural effusion; patient has been evaluated by pulmonary service and is recommended to hold Eliquis for left-sided thoracentesis tomorrow morning Paroxysmal atrial fibrillation; remains on metoprolol; anticoagulated with Eliquis; Eliquis placed on hold for possible thoracentesis No significant obstructive CAD, per cath for 2022; continue with metoprolol 12.5 mg twice daily and Lipitor 10 mg p.o. nightly History of SVT; currently on metoprolol 12.5 mg twice daily History of hypertension; continue home medications; hold Norvasc as recommended by cardiology; blood pressure closely History of hyperlipidemia; below 10 mg p.o. nightly DVT prophylaxis; SCDs/Eliquis CODE STATUS; full code
[2023-12-11] MEDS: MIDODRINE 5 MG TAB PO SCH (17:51)
[2023-12-11 17:58] LABS: Basophils % (A) 0 %; Eosinophils % (A) 0 %; HCT 47.5 % (34.0-46.0); HGB 14.9 gm/dL (11.4-16.0); Hypochromasia Moderate; Lymphocytes # (A) 1.5 k/uL (1.0-4.8); Lymphocytes % (A) 15 %; MCH 30.3 pg (25.0-35.0); MCHC 31.3 g/dL (31.0-37.0); MCV 96.6 fL (80.0-100.0); Mean Platelet Volume 7.2; Monocytes # (A) 0.7 k/uL (0-1.0); Monocytes % (A) 7 %; Neutrophils # (A) 7.4 k/uL (1.3-7.7); Neutrophils % (A) 75 %; Platelet Count 170 k/uL (150-450); RBC 4.92 m/uL (3.80-5.40); RDW 14.1 % (11.5-15.5); WBC 9.9 k/uL (3.8-10.6)
[2023-12-11 18:09] LABS: African American GFR (CKD) 28 (>60 ml/min/1.73 sqM); Anion Gap 3 mmol/L; Blood Urea Nitrogen 39 mg/dL (7-17); Calcium 8.8 mg/dL (8.4-10.2); Carbon Dioxide 34 mmol/L (22-30); Chloride 96 mmol/L (98-107); Glucose 126 mg/dL (74-99); Magnesium 1.8 mg/dL (1.6-2.3); Non-African American GFR(CKD) 24 (>60 ml/min/1.73 sqM); Potassium 4.3 mmol/L (3.5-5.1); Sodium 133 mmol/L (137-145)
--- NOTE | 2023-12-12 00:17 | XR ---
EXAM: XR Chest, 1 View CLINICAL HISTORY: ITS.REASON XR Reason: post thoracentesis TECHNIQUE: Frontal view of the chest. COMPARISON: CXR December 10, 2023. FINDINGS: Lungs: Airspace consolidation in the LEFT lower lung field, concerning for pneumonia. Pleural space: Moderate LEFT pleural effusion. No pneumothorax. Heart: Cardiomegaly. Mediastinum: Unremarkable. Normal mediastinal contour. Bones/joints: Unremarkable. No acute fracture. IMPRESSION: 1. Airspace consolidation in the LEFT lower lung field, concerning for pneumonia. 2. Moderate LEFT pleural effusion.
--- NOTE | 2023-12-12 08:25 | XR ---
EXAMINATION TYPE: XR chest 1V portable DATE OF EXAM: 12/12/2023 7:04 AM COMPARISON: Chest radiographs from 12/11/2023 CLINICAL INDICATION: Female, 88 years old with history of effusion; TECHNIQUE: XR chest 1V portable Frontal view of the chest. FINDINGS: Lungs/Pleura: Moderate left pleural effusion There is no evidence of right pleural effusion, focal co nsolidation, or pneumothorax. Pulmonary vascularity: Unremarkable. Heart/mediastinum: Mild leftward shift of the mediastinum, Cardiomediastinal silhouette is partially obscured due to overlying and adjacent opacities. Musculoskeletal: Degenerative changes of the shoulder joints. Other findings: None IMPRESSION: Moderate left pleural effusion and atelectasis with leftward shift of the mediastinum, stable. [facility], , 12/12/2023 8:22 AM
[2023-12-12 08:40] LABS: African American GFR (CKD) 27 (>60 ml/min/1.73 sqM); Anion Gap -1 mmol/L; Blood Urea Nitrogen 39 mg/dL (7-17); Calcium 8.6 mg/dL (8.4-10.2); Carbon Dioxide 37 mmol/L (22-30); Chloride 97 mmol/L (98-107); Glucose 116 mg/dL (74-99); Non-African American GFR(CKD) 24 (>60 ml/min/1.73 sqM); Sodium 133 mmol/L (137-145)
[2023-12-12] MEDS: guaiFENesin 600 MG TABLET.ER PO SCH (10:50)
[2023-12-12] MEDS: METOPROLOL TARTRATE 12.5 MG TAB PO STA (10:50)
--- NOTE | 2023-12-12 12:19 | P.PN ---
Subjective HISTORY OF PRESENT ILLNESS: This is a 88-year-old female with a past medical history significant for paroxysmal atrial fibrillation, SVT, hypertension, hyperlipidemia and CHF. Patient follows in the office with Dr. García. We have been asked to see the patient in consultation for congestive heart failure. Patient examined at the bedside. Patient presented to the hospital with a chief complaint of shortness of breath. Patient denies having any chest pain or pressure. Patient was found to be in acute CHF and was started on IV Lasix. Patient reports she was up most of the night urinating. She reports improvement in her shortness of breath. DIAGNOSTICS: - EKG reveals atrial fibrillation with controlled ventricular rate. No signs of acute ischemia. - Chest xray cardiomegaly, pulmonary vascular congestion, and bilateral pleural effusions. - Laboratory data: WBC 4.87. Hemoglobin 14.0. Platelet count 164. Sodium 142. Potassium 3.8. BUN 19. Creatinine 1.3. Magnesium 1.9. Troponin negative x 1. proBNP 3170. - Current home cardiac medications include metoprolol tartrate 12.5 mg twice a day, Aldactone 12.5 mg daily, Eliquis 2.5 mg twice a day, Lipitor 10 mg at night, amlodipine 2.5 mg at night - Most recent echocardiogram obtained in September 2022 revealed ejection fraction 50 to 55% with no significant valvular abnormalities noted - Cardiac catheterization history: May 2022 revealing no significant obstructive CAD 12/12/2023 Cardiology was reconsulted yesterday secondary to A-fib with RVR and hypotension. Patient examined this morning the bedside. Patient currently denies chest pain or pressure. She denies shortness of breath. Patient had documented blood pressures yesterday in the 70s and 80s. She was started on midodrine. However, the patient remains on amlodipine and Aldactone. Patient's blood pressures this morning are stable. She remains in atrial fibrillation with controlled ventricular rate. Echocardiogram completed revealing ejection fraction 55 to 60% with mild TR and mild MR. PHYSICAL EXAM: VITAL SIGNS: Reviewed. GENERAL: Well-developed in no acute distress. HEENT: Head is normocephalic. Pupils are equal, round. Sclerae anicteric. Mucous membranes of the mouth are moist. Neck supple. No JVD or thyromegaly LUNGS: Respirations even and unlabored. Lungs essentially clear to auscultation bilaterally. HEART: Irregular rate and rhythm. S1 and S2 heard. ABDOMEN: Soft. Nondistended. Nontender. EXTREMITIES: Normal range of motion. No clubbing or cyanosis. Peripheral pulses intact. No lower extremity edema noted. NEUROLOGIC: Awake and alert. Oriented x 3. ASSESSMENT: Shortness of breath Acute on chronic heart failure with preserved EF, 55 to 60% Pleural effusion, status post left thoracentesis, 12/10/2023 Paroxysmal atrial fibrillation No significant obstructive CAD, per cath in 2022 History of SVT History of hypertension History of hyperlipidemia Hypotension, resolved PLAN: Discontinue amlodipine and Aldactone secondary to hypotension yesterday Patient has been started on midodrine per internal medicine Increase metoprolol to tartrate to 25 mg twice a day for optimal heart rate control Continue telemetry monitoring Further recommendations pending patient course Patient to follow-up postdischarge with Dr. García Nurse practitioner note has been reviewed by physician. Signing provider agrees with the documented findings, assessment, and plan of care documented by [employer] [employer] as a scribe. Objective - Vital Signs Vital signs: Vital Signs Temp 98.1 F 12/12/23 12:07 Pulse 99 12/12/23 12:07 Resp 16 12/12/23 12:07 BP 93/70 12/12/23 12:07 Pulse Ox 89 L 12/12/23 12:07 FiO2 Intake & Output 12/11/23 12/12/23 12/12/23 18:59 06:59 18:59 Intake Total 720 0 Balance 720 0 Intake: Oral 720 0 Other: Voiding Method Toilet Toilet # Voids 1 1 - Labs CBC & Chem 7: 12/11/23 17:13 12/12/23 07:55 Labs: Abnormal Lab Results - Last 24 Hours (Table) 12/11/23 12/11/23 12/12/23 Range/Units 17:13 17:13 07:55 Hct 47.5 H (34.0-46.0) % Sodium 133 L 133 L (137-145) mmol/L Chloride 96 L 97 L (98-107) mmol/L Carbon Dioxide 34 H 37 H (22-30) mmol/L BUN 39 H 39 H (7-17) mg/dL Creatinine 1.83 H 1.87 H (0.52-1.04) mg/dL Glucose 126 H 116 H (74-99) mg/dL Microbiology - Last 24 Hours (Table) 12/10/23 08:00 Acid Fast Bacilli Smear - Preliminary Pleural Fluid 12/10/23 08:00 Gram Stain - Preliminary Pleural Fluid Body Fluid Culture - Preliminary
--- NOTE | 2023-12-12 13:20 | P.PN ---
Subjective Progress Note Date: 12/12/23 Principal diagnosis: Congestive heart failure. This is a pleasant 88-year-old female patient with a known history of obstructive sleep apnea maintained on AutoPap, atrial fibrillation anticoagulated with Eliquis, CVA/TIA, congestive heart failure, hypertension, hyperlipidemia, hearing disorder. She was brought into the emergency room yesterday with a 1 week history of increasing shortness of breath. She has had a nonproductive cough. No fever or chills. No hemoptysis. Chest x-ray reveals cardiomegaly, pulmonary vascular congestion and bilateral pleural effusions left greater than right. White count 4.8. Hemoglobin 14.0. Platelets 164. Sodium 142. Potassium 3.8. Bicarb 29. BUN 19. Creatinine 1.3. Glucose 93. Ultrasound of the chest revealed a 6.5 cm pocket on the left. No fluid on the right. She is seen today in consultation on the regular medical floor. She is awake and alert in no acute distress. She denies any worsening shortness of breath, cough or congestion. She is currently comfortable while at rest on 2 L nasal cannula. She is afebrile. She had Eliquis this morning. The patient is seen today December 10, 2023 in follow-up on the regular medical floor. She is currently sitting up at the bedside. Awake and alert in no acute distress. She is maintaining good O2 saturations in the 90s on 2 L/min per nasal cannula. She has been afebrile. Hemodynamically stable. She did undergo a left-sided thoracentesis this morning with Dr. Logan. 500 cc of yellow fluid was removed. Follow-up chest x-ray shows improved aeration. No evidence of pneumothorax. Fluid analysis and cytology sent. White count 4.8. Hemoglobin 14.8. Platelets 163. Sodium 142. Potassium 3.8. Bicarb 32. BUN 34. Creatinine 1.4. Glucose 93. She is continued on bronchodilators. Oral diuretics. Anticoagulated with Eliquis. The patient is seen today December 11, 2023 in follow-up on the regular medical floor. She is currently sitting up in bed. Awake and alert in no acute distress. She is maintaining good O2 saturations in the 90s on room air. She remains on diuretics. Continued on bronchodilators. Anticoagulated with Eliquis. Fluid analysis and cultures are pending. Progress note dated December 12, 2023. 88-year-old female who was admitted with a diagnosis of congestive heart failure. Currently, she is resting comfortably in bed. She is on 2 L of oxygen. Saturations are 95%. The patient was admitted with a diagnosis of atrial fibrillation with rapid ventricular response. The patient had a left- sided thoracentesis performed by my partner. Currently, she is doing well. Current labs include a sodium 133, potassium 4, chloride 97, CO2 37, BUN 39, and creatinine 1.87. Glucose is 116. Calcium is 8.6. Chest x-ray today shows a moderate left-sided pleural effusion, with atelectasis, and leftward shift of the mediastinum. Objective - Vital Signs Vital signs: Vital Signs Temp 98.1 F 12/12/23 12:07 Pulse 99 12/12/23 12:07 Resp 16 12/12/23 12:07 BP 93/70 12/12/23 12:07 Pulse Ox 89 L 12/12/23 12:07 FiO2 Intake & Output 12/11/23 12/12/23 12/12/23 18:59 06:59 18:59 Intake Total 720 0 Balance 720 0 Intake: Oral 720 0 Other: Voiding Method Toilet Toilet # Voids 1 1 - Exam No acute distress, oriented 3. Currently on 2 L of oxygen. Saturations are 95%. HEENT examination is grossly unremarkable. Mucous membranes are moist. No oral lesions. Neck supple. Full range of motion. No adenopathy thyromegaly or neck vein distention. Cardiovascular examination reveals regular rhythm rate. S1-S2 normal. No S3 or S4. No discernible murmur noted. Lungs reveal bibasilar crackles. Left greater than right. Abdomen soft bowel sounds are heard. No masses or tenderness. Extremities are intact. No cyanosis clubbing or edema. Skin is without rash or lesion. Neurologic examination is brief but nonfocal. - Labs CBC & Chem 7: 12/11/23 17:13 12/12/23 07:55 Labs: Abnormal Lab Results - Last 24 Hours (Table) 12/11/23 12/11/23 12/12/23 Range/Units 17:13 17:13 07:55 Hct 47.5 H (34.0-46.0) % Sodium 133 L 133 L (137-145) mmol/L Chloride 96 L 97 L (98-107) mmol/L Carbon Dioxide 34 H 37 H (22-30) mmol/L BUN 39 H 39 H (7-17) mg/dL Creatinine 1.83 H 1.87 H (0.52-1.04) mg/dL Glucose 126 H 116 H (74-99) mg/dL Microbiology - Last 24 Hours (Table) 12/10/23 08:00 Acid Fast Bacilli Smear - Preliminary Pleural Fluid 12/10/23 08:00 Gram Stain - Preliminary Pleural Fluid Body Fluid Culture - Preliminary Assessment and Plan Assessment: Acute hypoxic respiratory failure secondary to left sided pleural effusion measuring 6.5 cm. Status post thoracentesis 12/10/2023 with 500 mL of fluid removed. Acute exacerbation of chronic diastolic congestive heart failure. Atrial fibrillation with varying ventricular response. Obstructive sleep apnea maintained on CPAP. Hypertension. Hyperlipidemia. Chronic kidney disease. Previous CVA. History of renal cell carcinoma, S/P right nephrectomy Hyperthyroidism, maintained on Tapazole. Former smoker. Plan: Plan dated December 12, 2023. The patient is seen today in room 372. She is resting comfortably. She is on 2 L of oxygen. Saturations are 95%. The patient did have a left-sided thorace ntesis. Chest x-ray does show bilateral pleural effusions, left greater than right. We will continue to follow the patient, make recommendations along the way. Prognosis is guarded. No additional recommendations are made. Labs, x- rays, and all medications have been reviewed. Dictation was produced using [employer] software. Please excuse any grammatical, word or spelling errors. Time with Patient: Less than 30
[2023-12-12] MEDS: METOPROLOL TARTRATE 25 MG TAB PO SCH (20:09)
--- NOTE | 2023-12-13 02:27 | P.PN ---
Subjective Progress Note Date: 12/12/23 88-year-old female with a history of congestive heart failure, atrial fibrillation on Eliquis presenting to the emergency department with family for chief complaint of worsening dyspnea on exertion over the past week. Patient also endorsing weakness. She denies chest pain, heart palpitations, dizziness, lightheadedness, abdominal pain, nausea, vomiting, fevers or chills. Denies peripheral extremity edema. - EKG reveals atrial fibrillation with controlled ventricular rate. No signs of acute ischemia. - Chest xray cardiomegaly, pulmonary vascular congestion, and bilateral pleural effusions. - Laboratory data: WBC 4.87. Hemoglobin 14.0. Platelet count 164. Sodium 142. Potassium 3.8. BUN 19. Creatinine 1.3. Magnesium 1.9. Troponin negative x 1. proBNP 3170. 12/11/2023 Patient is seen and evaluated in follow-up on the regular medical floor. She is currently sitting up in bed. Awake and alert in no acute distress. She is maintaining good O2 saturations in the 90s on room air. She remains on diuretics. Continued on bronchodilators. Anticoagulated with Eliquis. Fluid analysis and cultures are pending. Vital signs are reviewed temperature 98, pulse 67, respirations 16 and blood pressure of 93/62 with O2 saturation 93% Patient has been evaluated by pulmonary for large left-sided pleural effusion and is status post thoracentesis with removal of 500 cc of yellow fluid; fluid analysis and culture is pending Cardiology on board; recommending to continue with oral diuretics -PT/OT consulted for concern about weakness and debility 12/12/2023 Patient is seen and evaluated in follow-up today with pulmonary and cardiology following. Patient has been transition to oral diuretics and creatinine slightly elevated at 1.8 and will follow-up with repeat labs. Patient's blood pressures on the lower side with cardiology following making adjustments to medications and will be monitored overnight with possible discharge planning in the next 24 hours. Patient is status post thoracentesis and maintained on 2 L and weaning as tolerated. Patient may require oxygen on discharge to manage CHF. Review of systems: Constitutional: No reports of fatigue, fever, or chills Cardiovascular: No reports of chest pain or palpitations Respiratory: No reports of worsening shortness of breath, denies cough GI: No reports of nausea, vomiting, or diarrhea : No reports of dysuria or retention Neurovascular: reports of generalized weakness All medications have been reviewed Physical exam: Gen: This is a 88-year-old female who is awake, alert and oriented x 2-3, well- developed, elderly appearing, somewhat hard of hearing HEENT: Head is atraumatic, normocephalic. Pupils equal, round. Sclerae is anicteric. NECK: Supple. No JVD. No lymphadenopathy. No thyromegaly. LUNGS: Diminished breath sounds bilaterally otherwise clear to auscultation. No wheezes or rhonchi. No intercostal retractions. HEART: S1, S2 are muffled ABDOMEN: Soft. Bowel sounds are present. No masses. No tenderness. EXTREMITIES: No pedal edema. No calf tenderness. NEUROLOGICAL: Patient is awake, alert and oriented x2-3. Cranial nerves 2 through 12 are grossly intact. Diffusely weak Assessment: Shortness of breath//Acute on chronic heart failure with preserved EF, 50 to 55% Acute hypoxic respiratory failure, multifactorial secondary to left-sided pleural effusion as well as CHF exacerbation. Status post thoracentesis on the left Paroxysmal atrial fibrillation; remains on metoprolol; anticoagulated with Eliquis History of coronary artery disease History of SVT; currently on metoprolol 12.5 mg twice daily History of hypertension; continue home medications; hold Norvasc as recommended by cardiology; blood pressure closely History of hyperlipidemia; below 10 mg p.o. nightly Generalized weakness with gait dysfunction GI prophylaxis DVT prophylaxis; SCDs/Eliquis No code Plan: Patient being followed by cardiology as well as pulmonary and has transition to oral diuretics with cardiology making adjustments to medications. Blood pressures have been on the lower side and will monitor overnight and consider discharge planning in 24 hours Patient with generalized weakness recommend PT/OT therapy evaluation Encouraged increase activity as tolerated Wean FiO2 as tolerated, patient does not normally wear oxygen outpatient and currently maintained on 2 L. Patient will require oxygen on discharge to manage CHF. Case management following and will arrange for discharge planning Possible discharge in the next 24 hours The impression and plan of care has been dictated by Tressa Montgomery, Nurse Practitioner as directed. Dr. Ivanna MD I have performed a history and examination and MDM of this patient, discussed the same with the dictator, and agree with the dictator's assessment and plan as written ,documented as a scribe. Based on total visit time, I have performed more than 50% of the visit. Objective - Vital Signs Vital signs: Vital Signs Temp 98.1 F 12/12/23 12:07 Pulse 99 12/12/23 12:07 Resp 16 12/12/23 12:07 BP 93/70 12/12/23 12:07 Pulse Ox 89 L 12/12/23 12:07 FiO2 Intake & Output 12/11/23 12/12/23 12/12/23 18:59 06:59 18:59 Intake Total 720 0 Balance 720 0 Intake: Oral 720 0 Other: Voiding Method Toilet Toilet # Voids 1 1 - Labs CBC & Chem 7: 12/11/23 17:13 12/12/23 07:55 Labs: Abnormal Lab Results - Last 24 Hours (Table) 12/11/23 12/11/23 12/12/23 Range/Units 17:13 17:13 07:55 Hct 47.5 H (34.0-46.0) % Sodium 133 L 133 L (137-145) mmol/L Chloride 96 L 97 L (98-107) mmol/L Carbon Dioxide 34 H 37 H (22-30) mmol/L BUN 39 H 39 H (7-17) mg/dL Creatinine 1.83 H 1.87 H (0.52-1.04) mg/dL Glucose 126 H 116 H (74-99) mg/dL Microbiology - Last 24 Hours (Table) 12/10/23 08:00 Acid Fast Bacilli Smear - Preliminary Pleural Fluid 12/10/23 08:00 Gram Stain - Preliminary Pleural Fluid Body Fluid Culture - Preliminary
[2023-12-13 07:58] LABS: African American GFR (CKD) 30 (>60 ml/min/1.73 sqM); Anion Gap 4 mmol/L; Blood Urea Nitrogen 37 mg/dL (7-17); Calcium 8.6 mg/dL (8.4-10.2); Carbon Dioxide 37 mmol/L (22-30); Chloride 95 mmol/L (98-107); Glucose 100 mg/dL (74-99); Non-African American GFR(CKD) 26 (>60 ml/min/1.73 sqM); Potassium 3.8 mmol/L (3.5-5.1); Sodium 136 mmol/L (137-145)
[2023-12-13 09:11] VITALS: TEMP 98.7
--- NOTE | 2023-12-13 12:07 | P.PN ---
Subjective Progress Note Date: 12/13/23 Principal diagnosis: Congestive heart failure. This is a pleasant 88-year-old female patient with a known history of obstructive sleep apnea maintained on AutoPap, atrial fibrillation anticoagulated with Eliquis, CVA/TIA, congestive heart failure, hypertension, hyperlipidemia, hearing disorder. She was brought into the emergency room yesterday with a 1 week history of increasing shortness of breath. She has had a nonproductive cough. No fever or chills. No hemoptysis. Chest x-ray reveals cardiomegaly, pulmonary vascular congestion and bilateral pleural effusions left greater than right. White count 4.8. Hemoglobin 14.0. Platelets 164. Sodium 142. Potassium 3.8. Bicarb 29. BUN 19. Creatinine 1.3. Glucose 93. Ultrasound of the chest revealed a 6.5 cm pocket on the left. No fluid on the right. She is seen today in consultation on the regular medical floor. She is awake and alert in no acute distress. She denies any worsening shortness of breath, cough or congestion. She is currently comfortable while at rest on 2 L nasal cannula. She is afebrile. She had Eliquis this morning. The patient is seen today December 10, 2023 in follow-up on the regular medical floor. She is currently sitting up at the bedside. Awake and alert in no acute distress. She is maintaining good O2 saturations in the 90s on 2 L/min per nasal cannula. She has been afebrile. Hemodynamically stable. She did undergo a left-sided thoracentesis this morning with Dr. Logan. 500 cc of yellow fluid was removed. Follow-up chest x-ray shows improved aeration. No evidence of pneumothorax. Fluid analysis and cytology sent. White count 4.8. Hemoglobin 14.8. Platelets 163. Sodium 142. Potassium 3.8. Bicarb 32. BUN 34. Creatinine 1.4. Glucose 93. She is continued on bronchodilators. Oral diuretics. Anticoagulated with Eliquis. The patient is seen today December 11, 2023 in follow-up on the regular medical floor. She is currently sitting up in bed. Awake and alert in no acute distress. She is maintaining good O2 saturations in the 90s on room air. She remains on diuretics. Continued on bronchodilators. Anticoagulated with Eliquis. Fluid analysis and cultures are pending. Progress note dated December 12, 2023. 88-year-old female who was admitted with a diagnosis of congestive heart failure. Currently, she is resting comfortably in bed. She is on 2 L of oxygen. Saturations are 95%. The patient was admitted with a diagnosis of atrial fibrillation with rapid ventricular response. The patient had a left- sided thoracentesis performed by my partner. Currently, she is doing well. Current labs include a sodium 133, potassium 4, chloride 97, CO2 37, BUN 39, and creatinine 1.87. Glucose is 116. Calcium is 8.6. Chest x-ray today shows a moderate left-sided pleural effusion, with atelectasis, and leftward shift of the mediastinum. Progress note dated December 13, 2023. 88-year-old female admitted with a diagnosis of congestive heart failure. The patient is currently seen in room 372. The patient is in no distress. She is on nasal O2 at 2 L. No IV fluids. The patient will likely be discharged home on oxygen. The patient is hoping to be discharged in the near future. Current labs include a sodium 136, potassium 3.8, chlorides 95, CO2 37, BUN 37, creatinine 1.74. Glucose is at 100. Calcium is 8.6. Objective - Vital Signs Vital signs: Vital Signs Temp 98.7 F 12/13/23 08:10 Pulse 88 12/13/23 09:23 Resp 18 12/13/23 08:10 BP 104/66 12/13/23 08:10 Pulse Ox 88 L 12/13/23 10:03 FiO2 Intake & Output 12/12/23 12/13/23 12/13/23 18:59 06:59 18:59 Intake Total 260 540 Balance 260 540 Weight 66.7 kg Intake: Oral 260 540 Other: Voiding Method Toilet Toilet Toilet # Voids 1 - Exam No acute distress, oriented 3. Currently on 2 L of oxygen. Saturations are 94 %. HEENT examination is grossly unremarkable. Mucous membranes are moist. No oral lesions. Neck supple. Full range of motion. No adenopathy thyromegaly or neck vein distention. Cardiovascular examination reveals regular rhythm rate. S1-S2 normal. No S3 or S4. No discernible murmur noted. Lungs reveal bibasilar crackles. Left greater than right. Abdomen soft bowel sounds are heard. No masses or tenderness. Extremities are intact. No cyanosis clubbing or edema. Skin is without rash or lesion. Neurologic examination is brief but nonfocal. - Labs CBC & Chem 7: 12/11/23 17:13 12/13/23 06:46 Labs: Abnormal Lab Results - Last 24 Hours (Table) 12/13/23 Range/Units 06:46 Sodium 136 L (137-145) mmol/L Chloride 95 L (98-107) mmol/L Carbon Dioxide 37 H (22-30) mmol/L BUN 37 H (7-17) mg/dL Creatinine 1.74 H (0.52-1.04) mg/dL Glucose 100 H (74-99) mg/dL Microbiology - Last 24 Hours (Table) 12/10/23 08:00 Gram Stain - Preliminary Pleural Fluid Body Fluid Culture - Preliminary 12/10/23 08:00 Acid Fast Bacilli Smear - Preliminary Pleural Fluid Assessment and Plan Assessment: Acute hypoxic respiratory failure secondary to left sided pleural effusion measuring 6.5 cm. S/P thoracentesis 12/10/2023 with 500 mL of fluid removed. Acute exacerbation of chronic diastolic congestive heart failure. Atrial fibrillation with varying ventricular response. Obstructive sleep apnea maintained on CPAP. Hypertension. Hyperlipidemia. Chronic kidney disease. Previous CVA. History of renal cell carcinoma, S/P right nephrectomy Hyperthyroidism, maintained on Tapazole. Former smoker. Plan: Plan dated December 12, 2023. The patient is seen today in room 372. She is resting comfortably. She is on 2 L of oxygen. Saturations are 95%. The patient did have a left-sided thorac entesis. Chest x-ray does show bilateral pleural effusions, left greater than right. We will continue to follow the patient, make recommendations along the way. Prognosis is guarded. No additional recommendations are made. Labs, x- rays, and all medications have been reviewed. Dictation was produced using [employer] software. Please excuse any grammatical, word or spelling errors. Plan dated December 13, 2023. The patient is seen today in room 372. The patient is currently on 2 L. She likely will be discharged home on 2 L. Labs, x-rays, and medications are reviewed. We will continue to follow the patient, make recommendations. The patient's son, is a physician. The patient lives with her daughter. Labs, x- rays, and all medications are reviewed. Prognosis is certainly guarded. Dictation was produced using [employer] dictation software. Please excuse any gram matical, word or spelling errors. Time with Patient: Less than 30
--- NOTE | 2023-12-13 12:15 | P.PN ---
Subjective HISTORY OF PRESENT ILLNESS: This is a 88-year-old female with a past medical history significant for paroxysmal atrial fibrillation, SVT, hypertension, hyperlipidemia and CHF. Patient follows in the office with Dr. García. We have been asked to see the patient in consultation for congestive heart failure. Patient examined at the bedside. Patient presented to the hospital with a chief complaint of shortness of breath. Patient denies having any chest pain or pressure. Patient was found to be in acute CHF and was started on IV Lasix. Patient reports she was up most of the night urinating. She reports improvement in her shortness of breath. DIAGNOSTICS: - EKG reveals atrial fibrillation with controlled ventricular rate. No signs of acute ischemia. - Chest xray cardiomegaly, pulmonary vascular congestion, and bilateral pleural effusions. - Laboratory data: WBC 4.87. Hemoglobin 14.0. Platelet count 164. Sodium 142. Potassium 3.8. BUN 19. Creatinine 1.3. Magnesium 1.9. Troponin negative x 1. proBNP 3170. - Current home cardiac medications include metoprolol tartrate 12.5 mg twice a day, Aldactone 12.5 mg daily, Eliquis 2.5 mg twice a day, Lipitor 10 mg at night, amlodipine 2.5 mg at night - Most recent echocardiogram obtained in September 2022 revealed ejection fraction 50 to 55% with no significant valvular abnormalities noted - Cardiac catheterization history: May 2022 revealing no significant obstructive CAD 12/12/2023 Cardiology was reconsulted yesterday secondary to A-fib with RVR and hypotension. Patient examined this morning the bedside. Patient currently denies chest pain or pressure. She denies shortness of breath. Patient had documented blood pressures yesterday in the 70s and 80s. She was started on midodrine. However, the patient remains on amlodipine and Aldactone. Patient's blood pressures this morning are stable. She remains in atrial fibrillation with controlled ventricular rate. Echocardiogram completed revealing ejection fraction 55 to 60% with mild TR and mild MR. 12/13/2023 Patient examined this morning at the bedside. Patient currently denies chest pain or pressure. She denies shortness of breath. Patient's blood pressure this morning is stable. Telemetry reveals atrial fibrillation with controlled ventricular rate PHYSICAL EXAM: VITAL SIGNS: Reviewed. GENERAL: Well-developed in no acute distress. HEENT: Head is normocephalic. Pupils are equal, round. Sclerae anicteric. Mucous membranes of the mouth are moist. Neck supple. No JVD or thyromegaly LUNGS: Respirations even and unlabored. Lungs essentially clear to auscultation bilaterally. HEART: Irregular rate and rhythm. S1 and S2 heard. ABDOMEN: Soft. Nondistended. Nontender. EXTREMITIES: Normal range of motion. No clubbing or cyanosis. Peripheral pulses intact. No lower extremity edema noted. NEUROLOGIC: Awake and alert. Oriented x 3. ASSESSMENT: Shortness of breath Acute on chronic heart failure with preserved EF, 55 to 60% Pleural effusion, status post left thoracentesis, 12/10/2023 Paroxysmal atrial fibrillation No significant obstructive CAD, per cath in 2022 History of SVT History of hypertension History of hyperlipidemia Hypotension, resolved PLAN: Amlodipine and Aldactone discontinued yesterday secondary to hypotension Continue midodrine Continue current dose of metoprolol Continue telemetry monitoring Patient is currently stable from a cardiac perspective Further recommendations pending patient course Patient to follow-up postdischarge with Dr. García Nurse practitioner note has been reviewed by physician. Signing provider agrees with the documented findings, assessment, and plan of care documented by SC[employer] as a scribe. Objective - Vital Signs Vital signs: Vital Signs Temp 98.7 F 12/13/23 08:10 Pulse 88 12/13/23 09:23 Resp 18 12/13/23 08:10 BP 104/66 12/13/23 08:10 Pulse Ox 88 L 12/13/23 10:03 FiO2 Intake & Output 12/12/23 12/13/23 12/13/23 18:59 06:59 18:59 Intake Total 260 540 Balance 260 540 Weight 66.7 kg Intake: Oral 260 540 Other: Voiding Method Toilet Toilet Toilet # Voids 1 - Labs CBC & Chem 7: 12/11/23 17:13 12/13/23 06:46 Labs: Abnormal Lab Results - Last 24 Hours (Table) 12/13/23 Range/Units 06:46 Sodium 136 L (137-145) mmol/L Chloride 95 L (98-107) mmol/L Carbon Dioxide 37 H (22-30) mmol/L BUN 37 H (7-17) mg/dL Creatinine 1.74 H (0.52-1.04) mg/dL Glucose 100 H (74-99) mg/dL Microbiology - Last 24 Hours (Table) 12/10/23 08:00 Gram Stain - Preliminary Pleural Fluid Body Fluid Culture - Preliminary 12/10/23 08:00 Acid Fast Bacilli Smear - Preliminary Pleural Fluid
[2023-12-13 12:26] VITALS: BP 98/66; PULSE 97; RESP 17
--- NOTE | 2023-12-13 17:44 | P.DS ---
Providers Date of admission: 12/09/23 10:01 Expected date of discharge: 12/13/23 Attending physician: Ramez Elise Consults: 12/08/23 19:17 Consult Physician Routine Consulting Provider: Yeison Allen Consult Reason/Comments: CHF exacerabtion Do you want consulting provider notified?: Yes, Notify in am 12/09/23 11:38 Consult Physician Routine Consulting Provider: Lowell Logan Consult Reason/Comments: pleural effusions, thoracentesis? Do you want consulting provider notified?: Yes 12/09/23 11:44 Consult Physician Routine Consulting Provider: Lowell Logan Consult Reason/Comments: Left side pleural effusion, home oxygen Do you want consulting provider notified?: Yes 12/11/23 16:51 Consult Physician Routine Consulting Provider: Ryder Olguin Consult Reason/Comments: AFIB RVR Do you want consulting provider notified?: Yes Primary care physician: [facility] Course: 88-year-old female with a history of congestive heart failure, atrial fibrillation on Eliquis presenting to the emergency department with family for chief complaint of worsening dyspnea on exertion over the past week. Patient also endorsing weakness. She denies chest pain, heart palpitations, dizziness, lightheadedness, abdominal pain, nausea, vomiting, fevers or chills. Denies peripheral extremity edema. - EKG reveals atrial fibrillation with controlled ventricular rate. No signs of acute ischemia. - Chest xray cardiomegaly, pulmonary vascular congestion, and bilateral pleural effusions. - Laboratory data: WBC 4.87. Hemoglobin 14.0. Platelet count 164. Sodium 142. Potassium 3.8. BUN 19. Creatinine 1.3. Magnesium 1.9. Troponin negative x 1. proBNP 3170. 12/11/2023 Patient is seen and evaluated in follow-up on the regular medical floor. She is currently sitting up in bed. Awake and alert in no acute distress. She is maintaining good O2 saturations in the 90s on room air. She remains on diuretics. Continued on bronchodilators. Anticoagulated with Eliquis. Fluid analysis and cultures are pending. Vital signs are reviewed temperature 98, pulse 67, respirations 16 and blood pressure of 93/62 with O2 saturation 93% Patient has been evaluated by pulmonary for large left-sided pleural effusion and is status post thoracentesis with removal of 500 cc of yellow fluid; fluid analysis and culture is pending Cardiology on board; recommending to continue with oral diuretics -PT/OT consulted for concern about weakness and debility 12/12/2023 Patient is seen and evaluated in follow-up today with pulmonary and cardiology following. Patient has been transition to oral diuretics and creatinine slightly elevated at 1.8 and will follow-up with repeat labs. Patient's blood pressures on the lower side with cardiology following making adjustments to medications and will be monitored overnight with possible discharge planning in the next 24 hours. Patient is status post thoracentesis and maintained on 2 L and weaning as tolerated. Patient may require oxygen on discharge to manage CHF. December 13, 2023: Patient feeling much better. Is being sent on home oxygen 2 L. Eating well. Using a walker. Lasix will be changed to every other day. With fluid restriction. Midodrine was added for blood pressure. Because blood pressure running on the lower side. Amlodipine and Aldactone was discontinued. Patient will follow-up with his insulation engineman Dr. García and her grain trader Dr. Logan. Discussion and discharge planning more than 35 minutes On examination: VITAL SIGNS: [Afebrile, 97, 17, 98/66, 93% on 2 L (88% on room air, decreasing with activity] GENERAL APPEARANCE: Sitting on bed, comfortable. HEENT: Normal external appearance of nose and ear. Oral cavity normal. Some decrease in hearing EYES: Pupils equal. Conjunctiva normal. NECK: JVD not raised. Mass not palpable. RESPIRATORY: Respiratory effort normal. Decreased breath sounds on auscultation CARDIOVASCULAR: First and second sounds normal. Minimal edema. ABDOMEN: Soft. Liver and spleen not palpable. No tenderness. No mass palpable. PSYCHIATRY: Alert and oriented x3. Mood and affect normal. Musculoskeletal: OA INVESTIGATIONS, reviewed in the clinical context: December 13, 2023: Sodium 136 potassium 3.8 BUN 37 creatinine 1.74 Pleural fluid serology for viruses: Negative UA: Negative Limited 2D echo: Good systolic function. Mild mitral and tricuspid regurgitation. Assessment and plan: /Acute on chronic heart failure with preserved EF, 50 to 55% Acute hypoxic respiratory failure, multifactorial secondary to left-sided pleura l effusion, COPD CHF exacerbation. Status post thoracentesis on the left Paroxysmal atrial fibrillation; remains on metoprolol; anticoagulated with Eliquis CAD-cardiac catheterization showing minimal disease in May 2022 Essential hypertension; Lopressor -Hyperlipidemia; Lipitor 10 mg p.o. nightly Chronic gait dysfunction-uses a walker at baseline -Primary osteoarthritis -Hyperthyroidism-on Tapazole -COPD in a previous smoker. Symbicort -Obstructive sleep apnea uses CPAP -Hard of hearing, bilateral hearing aids -No code Disposition: Home Plan - Discharge Summary Discharge Rx Participant: No New Discharge Prescriptions: New Midodrine [ProAmatine] 10 mg PO AC-TID #90 tab Budesonide-Formot 160-4.5 Mcg [Symbicort 160-4.5 Mcg Inhaler] 2 puff INHALATION RT-BID #1 each Furosemide [Lasix] 20 mg PO Q48H #30 tab Continue Pantoprazole Sodium [Protonix] 40 mg PO DAILY Apixaban [Eliquis] 2.5 mg PO BID Fluticasone/Umeclidin/Vilanter [Trelegy Ellipta 100-62.5-25] 1 puff INHALATION RT-DAILY traMADol HCL 50 mg PO Q8H PRN PRN Reason: Pain methIMAzole [Tapazole] 2.5 mg PO DAILY Multivitamins, Thera [Multivitamin (formulary)] 1 tab PO DAILY L.acidoph,Paracasei, B.lactis [Probiotic] 1 cap PO DAILY Cholecalciferol [Vitamin D3 (25 Mcg = 1000 Iu)] 50 mcg PO MOWEFR Ascorbic Acid [Vitamin C] 1,000 mg PO TUTHSA Atorvastatin [Lipitor] 10 mg PO HS #30 tab Dorzolamide/Timolol/Pf [Dorzolamide 2%-Timolol 0.5%] 1 drop BOTH EYES BID Gabapentin 600 mg PO BID Levocetirizine Dihydrochloride [Xyzal] 5 mg PO HS Changed Metoprolol Tartrate [Lopressor] 25 mg PO BID #0 Discontinued amLODIPine [Norvasc] 2.5 mg PO HS Spironolactone [Aldactone] 12.5 mg PO DAILY Discharge Medication List Pantoprazole Sodium [Protonix] 40 mg PO DAILY 12/30/18 [History] methIMAzole [Tapazole] 2.5 mg PO DAILY 11/03/21 [History] Apixaban [Eliquis] 2.5 mg PO BID 05/20/22 [History] Ascorbic Acid [Vitamin C] 1,000 mg PO TUTHSA 05/20/22 [History] Cholecalciferol [Vitamin D3 (25 Mcg = 1000 Iu)] 50 mcg PO MOWEFR 05/20/22 [History] L.acidoph,Paracasei, B.lactis [Probiotic] 1 cap PO DAILY 05/20/22 [History] Multivitamins, Thera [Multivitamin (formulary)] 1 tab PO DAILY 05/20/22 [History] Atorvastatin [Lipitor] 10 mg PO HS #30 tab 05/22/22 [Rx] Dorzolamide/Timolol/Pf [Dorzolamide 2%-Timolol 0.5%] 1 drop BOTH EYES BID 10/06/22 [History] Gabapentin 600 mg PO BID 04/25/23 [History] Levocetirizine Dihydrochloride [Xyzal] 5 mg PO HS 04/25/23 [History] Fluticasone/Umeclidin/Vilanter [Trelegy Ellipta 100-62.5-25] 1 puff INHALATION RT-DAILY 12/08/23 [History] traMADol HCL 50 mg PO Q8H PRN 12/08/23 [History] Budesonide-Formot 160-4.5 Mcg [Symbicort 160-4.5 Mcg Inhaler] 2 puff INHALATION RT-BID #1 each 12/13/23 [Rx] Furosemide [Lasix] 20 mg PO Q48H #30 tab 12/13/23 [Rx] Metoprolol Tartrate [Lopressor] 25 mg PO BID #0 12/13/23 [Rx] Midodrine [ProAmatine] 10 mg PO AC-TID #90 tab 12/13/23 [Rx] Follow up Appointment(s)/Referral(s): Lowell Logan MD [STAFF PHYSICIAN] - 12/27/23 2:00 pm Jim García MD [STAFF PHYSICIAN] - 12/20/23 9:00 am [facility] [NON-STAFF] - Ashok Sanchez MD [Primary Care Provider] - 1-2 days (left voicemail for office to call patient for follow-up appointment) Patient Instructions/Handouts: Heart Failure (DC) Discharge Disposition: HOME SELF-CARE
== END 2023-12-13 14:12 | disposition home or self-care (01) | DRG 291 ==
LOC: EC 13:59 → 6NMEDSUR 18:31 → OBSVTOIN 12-09 10:01 → 3SCARD 12-11 17:14
PROVIDERS: ADMIT Hospitalist; ATTEND Hospitalist
PROC: 0W9B3ZZ Drainage of Left Pleural Cavity, Percutaneous Approach (ICD-10-PCS; principal; 2023-12-10)
DX: I13.0 Hypertensive heart and chronic kidney disease with heart failure and stage 1 through stage 4 chronic kidney disease, or unspecified chronic kidney disease (principal); I50.33 Acute on chronic diastolic (congestive) heart failure; J96.01 Acute respiratory failure with hypoxia; J91.8 Pleural effusion in other conditions classified elsewhere; J98.11 Atelectasis; I25.10 Atherosclerotic heart disease of native coronary artery without angina pectoris; I48.0 Paroxysmal atrial fibrillation; G47.33 Obstructive sleep apnea (adult) (pediatric); H91.93 Unspecified hearing loss, bilateral; E05.90 Thyrotoxicosis, unspecified without thyrotoxic crisis or storm; E78.5 Hyperlipidemia, unspecified; J44.9 Chronic obstructive pulmonary disease, unspecified; M19.91 Primary osteoarthritis, unspecified site; N18.9 Chronic kidney disease, unspecified; Z79.01 Long term (current) use of anticoagulants; Z79.899 Other long term (current) drug therapy; Z85.528 Personal history of other malignant neoplasm of kidney; Z86.16 Personal history of COVID-19; Z86.73 Personal history of transient ischemic attack (TIA), and cerebral infarction without residual deficits; Z87.891 Personal history of nicotine dependence; Z90.5 Acquired absence of kidney; Z97.4 Presence of external hearing-aid; Z99.81 Dependence on supplemental oxygen
CPT/HCPCS: 36415; 71045; 71046; 76604; 80048; 80053; 83605; 83735; 83880; 84443; 84484; 85025; 85610; 85730; 87070; 87102; 87116; 87205; 87206; 87496; 87498; 87502; 87529; 87634; 87635; 87798; 88108; 88305; 89050; 93005; 93308; 94640; 94760; 96374; 99285

== ENCOUNTER → 2023-12-22 | Outpatient (CLI) | payer MEDICARE, BC ==
[2023-12-22 15:29] LABS: NT-Pro-B-Type Natriuretic Pept 5487 pg/mL (0-450)
[2023-12-22 15:44] LABS: Blood Urea Nitrogen 35.4 mg/dL (9.0-27.0); Carbon Dioxide 32.5 mmol/L (21.6-31.8); Chloride 98 mmol/L (96-109); Glucose 104 mg/dL (70-110); Sodium 142 mmol/L (135-145)
[2023-12-22 15:45] LABS: ALT 18 U/L (8-44); AST 26 U/L (13-35); Albumin 3.5 g/dL (3.8-4.9); Albumin/Globulin Ratio 1.21 Ratio (1.60-3.17); Alkaline Phosphatase 69 U/L (41-126); Globulin 2.9 g/dL (1.6-3.3); T4, Free (Free Thyroxine) 1.08 ng/dL (0.80-1.80); Total Bilirubin 0.7 mg/dL (0.3-1.2); Total Protein 6.4 g/dL (6.2-8.2)
== END | disposition home or self-care (01) ==
LOC: LABWHC1 11:16
PROVIDERS: ATTEND Internal Medicine Critical Care Medicine
DX: J96.11 Chronic respiratory failure with hypoxia (principal); J90 Pleural effusion, not elsewhere classified
CPT/HCPCS: 36415; 80053; 83880; 84439; 84443

== ENCOUNTER → 2024-01-09 | Day surgery (SDC) | payer MEDICARE, BC ==
[~2024-01-09] MED LIST changes: -MIDAZOLAM 2 MG/2 ML VIAL IV ONE; +SODIUM CHLORIDE 0.9% 250 ML in EMPTY BAG 1 BAG IV PRN; -SODIUM CHLORIDE 0.9% 500 ML 500 ML IV ONE; +SODIUM CHLORIDE 0.9% 500 ML 500 ML in EMPTY BAG 1 BAG IV PRN; -fentaNYL (PF) 50 MCG/ML 2 ML AMP IV ONE; -fentaNYL (PF) 50 MCG/ML 2 ML AMP ONE; -hydrALAZINE HCL 20 MG/ML 1 ML VIAL IV ONE; -hydrALAZINE HCL 20 MG/ML 1 ML VIAL ONE
[2024-01-09 12:28] VITALS: TEMP 98.1
--- NOTE | 2024-01-09 13:02 | P.PCN ---
Date of Procedure: 01/09/24 Preoperative Diagnosis: Left pleural effusion Postoperative Diagnosis: same Procedure(s) Performed: thoracentesis, left sided Anesthesia: local Surgeon: Maikel Guzman Estimated Blood Loss (ml): 0 Pathology: other Condition: stable Disposition: same day Operative Findings: A time out was performed and the chest x-ray was reviewed, the appropriate side was confirmed and marked. My hands were washed immediately prior to the procedure. I wore a surgical cap, mask with protective eyewear, sterile gown and sterile gloves throughout the procedure. The patient was prepped and draped in a sterile manner using chlorhexidine scrub after the appropriate level was percussed and confirmed by ultrasound. 1% lidocaine was used to anesthesize the skin, subcutaneous tissue, superior aspect of the rib periosteum and parietal pleura. A finder needle was then introduced over the superior aspect of the rib to locate the pleural fluid; 2colored fluid was aspirated at a depth of approximately 2 cm. A 10-blade scalpel was used to roby the skin at the insertion site. The [id number] needle was then introduced through the skin incision into the pleural space using negative aspiration pressure and the red colometric indicator to confirm appropriate positioning of the needle. The th oracentesis catheter was then threaded without difficulty. 1300 ml of turbid colored fluid was removed without difficulty. The catheter was then removed. No immediate complications were noted during the procedure. A post-procedure chest x-ray is pending at the time of this note. The fluid will be sent for studies. Estimated blood loss is 0cc
[2024-01-09 13:11] VITALS: BP 121/80; PULSE 98; RESP 18
--- NOTE | 2024-01-09 13:37 | XR ---
EXAMINATION TYPE: XR chest 1V portable DATE OF EXAM: 01/09/2024 COMPARISON: 12/30/2023 CLINICAL INDICATION: Female, 88 years old with history of POST LEFT THORACENTESIS; , TECHNIQUE: XR chest 1V portable views of the chest. FINDINGS: Bilateral consolidation and small effusion. Atherosclerotic change aorta. Chronic deformity of the ri ght humerus. Biapical pleural thickening. Surgical clips in the upper abdomen. No pneumothorax. IMPRESSION: 1. Bilateral infiltrate and small pleural effusion which is noticeably improved on the left. No sizab le pneumothorax postthoracentesis. [facility], , 01/09/2024 1:35 PM
[2024-01-10 03:54] LABS: Glucose, BF Source Pleural Fluid; Glucose, Body Fluid 120 mg/dL; LDH, Body Fluid Source Pleural Fluid; T. Protein, Body Fluid Source Pleural Fluid; Total Protein, Body Fluid >3600 mg/dL
[2024-01-10 04:54] LABS: Appearance,BF Slightly Cloudy (Clear)
== END ==
LOC: PROCWHC3 12:12
PROVIDERS: ATTEND Internal Medicine Critical Care Medicine
DX: J90 Pleural effusion, not elsewhere classified (principal)
CPT/HCPCS: 32554; 71045; 82945; 83615; 84157; 87070; 87075; 87116; 87205; 87206; 88108; 88305; 89050